=== PATIENT | female | born 1965 ===

== ENCOUNTER 2016-11-29 17:52 | Emergency (ER) | payer MEDICAID ==
[2016-11-29 17:52] VITALS: BMI 29.0
[2016-11-29 19:13] VITALS: RESP 18; O2SAT 95
--- NOTE | 2016-11-29 20:26 | C.PDOC ---
History Of Present Illness Pt c/o itchy rash on extremities. Time Seen by Provider: 11/29/16 18:41 Chief Complaint (Nursing): Abnormal Skin Integrity History Per: Patient Onset/Duration Of Symptoms: Days (3) Current Symptoms Are (Timing): Still Present Quality Of Symptoms: Itching Severity: Moderate Additional History Per: Prior Records Past Medical History Reviewed: Historical Data, Nursing Documentation, Vital Signs Vital Signs: Last Vital Signs Temp 99 F 11/29/16 19:12 Pulse 102 H 11/29/16 19:12 Resp 18 11/29/16 19:12 BP 144/91 H 11/29/16 19:12 Pulse Ox 95 11/29/16 19:12 - Medical History PMH: Anxiety, Arthritis, Asthma, Back Problems (herniated disc x 5), Bipolar Disorder, Bronchitis, CAD, Depression, Diabetes, Gastritis, Gall Bladder Disease , HTN, Hypercholesterolemia, Hypothyroidism, Migraine, Pneumonia, Post Traumatic Stress Disorder, Rheumatoid Arthritis, Seizures (last 25 yrs ago) Surgical History: Cholecystectomy, Coronary Stent - [facility] Procedures ANESTH INJECT-SPIN CANAL (02/17/13) CLOSURE SKIN & SUBCUTANEOUS NEC (01/29/13) DERMAL REGENERATIVE GRAFT (09/05/13) EXCISION OF ASCENDING COLON, ENDO, DIAGN (10/01/15) EXCISION OF DESCENDING COLON, ENDO, DIAGN (10/01/15) EXCISION OF RECTUM, ENDO, DIAGN (10/01/15) EXCISION OF SIGMOID COLON, ENDO, DIAGN (10/01/15) EXCISION OF TRANSVERSE COLON, ENDO, DIAGN (10/01/15) INJECT STEROID (03/31/13) INJECTION INTO JOINT (03/31/13) INSERTION OF INFUSION DEVICE INTO R ATRIUM, PERC APPROACH (10/01/15) LOC EXC BONE LESION NEC (08/11/13) LUMBOSAC SPINE X-RAY NEC (03/31/13) NONEXCIS DEBRID OF WOUND, INFECT, OR BURN (09/05/13) OTHER EXCISION, FUSION, AND REPAIR OF TOES (03/16/15) OTHER LOCAL DESTRUC SKIN (07/07/13) SPINAL CANAL INJECT NEC (03/31/13) TETANUS TOXOID ADMINIST (01/29/13) ULTRASONOGRAPHY OF RIGHT HEART (10/01/15) Family History: States: Unknown Family Hx, Diabetes - Social History Hx Tobacco Use: Yes Hx Alcohol Use: No Hx Substance Use: No - Immunization History Hx Tetanus Toxoid Vaccination: No Hx Influenza Vaccination: No Hx Pneumococcal Vaccination: No Review Of Systems Except As Marked, All Systems Reviewed And Found Negative. Constitutional: Negative for: Fever, Chills, Weakness ENT: Negative for: Mouth Pain, Mouth Swelling, Throat Pain, Throat Swelling Cardiovascular: Negative for: Chest Pain Respiratory: Negative for: Cough, Shortness of Breath Gastrointestinal: Negative for: Vomiting, Abdominal Pain, Diarrhea Musculoskeletal: Negative for: Neck Pain Skin: Positive for: Rash Neurological: Negative for: Weakness, Numbness, Seizures, Altered Mental Status , Headache Physical Exam - Physical Exam Appears: Non-toxic, No Acute Distress Skin: Normal Color, Warm, Dry, Rash (patches on b/l upper and lower extremities. Missing palms and soles. ) Head: Atraumatic, Normacephalic Eye(s): bilateral: Normal Inspection, PERRL, EOMI Oral Mucosa: Moist Tongue: Normal Appearing Lips: Normal Appearing Throat: Normal Neck: Normal ROM, Supple Lymphatic: No Adenopathy Cardiovascular: Rhythm Regular Respiratory: Normal Breath Sounds, No Accessory Muscle Use Gastrointestinal/Abdominal: Soft, No Tenderness Extremity: Normal ROM, No Pedal Edema, No Calf Tenderness Neurological/Psych: Oriented x3, Normal Motor, Normal Sensation ED Course And Treatment O2 Sat by Pulse Oximetry: 95 Pulse Ox Interpretation: Normal Progress - Interventions Interventions:: Observation - Medications Administered Oral: Antihistamine(H-1) - Data Reviewed Data Reviewed: Old records - Patient Status Patient status: Mostly improved - Continuity of Care Discussed patient case with:: Patient, ED Nurse - Patient Plan Patient Plan: Discharge, F/U with PCP Disposition Counseled Patient/Family Regarding: Diagnosis, Need For Followup, Rx Given - Disposition Referrals: Joni Moore MD [Staff Provider] - Disposition: HOME/ ROUTINE Disposition Time: 20:27 Condition: IMPROVED Additional Instructions: Follow up with your doctor and your Drum Sealer for further evaluation and treatment. Return to the ER if you develop fever, mouth sores, worsening of symptoms or if you have any other concerns. Prescriptions: DiphenhydrAMINE [Benadryl] 25 mg PO Q4 PRN #30 cap PRN Reason: Itching / Pruritus Hydrocortisone 1% Oint [Cortizone 1% Oint] 1 appl TP TID #1 tube Instructions: Acute Rash (ED) - Clinical Impression Clinical Impression: Pruritic rash
[2016-11-29 20:33] VITALS: BP 140/94; PULSE 100; TEMP 98.4
== END 2016-11-29 20:53 | disposition home or self-care (01) ==
LOC: C.ER 17:52
DX: L29.9 Pruritus, unspecified (principal)

== ENCOUNTER 2016-12-08 15:33 | Emergency (ER) | payer MEDICAID ==
[2016-12-08 15:33] VITALS: BMI 29.0
[2016-12-08 15:43] VITALS: RESP 20
--- NOTE | 2016-12-08 17:19 | C.PDOC ---
History Of Present Illness Pt c/o right foot pain. She was evaluated for it with an MRI that showed tendonitis and fasciitis. Time Seen by Provider: 12/08/16 16:16 Chief Complaint (Nursing): Lower Extremity Problem/Injury History Per: Patient Onset/Duration Of Symptoms: Days Current Symptoms Are (Timing): Still Present Severity: Moderate Additional History Per: Prior Records - Ankle/Foot Alleviating Factor(s): OTC Pain Medication Past Medical History Reviewed: Historical Data, Nursing Documentation, Vital Signs Vital Signs: Last Vital Signs Temp 97.8 F 12/08/16 15:40 Pulse 117 H 12/08/16 15:40 Resp 20 12/08/16 15:40 BP 127/90 12/08/16 15:40 Pulse Ox 97 12/08/16 15:40 - Medical History PMH: Anxiety, Arthritis, Asthma, Back Problems (herniated disc x 5), Bipolar Disorder, Bronchitis, CAD, Depression, Diabetes, Gastritis, Gall Bladder Disease , HTN, Hypercholesterolemia, Hypothyroidism, Migraine, Pneumonia, Post Traumatic Stress Disorder, Rheumatoid Arthritis, Seizures (last 25 yrs ago) Surgical History: Cholecystectomy, Coronary Stent - [facility] Procedures ANESTH INJECT-SPIN CANAL (02/17/13) CLOSURE SKIN & SUBCUTANEOUS NEC (01/29/13) DERMAL REGENERATIVE GRAFT (09/05/13) EXCISION OF ASCENDING COLON, ENDO, DIAGN (10/01/15) EXCISION OF DESCENDING COLON, ENDO, DIAGN (10/01/15) EXCISION OF RECTUM, ENDO, DIAGN (10/01/15) EXCISION OF SIGMOID COLON, ENDO, DIAGN (10/01/15) EXCISION OF TRANSVERSE COLON, ENDO, DIAGN (10/01/15) INJECT STEROID (03/31/13) INJECTION INTO JOINT (03/31/13) INSERTION OF INFUSION DEVICE INTO R ATRIUM, PERC APPROACH (10/01/15) LOC EXC BONE LESION NEC (08/11/13) LUMBOSAC SPINE X-RAY NEC (03/31/13) NONEXCIS DEBRID OF WOUND, INFECT, OR BURN (09/05/13) OTHER EXCISION, FUSION, AND REPAIR OF TOES (03/16/15) OTHER LOCAL DESTRUC SKIN (07/07/13) SPINAL CANAL INJECT NEC (03/31/13) TETANUS TOXOID ADMINIST (01/29/13) ULTRASONOGRAPHY OF RIGHT HEART (10/01/15) Family History: States: Unknown Family Hx, Diabetes - Social History Hx Tobacco Use: Yes Hx Alcohol Use: No Hx Substance Use: No - Immunization History Hx Tetanus Toxoid Vaccination: No Hx Influenza Vaccination: No Hx Pneumococcal Vaccination: No Review Of Systems Except As Marked, All Systems Reviewed And Found Negative. Constitutional: Negative for: Fever, Weakness Cardiovascular: Negative for: Chest Pain Respiratory: Negative for: Shortness of Breath Gastrointestinal: Negative for: Vomiting, Abdominal Pain Musculoskeletal: Positive for: Foot Pain (right). Negative for: Neck Pain, Back Pain Skin: Negative for: Rash Neurological: Negative for: Weakness, Numbness, Seizures, Altered Mental Status Physical Exam - Physical Exam Appears: Non-toxic, No Acute Distress Skin: Normal Color, Warm, Dry, No Rash Head: Atraumatic, Normacephalic Eye(s): bilateral: PERRL, EOMI Neck: Normal ROM, Supple Extremity: Normal ROM, Tenderness (nonspecific right foot), No Pedal Edema, No Calf Tenderness, Capillary Refill (wnl), No Deformity, No Swelling Extremity: Bilateral: Normal Color And Temperature Pulses: Right Dorsalis Pedis: Normal Neurological/Psych: Oriented x3, Normal Motor, Normal Sensation ED Course And Treatment O2 Sat by Pulse Oximetry: 97 Pulse Ox Interpretation: Normal Progress Note: Pt feels better after Ice and Toradol. Pt has crutches at home. Pt has an appointment at [facility] for evaluation of her foot. Reassessment Condition: Improved Disposition Counseled Patient/Family Regarding: Diagnosis, Need For Followup - Disposition Referrals: Joni Moore MD [Staff Provider] - Michael Syed DPM [Staff Provider] - Disposition: HOME/ ROUTINE Disposition Time: 17:20 Condition: IMPROVED Additional Instructions: Use crutches to stay off right foot. Follow up for further evaluation and treatment as already scheduled. Return to the ER if you develop redness, swelling, weakness, numbness, worsening of symptoms or if you have any other concerns. Instructions: Plantar Fasciitis (ED) - Clinical Impression Clinical Impression: Right foot pain
[2016-12-08 17:29] VITALS: BP 150/88; PULSE 109; TEMP 98.2; O2SAT 96
== END 2016-12-08 17:29 | disposition home or self-care (01) ==
LOC: C.ER 15:33
DX: M79.671 Pain in right foot (principal)
CPT/HCPCS: 96372; 99284; J1885

== ENCOUNTER 2016-12-15 07:22 | Observation (INO) | payer MEDICAID ==
[2016-12-15 07:22] VITALS: BMI 29.0
--- NOTE | 2016-12-15 07:49 | C.PDOC ---
History Of Present Illness 51 y/o female, whose PMHx includes depression, hypertension, and diabetes, presents to the ED complaining of lower abdominal pain since yesterday. She states, I've "never had it bad like this before." Patient admits to nausea and vomiting but denies fever. Patient has surgical history of hysterectomy and c- section. Also history of cholecystectomy, stent, as per prior records though patient does not report this during exam. Note that the patient is a poor historian, limited due to clinical condition. POOR HISTORIAN, LIMITED DUE TO CLIN COND LOWER ABD PAIN SINCE YEST. "NEVER HAD IT BAD LIKE THIS". +NV. NO FEVER. PSH HYST , CSECT. HO HAY, STENT PER PRIOR RECORDS THOUGH PT DOES NOT REPORT THIS DURING EXAM. past medical history includes depression, hypertension, diabetes, ROS LIMITED EXAM MOD DIST NONTOXIC HEENT NEG ABD +B/L LQ, PERIUMB TEND SOFT NO R/G. PT DISTRACTABLE FROM EXAM REMAINDER NEG Time Seen by Provider: 12/15/16 07:37 Chief Complaint (Nursing): Abdominal Pain History Per: Patient History/Exam Limitations: no limitations Onset/Duration Of Symptoms: Days (1), Persistent Current Symptoms Are (Timing): Still Present Location Of Pain/Discomfort: RLQ, LLQ Radiation Of Pain To:: None Quality Of Discomfort: Sharp Associated Symptoms: Nausea, Vomiting Recent travel outside of the [place]: No Past Medical History Reviewed: Historical Data, Nursing Documentation, Vital Signs Vital Signs: Last Vital Signs Temp 98.9 F 12/15/16 13:27 Pulse 78 12/15/16 13:27 Resp 22 12/15/16 13:27 BP 131/88 12/15/16 13:27 Pulse Ox 96 12/15/16 13:45 - Medical History PMH: Anxiety, Arthritis, Asthma, Back Problems (herniated disc x 5), Bipolar Disorder, Bronchitis, CAD, Depression, Diabetes, Gastritis, Gall Bladder Disease , HTN, Hypercholesterolemia, Hypothyroidism, Migraine, Pneumonia, Post Traumatic Stress Disorder, Rheumatoid Arthritis, Seizures (last 25 yrs ago) Surgical History: Cholecystectomy, Coronary Stent - [facility] Procedures ANESTH INJECT-SPIN CANAL (02/17/13) CLOSURE SKIN & SUBCUTANEOUS NEC (01/29/13) DERMAL REGENERATIVE GRAFT (09/05/13) EXCISION OF ASCENDING COLON, ENDO, DIAGN (10/01/15) EXCISION OF DESCENDING COLON, ENDO, DIAGN (10/01/15) EXCISION OF RECTUM, ENDO, DIAGN (10/01/15) EXCISION OF SIGMOID COLON, ENDO, DIAGN (10/01/15) EXCISION OF TRANSVERSE COLON, ENDO, DIAGN (10/01/15) INJECT STEROID (03/31/13) INJECTION INTO JOINT (03/31/13) INSERTION OF INFUSION DEVICE INTO R ATRIUM, PERC APPROACH (10/01/15) LOC EXC BONE LESION NEC (08/11/13) LUMBOSAC SPINE X-RAY NEC (03/31/13) NONEXCIS DEBRID OF WOUND, INFECT, OR BURN (09/05/13) OTHER EXCISION, FUSION, AND REPAIR OF TOES (03/16/15) OTHER LOCAL DESTRUC SKIN (07/07/13) SPINAL CANAL INJECT NEC (03/31/13) TETANUS TOXOID ADMINIST (01/29/13) ULTRASONOGRAPHY OF RIGHT HEART (10/01/15) Family History: States: Diabetes - Social History Hx Tobacco Use: Yes Hx Alcohol Use: No Hx Substance Use: No - Immunization History Hx Tetanus Toxoid Vaccination: No Hx Influenza Vaccination: No Hx Pneumococcal Vaccination: No Review Of Systems Review Of Systems: ROS cannot be obtained secondary to pt's inabilty to answer questions. Constitutional: Negative for: Fever Gastrointestinal: Positive for: Nausea, Vomiting, Abdominal Pain (lower) Physical Exam - Physical Exam Appears: Non-toxic, Other (in moderate distress) Skin: Normal Color, Warm, Dry, No Rash Head: Atraumatic, Normacephalic Eye(s): bilateral: Normal Inspection, PERRL Ear(s): Bilateral: Normal Nose: Normal Oral Mucosa: Moist Throat: Normal, No Erythema, No Exudate Neck: Normal ROM, Supple Chest: Symmetrical Cardiovascular: Rhythm Regular Respiratory: Normal Breath Sounds, No Rales, No Rhonchi, No Wheezing Gastrointestinal/Abdominal: Soft, Tenderness (bilateral lower quadrants and periumbilical), No Guarding, No Rebound, Other (pt distractable from exam) Back: Normal Inspection, No CVA Tenderness Extremity: Normal ROM, No Tenderness, No Swelling Neurological/Psych: Oriented x3, Normal Speech, Normal Cognition, Normal Motor, Normal Sensation ED Course And Treatment - Laboratory Results Result Diagrams: 12/15/16 08:07 12/15/16 08:07 ECG: Interpreted By Me ECG Rhythm: Sinus Tachycardia Rate From EC (bpm) O2 Sat by Pulse Oximetry: 96 (ra) Pulse Ox Interpretation: Normal - Radiology CXR: Interpreted by Me CXR Interpretation: Yes: Other (negative, unchanged from prior) - CT Scan/US CT Abd/Pelvis Other Rad Studies (CT/US): Read By Radiologist (Chace Forrest), Radiology Report Reviewed CT/US Interpretation: FINDINGS: LOWER THORAX: No evidence of acute pathology at the lung bases. Mild atelectasis seen. No evidence of pleural effusion. LIVER: Mild hepatomegaly and moderate hepatic steatosis are again seen. The portal vein is patent. GALLBLADDER AND BILE DUCTS: Status post cholecystectomy. PANCREAS: Unremarkable. No gross lesion or ductal dilatation. SPLEEN: Unremarkable. ADRENALS: Unremarkable. No mass. KIDNEYS AND URETERS: Unremarkable. No hydronephrosis. No solid mass. VASCULATURE: Unremarkable. No aortic aneurysm. BOWEL: Diffuse small bowel wall thickening more prominent at the left mid to lower abdomen suspicious for enteritis. No evidence of colitis or high-grade bowel obstruction. Colonic diverticulosis seen without evidence of diverticulitis. APPENDIX: Normal appendix. PERITONEUM: Unremarkable. No free fluid. No free air. LYMPH NODES: Unremarkable. No enlarged lymph nodes. BLADDER: Unremarkable. REPRODUCTIVE: Again seen is low-attenuation cystic lesion at the right ovary measures 1.9 centimeter. The uterus is not visualized. The right adnexa is also not visualized. BONES: No acute fracture. OTHER FINDINGS: None. IMPRESSION: Diffuse small bowel wall thickening more prominent at the left mid abdomen suspicious for enteritis. No evidence of high-grade bowel obstruction. No evidence of appendicitis. Re- demonstration of low-attenuation lesion at the right adnexa measures 1.9 centimeter. Colonic diverticulosis without evidence of diverticulitis. Hepatomegaly and moderate hepatic steatosis. Ultrasound Other Rad Studies (CT/US): Read By Radiologist ( Toby Landeros MD), Radiology Report Reviewed CT/US Interpretation: Findings: No free fluid in the pelvic cul-de-sac. Patient status post prior hysterectomy and left oophorectomy. Right ovary measures 4.1 x 2.5 x 3.7 centimeters. Normal flow. Two hypoechoic cysts seen within the right ovary both of which demonstrates some internal echoes measuring 1.5 x 1.3 x 1.9 centimeters and 1.6 x 1.2 x 1.6 centimeters respectively. Impression: Two hypoechoic cysts with internal echoes seen at the level of the right adnexum measuring up to 1.9 and 1.6 centimeters respectively. Right ovary appears prominent measuring up to 4.1 centimeters. 4- 6 week interval followup would be helpful for continued evaluation. Alternatively, correlation with pelvic MRI may be helpful if clinically indicated. Progress - Data Reviewed Data Reviewed: Lab, Diagnostic imaging, Old records - Critical Care Citical Care: Excluding Proc Time Critical Care Time: 90 minutes - Continuity of Care Discussed patient case with:: Patient, Family-HIPPA compliant Discussed pt. case with field sales consultant/specialty: Pulmonary/Crit. Care Medical Decision Making Medical Decision Making: Plan: * CT Abd/Pelvis * Ultrasound * Chest X-Ray * EKG * Blood Work * Urinalysis * Morphine IVP, Pepcid IVP, Zofran IVP, Zosyn IV, Potassium Chloride IV, IV Fluids Patient admitted under the care of Dr. Joni Moore. ED OBSERVATION Discharge: Yes Date of observation admission: 12/15/16 Time of observation admission: 07:45 - Observation admission statement Patient is being placed in observation because:: abd pain, nv - Goals of Observation Goals of observation are:: NEG ACUTE AB, SX IMPROVE - Progress Note Progress Note: 12/15/16 08:33 CODE SEPSIS ACTIVATED. EXAM UNCH 12/15/16 11:17 APEPARS COMFORTABLE VSS. PENDING CT. US REPORT REVIEWED. PENDING CALLBACK ICU, PMD 12/15/16 11:21 D/W DR LIU C/F ICU: WILL EVAL IN ER D/W DR MOORE: HO ABN WBC FOR SEV MONTHS. CONFIRMS PT W PRIOR DISTANT HO OVARIAN CA. CONSULT DR SHARYN NEVAREZ 12/15/16 13:[address] LIU EXAM UNCH FROM PRIOR, APPEARS COMFORTABLE VSS 12/15/16 14:18 PS DOES NOT WISH ADMISSION, WANTS TO LEAVE AMA. AWARE OF ER FINDINGS, DISCUSSED RISKS BENEFITS OF LEAVING INCLUDING DISABILITY, DETERIORATION AND . AO3, CLEAR SPEECH AND THOUGHT. EXPRESSES VERBAL UNDERSTANDING. ADVISED FU PMD Disposition Counseled Patient/Family Regarding: Studies Performed, Diagnosis - Disposition Disposition: HOSPITALIZED Disposition Time: 13:26 Condition: STABLE - Clinical Impression Clinical Impression: Abdominal pain, Ovarian mass, Lymphocytosis - Scribe Statement The provider has reviewed the documentation as recorded by the Scribe (Vika Patterson) Provider Attestation: All medical record entries made by the Scribe were at my direction and personally dictated by me. I have reviewed the chart and agree that the record accurately reflects my personal performance of the history, physical exam, medical decision making, and the department course for this patient. I have also personally directed, reviewed, and agree with the discharge instructions and disposition. Decision To Admit - Pt Status Changed To: Hospital Disposition Of: Inpatient - Admit Certification Admit to Inpatient:: After my assessment, the patient will require hospitalization for at least two midnights. This is because of the severity of symptoms shown, intensity of services needed, and/or the medical risk in this patient being treated as an outpatient. - InPatient: Physician Admission Certification:: SEE NOTE - . Bed Request Type: Telemetry Admitting Physician: Joni Moore Patient Diagnosis: Abdominal pain, Ovarian mass, Lymphocytosis
[2016-12-15] MEDS ORDERED: Sodium Chloride 0.9% 1,000 ML IV ONE (07:51)
[2016-12-15] MEDS ORDERED: Iohexol 240 (50 ml) PO STA (07:51)
[2016-12-15] MEDS ORDERED: Sodium Chloride 0.9% 1,000 ML ONE ×2 (08:08→08:46)
[2016-12-15] MEDS ORDERED: Morphine 4 MG/ML VIAL ONE (08:09)
[2016-12-15 08:13] LABS: BASO # 0.1 K/uL (0.0-0.2); BASO % 0.5 % (0.0-2.0); EOS # 0.2 K/uL (0.0-0.7); EOS % 0.6 % (0.0-4.0); HEMATOCRIT 46.8 % (34.0-47.0); LYMPH # 1.6 K/uL (1.0-4.3); LYMPH % 5.3 % (20.0-40.0); MEAN CELL VOLUME 87.2 fL (81.0-99.0); MEAN CORPUSCULAR HEMOGLOBIN 28.3 pg (27.0-31.0); MEAN CORPUSCULAR HGB CONC 32.4 g/dL (33.0-37.0); MEAN PLATELET VOLUME 9.2 fL (7.2-11.7); MONO # 1.6 K/uL (0.0-0.8); MONO % 5.3 % (0.0-10.0); NRBC % 0.3 % (0.0-2.0); PLATELET COUNT 283 K/uL (130-400); RED CELL DISTRIBUTION WIDTH 13.3 % (11.5-14.5)
[2016-12-15 08:23] LABS: CHLORIDE 101 mmol/L (98-107); WHITE BLOOD COUNT 30.3 K/uL (4.8-10.8)
[2016-12-15 08:24] LABS: POTASSIUM 3.2 mmol/L (3.6-5.2); SODIUM 137 mmol/L (132-148)
[2016-12-15 08:26] LABS: ALB/GLOB RATIO 1.4 (1.0-2.1); ALKALINE PHOSPHATASE 109 U/L (38-126); ALT/SGPT 17 U/L (9-52); AST/SGOT 22 U/L (14-36); BILIRUBIN,TOTAL 1.2 mg/dL (0.2-1.3); BLOOD UREA NITROGEN 18 mg/dL (7-17); CARBON DIOXIDE 19 mmol/L (22-30); GFR AFRICAN-AMERICAN > 60; GLUCOSE,RANDOM 286 mg/dL (65-105); TOTAL PROTEIN 7.7 g/dL (6.3-8.3)
[2016-12-15 08:27] LABS: CALCIUM 9.3 mg/dl (8.6-10.4)
--- NOTE | 2016-12-15 08:28 | RAD ---
PROCEDURE: CHEST RADIOGRAPH, 1 VIEW HISTORY: Abdominal pain COMPARISON: 10/18/2016 FINDINGS: LUNGS: Mild venous congestion. PLEURA: No pneumothorax or pleural fluid seen. CARDIOVASCULAR: Normal. OSSEOUS STRUCTURES: Minimal calcific tendinopathy of the right proximal humerus. VISUALIZED UPPER ABDOMEN: Normal. OTHER FINDINGS: None. IMPRESSION: Mild venous congestion.
[2016-12-15] MEDS ORDERED: Potassium Chloride 10 mEq 100 ML IV ONE (08:30)
[2016-12-15 08:31] LABS: VENOUS BLOOD GAS BASE EXCESS -3.9 mmol/L (0.0-2.0); VENOUS BLOOD GAS PCO2 29 mmHg (40-60); VENOUS BLOOD PH 7.43 (7.32-7.43)
[2016-12-15 08:38] LABS: EOSINOPHIL 1 % (0-4); NEUTROPHIL 83 % (50-75); TOTAL CELLS COUNTED 100
[2016-12-15 08:40] LABS: LARGE PLATELETS PRESENT
[2016-12-15] MEDS ORDERED: Piperacillin/Tazobact 3.375 gm 100 ML IV STA (08:44)
[2016-12-15] MEDS ORDERED: Sodium Chloride 0.9% 500 ML IV ONE (08:46)
[2016-12-15] MEDS ORDERED: Potassium Chloride 10 mEq 100 ML IVPB ONE (08:47)
[2016-12-15 08:58] LABS: MAGNESIUM 1.7 mg/dL (1.6-2.3); PHOSPHOROUS 3.2 mg/dL (2.5-4.5)
[2016-12-15 09:05] LABS: INR 0.9
[2016-12-15] MEDS ORDERED: Piperacillin/Tazobact 3.375 gm 100 ML IVPB ONE (10:08)
[2016-12-15] MEDS ORDERED: Iohexol 240 (50 ml) ONE (10:18)
[2016-12-15 10:54] LABS: RBC URINE 3 /hpf (0-3); URINE BACTERIA RARE (<OCC); URINE BILIRUBIN NEGATIVE (NEGATIVE); URINE BLOOD 1+ (NEGATIVE); URINE COLOR Yellow (YELLOW); URINE GLUCOSE (UA) 3+ mg/dL (Normal); URINE KETONE TRACE mg/dL (NEGATIVE); URINE LEUKOCYTE ESTERASE NEG Leu/uL (Negative); URINE PROTEIN NEGATIVE (NEGATIVE); URINE UROBILINOGEN NORMAL mg/dL (0.2-1.0); WBC URINE 1 /hpf (0-5)
--- NOTE | 2016-12-15 11:12 | US ---
Pelvic ultrasound History: Ovarian mass. Comparison: CT scan dated 12/12/2016 Technique: Real-time sonography was performed through the pelvis utilizing transvaginal technique. Findings: No free fluid in the pelvic cul-de-sac. Patient status post prior hysterectomy and left oophorectomy. Right ovary measures 4.1 x 2.5 x 3.7 centimeters. Normal flow. Two hypoechoic cysts seen within the right ovary both of which demonstrates some internal echoes measuring 1.5 x 1.3 x 1.9 centimeters and 1.6 x 1.2 x 1.6 centimeters respectively. Impression: Two hypoechoic cysts with internal echoes seen at the level of the right adnexum measuring up to 1.9 and 1.6 centimeters respectively. Right ovary appears prominent measuring up to 4.1 centimeters. 4-6 week interval followup would be helpful for continued evaluation. Alternatively, correlation with pelvic MRI may be helpful if clinically indicated.
[2016-12-15 11:56] LABS: VENOUS BLOOD GAS PCO2 37 mmHg (40-60); VENOUS BLOOD PH 7.31 (7.32-7.43)
[2016-12-15] MEDS ORDERED: Iodixanol 320 mg/ml 150 ml Bottle IV ONE (11:59)
[2016-12-15 13:28] VITALS: BP 131/88; PULSE 78; RESP 22; TEMP 98.9
[2016-12-15 13:30] VITALS: O2SAT 96
--- NOTE | 2016-12-15 13:33 | CT ---
PROCEDURE: CT Abdomen and Pelvis with contrast HISTORY: abd pain RO OBSTRUCT COMPARISON: Comparison is made to the previous study dated 12/12/2016 previous same-day ultrasound of the pelvis. TECHNIQUE: Contrast dose: 100 mL of Visipaque Radiation dose: Total exam DLP = 1027.0 mGy-cm. This CT exam was performed using one or more of the following dose reduction techniques: Automated exposure control, adjustment of the mA and/or kV according to patient size, and/or use of iterative reconstruction technique. FINDINGS: LOWER THORAX: No evidence of acute pathology at the lung bases. Mild atelectasis seen. No evidence of pleural effusion LIVER: Mild hepatomegaly and moderate hepatic steatosis are again seen. The portal vein is patent. GALLBLADDER AND BILE DUCTS: Status post cholecystectomy. PANCREAS: Unremarkable. No gross lesion or ductal dilatation. SPLEEN: Unremarkable. ADRENALS: Unremarkable. No mass. KIDNEYS AND URETERS: Unremarkable. No hydronephrosis. No solid mass. VASCULATURE: Unremarkable. No aortic aneurysm. BOWEL: Diffuse small bowel wall thickening more prominent at the left mid to lower abdomen suspicious for enteritis. No evidence of colitis or high-grade bowel obstruction. Colonic diverticulosis seen without evidence of diverticulitis. APPENDIX: Normal appendix. PERITONEUM: Unremarkable. No free fluid. No free air. LYMPH NODES: Unremarkable. No enlarged lymph nodes. BLADDER: Unremarkable. REPRODUCTIVE: Again seen is low-attenuation cystic lesion at the right ovary measures 1.9 centimeter. The uterus is not visualized. The right adnexa is also not visualized. BONES: No acute fracture. OTHER FINDINGS: None. IMPRESSION: Diffuse small bowel wall thickening more prominent at the left mid abdomen suspicious for enteritis. No evidence of high-grade bowel obstruction. No evidence of appendicitis. Re- demonstration of low-attenuation lesion at the right adnexa measures 1.9 centimeter. Colonic diverticulosis without evidence of diverticulitis. Hepatomegaly and moderate hepatic steatosis.
--- NOTE | 2016-12-18 08:34 | CARD ---
APPROVED REPORT EKG Measurement Heart [id number] <Conclusion> Sinus tachycardia Right atrial enlargement Borderline ECG
== END 2016-12-15 14:24 | disposition left against medical advice (07) ==
LOC: C.ER 07:22 → C.9OBSV 07:45 → OBSVTOIN 13:30 → C.9OBSV 13:30 → C.9E 13:30 → INTOOBSV 13:30
PROVIDERS: ADMIT Family Medicine; ATTEND Family Medicine
DX: R19.09 Other intra-abdominal and pelvic swelling, mass and lump (principal); D72.820 Lymphocytosis (symptomatic); E03.9 Hypothyroidism, unspecified; Z87.891 Personal history of nicotine dependence
CPT/HCPCS: 36415; 71010; 74177; 76830; 80053; 81001; 82803; 82948; 83690; 83735; 84100; 85025; 85610; 85730; 87040; 87045; 87086; 87230; 96360; 96374; G0378; J2270; J2405; J2543; J3480; J7040; Q9965; Q9966

== ENCOUNTER 2016-12-16 10:03 | Inpatient (IN) | payer MEDICAID ==
[2016-12-16 10:03] VITALS: BMI 29.0
[2016-12-16] MEDS ORDERED: Sodium Chloride 0.9% 1,000 ML IV ONE (10:47)
[2016-12-16 10:49] LABS: VENOUS BLOOD GAS BASE EXCESS -1.7 mmol/L (0.0-2.0); VENOUS BLOOD GAS PCO2 34 mmHg (40-60); VENOUS BLOOD PH 7.42 (7.32-7.43)
[2016-12-16 10:54] LABS: CHLORIDE 104 mmol/L (98-107); SODIUM 137 mmol/L (132-148)
[2016-12-16 10:55] LABS: POTASSIUM 3.8 mmol/L (3.6-5.2)
[2016-12-16 10:57] LABS: ALB/GLOB RATIO 1.4 (1.0-2.1); ALKALINE PHOSPHATASE 98 U/L (38-126); ALT/SGPT 13 U/L (9-52); AST/SGOT 24 U/L (14-36); BILIRUBIN,TOTAL 0.4 mg/dL (0.2-1.3); BLOOD UREA NITROGEN 9 mg/dL (7-17); CALCIUM 8.7 mg/dl (8.6-10.4); CARBON DIOXIDE 20 mmol/L (22-30); GFR AFRICAN-AMERICAN > 60; GLUCOSE,RANDOM 238 mg/dL (65-105); PHOSPHOROUS 3.2 mg/dL (2.5-4.5); TOTAL PROTEIN 6.8 g/dL (6.3-8.3)
[2016-12-16] MEDS ORDERED: Sodium Chloride 0.9% 1,000 ML ONE (10:58)
[2016-12-16] MEDS ORDERED: Morphine 4 MG/ML VIAL ONE (10:58)
[2016-12-16 10:59] LABS: BASO # 0.1 K/uL (0.0-0.2); BASO % 0.4 % (0.0-2.0); EOS # 0.2 K/uL (0.0-0.7); EOS % 1.2 % (0.0-4.0); HEMATOCRIT 41.2 % (34.0-47.0); LYMPH # 2.7 K/uL (1.0-4.3); LYMPH % 16.6 % (20.0-40.0); MEAN CELL VOLUME 87.8 fL (81.0-99.0); MEAN CORPUSCULAR HEMOGLOBIN 28.4 pg (27.0-31.0); MEAN CORPUSCULAR HGB CONC 32.3 g/dL (33.0-37.0); MEAN PLATELET VOLUME 9.2 fL (7.2-11.7); NRBC % 0.1 % (0.0-2.0); RED CELL DISTRIBUTION WIDTH 13.3 % (11.5-14.5); WHITE BLOOD COUNT 16.6 K/uL (4.8-10.8)
--- NOTE | 2016-12-16 11:23 | C.PDOC ---
History Of Present Illness Patient is 51 year old female who was sent to the ER yesterday by PMD Dr. Moore for admission. Patient was seen yesterday but did not want to be admitted but is willing to be admitted today. Patient reports abdominal pain, nausea, vomiting, diarrhea and fever in the AM. 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 Denies any chest pain or shortness of breath. Time Seen by Provider: 12/16/16 10:18 Chief Complaint (Nursing): Abdominal Pain History Per: Patient History/Exam Limitations: no limitations Onset/Duration Of Symptoms: Days Current Symptoms Are (Timing): Still Present Location Of Pain/Discomfort: Other (Abdominal) Associated Symptoms: Fever, Nausea, Vomiting, Diarrhea Past Medical History Reviewed: Historical Data, Nursing Documentation, Vital Signs Vital Signs: Last Vital Signs Temp 98.0 F 12/16/16 12:04 Pulse 88 12/16/16 16:01 Resp 18 12/16/16 16:01 BP 133/59 L 12/16/16 16:01 Pulse Ox 99 12/16/16 16:01 - Medical History PMH: Anxiety, Arthritis, Asthma, Back Problems (herniated disc x 5), Bipolar Disorder, Bronchitis, CAD, Depression, Diabetes, Gastritis, Gall Bladder Disease , HTN, Hypercholesterolemia, Hypothyroidism, Migraine, Pneumonia, Post Traumatic Stress Disorder, Rheumatoid Arthritis, Seizures (last 25 yrs ago) Surgical History: Cholecystectomy, Coronary Stent - [facility] Procedures ANESTH INJECT-SPIN CANAL (02/17/13) CLOSURE SKIN & SUBCUTANEOUS NEC (01/29/13) DERMAL REGENERATIVE GRAFT (09/05/13) EXCISION OF ASCENDING COLON, ENDO, DIAGN (10/01/15) EXCISION OF DESCENDING COLON, ENDO, DIAGN (10/01/15) EXCISION OF RECTUM, ENDO, DIAGN (10/01/15) EXCISION OF SIGMOID COLON, ENDO, DIAGN (10/01/15) EXCISION OF TRANSVERSE COLON, ENDO, DIAGN (10/01/15) INJECT STEROID (03/31/13) INJECTION INTO JOINT (03/31/13) INSERTION OF INFUSION DEVICE INTO R ATRIUM, PERC APPROACH (10/01/15) LOC EXC BONE LESION NEC (08/11/13) LUMBOSAC SPINE X-RAY NEC (03/31/13) NONEXCIS DEBRID OF WOUND, INFECT, OR BURN (09/05/13) OTHER EXCISION, FUSION, AND REPAIR OF TOES (03/16/15) OTHER LOCAL DESTRUC SKIN (07/07/13) SPINAL CANAL INJECT NEC (03/31/13) TETANUS TOXOID ADMINIST (01/29/13) ULTRASONOGRAPHY OF RIGHT HEART (10/01/15) Family History: States: Unknown Family Hx, Diabetes - Social History Hx Tobacco Use: Yes Hx Alcohol Use: No Hx Substance Use: No - Immunization History Hx Tetanus Toxoid Vaccination: No Hx Influenza Vaccination: No Hx Pneumococcal Vaccination: No Review Of Systems Constitutional: Positive for: Fever Cardiovascular: Negative for: Chest Pain Respiratory: Negative for: Shortness of Breath Gastrointestinal: Positive for: Nausea, Vomiting, Abdominal Pain, Diarrhea Physical Exam - Physical Exam Appears: Non-toxic, Other (Painful distress) Skin: Normal Color, Warm, Dry Head: Atraumatic, Normacephalic Oral Mucosa: Moist Chest: Symmetrical, No Tenderness Cardiovascular: Rhythm Regular, No Murmur Respiratory: Normal Breath Sounds, No Rales, No Rhonchi, No Wheezing Gastrointestinal/Abdominal: Soft, Tenderness (RUQ) Neurological/Psych: Oriented x3, Normal Speech, Other (No focal deficits) ED Course And Treatment - Laboratory Results Result Diagrams: 12/16/16 10:38 12/16/16 10:38 ECG: Interpreted By Me, Viewed By Me ECG Rhythm: Sinus Rhythm (Normal) ECG Interpretation: Normal Interpretation Of ECG: Normal axis. No ST-T changes. No acute changes from . Rate From EC O2 Sat by Pulse Oximetry: 95 (Room air) Pulse Ox Interpretation: Normal - Other Rad CXR X-Ray: Viewed By Me, Read By Radiologist Interpretation: HISTORY: Sepsis Patient . Technique: Single view portable semi erect @ 10:45. COMPARISON: December 15, 2016. FINDINGS: LUNGS: No active pulmonary disease. PLEURA: No significant pleural effusion identified, no pneumothorax apparent. CARDIOVASCULAR: No radiographic findings to suggest acute or significant cardiovascular disease. OSSEOUS STRUCTURES: No significant abnormalities. VISUALIZED UPPER ABDOMEN: Normal. OTHER FINDINGS: None. IMPRESSION: No active disease. No significant interval change compared to the prior examination(s). Medical Decision Making Medical Decision Making: Impression: 51 y.o female with abdominal pain and vomiting Plan: * CBC * CXR Prior record reviewed: Patient was seen in ED yesterday and code sepsis was activated, patient was to be admitted to ICU for abdominal pain, ovarian mass and lympocytosis. Progress: 11:[address] Joni Moore and discussed case, he was aware patient signed out AMA yesterday and called patient to report to ER for admission. Patient to be admitted to his service CXR IMPRESSION: No active disease. No significant interval change compared to the prior examination(s). Disposition - Disposition Disposition: HOSPITALIZED Disposition Time: 11:37 Condition: FAIR - POA Present On Arrival: Poor Glycemic Control - Clinical Impression Clinical Impression: Ovarian mass, Abdominal pain Decision To Admit - Pt Status Changed To: Hospital Disposition Of: Inpatient - Admit Certification Admit to Inpatient:: After my assessment, the patient will require hospitalization for at least two midnights. This is because of the severity of symptoms shown, intensity of services needed, and/or the medical risk in this patient being treated as an outpatient. - InPatient: Physician Admission Certification:: Patient with acute abdominal pain, leukocytosis. See chart - . Bed Request Type: Regular Admitting Physician: Joni Moore Patient Diagnosis: Ovarian mass, Abdominal pain
[2016-12-16 12:16] LABS: RBC URINE 3 /hpf (0-3); URINE BILIRUBIN NEGATIVE (NEGATIVE); URINE BLOOD NEGATIVE (NEGATIVE); URINE COLOR Yellow (YELLOW); URINE GLUCOSE (UA) 3+ mg/dL (Normal); URINE KETONE NEGATIVE (NEGATIVE); URINE LEUKOCYTE ESTERASE NEG Leu/uL (Negative); URINE PROTEIN NEGATIVE (NEGATIVE); URINE UROBILINOGEN NORMAL mg/dL (0.2-1.0); WBC URINE 3 /hpf (0-5)
--- NOTE | 2016-12-16 12:57 | RAD ---
HISTORY: Sepsis Patient . Technique: Single view portable semi erect @ 10:45. COMPARISON: December 15, 2016. FINDINGS: LUNGS: No active pulmonary disease. PLEURA: No significant pleural effusion identified, no pneumothorax apparent. CARDIOVASCULAR: No radiographic findings to suggest acute or significant cardiovascular disease. OSSEOUS STRUCTURES: No significant abnormalities. VISUALIZED UPPER ABDOMEN: Normal. OTHER FINDINGS: None. IMPRESSION: No active disease. No significant interval change compared to the prior examination(s).
--- NOTE | 2016-12-16 21:11 | CP.PCM.HP ---
History of Present Illness - History of Present Illness History of Present Illness: cc: abdom pain, nausea, vomiting; 30K WBC ct HPI: Pt is a 51 y/o female with many co-morbidities amongst which are DM, HTN, chronic pain from previous foot surgeries as well as onigoing pain from suspected plantar fasciitis, as well as on and off episodes of abdom pain with or without diarrhea or constipation. When last seen at the office 1.5 weeks ago , pt had complained of a recurrent skin rash that often subsides after a short course of steroids. Pt was diagnosed with psoriasis in the past but no definitive treatment had been pursued. Pt also takes narcotic pain meds chronically for multi-level disc herniations which frequently cause her pain. Pt also has a PMHx of ovarian CA s/p L oophorectdomy. Pt recently advised to see an oncologist for persistent leukocytosis since about last fall. Pt had never complained of any fevers or symptoms of sepsis. I was called on Thursday evening about pt's presence at the ER which would likely result in an admission. Since various tests were still awaiting results, I opted for a call back when all tests results were in and I can have a complete picture of odilia 's status. Unfortunately, pt decided to go home AMA. > When i found out what happened overnight, I called pt immeduately at home and advised her to go back to the hospital as her CT scan results did not look good and she needed further work up. tt proceeded back to the hospital and was subsequently admitted. Present on Admission - Present on Admission Any Indicators Present on Admission: No History of DVT/PE: No History of Uncontrolled Diabetes: Yes Urinary Catheter: No Decubitus Ulcer Present: No Review of Systems - Review of Systems Systems not reviewed;Unavailable: Acuity of Condition - Constitutional Constitutional: Anorexia, Chills, Excessive Sweating - EENT Eyes: As Per HPI - Gastrointestinal Gastrointestinal: Abdominal Pain, Belching, Bloating, Dyspepsia Past Patient History - Infectious Disease Hx of Infectious Diseases: None - Tetanus Immunizations Tetanus Immunization: Unknown - Past Medical History & Family History Past Medical History?: Yes - Past Social History Smoking Status: Light Smoker < 10 Cigarettes Daily Chewing Tobacco Use: No Cigar Use: No Alcohol: Social Drugs: Denies - CARDIAC Hx Cardiac Disorders: No Hx Hypercholesterolemia: Yes Hx Hypertension: Yes - PULMONARY Hx Asthma: Yes Hx Bronchitis: Yes Hx Pneumonia: Yes - NEUROLOGICAL Hx Migraine: Yes Hx Seizures: Yes (last 25 yrs ago) - HEENT Hx HEENT Problems: No Hx Blind: No Hx Cataracts: No Hx Deafness: No Hx Difficulty Chewing: No Hx Epistaxis: No Hx Glaucoma: No Hx Macular Degeneration: No - ENDOCRINE/METABOLIC Hx Hypothyroidism: Yes - INTEGUMENTARY Hx Dermatological Problems: Yes Hx Eczema: Yes - MUSCULOSKELETAL/RHEUMATOLOGICAL Hx Arthritis: Yes Hx Falls: No Hx Rheumatoid Arthritis: Yes - GASTROINTESTINAL Hx Gall Bladder Disease: Yes Hx Gastritis: Yes - PSYCHIATRIC Hx Anxiety: Yes Hx Bipolar Disorder: Yes Hx Depression: Yes Hx Post Traumatic Stress Disorder: Yes Hx Substance Use: No - SURGICAL HISTORY Hx Cholecystectomy: Yes Hx Coronary Stent: Yes - ANESTHESIA Hx Anesthesia: Yes Hx Anesthesia Reactions: No Hx Malignant Hyperthermia: No Meds Allergies/Adverse Reactions: Allergies Allergy/AdvReac Type Severity Reaction Status Date / Time No Known Allergies Allergy Verified 12/16/16 10:09 Physical Exam - Constitutional Appears: Toxic, In Acute Distress - Head Exam Head Exam: ATRAUMATIC, NORMAL INSPECTION, NORMOCEPHALIC - Eye Exam Eye Exam: Normal appearance Pupil Exam: NORMAL ACCOMODATION - ENT Exam ENT Exam: Mucous Membranes Moist, Normal Exam - Neck Exam Neck exam: Positive for: Normal Inspection - Respiratory Exam Respiratory Exam: Clear to Auscultation Bilateral, NORMAL BREATHING PATTERN - Cardiovascular Exam Cardiovascular Exam: REGULAR RHYTHM - GI/Abdominal Exam GI & Abdominal Exam: Distended, Firm, Hypoactive Bowel Sounds, Rigid, Tenderness (generalized) - Rectal Exam Rectal Exam: Deferred - Exam External exam: NORMAL EXTERNAL EXAM - Extremities Exam Extremities exam: Positive for: normal inspection - Back Exam Back exam: NORMAL INSPECTION - Neurological Exam Neurological exam: Abnormal Gait, Alert, CN II-XII Intact, Oriented x3 Additional comments: 2ndry to pain at foot - Psychiatric Exam Psychiatric exam: Normal Affect, Normal Mood - Skin Skin Exam: Dry, Intact, Normal Color, Warm Results - Vital Signs Recent Vital Signs: Last Vital Signs Temp 97.9 F 12/16/16 15:09 Pulse 88 12/16/16 16:01 Resp 18 12/16/16 16:01 BP 133/59 L 12/16/16 16:01 Pulse Ox 95 12/16/16 17:30 - Labs Result Diagrams: 12/17/16 07:49 12/16/16 10:38 Labs: Laboratory Results - last 24 hr 12/16/16 11:56 Urine Color Yellow Urine Clarity Clear Urine pH 5.0 Ur Specific [place] 1.018 Urine Protein Negative Urine Glucose (UA) 3+ H Urine Ketones Negative Urine Blood Negative Urine Nitrate Negative Urine Bilirubin Negative Urine Urobilinogen Normal Ur Leukocyte Esterase Neg Urine WBC (Auto) 3 Urine RBC (Auto) 3 Ur Squamous Epith Cells 4 Assessment & Plan (1) Enteritis Assessment and Plan: consult GI for unexpected findings of CT scan with small bowel thickening. Pt had been sent previously for CT scan of abodomen with normal results about 2 weeks previously and no evidence of swelling seen. t/c Crohn's ? Status: Acute (2) Ovarian mass Assessment and Plan: consult Display Department Manager for ovarian mass on CT Status: Acute (3) Nausea & vomiting Assessment and Plan: prob from enterit and GERD/gastritis. Ondansetron prn. Status: Acute Decision To Admit - Pt Status Changed To: Hospital Disposition Of: Inpatient - Admit Certification Admit to Inpatient:: After my assessment, the patient will require hospitalization for at least two midnights. This is because of the severity of symptoms shown, intensity of services needed, and/or the medical risk in this patient being treated as an outpatient. - InPatient: Physician Admission Certification:: After my assessment, the patient will require hospitalization for at least two midnights. This is because of the severity of symptoms shown, intensity of services needed, and/or the medical risk in this patient being treated as an outpatient. - . Bed Request Type: Regular
[2016-12-16] MEDS: Morphine 4 MG/ML VIAL IV PRN (22:14)
[2016-12-16] MEDS: metroNIDAZOLE IV 250mg/50 ml 50 ML IVPB SCH (22:17)
[2016-12-17 01:21] VITALS: RESP 20
[2016-12-17] MEDS: metroNIDAZOLE IV 250mg/50 ml 50 ML IVPB SCH ×3 (05:34→21:22)
[2016-12-17] MEDS: Morphine 4 MG/ML VIAL IV PRN ×2 (05:47→16:00)
[2016-12-17 07:58] LABS: BASO # 0.1 K/uL (0.0-0.2); BASO % 0.5 % (0.0-2.0); EOS # 0.3 K/uL (0.0-0.7); EOS % 1.9 % (0.0-4.0); LYMPH # 3.4 K/uL (1.0-4.3); MEAN CELL VOLUME 88.3 fL (81.0-99.0); MEAN CORPUSCULAR HEMOGLOBIN 28.5 pg (27.0-31.0); MEAN CORPUSCULAR HGB CONC 32.3 g/dL (33.0-37.0); MEAN PLATELET VOLUME 9.2 fL (7.2-11.7); MONO # 1.1 K/uL (0.0-0.8); RED CELL DISTRIBUTION WIDTH 13.3 % (11.5-14.5); WHITE BLOOD COUNT 14.2 K/uL (4.8-10.8)
--- NOTE | 2016-12-17 11:40 | CARD ---
APPROVED REPORT EKG Measurement Heart [id number] <Conclusion> Normal sinus rhythm Normal ECG
[2016-12-17] MEDS ORDERED: Pneumococcal 23-Valent Vaccine IM ONE (13:30)
--- NOTE | 2016-12-17 17:27 | CP.PCM.CON ---
History of Present Illness - History of Present Illness History of Present Illness: This is a 51 year old woman admitted 12/16/16 with abdominal pain. Patient has been admitted multiple times for abdominal pain, diarrhea, colitis and irritable bowel syndrome. She also has schizoaffective disorder. She was previously worked up by Dr. Johnson in October,. Colonoscopy was performed 10/05/15 and showed diverticulosis, three polyps, and no colitis on biopsy. Later last year, EGD was performed on 06/04/16 and showed normal esophagus, stomach and duodenum. Biopsies showed H pylori gastritis. Patient did well over the past few months, and had sudden onset of nausea, vomiting, diarrhea, and abdominal pain for four days prior to admission. She states that she had dozens of bowel movements in this time and vomited numerous times. She denies having rectal bleeding. The pain was colicky, located in the RUQ and epigastrium, exacerbated by eating, and relieved by vomiting. Over the past week, her appetite has been poor, and she has lost 15 pounds. She denies having dysphagia. She experienced heartburn for the first time today. CT scan 12/12/16 showed normal bowel loops. A repeat CT scan 12/15/16 showed SB thichening in the left mid abdomen. Review of Systems - Review of Systems All systems: reviewed and no additional remarkable complaints except - Constitutional Constitutional: Fever - Cardiovascular Cardiovascular: absent: Chest Pain - Respiratory Respiratory: absent: Dyspnea - Gastrointestinal Gastrointestinal: Abdominal Pain, Diarrhea, Nausea, Vomiting. absent: Constipation, Hematochezia Past Patient History - Infectious Disease Hx of Infectious Diseases: None - Tetanus Immunizations Tetanus Immunization: Unknown - Past Medical History & Family History Past Medical History?: Yes - Past Social History Smoking Status: Light Smoker < 10 Cigarettes Daily - CARDIAC Hx Hypercholesterolemia: Yes Hx Hypertension: Yes - PULMONARY Hx Asthma: Yes Hx Bronchitis: Yes Hx Pneumonia: Yes - NEUROLOGICAL Hx Migraine: Yes Hx Seizures: Yes (last 25 yrs ago) - HEENT Hx HEENT Problems: No Hx Blind: No Hx Cataracts: No Hx Deafness: No Hx Difficulty Chewing: No Hx Epistaxis: No Hx Glaucoma: No Hx Macular Degeneration: No - ENDOCRINE/METABOLIC Hx Hypothyroidism: Yes - INTEGUMENTARY Hx Dermatological Problems: Yes Hx Eczema: Yes - MUSCULOSKELETAL/RHEUMATOLOGICAL Hx Arthritis: Yes Hx Falls: No Hx Rheumatoid Arthritis: Yes - GASTROINTESTINAL Hx Gall Bladder Disease: Yes Hx Gastritis: Yes - PSYCHIATRIC Hx Anxiety: Yes Hx Bipolar Disorder: Yes Hx Depression: Yes Hx Post Traumatic Stress Disorder: Yes Hx Substance Use: No - SURGICAL HISTORY Hx Cholecystectomy: Yes Hx Coronary Stent: Yes - ANESTHESIA Hx Anesthesia: Yes Hx Anesthesia Reactions: No Hx Malignant Hyperthermia: No Meds Allergies/Adverse Reactions: Allergies Allergy/AdvReac Type Severity Reaction Status Date / Time No Known Allergies Allergy Verified 12/16/16 10:09 - Medications Medications: Current Medications Alprazolam (Xanax) 1 mg PO HS [facility] Last Admin: 12/16/16 22:16 Dose: 1 mg Heparin Sodium (Porcine) (Heparin) 5,000 units SC Q12 [facility] Last Admin: 12/17/16 12:19 Dose: 5,000 units Metronidazole (Flagyl) 50 mls @ 100 mls/hr IVPB Q8 [facility] Last Admin: 12/17/16 13:54 Dose: 100 mls/hr Morphine Sulfate (Morphine) 4 mg IV Q4H PRN PRN Reason: Pain, moderate (4-7) Last Admin: 12/17/16 16:00 Dose: 4 mg Physical Exam - Constitutional Appears: No Acute Distress - Head Exam Head Exam: ATRAUMATIC, NORMOCEPHALIC - Eye Exam Eye Exam: EOMI, PERRL - Neck Exam Neck exam: Negative for: Lymphadenopathy, Thyromegaly - Respiratory Exam Respiratory Exam: NORMAL BREATHING PATTERN. absent: Rales, Rhonchi - Cardiovascular Exam Cardiovascular Exam: REGULAR RHYTHM, +S1, +S2. absent: Gallop, Rubs, Systolic Murmur - GI/Abdominal Exam GI & Abdominal Exam: Distended, Normal Bowel Sounds, Soft. absent: Mass, Organomegaly, Tenderness - Rectal Exam Rectal Exam: Deferred - Extremities Exam Extremities exam: Negative for: calf tenderness, pedal edema Results - Vital Signs Recent Vital Signs: Last Vital Signs Temp 98.0 F 12/17/16 15:45 Pulse 87 12/17/16 16:45 Resp 20 12/17/16 15:45 BP 115/82 12/17/16 15:45 Pulse Ox 97 12/17/16 15:45 - Labs Result Diagrams: 12/17/16 07:49 12/16/16 10:38 Labs: Laboratory Results - last 24 hr 12/16/16 12/17/16 12/17/16 21:09 06:44 07:49 WBC 14.2 H RBC 4.08 Hgb 11.6 Hct 36.0 MCV 88.3 MCH 28.5 MCHC 32.3 L RDW 13.3 Plt Count 229 MPV 9.2 Neut % (Auto) 65.6 Lymph % (Auto) 24.0 [place] % (Auto) 8.0 Eos % (Auto) 1.9 Baso % (Auto) 0.5 Neut # 9.3 H Lymph # 3.4 [place] # 1.1 H Eos # 0.3 Baso # 0.1 POC Glucose (mg/dL) 255 H 158 H Lactic Acid 1.5 12/17/16 12/17/16 12:08 16:29 WBC RBC Hgb Hct MCV MCH MCHC RDW Plt Count MPV Neut % (Auto) Lymph % (Auto) [place] % (Auto) Eos % (Auto) Baso % (Auto) Neut # Lymph # [place] # Eos # Baso # POC Glucose (mg/dL) 194 H 161 H Lactic Acid Assessment & Plan (1) Enteritis Assessment and Plan: Patient presented with nausea, vomiting, diarrhea, abdominal pain, and CT evidence of thickening of the wall of the duodenum and jejunum. This cannot be explained by IBS. Will order stool cultures and small bowel series. Status: Acute
--- NOTE | 2016-12-17 19:31 | CP.PCM.CON ---
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 Work up done showed normal tumor markers and CAT scan pelvis showing Rt. adnexal cysts, confirmed on US, being followed by Payroll And Benefits Analyst. Has had persistently elevated WBC count, with normal flow cytometry in past. Past Patient History - Infectious Disease Hx of Infectious Diseases: None - Tetanus Immunizations Tetanus Immunization: Unknown - Past Medical History & Family History Past Medical History?: Yes - Past Social History Smoking Status: Light Smoker < 10 Cigarettes Daily - CARDIAC Hx Hypercholesterolemia: Yes Hx Hypertension: Yes - PULMONARY Hx Asthma: Yes Hx Bronchitis: Yes Hx Pneumonia: Yes - NEUROLOGICAL Hx Migraine: Yes Hx Seizures: Yes (last 25 yrs ago) - HEENT Hx HEENT Problems: No Hx Blind: No Hx Cataracts: No Hx Deafness: No Hx Difficulty Chewing: No Hx Epistaxis: No Hx Glaucoma: No Hx Macular Degeneration: No - ENDOCRINE/METABOLIC Hx Hypothyroidism: Yes - INTEGUMENTARY Hx Dermatological Problems: Yes Hx Eczema: Yes - MUSCULOSKELETAL/RHEUMATOLOGICAL Hx Arthritis: Yes Hx Falls: No Hx Rheumatoid Arthritis: Yes - GASTROINTESTINAL Hx Gall Bladder Disease: Yes Hx Gastritis: Yes - PSYCHIATRIC Hx Anxiety: Yes Hx Bipolar Disorder: Yes Hx Depression: Yes Hx Post Traumatic Stress Disorder: Yes Hx Substance Use: No - SURGICAL HISTORY Hx Cholecystectomy: Yes Hx Coronary Stent: Yes - ANESTHESIA Hx Anesthesia: Yes Hx Anesthesia Reactions: No Hx Malignant Hyperthermia: No Meds Allergies/Adverse Reactions: Allergies Allergy/AdvReac Type Severity Reaction Status Date / Time No Known Allergies Allergy Verified 12/16/16 10:09 - Medications Medications: Current Medications Alprazolam (Xanax) 1 mg PO HS [facility] Last Admin: 12/16/16 22:16 Dose: 1 mg Heparin Sodium (Porcine) (Heparin) 5,000 units SC Q12 [facility] Last Admin: 12/17/16 12:19 Dose: 5,000 units Metronidazole (Flagyl) 50 mls @ 100 mls/hr IVPB Q8 [facility] Last Admin: 12/17/16 13:54 Dose: 100 mls/hr Morphine Sulfate (Morphine) 4 mg IV Q4H PRN PRN Reason: Pain, moderate (4-7) Last Admin: 12/17/16 16:00 Dose: 4 mg Ondansetron HCl (Zofran Inj) 4 mg IVP Q4 PRN PRN Reason: Nausea/Vomiting Last Admin: 12/17/16 19:16 Dose: 4 mg Results - Vital Signs Recent Vital Signs: Last Vital Signs Temp 98.0 F 12/17/16 15:45 Pulse 87 12/17/16 16:45 Resp 20 12/17/16 15:45 BP 115/82 12/17/16 15:45 Pulse Ox 97 12/17/16 15:45 - Labs Result Diagrams: 12/20/16 07:06 12/20/16 07:06 Labs: Laboratory Results - last 24 hr 12/16/16 12/17/16 12/17/16 21:09 06:44 07:49 WBC 14.2 H RBC 4.08 Hgb 11.6 Hct 36.0 MCV 88.3 MCH 28.5 MCHC 32.3 L RDW 13.3 Plt Count 229 MPV 9.2 Neut % (Auto) 65.6 Lymph % (Auto) 24.0 [place] % (Auto) 8.0 Eos % (Auto) 1.9 Baso % (Auto) 0.5 Neut # 9.3 H Lymph # 3.4 [place] # 1.1 H Eos # 0.3 Baso # 0.1 POC Glucose (mg/dL) 255 H 158 H Lactic Acid 1.5 12/17/16 12/17/16 12:08 16:29 WBC RBC Hgb Hct MCV MCH MCHC RDW Plt Count MPV Neut % (Auto) Lymph % (Auto) [place] % (Auto) Eos % (Auto) Baso % (Auto) Neut # Lymph # [place] # Eos # Baso # POC Glucose (mg/dL) 194 H 161 H Lactic Acid Assessment & Plan - Assessment and Plan (Free Text) Assessment: 51 yo woman with history of 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 Her Hgb and Hct, platelet counts have been normal as well. Will order FISh study to R/O CML (peripheral blood)
[2016-12-18] MEDS: metroNIDAZOLE IV 250mg/50 ml 50 ML IVPB SCH ×3 (05:38→21:28)
[2016-12-18 06:57] LABS: CHLORIDE 99 mmol/L (98-107); SODIUM 134 mmol/L (132-148)
[2016-12-18 06:58] LABS: POTASSIUM 3.4 mmol/L (3.6-5.2)
[2016-12-18 06:59] LABS: GFR AFRICAN-AMERICAN > 60
[2016-12-18 07:00] LABS: ALB/GLOB RATIO 1.3 (1.0-2.1); ALKALINE PHOSPHATASE 96 U/L (38-126); ALT/SGPT 36 U/L (9-52); AST/SGOT 26 U/L (14-36); BILIRUBIN,TOTAL 0.4 mg/dL (0.2-1.3); BLOOD UREA NITROGEN 13 mg/dL (7-17); CALCIUM 7.8 mg/dl (8.6-10.4); CARBON DIOXIDE 28 mmol/L (22-30); GLUCOSE,RANDOM 178 mg/dL (65-105); TOTAL PROTEIN 5.8 g/dL (6.3-8.3)
[2016-12-18 07:15] LABS: BASO # 0.1 K/uL (0.0-0.2); BASO % 0.7 % (0.0-2.0); EOS # 0.2 K/uL (0.0-0.7); EOS % 1.7 % (0.0-4.0); HEMATOCRIT 37.7 % (34.0-47.0); LYMPH # 2.8 K/uL (1.0-4.3); LYMPH % 27.2 % (20.0-40.0); MEAN CELL VOLUME 87.2 fL (81.0-99.0); MEAN CORPUSCULAR HGB CONC 33.2 g/dL (33.0-37.0); MONO # 0.9 K/uL (0.0-0.8); MONO % 8.5 % (0.0-10.0); RED CELL DISTRIBUTION WIDTH 13.6 % (11.5-14.5); WHITE BLOOD COUNT 10.4 K/uL (4.8-10.8)
[2016-12-18] MEDS ORDERED: Barium Sulfate for Susp 98% w/w 340g Bottle ONE (09:55)
[2016-12-18] MEDS ORDERED: Barium Sulfate for Susp 96% w/w 176g Bottle PR ONE (09:55)
[2016-12-18] MEDS: Morphine 4 MG/ML VIAL IV PRN ×2 (13:05→21:43)
--- NOTE | 2016-12-18 15:14 | RAD ---
PROCEDURE: Chest and abdomen dated 12/18/2016. HISTORY: Thickening of wall of duodenum and jejunum on CT COMPARISON: Comparison made with chest radiograph and CT scan abdomen pelvis dated 12/16/2016 and 12/15/2016 respectively. TECHNIQUE: Frontal view of the chest and abdomen performed. FINDINGS: Examination was rescheduled as patient ate lunch prior to exam ; in addition,. In addition, there is residual contrast material is also present within the colon. . Metallic clips noted in the right upper quadrant of the abdomen consistent with prior cholecystectomy. . Poor inspiration with low lung volumes and minor crowded bronchovascular markings. No focal consolidation. No evidence of acute mechanical bowel obstruction. IMPRESSION: Impression: No evidence of acute mechanical bowel obstruction. Residual contrast material within the colon.
--- NOTE | 2016-12-18 21:23 | CP.PCM.PN ---
Subjective - Date & Time of Evaluation Date of Evaluation: 12/17/16 Time of Evaluation: 22:30 - Subjective Subjective: LATE ENTRY FOR 12/17/2016: Pt complaining of nausea with vomiting today and had to be given Zofran to help with her vomiting. Pt able to tolerate some food after that, though only on full liquid diet. Says that she had signed out AMA bec she was never really told why she was being admitted and why she was having intractable nausea and vomiting. Knowing pt's hx and behavior, pt agreed to readmission when told of findings in CT scan. Objective - Vital Signs/Intake and Output Vital Signs (last 24 hours): Temp Pulse Resp BP Pulse Ox 98.1 F 94 H 20 134/90 97 12/18/16 17:00 12/18/16 17:00 12/18/16 17:00 12/18/16 17:00 12/18/16 17:00 - Medications Medications: Current Medications Alprazolam (Xanax) 1 mg PO HS [facility] Last Admin: 12/17/16 21:21 Dose: 1 mg Heparin Sodium (Porcine) (Heparin) 5,000 units SC Q12 [facility] Last Admin: 12/18/16 10:00 Dose: 5,000 units Metronidazole (Flagyl) 50 mls @ 100 mls/hr IVPB Q8 [facility] Last Admin: 12/18/16 13:14 Dose: 100 mls/hr Morphine Sulfate (Morphine) 4 mg IV Q4H PRN PRN Reason: Pain, moderate (4-7) Last Admin: 12/18/16 13:05 Dose: 4 mg Ondansetron HCl (Zofran Inj) 4 mg IVP Q4 PRN PRN Reason: Nausea/Vomiting Last Admin: 12/17/16 19:16 Dose: 4 mg - Labs Labs: 12/18/16 06:32 12/18/16 06:32 PT 10.9 SECONDS (9.7-12.2) 12/16/16 10:38 INR 1.0 12/16/16 10:38 APTT 25 SECONDS (21-34) 12/16/16 10:38 - Constitutional Appears: In Acute Distress (though less so than yesterday at 8/10, still unable to eat much), Chronically Ill - Head Exam Head Exam: ATRAUMATIC, NORMAL INSPECTION - Eye Exam Eye Exam: Conjunctival injection, EOMI, Normal appearance Pupil Exam: NORMAL ACCOMODATION - ENT Exam ENT Exam: Mucous Membranes Moist, Normal Exam - Neck Exam Neck Exam: Full ROM, Normal Inspection - Respiratory Exam Respiratory Exam: Clear to Ausculation Bilateral, NORMAL BREATHING PATTERN - Cardiovascular Exam Cardiovascular Exam: REGULAR RHYTHM, +S1, +S2 - GI/Abdominal Exam GI & Abdominal Exam: Soft, Normal Bowel Sounds - Rectal Exam Rectal Exam: Deferred (but denies any bloody stool) - Extremities Exam Extremities Exam: Full ROM, Normal Capillary Refill, Normal Inspection - Back Exam Back Exam: NORMAL INSPECTION - Neurological Exam Neurological Exam: Alert, CN II-XII Intact, Normal Gait, Oriented x3 Neuro motor strength exam: Left Upper Extremity: 5, Right Upper Extremity: 5, Left Lower Extremity: 5 - Psychiatric Exam Psychiatric exam: Normal Affect, Normal Mood - Skin Skin Exam: Dry, Normal Color, Warm Assessment and Plan (1) Enteritis Assessment & Plan: clinically improving; awaiting test by GI Status: Acute (2) Ovarian mass Assessment & Plan: pt follows with Economics Lecturer at the clinic and seeking new Economics Lecturer Status: Acute (3) Nausea & vomiting Status: Acute
--- NOTE | 2016-12-18 21:25 | CP.PCM.PN ---
Subjective - Date & Time of Evaluation Date of Evaluation: 12/18/16 Time of Evaluation: 21:25 - Subjective Subjective: Pt appears in good spirits. Abdominal pain resolving, though abdomen still appears distended. Had abdominal xray today but pt had eaten hence unable to continue with test. Eager to eat some real food but not before she finishes necessary test. Excited that she is finally getting an answer to why she has had these bouts of severe abdominal pain with diarrhea. Unknown if this is the first time that images were caught of her swollen intestines. Objective - Vital Signs/Intake and Output Vital Signs (last 24 hours): Temp Pulse Resp BP Pulse Ox 98.1 F 94 H 20 134/90 97 12/18/16 17:00 12/18/16 17:00 12/18/16 17:00 12/18/16 17:00 12/18/16 17:00 - Medications Medications: Current Medications Alprazolam (Xanax) 1 mg PO HS MARIO Last Admin: 12/17/16 21:21 Dose: 1 mg Heparin Sodium (Porcine) (Heparin) 5,000 units SC Q12 [facility] Last Admin: 12/18/16 10:00 Dose: 5,000 units Metronidazole (Flagyl) 50 mls @ 100 mls/hr IVPB Q8 [facility] Last Admin: 12/18/16 13:14 Dose: 100 mls/hr Morphine Sulfate (Morphine) 4 mg IV Q4H PRN PRN Reason: Pain, moderate (4-7) Last Admin: 12/18/16 13:05 Dose: 4 mg Ondansetron HCl (Zofran Inj) 4 mg IVP Q4 PRN PRN Reason: Nausea/Vomiting Last Admin: 12/17/16 19:16 Dose: 4 mg - Labs Labs: 12/18/16 06:32 12/18/16 06:32 PT 10.9 SECONDS (9.7-12.2) 12/16/16 10:38 INR 1.0 12/16/16 10:38 APTT 25 SECONDS (21-34) 12/16/16 10:38 - Constitutional Appears: No Acute Distress - Eye Exam Eye Exam: Normal appearance - ENT Exam ENT Exam: Mucous Membranes Moist, Normal Exam - Neck Exam Neck Exam: Full ROM, Normal Inspection - Respiratory Exam Respiratory Exam: Clear to Ausculation Bilateral, NORMAL BREATHING PATTERN - Cardiovascular Exam Cardiovascular Exam: REGULAR RHYTHM - GI/Abdominal Exam GI & Abdominal Exam: Soft, Normal Bowel Sounds - Rectal Exam Rectal Exam: NORMAL INSPECTION - Exam Exam: Circumcision, NORMAL INSPECTION External exam: NORMAL EXTERNAL EXAM - Extremities Exam Extremities Exam: Full ROM, Normal Capillary Refill - Back Exam Back Exam: NORMAL INSPECTION - Neurological Exam Neuro motor strength exam: Left Upper Extremity: 5, Right Upper Extremity: 5, Left Lower Extremity: 5, Right Lower Extremity: 5 - Psychiatric Exam Psychiatric exam: Normal Affect, Normal Mood - Skin Skin Exam: Dry, Intact, Normal Color, Warm Assessment and Plan (1) Enteritis Status: Acute (2) Ovarian mass Status: Acute (3) Nausea & vomiting Status: Acute
[2016-12-19] MEDS: metroNIDAZOLE IV 250mg/50 ml 50 ML IVPB SCH ×3 (05:31→21:15)
--- NOTE | 2016-12-19 08:15 | CP.PCM.PN ---
Subjective - Date & Time of Evaluation Date of Evaluation: 12/19/16 Time of Evaluation: 08:11 - Subjective Subjective: Patient states that pain persists in the RUQ. Yesterday, she vomited seven times and had three loose bowel movements. Today, she has not vomited and has not had a bowel movement. She is scheduled for EGD today. Objective - Vital Signs/Intake and Output Vital Signs (last 24 hours): Temp Pulse Resp BP Pulse Ox 97.9 F 108 H 20 108/67 92 L 12/18/16 23:30 12/18/16 23:30 12/18/16 23:30 12/18/16 23:30 12/18/16 23:30 Intake and Output: 12/19/16 12/19/16 06:59 18:59 Intake Total 200 Balance 200 - Medications Medications: Current Medications Alprazolam (Xanax) 1 mg PO HS [facility]IO Last Admin: 12/18/16 21:29 Dose: 1 mg Heparin Sodium (Porcine) (Heparin) 5,000 units SC Q12 [facility] Last Admin: 12/18/16 21:29 Dose: 5,000 units Metronidazole (Flagyl) 50 mls @ 100 mls/hr IVPB Q8 [facility] Last Admin: 12/19/16 05:31 Dose: 100 mls/hr Morphine Sulfate (Morphine) 4 mg IV Q4H PRN PRN Reason: Pain, moderate (4-7) Last Admin: 12/18/16 21:43 Dose: 4 mg Ondansetron HCl (Zofran Inj) 4 mg IVP Q4 PRN PRN Reason: Nausea/Vomiting Last Admin: 12/17/16 19:16 Dose: 4 mg - Labs Labs: 12/18/16 06:32 12/18/16 06:32 PT 10.9 SECONDS (9.7-12.2) 12/16/16 10:38 INR 1.0 12/16/16 10:38 APTT 25 SECONDS (21-34) 12/16/16 10:38 - Constitutional Appears: No Acute Distress - Head Exam Head Exam: ATRAUMATIC, NORMOCEPHALIC - Eye Exam Eye Exam: EOMI, PERRL - Neck Exam Neck Exam: absent: Lymphadenopathy, Thyromegaly - Respiratory Exam Respiratory Exam: NORMAL BREATHING PATTERN. absent: Rales, Rhonchi, Wheezes - Cardiovascular Exam Cardiovascular Exam: REGULAR RHYTHM, +S1, +S2. absent: Gallop, Rubs, Murmur - GI/Abdominal Exam GI & Abdominal Exam: Distended, Soft, Normal Bowel Sounds. absent: Tenderness, Mass, Organomegaly - Rectal Exam Rectal Exam: Deferred - Extremities Exam Extremities Exam: absent: Calf Tenderness, Pedal Edema Assessment and Plan (1) Enteritis Assessment & Plan: Patient continues to be symptomatic with persistent pain, nausea and vomiting. UGI series has been rescheduled to today. Will check results and decide if repeat EGD is indicated. Status: Acute
[2016-12-19] MEDS: Morphine 4 MG/ML VIAL IV PRN ×2 (10:44→20:21)
[2016-12-19] MEDS ORDERED: (Novolin R) Insulin Human Regular 100 units/ml vial SC ONE (13:00)
[2016-12-19 13:19] LABS: CHLORIDE 96 mmol/L (98-107); SODIUM 136 mmol/L (132-148)
[2016-12-19 13:20] LABS: POTASSIUM 3.5 mmol/L (3.6-5.2)
[2016-12-19 13:22] LABS: GFR AFRICAN-AMERICAN > 60
[2016-12-19 13:23] LABS: BLOOD UREA NITROGEN 8 mg/dL (7-17); CALCIUM 8.7 mg/dl (8.6-10.4); CARBON DIOXIDE 26 mmol/L (22-30); GLUCOSE,RANDOM 239 mg/dL (65-105)
[2016-12-19] MEDS: Potassium Chloride 20 mEq ER Tab PO SCH ×2 (14:01→17:39)
--- NOTE | 2016-12-19 20:13 | CP.PCM.PN ---
Subjective - Date & Time of Evaluation Date of Evaluation: 12/19/16 Time of Evaluation: 18:00 - Subjective Subjective: cc: persistent nausea and vomiting HPI Pt went for UGI series today to ascertain whether pt would need a repeat EGD. Pt's admitting diagnosis, among others, was intractable nausea and vomitin. Upon my arrival, pt was started on PUD prophylaxis as well as anti- emetics. An abx that provided coverage for gram neg organis was also started. Pt 's leukocytosis resolved with the abx, and furthermore, allowed pt to eat a regular diet and decreasing her constipation. Objective - Vital Signs/Intake and Output Vital Signs (last 24 hours): Temp Pulse Resp BP Pulse Ox 98.2 F 103 H 20 126/82 96 12/19/16 16:12 12/19/16 16:12 12/19/16 16:12 12/19/16 16:12 12/19/16 16:12 Intake and Output: 12/19/16 12/20/16 18:59 06:59 Intake Total 480 Balance 480 - Medications Medications: Current Medications Alprazolam (Xanax) 1 mg PO HS [facility] Last Admin: 12/18/16 21:29 Dose: 1 mg Heparin Sodium (Porcine) (Heparin) 5,000 units SC Q12 [facility] Last Admin: 12/19/16 10:43 Dose: 5,000 units Metronidazole (Flagyl) 50 mls @ 100 mls/hr IVPB Q8 [facility] Last Admin: 12/19/16 13:09 Dose: 100 mls/hr Morphine Sulfate (Morphine) 4 mg IV Q4H PRN PRN Reason: Pain, moderate (4-7) Last Admin: 12/19/16 10:44 Dose: 4 mg Ondansetron HCl (Zofran Inj) 4 mg IVP Q4 PRN PRN Reason: Nausea/Vomiting Last Admin: 12/17/16 19:16 Dose: 4 mg Potassium Chloride (K-Dur 20 Meq Er Tab) 20 meq PO BID [facility] Stop: 12/21/16 13:01 Last Admin: 12/19/16 17:39 Dose: 20 meq - Labs Labs: 12/18/16 06:32 12/19/16 12:59 PT 10.9 SECONDS (9.7-12.2) 12/16/16 10:38 INR 1.0 12/16/16 10:38 APTT 25 SECONDS (21-34) 12/16/16 10:38 - Constitutional Appears: No Acute Distress - Head Exam Head Exam: ATRAUMATIC, NORMAL INSPECTION, NORMOCEPHALIC - Eye Exam Eye Exam: EOMI, Normal appearance Pupil Exam: NORMAL ACCOMODATION, PERRL - ENT Exam ENT Exam: Mucous Membranes Moist, Normal Exam, TM's Normal Bilaterally - Neck Exam Neck Exam: Normal Inspection, Tenderness, Thyromegaly - Respiratory Exam Respiratory Exam: Accessory Muscle Use, NORMAL BREATHING PATTERN - Cardiovascular Exam Cardiovascular Exam: Bradycardia, REGULAR RHYTHM - GI/Abdominal Exam GI & Abdominal Exam: Normal Bowel Sounds - Rectal Exam Rectal Exam: Deferred - Back Exam Back Exam: NORMAL INSPECTION - Neurological Exam Neurological Exam: Normal Gait, Oriented x3 Neuro motor strength exam: Left Upper Extremity: 5, Right Upper Extremity: 5, Right Lower Extremity: 5 Assessment and Plan (1) Enteritis Assessment & Plan: resolving; awaiting result of UGI series Status: Acute (2) Ovarian mass Assessment & Plan: pt to pursue outpt Status: Acute (3) Nausea & vomiting Assessment & Plan: resolving Status: Resolved
[2016-12-20] MEDS: Morphine 4 MG/ML VIAL IV PRN (04:00)
[2016-12-20] MEDS: metroNIDAZOLE IV 250mg/50 ml 50 ML IVPB SCH (06:28)
[2016-12-20 07:23] LABS: HEMATOCRIT 38.4 % (34.0-47.0); MEAN CELL VOLUME 86.7 fL (81.0-99.0); MEAN CORPUSCULAR HEMOGLOBIN 28.4 pg (27.0-31.0); MEAN CORPUSCULAR HGB CONC 32.7 g/dL (33.0-37.0); MEAN PLATELET VOLUME 9.1 fL (7.2-11.7); RED CELL DISTRIBUTION WIDTH 13.1 % (11.5-14.5); WHITE BLOOD COUNT 8.9 K/uL (4.8-10.8)
[2016-12-20 07:37] LABS: CHLORIDE 100 mmol/L (98-107); SODIUM 137 mmol/L (132-148)
[2016-12-20 07:40] LABS: CARBON DIOXIDE 26 mmol/L (22-30); GFR AFRICAN-AMERICAN > 60
[2016-12-20 07:41] LABS: BLOOD UREA NITROGEN 8 mg/dL (7-17); CALCIUM 8.7 mg/dl (8.6-10.4); GLUCOSE,RANDOM 183 mg/dL (65-105)
[2016-12-20 07:43] VITALS: BP 121/86; PULSE 105; TEMP 99; O2SAT 96
--- NOTE | 2016-12-20 08:12 | CP.PCM.DIS ---
Provider - Provider Date of Admission: 12/16/16 11:37 Attending physician: Joni Moore MD Primary care physician: Dr. Joni Moroe Consults: Dr. Ej Johansen Time Spent in preparation of Discharge (in minutes): 45 Diagnosis - Discharge Diagnosis (1) Enteritis Status: Suspected (2) Ovarian mass Status: Chronic (3) Dehydration, moderate Status: Chronic Hospital Course - Lab Results Lab Results: Micro Results 12/18/16 15:28 Rectum Ova and Parasite Concentrate Exam - Final 12/16/16 11:50 Urine Urine Culture - Final No Growth (<1,000 CFU/ML) Most Recent Lab Values WBC 8.9 K/uL (4.8-10.8) 12/20/16 07:06 RBC 4.43 Mil/uL (3.80-5.20) 12/20/16 07:06 Hgb 12.6 g/dL (11.0-16.0) 12/20/16 07:06 Hct 38.4 % (34.0-47.0) 12/20/16 07:06 MCV 86.7 fL (81.0-99.0) 12/20/16 07:06 MCH 28.4 pg (27.0-31.0) 12/20/16 07:06 MCHC 32.7 g/dL (33.0-37.0) L 12/20/16 07:06 RDW 13.1 % (11.5-14.5) 12/20/16 07:06 Plt Count 251 K/uL (130-400) 12/20/16 07:06 MPV 9.1 fL (7.2-11.7) 12/20/16 07:06 Neut % (Auto) 61.9 % (50.0-75.0) 12/18/16 06:32 Lymph % (Auto) 27.2 % (20.0-40.0) 12/18/16 06:32 [place] % (Auto) 8.5 % (0.0-10.0) 12/18/16 06:32 Eos % (Auto) 1.7 % (0.0-4.0) 12/18/16 06:32 Baso % (Auto) 0.7 % (0.0-2.0) 12/18/16 06:32 Neut # 6.4 K/uL (1.8-7.0) 12/18/16 06:32 Lymph # 2.8 K/uL (1.0-4.3) 12/18/16 06:32 [place] # 0.9 K/uL (0.0-0.8) H 12/18/16 06:32 Eos # 0.2 K/uL (0.0-0.7) 12/18/16 06:32 Baso # 0.1 K/uL (0.0-0.2) 12/18/16 06:32 ESR 10 mm/hr (0-20) 12/18/16 06:32 PT 10.9 SECONDS (9.7-12.2) 12/16/16 10:38 INR 1.0 12/16/16 10:38 APTT 25 SECONDS (21-34) 12/16/16 10:38 pO2 58 mm/Hg (30-55) H 12/16/16 10:46 VBG pH 7.42 (7.32-7.43) 12/16/16 10:46 VBG pCO2 34 mmHg (40-60) L 12/16/16 10:46 VBG HCO3 23.4 mmol/L 12/16/16 10:46 VBG Total CO2 23.1 mmol/L (22-28) 12/16/16 10:46 VBG O2 Sat (Calc) 95.1 % (40-65) H 12/16/16 10:46 VBG Base Excess -1.7 mmol/L (0.0-2.0) L 12/16/16 10:46 VBG Potassium 3.6 mmol/L (3.6-5.2) 12/16/16 10:46 Sodium 138.0 mmol/l (132-148) 12/16/16 10:46 Chloride 110.0 mmol/L (98-107) H 12/16/16 10:46 Glucose 246 mg/dl (65-105) H 12/16/16 10:46 Lactate 2.8 mmol/L (0.7-2.1) H 12/16/16 10:46 Sodium 137 mmol/L (132-148) 12/20/16 07:06 Potassium 4.0 mmol/L (3.6-5.2) 12/20/16 07:06 Chloride 100 mmol/L (98-107) 12/20/16 07:06 Carbon Dioxide 26 mmol/L (22-30) 12/20/16 07:06 Anion Gap 15 (10-20) 12/20/16 07:06 BUN 8 mg/dL (7-17) 12/20/16 07:06 Creatinine 0.4 MG/DL (0.7-1.2) L 12/20/16 07:06 Est GFR ( Amer) > 60 12/20/16 07:06 Est GFR (Non-Af Amer) > 60 12/20/16 07:06 POC Glucose (mg/dL) 185 mg/dL (65-110) H 12/20/16 07:03 Random Glucose 183 mg/dL (65-105) H 12/20/16 07:06 Lactic Acid 1.5 mmol/L (0.7-2.1) 12/17/16 07:49 Calcium 8.7 mg/dl (8.6-10.4) 12/20/16 07:06 Phosphorus 3.2 mg/dL (2.5-4.5) 12/16/16 10:38 Magnesium 2.0 mg/dL (1.6-2.3) 12/16/16 10:38 Total Bilirubin 0.4 mg/dL (0.2-1.3) 12/18/16 06:32 AST 26 U/L (14-36) 12/18/16 06:32 ALT 36 U/L (9-52) 12/18/16 06:32 Alkaline Phosphatase 96 U/L (38-126) 12/18/16 06:32 Lactate Dehydrogenase 317 U/L (313-618) 12/18/16 06:32 C-React Prot High Sens 12.46 mg/L (1.00-3.00) H 12/18/16 06:32 Total Protein 5.8 g/dL (6.3-8.3) L 12/18/16 06:32 Albumin 3.3 g/dL (3.5-5.0) L 12/18/16 06:32 Globulin 2.5 gm/dL (2.2-3.9) 12/18/16 06:32 Albumin/Globulin Ratio 1.3 (1.0-2.1) 12/18/16 06:32 Venous Blood Potassium 3.6 mmol/L (3.6-5.2) 12/16/16 10:46 Urine Color Yellow (YELLOW) 12/16/16 11:56 Urine Clarity Clear (Clear) 12/16/16 11:56 Urine pH 5.0 (5.0-8.0) 12/16/16 11:56 Ur Specific [place] 1.018 (1.003-1.030) 12/16/16 11:56 Urine Protein Negative mg/dL (NEGATIVE) 12/16/16 11:56 Urine Glucose (UA) 3+ mg/dL (Normal) H 12/16/16 11:56 Urine Ketones Negative mg/dL (NEGATIVE) 12/16/16 11:56 Urine Blood Negative (NEGATIVE) 12/16/16 11:56 Urine Nitrate Negative (NEGATIVE) 12/16/16 11:56 Urine Bilirubin Negative (NEGATIVE) 12/16/16 11:56 Urine Urobilinogen Normal mg/dL (0.2-1.0) 12/16/16 11:56 Ur Leukocyte Esterase Neg Jessica/uL (Negative) 12/16/16 11:56 Urine WBC (Auto) 3 /hpf (0-5) 12/16/16 11:56 Urine RBC (Auto) 3 /hpf (0-3) 12/16/16 11:56 Ur Squamous Epith Cells 4 /hpf (0-5) 12/16/16 11:56 Stool Leukocytes, Qual Negative (NEGATIVE) 12/17/16 04:00 TUNDE 6 Profile Negative (NEGATIVE) 12/18/16 06:32 C. difficile Ag & Toxin Negative (NEGATIVE) 12/17/16 11:26 - Hospital Course Hospital Course: Pt went to the ER on 12/19/16 evening for intractable abdominal pain with nausea and vomiting. Pt was worked up and though no SBO found, a sizeable region of the small intestine was found to be swollen, hence contributing to the patient' s symptoms. A room was found, and pt was to be admitted to the floor but when, accdg to the pt, no accurately was translating the Haitian to Mohawk then it defeats the purpose of the female praise. After 5 days of intensve therapy, pt ws able to advance diet from full liquid to puree diet, with increases towards female to be transferred any day now. This would allow us to vote it as a bloc should the need arise. - Date & Time of H&P Date of H&P: 12/16/16 Discharge Exam - Head Exam Head Exam: ATRAUMATIC, NORMAL INSPECTION, NORMOCEPHALIC - Eye Exam Eye Exam: Normal appearance Pupil Exam: NORMAL ACCOMODATION - ENT Exam ENT Exam: Normal Exam - Neck Exam Neck exam: Full Rom, Lymphadenopathy - Respiratory Exam Respiratory Exam: NORMAL BREATHING PATTERN - Cardiovascular Exam Cardiovascular Exam: REGULAR RHYTHM - GI/Abdominal Exam GI & Abdominal Exam: Firm, Normal Bowel Sounds, Organomegaly, Soft - Rectal Exam Rectal Exam: Deferred - Neurological Exam Neurological exam: Abnormal Gait, Alert, Normal Gait ([]) - Psychiatric Exam Psychiatric exam: Normal Affect, Normal Mood - Skin Skin Exam: Intact, Normal Color, Warm Discharge Plan - Follow Up Plan Condition: FAIR Disposition: HOME/ ROUTINE Instructions: Acute Abdominal Pain (DC), Acute Abdominal Pain (GEN), Ulcerative Colitis (DC), Ulcerative Colitis (GEN)
[2016-12-20] MEDS: Potassium Chloride 20 mEq ER Tab PO SCH (09:17)
[2016-12-21] MEDS ORDERED: OXYCODONE HCL PO SCH (10:00)
[2016-12-21] MEDS ORDERED: ACETAMINOPHEN PO SCH (10:00)
[2016-12-21] MEDS ORDERED: TRAZODONE HCL 150 MG PO SCH (10:00)
[2016-12-21] MEDS ORDERED: Rosuvastatin Calcium 2.5 mg Tab PO SCH (22:00)
[2016-12-21] MEDS ORDERED: INSULIN LISPRO 10 UNIT SQ SCH (22:00)
--- NOTE | 2016-12-22 10:37 | RAD ---
PROCEDURE: Upper GI with small bowel series. HISTORY: Thickening of the wall of the duodenum and small bowel seen in the previous CT COMPARISON: Comparison is made to the previous CT dated 12/15/2016 TECHNIQUE: Fluoroscopic evaluation of the stomach and small bowel was performed following administration of oral contrast. FINDINGS: Esophagus: Unremarkable, without gross mucosal abnormality, mass lesion, stricture or obstruction. Hiatal hernia: None. Reflux: Moderate gastroesophageal reflux is noted. Stomach: Mild mucosal thickening seen. Otherwise grossly unremarkable without ulceration, mass lesion or outlet obstruction. Small bowel: Mild mucosal thickening without mucosal focal abnormality, mass lesion, obstruction or tethering. IMPRESSION: Mild stomach and proximal small bowel mucosal thickening. Moderate gastroesophageal reflux.
== END 2016-12-20 10:30 | disposition home or self-care (01) | DRG 814 ==
LOC: C.ER 10:03 → C.9E 11:37 → C.5T 16:40 → C.3T 12-19 20:11
PROVIDERS: ADMIT Family Medicine; ATTEND Family Medicine
DX: K52.9 Noninfective gastroenteritis and colitis, unspecified (principal); E86.0 Dehydration; N83.9 Noninflammatory disorder of ovary, fallopian tube and broad ligament, unspecified; I10 Essential (primary) hypertension; E11.9 Type 2 diabetes mellitus without complications; I25.10 Atherosclerotic heart disease of native coronary artery without angina pectoris; J45.909 Unspecified asthma, uncomplicated; E03.9 Hypothyroidism, unspecified; F41.8 Other specified anxiety disorders; F43.10 Post-traumatic stress disorder, unspecified; F31.9 Bipolar disorder, unspecified; E78.00 Pure hypercholesterolemia, unspecified; F17.210 Nicotine dependence, cigarettes, uncomplicated; M19.90 Unspecified osteoarthritis, unspecified site; M06.9 Rheumatoid arthritis, unspecified; Z95.5 Presence of coronary angioplasty implant and graft; Z87.01 Personal history of pneumonia (recurrent); Z90.49 Acquired absence of other specified parts of digestive tract

== ENCOUNTER 2017-01-16 10:14 | Inpatient (IN) | payer MEDICAID ==
[2017-01-16 10:14] VITALS: BMI 29.0
--- NOTE | 2017-01-16 11:16 | C.PDOC ---
History Of Present Illness A 51 year old female presents to the emergency room with complaints of bilateral feet pain. Patient reports a PMH of right foot surgery and left great toe surgery. Patient notes that pain radiates upwards from the heels on both feet. Patient states that she has been experiencing increasing pain and swelling to the left great toe for the last 3 days. Patient was sent by PMD for evaluation. Time Seen by Provider: 01/16/17 10:48 Chief Complaint (Nursing): Lower Extremity Problem/Injury History Per: Patient History/Exam Limitations: no limitations Onset/Duration Of Symptoms: Days (3) Current Symptoms Are (Timing): Still Present Severity: Moderate Recent travel outside of the [place]: No Past Medical History Reviewed: Historical Data, Nursing Documentation, Vital Signs Vital Signs: Last Vital Signs Temp 97.9 F 01/16/17 13:31 Pulse 89 01/16/17 13:31 Resp 18 01/16/17 13:31 BP 132/84 01/16/17 13:31 Pulse Ox 99 01/16/17 13:49 - Medical History PMH: Anxiety, Arthritis, Asthma, Back Problems (herniated disc x 5), Bipolar Disorder, Bronchitis, CAD, Depression, Diabetes, Gastritis, Gall Bladder Disease , HTN, Hypercholesterolemia, Hypothyroidism, Migraine, Pneumonia, Post Traumatic Stress Disorder, Rheumatoid Arthritis, Seizures (last 25 yrs ago) Surgical History: Cholecystectomy, Coronary Stent - [facility] Procedures ANESTH INJECT-SPIN CANAL (02/17/13) CLOSURE SKIN & SUBCUTANEOUS NEC (01/29/13) DERMAL REGENERATIVE GRAFT (09/05/13) EXCISION OF ASCENDING COLON, ENDO, DIAGN (10/01/15) EXCISION OF DESCENDING COLON, ENDO, DIAGN (10/01/15) EXCISION OF RECTUM, ENDO, DIAGN (10/01/15) EXCISION OF SIGMOID COLON, ENDO, DIAGN (10/01/15) EXCISION OF TRANSVERSE COLON, ENDO, DIAGN (10/01/15) INJECT STEROID (03/31/13) INJECTION INTO JOINT (03/31/13) INSERTION OF INFUSION DEVICE INTO R ATRIUM, PERC APPROACH (10/01/15) LOC EXC BONE LESION NEC (08/11/13) LUMBOSAC SPINE X-RAY NEC (03/31/13) NONEXCIS DEBRID OF WOUND, INFECT, OR BURN (09/05/13) OTHER EXCISION, FUSION, AND REPAIR OF TOES (03/16/15) OTHER LOCAL DESTRUC SKIN (07/07/13) SPINAL CANAL INJECT NEC (03/31/13) TETANUS TOXOID ADMINIST (01/29/13) ULTRASONOGRAPHY OF RIGHT HEART (10/01/15) Family History: States: Unknown Family Hx, Diabetes - Social History Hx Tobacco Use: Yes Hx Alcohol Use: No Hx Substance Use: No - Immunization History Hx Tetanus Toxoid Vaccination: No Hx Influenza Vaccination: No Hx Pneumococcal Vaccination: No Review Of Systems Except As Marked, All Systems Reviewed And Found Negative. Constitutional: Negative for: Fever, Chills Gastrointestinal: Negative for: Nausea, Vomiting, Diarrhea Musculoskeletal: Positive for: Foot Pain (Bilateral feet pain. Left Great toe pain.) Physical Exam - Physical Exam Appears: Non-toxic Skin: Normal Color, Warm, Dry, No Rash Head: Atraumatic, Normacephalic Eye(s): bilateral: Normal Inspection Cardiovascular: Rhythm Regular Respiratory: Normal Breath Sounds, No Rales, No Rhonchi, No Wheezing Gastrointestinal/Abdominal: Soft, No Tenderness, No Guarding, No Rebound Extremity: Normal ROM, Tenderness (Left great toe exquisitely tender and swollen. ), No Deformity, Swelling, Other (Surgical scar along left great toe. Good DP and TP pulses.) Pulses: Left Dorsalis Pedis: Normal, Right Dorsalis Pedis: Normal Neurological/Psych: Oriented x3, Normal Speech, Normal Cognition, Normal Motor, Normal Sensation ED Course And Treatment - Laboratory Results Result Diagrams: 01/16/17 11:38 01/16/17 11:38 O2 Sat by Pulse Oximetry: 99 Medical Decision Making Medical Decision Making: Plan: -- Bilateral Feet X-ray -- Labs -- Toradol 130 pm pt still in pain after toradol. morphine ordered. discussed with Dr Moore ; pt to be admitted for cellulitis of great left toe, podiatry consult ordered. antibiotics ordered. pt seen by podiatry resident; concern for dvt given bilateral call tenderness (likely referred pain); venous dopplers ordered. Disposition Discussed With : Joni Moore Doctor Will See Patient In The: Hospital - Disposition Disposition: HOSPITALIZED Disposition Time: 13:47 Condition: STABLE - Clinical Impression Clinical Impression: Cellulitis, toe - Scribe Statement The provider has reviewed the documentation as recorded by the Scribbill Platt All medical record entries made by the Scribe were at my direction and personally dictated by me. I have reviewed the chart and agree that the record accurately reflects my personal performance of the history, physical exam, medical decision making, and the department course for this patient. I have also personally directed, reviewed, and agree with the discharge instructions and disposition. Decision To Admit - Pt Status Changed To: Hospital Disposition Of: Observation - . Bed Request Type: Regular Admitting Physician: Joni Moore Patient Diagnosis: Cellulitis, toe
[2017-01-16 11:43] LABS: BASO # 0.2 K/uL (0.0-0.2); BASO % 1.2 % (0.0-2.0); EOS # 0.3 K/uL (0.0-0.7); LYMPH # 2.5 K/uL (1.0-4.3); LYMPH % 17.2 % (20.0-40.0); MEAN CELL VOLUME 85.8 fL (81.0-99.0); MEAN CORPUSCULAR HEMOGLOBIN 28.1 pg (27.0-31.0); MEAN CORPUSCULAR HGB CONC 32.7 g/dL (33.0-37.0); MEAN PLATELET VOLUME 8.4 fL (7.2-11.7); MONO # 0.8 K/uL (0.0-0.8); MONO % 5.7 % (0.0-10.0); RED CELL DISTRIBUTION WIDTH 13.3 % (11.5-14.5); WHITE BLOOD COUNT 14.3 K/uL (4.8-10.8)
[2017-01-16 11:52] LABS: CHLORIDE 102 mmol/L (98-107)
[2017-01-16 11:53] LABS: POTASSIUM 3.5 mmol/L (3.6-5.2); SODIUM 136 mmol/L (132-148)
[2017-01-16 11:55] LABS: ALB/GLOB RATIO 1.3 (1.0-2.1); AST/SGOT 32 U/L (14-36); BILIRUBIN,TOTAL 0.8 mg/dL (0.2-1.3); BLOOD UREA NITROGEN 10 mg/dL (7-17); CARBON DIOXIDE 23 mmol/L (22-30); GFR AFRICAN-AMERICAN > 60; TOTAL PROTEIN 6.9 g/dL (6.3-8.3)
[2017-01-16 11:56] LABS: ALKALINE PHOSPHATASE 90 U/L (38-126); ALT/SGPT 35 U/L (9-52); CALCIUM 8.7 mg/dl (8.6-10.4); GLUCOSE,RANDOM 220 mg/dL (65-105)
--- NOTE | 2017-01-16 12:08 | RAD ---
PROCEDURE: Bilateral Feet Radiographs. HISTORY: left great toe pain, right heel pain COMPARISON: None. FINDINGS: BONES: Right Foot: No fracture. Small plantar calcaneal spur. Left Foot: No fracture. Plantar calcaneal spur. Compression screw through 1st interphalangeal joint. JOINTS: Right Foot: Normal. No osteoarthritis. Left Foot: Left IP 1, status post arthrodesis with compression screw. . SOFT TISSUES: Right Foot: Normal. Left Foot: Normal. OTHER FINDINGS: None. IMPRESSION: Arthrodesis of left IP 1 with compression screw. Small plantar calcaneal spur bilaterally.
[2017-01-16] MEDS ORDERED: Piperacill/Tazo 3.375gm in Dex 3.375 GM/50 ML BAG IVPB STA (12:22)
[2017-01-16] MEDS ORDERED: Piperacillin/Tazobact 3.375 gm 100 ML IVPB ONE (12:41)
--- NOTE | 2017-01-16 14:17 | CP.PCM.CON ---
History of Present Illness - History of Present Illness History of Present Illness: This is a 51 y/o female with an extensive PMH (see below) who presents to the ER today with chief complaint of bilateral plantar foot pain that radiates up her legs. She also complains of chills, which she states started about 1 month ago. She states that she has been having difficulty walking due to the pain in her feet. She states that she had Left hallux surgery done (IPJ fusion) and has been unable to move her Left toe as a result and now experiences a significant amount of pain to the toe. She also complains of SOB, but denies any F/N/V/CP. She states that she sees Dr. Syed on a regular basis. Patient states that Dr. Syed has been treating her with corticosteroid injections. No other pedal complains reported at this time. She states that she uses a walker on a daily basis to help her get around. PMH: Anxiety, Arthritis, Asthma, Back Problems (herniated disc x 5), Bipolar Disorder, Bronchitis, CAD, Depression, Diabetes, Gastritis, Gall Bladder Disease , HTN, Hypercholesterolemia, Hypothyroidism, Migraine, Pneumonia, Post Traumatic Stress Disorder, Rheumatoid Arthritis, Seizures (last 25 yrs ago) Past Patient History - Infectious Disease Hx of Infectious Diseases: None - Tetanus Immunizations Tetanus Immunization: Unknown - Past Medical History & Family History Past Medical History?: Yes - Past Social History Smoking Status: Heavy Smoker > 10 Cigarettes Daily - CARDIAC Hx Hypercholesterolemia: Yes Hx Hypertension: Yes - PULMONARY Hx Asthma: Yes Hx Bronchitis: Yes Hx Pneumonia: Yes - NEUROLOGICAL Hx Migraine: Yes Hx Seizures: Yes (last 25 yrs ago) - HEENT Hx HEENT Problems: No Hx Blind: No Hx Cataracts: No Hx Deafness: No Hx Difficulty Chewing: No Hx Epistaxis: No Hx Glaucoma: No Hx Macular Degeneration: No - ENDOCRINE/METABOLIC Hx Hypothyroidism: Yes - INTEGUMENTARY Hx Dermatological Problems: Yes Hx Eczema: Yes - MUSCULOSKELETAL/RHEUMATOLOGICAL Hx Arthritis: Yes Hx Rheumatoid Arthritis: Yes - GASTROINTESTINAL Hx Gall Bladder Disease: Yes Hx Gastritis: Yes - PSYCHIATRIC Hx Anxiety: Yes Hx Bipolar Disorder: Yes Hx Depression: Yes Hx Post Traumatic Stress Disorder: Yes Hx Substance Use: No - SURGICAL HISTORY Hx Cholecystectomy: Yes Hx Coronary Stent: Yes - ANESTHESIA Hx Anesthesia: Yes Hx Anesthesia Reactions: No Hx Malignant Hyperthermia: No Meds Allergies/Adverse Reactions: Allergies Allergy/AdvReac Type Severity Reaction Status Date / Time No Known Allergies Allergy Verified 01/16/17 10:30 Physical Exam - Constitutional Appears: Non-toxic, No Acute Distress - Neurological Exam Neurological exam: Alert, Oriented x3 - Psychiatric Exam Psychiatric exam: Normal Affect, Normal Mood - Skin Skin Exam: Dry, Intact, Warm - Additional Findings Additional findings: Bilateral lower extremity examination: Vascular: DP 2/4; PT 1/4; capillary fill time < 3 sec x10; normal temperature gradient noted Neuro: light touch and protective sensation grossly intact Derm: Left hallux appears to be mildly edematous with associated taut skin and mild erythema; no open wounds noted; no signs of ascending cellulitis; no ulcerations, no drainage, no ulcerations present Ortho: pain elicited upon palpation of central and medial aspects of both heels bilaterally; pain elicited in the Right midfoot and ankle region upon dorsiflexion of the Right foot; patient is able to perform AROM of all digits except the Left hallux; able to perform PROM of the Left hallux at the 1st MPJ, but with significant pain; pain elicited upon compression of the calf bilaterally Results - Vital Signs Recent Vital Signs: Last Vital Signs Temp 97.9 F 01/16/17 13:31 Pulse 89 01/16/17 13:31 Resp 18 01/16/17 13:31 BP 132/84 01/16/17 13:31 Pulse Ox 99 01/16/17 13:53 - Labs Result Diagrams: 01/16/17 11:38 01/16/17 11:38 Labs: Laboratory Results - last 24 hr 01/16/17 01/16/17 11:38 11:38 WBC 14.3 H D RBC 4.43 Hgb 12.4 Hct 38.0 MCV 85.8 MCH 28.1 MCHC 32.7 L RDW 13.3 Plt Count 269 MPV 8.4 Neut % (Auto) 73.9 Lymph % (Auto) 17.2 L [place] % (Auto) 5.7 Eos % (Auto) 2.0 Baso % (Auto) 1.2 Neut # 10.6 H Lymph # 2.5 [place] # 0.8 Eos # 0.3 Baso # 0.2 Sodium 136 Potassium 3.5 L Chloride 102 Carbon Dioxide 23 Anion Gap 15 BUN 10 Creatinine 0.5 L Est GFR ( Amer) > 60 Est GFR (Non-Af Amer) > 60 Random Glucose 220 H Calcium 8.7 Total Bilirubin 0.8 AST 32 ALT 35 Alkaline Phosphatase 90 Total Protein 6.9 Albumin 3.8 Globulin 3.1 Albumin/Globulin Ratio 1.3 Assessment & Plan - Assessment and Plan (Free Text) Assessment: 51 y/o female with Left hallux cellulitis; bilateral heel pain radiating proximally to legs Plan: Patient seen and evaluated at bedside Labs and vitals reviewed: WBC 14.3; afebrile Bilateral foot radiographs evaluated; Left 1st IPJ fusion with screw fixation noted; plantar heel spurs noted bilaterally. No evidence of acute fracture/ dislocation noted Bilateral venous duplex ordered to R/O DVT Discussed patient with attending, Dr. Syed Patient is to be admitted for pain management and IV antibiotics for Left hallux cellulitis Will continue to monitor patient while she remains in house
--- NOTE | 2017-01-16 15:51 | VASCLAB ---
PROCEDURE: Lower Extremity Venous Duplex Exam. HISTORY: bilateral calf pain PRIORS: None. TECHNIQUE: Bilateral common femoral, femoral, popliteal and posterior tibial, peroneal and great saphenous veins were evaluated. Flow was assessed with color Doppler, compressibility, assessment of phasic flow and augmentation response. Report prepared by Stanton Gonzalez, RANJEET, RVT FINDINGS: RIGHT: 1. Common Femoral Vein: 1.1. Compressibility - Fully compressible: Thrombus - None : Flow - Phasic: Augmentation -Normal: Reflux - None. 2. Femoral Vein: 2.1. Compressibility - Fully compressible: Thrombus - None : Flow - Phasic: Augmentation -Normal: Reflux - None. 3. Popliteal Vein: 3.1. Compressibility - Fully compressible: Thrombus - None : Flow - Phasic: Augmentation -Normal: Reflux - None. 4. Posterior Tibial Vein: 4.1. Compressibility - Fully compressible: Thrombus - None: Flow - Phasic: Augmentation -Normal: Reflux - None. 5. Peroneal Vein: 5.1. Compressibility - Fully compressible: Thrombus - None: Flow - Phasic: Augmentation -Normal: Reflux - None. 6. Great Saphenous Vein: 6.1. Compressibility - Fully compressible: Thrombus - None: Flow - Phasic: Augmentation - Normal: Reflux - None. LEFT: 1. Common Femoral Vein: 1.1. Compressibility - Fully compressible: Thrombus - None: Flow - Phasic: Augmentation -Normal: Reflux - None. 2. Femoral Vein: 2.1. Compressibility - Fully compressible: Thrombus - None: Flow - Phasic: Augmentation -Normal: Reflux - None. 3. Popliteal Vein: 3.1. Compressibility - Fully compressible: Thrombus - None : Flow - Phasic: Augmentation -Normal: Reflux - None. 4. Posterior Tibial Vein: 4.1. Compressibility - Fully compressible: Thrombus - None: Flow - Phasic: Augmentation -Normal: Reflux - None. 5. Peroneal Vein: 5.1. Compressibility - Fully compressible: Thrombus - None: Flow - Phasic: Augmentation -Normal: Reflux - None. 6. Great Saphenous Vein: 6.1. Compressibility - Fully compressible: Thrombus - None: Flow - Phasic: Augmentation - Normal: Reflux - None. OTHER FINDINGS: Right: None significant. Left: None significant. IMPRESSION: Right: No evidence of deep or superficial vein thrombosis of the right lower extremity. Normal valve function noted of the right side. Left: No evidence of deep or superficial vein thrombosis of the left lower extremity. Normal valve function noted of the left side.
[2017-01-16] MEDS ORDERED: Piperacillin/Tazobact 3.375 GM in Sodium Chloride 100 ML IVPB SCH ×2 (17:45→18:45)
[2017-01-16] MEDS ORDERED: Oxycodone/Acetaminophen 5/325 mg Tab PO STA (21:26)
[2017-01-16] MEDS: Piperacillin/Tazobact 3.375 GM in Sodium Chloride 100 ML IVPB SCH (22:00)
--- NOTE | 2017-01-16 22:21 | CP.PCM.PN ---
Subjective - Date & Time of Evaluation Date of Evaluation: 01/16/17 Time of Evaluation: 22:17 - Subjective Subjective: IN LIEU OF HISTORY AND PHYSICAL FOR PATIENT'S ADMISSION: Pt seen and examined at bedside after she went to the ER on my instructions after being seen at the office yesterday. Pt was in tears from increasing pain, and now pt is unable to walk. Pt essentially confined to the chair which is especially bad since pt is a diabetic. L hallux was the site of previous surgery and pt able to dig up previous xray where she has a screw in the foot that was left there, presumably to be taken out a later time. Pt does not remember why a screw was put in. Previoius podiatrists had suggested a transmetatarsal amputation which did not seem logical to me several years ago when she did not have pain. Pt only started complaining of the pain around the 4th qtr of 2015. Her pain kept increasing especially around the metatarsophalangeal junction, that when it became red and evident that something was going on, advised to go to hospital where she was found to have cellulitis. Present on Admission - Present on Admission Any Indicators Present on Admission: No History of DVT/PE: No History of Uncontrolled Diabetes: Yes Urinary Catheter: No Decubitus Ulcer Present: No Review of Systems - Review of Systems Review of Systems: + tenderness at anterior abdominal wall parallel to exploratory lapatomy surgical incision, healed. No discharge, no redness, no weeping. - Constitutional Constitutional: Fever, Weakness, Malaise - EENT Eyes: As Per HPI, Change in Vision, Dry Eye, Itchy Eyes, Loss of Peripheral Vision, Pain, Sees Flashes, Other Visual Disturbances Ears: UNREMARKABLE Nose/Mouth/Throat: Nasal Congestion, Sinus Pain, Sinus Pressure - Breasts Breasts: UNREMARKABLE - Cardiovascular Cardiovascular: Rapid Heart Rate - Respiratory Respiratory: Hemoptysis - Gastrointestinal Gastrointestinal: Change in Bowel Habits, Change in Stool Character, Heartburn, Hematemesis, UNREMARKABLE - Neurological Neurological: Headaches - Psychiatric Psychiatric: Mood Swings - Hematologic/Lymphatic Hematologic: UNREMARKABLE Past Patient History - Infectious Disease Hx of Infectious Diseases: None - Tetanus Immunizations Tetanus Immunization: Unknown - Past Medical History & Family History Past Medical History?: Yes - Past Social History Smoking Status: Current Some Days Smoker Alcohol: None Drugs: Denies Home Situation {Lives}: Alone - CARDIAC Hx Cardiac Disorders: Yes Hx Atrial Fibrillation: Yes Hx Hypercholesterolemia: Yes Hx Hypertension: Yes Hx Hypotension: Yes Hx Peripheral Edema: Yes - PULMONARY Hx Respiratory Disorders: Yes Hx Asthma: Yes Hx Bronchitis: Yes Hx Pneumonia: Yes - NEUROLOGICAL Hx Neurological Disorder: Yes Hx Migraine: Yes Hx Seizures: Yes Hx Vertigo: Yes - HEENT Hx HEENT Problems: No Hx Blind: No Hx Cataracts: No Hx Deafness: Yes Hx Difficulty Chewing: No Hx Epistaxis: No Hx Glaucoma: No Hx Macular Degeneration: No Hx Sinusitis: No - RENAL Hx Chronic Kidney Disease: No Hx Pyelonephritis: Yes - ENDOCRINE/METABOLIC Hx Endocrine Disorders: Yes Hx Diabetes Mellitus Type 2: Yes Hx Hypothyroidism: Yes - HEMATOLOGICAL/ONCOLOGICAL Hx Blood Disorders: No Hx Shingles: Yes - INTEGUMENTARY Hx Dermatological Problems: Yes Hx Eczema: Yes Hx Psoriasis: Yes Other/Comment: chicken pox - MUSCULOSKELETAL/RHEUMATOLOGICAL Hx Musculoskeletal Disorders: Yes Hx Arthritis: Yes Hx Back Pain: Yes Hx Degenerative Joint Disease: Yes Hx Falls: Yes Hx Herniated Disk: Yes Hx Rheumatoid Arthritis: Yes (unconfirmed) - GASTROINTESTINAL Hx Gastrointestinal Disorders: Yes Hx Clostridium Difficile: Yes Hx Colitis: Yes Hx Gall Bladder Disease: Yes Hx Gastritis: Yes Hx Hemorrhoids: Yes Hx Vomiting: Yes - GENITOURINARY/GYNECOLOGICAL Hx Genitourinary Disorders: Yes Hx Ovarian Cancer: Yes (HYSTERECTOMY 1996) Hx Urinary Tract Infection: Yes - PSYCHIATRIC Hx Anxiety: Yes Hx Bipolar Disorder: Yes Hx Depression: Yes Hx Paranoia: Yes Hx Post Traumatic Stress Disorder: Yes Hx Schizophrenia: Yes (unconfirmed, pt denies) 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 - SURGICAL HISTORY Hx Surgeries: Yes Hx Cholecystectomy: Yes Hx Coronary Stent: Yes Other/Comment: exploratory lap surgical incision, healed - ANESTHESIA Hx Anesthesia: Yes Hx Anesthesia Reactions: No Hx Malignant Hyperthermia: No Has any member of the family had a problem w/ anesthesia?: No Meds Allergies/Adverse Reactions: Allergies Allergy/AdvReac Type Severity Reaction Status Date / Time famotidine [From Pepcid] Allergy Verified 10/01/15 13:33 Objective - Vital Signs/Intake and Output Vital Signs (last 24 hours): Temp Pulse Resp BP Pulse Ox 98.3 F 86 20 128/72 97 01/16/17 20:54 01/16/17 20:54 01/16/17 20:54 01/16/17 20:54 01/16/17 20:54 - Medications Medications: Current Medications Albuterol (Ventolin Hfa 90 Mcg/Actuation (8 G)) 1 puff IH BID [facility] Benztropine Mesylate (Cogentin) 2 mg PO BID [facility] Docusate Sodium (Colace) 100 mg PO BID [facility] Famotidine (Pepcid) 20 mg PO BID [facility] Folic Acid (Folic Acid) 1 mg PO DAILY [facility] Gabapentin (Neurontin) 300 mg PO [facility] Last Admin: 01/16/17 21:43 Dose: 300 mg Home Med (Acetaminophen/Oxycodone Hydr [Percocet 10/325 Mg Tab]) 1 tab PO TID [facility] Home Med (Fluticasone Propionate [Flovent Hfa]) 0.044 mg IH TID [facility] Home Med (Levocetirizine Dihydrochloride [Levocetirizine Dihydrochloride]) 5 mg PO HS [facility] Piperacillin Sod/Tazobactam (Sod 3.375 gm/ Sodium Chloride) 100 mls @ 200 mls/ hr IVPB Q8H [facility] Last Admin: 01/16/17 22:00 Dose: 200 mls/hr Insulin Detemir (Levemir) 10 unit SC HS [facility] Lactobacillus Acidophilus (Bacid Acidophilus) 1 cap PO BID [facility] Lisinopril (Zestril) 20 mg PO DAILY [facility] Lorazepam (Ativan) 1 mg PO [facility] Last Admin: 01/16/17 21:43 Dose: 1 mg Lorazepam (Ativan) 1 mg PO TID PRN PRN Reason: Agitation Mesalamine (Delzicol) 800 mg PO TID [facility] Metoprolol Tartrate (Lopressor) 25 mg PO Q12H [facility] Last Admin: 01/16/17 20:04 Dose: 25 mg Paroxetine HCl (Paxil) 30 mg PO DAILY [facility] Rosuvastatin Calcium (Crestor) 2.5 mg PO HS [facility] Trazodone HCl (Desyrel) 50 mg PO [facility] Last Admin: 01/16/17 21:43 Dose: 50 mg - Constitutional Appears: In Acute Distress - Head Exam Head Exam: NORMAL INSPECTION - Eye Exam Eye Exam: Normal appearance Pupil Exam: NORMAL ACCOMODATION - Neck Exam Neck Exam: Normal Inspection - Respiratory Exam Respiratory Exam: Clear to Ausculation Bilateral - Cardiovascular Exam Cardiovascular Exam: REGULAR RHYTHM - GI/Abdominal Exam GI & Abdominal Exam: Hypoactive Bowel Sounds - Rectal Exam Rectal Exam: Deferred - Extremities Exam Additional comments: at metatarsophalangeal joint of L hallux + indentation as in a compartment syndrome like presentation with redness and ttenderness distal to the joint. - Back Exam Back Exam: NORMAL INSPECTION - Neurological Exam Neurological Exam: Awake (unable to ambulate well bec of pain at her feet bilaterally), CN II-XII Intact, Oriented x3 Neuro motor strength exam: Left Upper Extremity: 5, Right Upper Extremity: 5, Left Lower Extremity: 4, Right Lower Extremity: 4 - Psychiatric Exam Psychiatric exam: Normal Affect, Normal Mood Assessment and Plan (1) Cellulitis, toe Assessment & Plan: started on Zosyn and continue. consult Podiatry--screw in feet definitely playing a part in causing pain and discuss removal if podiatry agrees. pt is medically stable and low risk for cardiovascular complicatoins. Status: Acute (2) Heel spur Assessment & Plan: bilateral heel spurs may need to be addressed together with this surgery since she will be suing her heels extensively. presence of heel spurs will be a hindrance to recovery Status: Acute (3) Diabetes mellitus with insulin therapy Assessment & Plan: pt stable with her diabetes, compliant with treatment Status: Chronic (4) Constipation Assessment & Plan: dulcolax suppository, then lactualose q 6 h if necessary . Status: Acute
[2017-01-16] MEDS: Insulin Detemir 100 units/ml Vial (Levemir) SC SCH (22:28)
[2017-01-16] MEDS: Lactobacillus Acidophilus 500 MU Cap PO SCH (22:45)
[2017-01-17] MEDS: Piperacillin/Tazobact 3.375 GM in Sodium Chloride 100 ML IVPB SCH ×3 (05:12→21:14)
[2017-01-17] MEDS ORDERED: Mometasone 220 mcg/puff-14 puff Inh INH SCH (08:00)
[2017-01-17] MEDS ORDERED: (Novolog) Insulin Aspart, Recombinant 100 u/ml 10 ml vial SC ONE (08:15)
[2017-01-17 08:41] LABS: BASO # 0.1 K/uL (0.0-0.2); BASO % 1.1 % (0.0-2.0); EOS # 0.3 K/uL (0.0-0.7); EOS % 2.6 % (0.0-4.0); HEMATOCRIT 35.2 % (34.0-47.0); LYMPH # 2.4 K/uL (1.0-4.3); LYMPH % 22.3 % (20.0-40.0); MEAN CORPUSCULAR HEMOGLOBIN 29.3 pg (27.0-31.0); MEAN PLATELET VOLUME 8.6 fL (7.2-11.7); MONO # 0.9 K/uL (0.0-0.8); MONO % 7.9 % (0.0-10.0); RED CELL DISTRIBUTION WIDTH 13.5 % (11.5-14.5); WHITE BLOOD COUNT 10.9 K/uL (4.8-10.8)
[2017-01-17 08:55] LABS: CHLORIDE 104 mmol/L (98-107); SODIUM 138 mmol/L (132-148)
[2017-01-17 08:56] LABS: POTASSIUM 3.6 mmol/L (3.6-5.2)
[2017-01-17 08:58] LABS: ALB/GLOB RATIO 1.1 (1.0-2.1); ALKALINE PHOSPHATASE 84 U/L (38-126); AST/SGOT 24 U/L (14-36); BILIRUBIN,TOTAL 0.7 mg/dL (0.2-1.3); CARBON DIOXIDE 26 mmol/L (22-30); GFR AFRICAN-AMERICAN > 60; TOTAL PROTEIN 6.2 g/dL (6.3-8.3)
[2017-01-17 08:59] LABS: ALT/SGPT 30 U/L (9-52); BLOOD UREA NITROGEN 13 mg/dL (7-17); CALCIUM 8.5 mg/dl (8.6-10.4); GLUCOSE,RANDOM 158 mg/dL (65-105)
[2017-01-17] MEDS: Albuterol HFA 90 mcg/actuation (8 g) IH SCH ×2 (09:18→20:43)
[2017-01-17] MEDS: Oxycodone/Acetaminophen 5/325 mg Tab PO PRN (09:25)
[2017-01-17] MEDS ORDERED: MESALAMINE 0.375 GM PO SCH (10:00)
[2017-01-17] MEDS ORDERED: PARoxetine 5 mg Tab PO SCH (10:00)
--- NOTE | 2017-01-17 10:11 | CP.PCM.PN ---
Subjective - Date & Time of Evaluation Date of Evaluation: 01/17/17 Time of Evaluation: 10:09 - Subjective Subjective: 51 y/o female seen with b/l heel pain and left hallux pain. Patient states that today she is feeling well but is still in pain. States that the majoiry of her pain is localizd in th eleft hallux. States that she talked to Dr. Syed who may be planning to remove the screw while admitted. Denies any other complaints today. Denies any f/c/n/v/sob at this time. Objective - Vital Signs/Intake and Output Vital Signs (last 24 hours): Temp Pulse Resp BP Pulse Ox 98 F 76 20 97/65 L 95 01/17/17 01:06 01/17/17 06:14 01/17/17 01:06 01/17/17 06:15 01/17/17 01:06 Intake and Output: 01/17/17 01/17/17 06:59 18:59 Intake Total 340 340 Balance 340 340 - Medications Medications: Current Medications Albuterol (Ventolin Hfa 90 Mcg/Actuation (8 G)) 1 puff IH RBID [facility] Last Admin: 01/17/17 09:18 Dose: 1 puff Benztropine Mesylate (Cogentin) 2 mg PO BID [facility] Last Admin: 01/17/17 09:29 Dose: 2 mg Docusate Sodium (Colace) 100 mg PO BID [facility] Last Admin: 01/17/17 09:27 Dose: 100 mg Famotidine (Pepcid) 20 mg PO BID [facility] Last Admin: 01/17/17 09:28 Dose: 20 mg Folic Acid (Folic Acid) 1 mg PO DAILY [facility] Last Admin: 01/17/17 09:27 Dose: 1 mg Gabapentin (Neurontin) 300 mg PO HS [facility] Last Admin: 01/16/17 21:43 Dose: 300 mg Piperacillin Sod/Tazobactam (Sod 3.375 gm/ Sodium Chloride) 100 mls @ 200 mls/ hr IVPB Q8H [facility] Last Admin: 01/17/17 05:12 Dose: 200 mls/hr Insulin Aspart (Novolog) 0 unit SC ACHS [facility] PRN Reason: Protocol Insulin Detemir (Levemir) 10 unit SC HS [facility] Last Admin: 01/16/17 22:28 Dose: 10 unit Lactobacillus Acidophilus (Bacid Acidophilus) 1 cap PO BID [facility] Last Admin: 01/16/17 22:45 Dose: 1 cap Lisinopril (Zestril) 20 mg PO DAILY [facility] Last Admin: 01/17/17 09:28 Dose: 20 mg Loratadine (Claritin) 10 mg PO DAILY [facility] Last Admin: 01/17/17 09:27 Dose: 10 mg Lorazepam (Ativan) 1 mg PO HS [facility] Last Admin: 01/16/17 21:43 Dose: 1 mg Lorazepam (Ativan) 1 mg PO TID PRN PRN Reason: Agitation Mesalamine (Delzicol) 800 mg PO TID [facility] Last Admin: 01/16/17 22:45 Dose: 800 mg Metoprolol Tartrate (Lopressor) 25 mg PO Q12H [facility] Last Admin: 01/17/17 06:15 Dose: Not Given Mometasone Furoate (Asmanex Twisthaler 220 Mcg) 220 puff INH RBID [facility] Oxycodone/Acetaminophen (Percocet 5/325 Mg Tab) 2 tab PO TID PRN Stop: 01/19/17 22:50 Last Admin: 01/17/17 09:25 Dose: 2 tab Paroxetine HCl (Paxil) 30 mg PO DAILY [facility] Pneumococcal Polyvalent Vaccine (Pneumovax 23 Vaccine) 0.5 ml IM .ONCE ONE Stop: 01/19/17 10:01 Rosuvastatin Calcium (Crestor) 2.5 mg PO [facility] Trazodone HCl (Desyrel) 50 mg PO [facility] Last Admin: 01/16/17 21:43 Dose: 50 mg - Labs Labs: 01/17/17 08:30 01/17/17 08:30 - Constitutional Appears: Well, Non-toxic, No Acute Distress - Skin Skin Exam: Normal Color, Warm - Additional Findings Additional findings: Bilateral lower extremity examination: Vascular: DP 2/4; PT 1/4; capillary fill time < 3 sec x10; normal temperature gradient noted Neuro: light touch and protective sensation grossly intact Derm: Left hallux appears to be mildly edematous with associated taut skin and mild erythema; no open wounds noted; no signs of ascending cellulitis; no ulcerations, no drainage, no ulcerations present Ortho: pain elicited upon palpation of central and medial aspects of both heels bilaterally; pain elicited in the Right midfoot and ankle region upon dorsiflexion of the Right foot; patient is able to perform AROM of all digits except the Left hallux; able to perform PROM of the Left hallux at the 1st MPJ, but with significant pain; pain elicited upon compression of the calf bilaterally Assessment and Plan - Assessment and Plan (Free Text) Assessment: 51 y/o female with resolving Left hallux cellulitis, left halllux pain ; bilateral heel pain radiating proximally to legs Plan: Patient seen and evaluated at bedside Labs and vitals reviewed: wbc 10.9; x-rays reviewed; screw ismildly backin out at the tip of the left hallux, in good alignment throughout the bone, good fusion apparent Discussed possible screw removal during hospital stay vs outpatient; states Dr. Syed is to discuss with her later tday ; Discussed f/u with PT and outpatient pain mgmt; states that she follows up with pain DrHoang Lynne is hyperaesthetic at this time. Will continue to f/u as needed.
[2017-01-17] MEDS: Lactobacillus Acidophilus 500 MU Cap PO SCH ×2 (10:13→17:32)
[2017-01-17] MEDS: (Novolog) Insulin Aspart, Recombinant 100 u/ml 10 ml vial SC SCH ×3 (11:41→21:44)
--- NOTE | 2017-01-17 13:55 | CP.PCM.PN ---
Subjective - Date & Time of Evaluation Date of Evaluation: 01/17/17 Time of Evaluation: 01:50 - Subjective Subjective: Pt seen for chief complaint of severe pain of left hallux which was without pain for 2 years s/p extensive excision of scar tissue and fusion of IP jt .Pt most recently has been treated for right heel pain which has been resistant to treatment. Pt has long history of foot pain and and condition is most difficult to control .Case has been discussed with Dr Moore and attempt tpo refer Pt to [facility] for eval was rejected by patient . Objective - Vital Signs/Intake and Output Vital Signs (last 24 hours): Temp Pulse Resp BP Pulse Ox 97.8 F 90 20 118/75 96 01/17/17 08:00 01/17/17 08:00 01/17/17 08:00 01/17/17 08:00 01/17/17 08:00 Intake and Output: 01/17/17 01/17/17 06:59 18:59 Intake Total 340 340 Balance 340 340 - Medications Medications: Current Medications Albuterol (Ventolin Hfa 90 Mcg/Actuation (8 G)) 1 puff IH RBID [facility] Last Admin: 01/17/17 09:18 Dose: 1 puff Benztropine Mesylate (Cogentin) 2 mg PO BID [facility] Last Admin: 01/17/17 09:29 Dose: 2 mg Docusate Sodium (Colace) 100 mg PO BID [facility] Last Admin: 01/17/17 09:27 Dose: 100 mg Famotidine (Pepcid) 20 mg PO BID [facility] Last Admin: 01/17/17 09:28 Dose: 20 mg Folic Acid (Folic Acid) 1 mg PO DAILY [facility] Last Admin: 01/17/17 09:27 Dose: 1 mg Gabapentin (Neurontin) 300 mg PO HS [facility] Last Admin: 01/16/17 21:43 Dose: 300 mg Piperacillin Sod/Tazobactam (Sod 3.375 gm/ Sodium Chloride) 100 mls @ 200 mls/ hr IVPB Q8H [facility] Last Admin: 01/17/17 05:12 Dose: 200 mls/hr Insulin Aspart (Novolog) 0 unit SC ACHS [facility] PRN Reason: Protocol Last Admin: 01/17/17 11:41 Dose: 1 unit Insulin Detemir (Levemir) 10 unit SC [facility] Last Admin: 01/16/17 22:28 Dose: 10 unit Lactobacillus Acidophilus (Bacid Acidophilus) 1 cap PO BID [facility] Last Admin: 01/17/17 10:13 Dose: 1 cap Lisinopril (Zestril) 20 mg PO DAILY [facility] Last Admin: 01/17/17 09:28 Dose: 20 mg Loratadine (Claritin) 10 mg PO DAILY [facility] Last Admin: 01/17/17 09:27 Dose: 10 mg Lorazepam (Ativan) 1 mg PO [facility] Last Admin: 01/16/17 21:43 Dose: 1 mg Lorazepam (Ativan) 1 mg PO TID PRN PRN Reason: Agitation Mesalamine (Delzicol) 800 mg PO TID [facility] Last Admin: 01/17/17 10:38 Dose: 800 mg Metoprolol Tartrate (Lopressor) 25 mg PO Q12H [facility] Last Admin: 01/17/17 06:15 Dose: Not Given Mometasone Furoate (Asmanex Twisthaler 220 Mcg) 220 puff INH RBID [facility] Oxycodone/Acetaminophen (Percocet 5/325 Mg Tab) 2 tab PO TID PRN Stop: 01/19/17 22:50 Last Admin: 01/17/17 09:25 Dose: 2 tab Paroxetine HCl (Paxil) 30 mg PO DAILY [facility] Last Admin: 01/17/17 10:13 Dose: 30 mg Pneumococcal Polyvalent Vaccine (Pneumovax 23 Vaccine) 0.5 ml IM .ONCE ONE Stop: 01/19/17 10:01 Rosuvastatin Calcium (Crestor) 2.5 mg PO [facility] Trazodone HCl (Desyrel) 50 mg PO [facility] Last Admin: 01/16/17 21:43 Dose: 50 mg - Labs Labs: 01/17/17 08:30 01/17/17 08:30 - Extremities Exam Additional comments: O/Pain left hallux noted . Resolving cellulitis left hallux noted . Vascular status intact b/l DM neuropathy b/l . Assessment and Plan - Assessment and Plan (Free Text) Assessment: A/Resolving cellulitis left hallux /Painful hardware left hallux Plan: P/ continue iv antibiotics . Will remove screw next week .
--- NOTE | 2017-01-17 21:08 | CP.PCM.PN ---
Subjective - Date & Time of Evaluation Date of Evaluation: 01/17/17 Time of Evaluation: 21:06 - Subjective Subjective: Pt seen and examined at bedside. Seen by podiatry today, and latter to remove screw placed for interphalangeal joint fusion in the past this coming week. Pt currently on IV abx for cellulitis of L hallux, which had been paining her for the last 6 months, at least. Furthermore, complains of pain on the R heel as well as the left heel, and admitting xray of both eet show calcaneal spurs in each heel. This has almost completely incapacitated this pt which spells a disaster in a diabetic pt. Pt thus admitted for extensive workup to allow this pt to lead a good quality of life. Objective - Vital Signs/Intake and Output Vital Signs (last 24 hours): Temp Pulse Resp BP Pulse Ox 98.4 F 70 20 110/75 93 L 01/17/17 16:00 01/17/17 16:00 01/17/17 16:00 01/17/17 18:33 01/17/17 16:00 Intake and Output: 01/17/17 01/18/17 18:59 06:59 Intake Total 790 Balance 790 - Medications Medications: Current Medications Albuterol (Ventolin Hfa 90 Mcg/Actuation (8 G)) 1 puff IH RBID [facility] Last Admin: 01/17/17 20:43 Dose: 1 puff Benztropine Mesylate (Cogentin) 2 mg PO BID [facility] Last Admin: 01/17/17 17:32 Dose: 2 mg Docusate Sodium (Colace) 100 mg PO BID [facility] Last Admin: 01/17/17 17:32 Dose: 100 mg Famotidine (Pepcid) 20 mg PO BID [facility] Last Admin: 01/17/17 17:32 Dose: 20 mg Folic Acid (Folic Acid) 1 mg PO DAILY [facility] Last Admin: 01/17/17 09:27 Dose: 1 mg Gabapentin (Neurontin) 300 mg PO HS [facility] Last Admin: 01/16/17 21:43 Dose: 300 mg Piperacillin Sod/Tazobactam (Sod 3.375 gm/ Sodium Chloride) 100 mls @ 200 mls/ hr IVPB Q8H [facility] Last Admin: 01/17/17 14:11 Dose: 200 mls/hr Insulin Aspart (Novolog) 0 unit SC [facility] PRN Reason: Protocol Last Admin: 01/17/17 16:38 Dose: Not Given Insulin Detemir (Levemir) 10 unit SC [facility] Last Admin: 01/16/17 22:28 Dose: 10 unit Lactobacillus Acidophilus (Bacid Acidophilus) 1 cap PO BID [facility] Last Admin: 01/17/17 17:32 Dose: 1 cap Lisinopril (Zestril) 20 mg PO DAILY [facility] Last Admin: 01/17/17 09:28 Dose: 20 mg Loratadine (Claritin) 10 mg PO DAILY [facility] Last Admin: 01/17/17 09:27 Dose: 10 mg Lorazepam (Ativan) 1 mg PO HS [facility] Last Admin: 01/16/17 21:43 Dose: 1 mg Lorazepam (Ativan) 1 mg PO TID PRN PRN Reason: Agitation Mesalamine (Delzicol) 800 mg PO TID [facility] Last Admin: 01/17/17 18:07 Dose: 800 mg Metoprolol Tartrate (Lopressor) 25 mg PO Q12H [facility] Last Admin: 01/17/17 18:33 Dose: 25 mg Mometasone Furoate (Asmanex Twisthaler 220 Mcg) 220 puff INH RBID [facility] Oxycodone/Acetaminophen (Percocet 5/325 Mg Tab) 2 tab PO TID PRN Stop: 01/19/17 22:50 Last Admin: 01/17/17 09:25 Dose: 2 tab Paroxetine HCl (Paxil) 30 mg PO DAILY [facility] Last Admin: 01/17/17 10:13 Dose: 30 mg Pneumococcal Polyvalent Vaccine (Pneumovax 23 Vaccine) 0.5 ml IM .ONCE ONE Stop: 01/19/17 10:01 Rosuvastatin Calcium (Crestor) 2.5 mg PO [facility] Trazodone HCl (Desyrel) 50 mg PO [facility] Last Admin: 01/16/17 21:43 Dose: 50 mg - Labs Labs: 01/17/17 08:30 01/17/17 08:30 - Constitutional Appears: No Acute Distress - Head Exam Head Exam: NORMAL INSPECTION. absent: ATRAUMATIC, NORMOCEPHALIC - Eye Exam Eye Exam: Normal appearance Pupil Exam: NORMAL ACCOMODATION - ENT Exam ENT Exam: Mucous Membranes Dry, Mucous Membranes Moist - Neck Exam Neck Exam: Full ROM, Normal Inspection - Respiratory Exam Respiratory Exam: Clear to Ausculation Bilateral, NORMAL BREATHING PATTERN - Cardiovascular Exam Cardiovascular Exam: REGULAR RHYTHM, RRR - GI/Abdominal Exam GI & Abdominal Exam: Soft - Rectal Exam Rectal Exam: Deferred - Extremities Exam Extremities Exam: Normal Capillary Refill, Normal Inspection Additional comments: decreased indentation at metatarso phalangeal joint where a brewing compartment synndrome may have occurred . - Neurological Exam Neuro motor strength exam: Left Upper Extremity: 5, Right Upper Extremity: 5, Left Lower Extremity: 4, Right Lower Extremity: 4 - Psychiatric Exam Psychiatric exam: Anxious, Depressed, Normal Mood - Skin Skin Exam: Dry, Intact, Normal Color, Warm Assessment and Plan (1) Cellulitis, toe Status: Acute Attending/Attestation - Attestation I have fully participated in the care of the patient.: Yes I have reviewed all pertinent clinical information, including history, physical exam and plan: Yes Notes (Text): 01/18/17 03:32 > Noted passage of time with the lightening josephine this morning and the passing of a cortege, which contained
[2017-01-17] MEDS: Insulin Detemir 100 units/ml Vial (Levemir) SC SCH (21:14)
[2017-01-17] MEDS: Rosuvastatin Calcium 2.5 mg Tab PO SCH (21:45)
[2017-01-18] MEDS: Piperacillin/Tazobact 3.375 GM in Sodium Chloride 100 ML IVPB SCH ×3 (05:23→21:07)
[2017-01-18] MEDS: Albuterol HFA 90 mcg/actuation (8 g) IH SCH ×2 (08:06→20:16)
[2017-01-18] MEDS: (Novolog) Insulin Aspart, Recombinant 100 u/ml 10 ml vial SC SCH ×4 (08:40→22:12)
--- NOTE | 2017-01-18 10:37 | CP.PCM.PN ---
Subjective - Date & Time of Evaluation Date of Evaluation: 01/18/17 Time of Evaluation: 10:35 - Subjective Subjective: 51 y/o female seen with b/l heel pain and left hallux pain. Patient states that today she is feeling well but is still in pain. States that the majoiry of her pain is localizd in [facility] hallux. States that she talked to Dr. Syed yesterday who plans on screw removal next week, tentatively . Denies any other complaints today. Denies any f/c/n/v/sob at this time. Objective - Vital Signs/Intake and Output Vital Signs (last 24 hours): Temp Pulse Resp BP Pulse Ox 98.1 F 77 16 108/62 97 01/18/17 00:00 01/18/17 06:16 01/18/17 00:00 01/18/17 06:17 01/18/17 00:00 Intake and Output: 01/18/17 01/18/17 06:59 18:59 Intake Total 890 Balance 890 - Medications Medications: Current Medications Albuterol (Ventolin Hfa 90 Mcg/Actuation (8 G)) 1 puff IH RBID [facility] Last Admin: 01/18/17 08:06 Dose: 1 puff Benztropine Mesylate (Cogentin) 2 mg PO BID [facility] Last Admin: 01/17/17 17:32 Dose: 2 mg Docusate Sodium (Colace) 100 mg PO BID [facility] Last Admin: 01/17/17 17:32 Dose: 100 mg Famotidine (Pepcid) 20 mg PO BID [facility] Last Admin: 01/17/17 17:32 Dose: 20 mg Folic Acid (Folic Acid) 1 mg PO DAILY [facility] Last Admin: 01/17/17 09:27 Dose: 1 mg Gabapentin (Neurontin) 300 mg PO [facility] Last Admin: 01/17/17 21:16 Dose: 300 mg Piperacillin Sod/Tazobactam (Sod 3.375 gm/ Sodium Chloride) 100 mls @ 200 mls/ hr IVPB Q8H [facility] Last Admin: 01/18/17 05:23 Dose: 200 mls/hr Insulin Aspart (Novolog) 0 unit SC [facility] PRN Reason: Protocol Last Admin: 01/18/17 08:40 Dose: 1 unit Insulin Detemir (Levemir) 10 unit SC [facility] Last Admin: 01/17/17 21:14 Dose: 10 unit Lactobacillus Acidophilus (Bacid Acidophilus) 1 cap PO BID [facility] Last Admin: 01/17/17 17:32 Dose: 1 cap Lisinopril (Zestril) 20 mg PO DAILY [facility] Last Admin: 01/17/17 09:28 Dose: 20 mg Loratadine (Claritin) 10 mg PO DAILY [facility] Last Admin: 01/17/17 09:27 Dose: 10 mg Lorazepam (Ativan) 1 mg PO [facility] Last Admin: 01/17/17 21:16 Dose: 1 mg Lorazepam (Ativan) 1 mg PO TID PRN PRN Reason: Agitation Mesalamine (Delzicol) 800 mg PO TID [facility] Last Admin: 01/17/17 18:07 Dose: 800 mg Metoprolol Tartrate (Lopressor) 25 mg PO Q12H [facility] Last Admin: 01/18/17 06:17 Dose: Not Given Mometasone Furoate (Asmanex Twisthaler 220 Mcg) 220 puff INH RBID [facility] Oxycodone/Acetaminophen (Percocet 5/325 Mg Tab) 2 tab PO TID PRN Stop: 01/19/17 22:50 Last Admin: 01/17/17 09:25 Dose: 2 tab Paroxetine HCl (Paxil) 30 mg PO DAILY [facility] Last Admin: 01/17/17 10:13 Dose: 30 mg Pneumococcal Polyvalent Vaccine (Pneumovax 23 Vaccine) 0.5 ml IM .ONCE ONE Stop: 01/19/17 10:01 Rosuvastatin Calcium (Crestor) 2.5 mg PO [facility] Last Admin: 01/17/17 21:45 Dose: 2.5 mg Trazodone HCl (Desyrel) 50 mg PO [facility] Last Admin: 01/17/17 21:16 Dose: 50 mg - Labs Labs: 01/17/17 08:30 01/17/17 08:30 - Constitutional Appears: Well, Non-toxic, No Acute Distress - Neurological Exam Neurological Exam: Alert, Awake, Oriented x3 - Psychiatric Exam Psychiatric exam: Normal Affect, Normal Mood - Skin Skin Exam: Normal Color, Warm - Additional Findings Additional findings: Bilateral lower extremity examination: Vascular: DP 2/4; PT 1/4; capillary fill time < 3 sec x10; normal temperature gradient noted Neuro: light touch and protective sensation grossly intact Derm: Left hallux appears to be mildly edematous with associated taut skin and mild erythema; no open wounds noted; no signs of ascending cellulitis; no ulcerations, no drainage, no ulcerations present Ortho: pain elicited upon palpation of central and medial aspects of both heels bilaterally; pain elicited in the Right midfoot and ankle region upon dorsiflexion of the Right foot; patient is able to perform AROM of all digits except the Left hallux; able to perform PROM of the Left hallux at the 1st MPJ, but with significant pain; pain elicited upon compression of the calf bilaterally Assessment and Plan - Assessment and Plan (Free Text) Assessment: 51 y/o female with resolving Left hallux cellulitis, left halllux pain ; bilateral heel pain radiating proximally to legs Plan: Patient seen and evaluated at bedside Labs and vitals reviewed: no new labs today x-rays reviewed; screw ismildly backin out at the tip of the left hallux, in good alignment throughout the bone, good fusion apparent Dr. Syed planning screw removal early next week, possibly thursday? per Dr. Syed patient has been a complicated case and refuses to have f/u at another outside facility for further eval; He discussed case with Dr. Moore. Discussed f/u with PT and outpatient pain mgmt; states that she follows up with pain Dr. Will continue to f/u as needed.
[2017-01-18] MEDS: Oxycodone/Acetaminophen 5/325 mg Tab PO PRN (12:04)
[2017-01-18] MEDS: Lactobacillus Acidophilus 500 MU Cap PO SCH ×2 (12:39→17:45)
[2017-01-18] MEDS ORDERED: Iohexol 350mg/ml 100 ML ONE (13:26)
[2017-01-18] MEDS: Rosuvastatin Calcium 2.5 mg Tab PO SCH (21:07)
[2017-01-18] MEDS: Insulin Detemir 100 units/ml Vial (Levemir) SC SCH (21:08)
--- NOTE | 2017-01-18 23:48 | CP.PCM.PN ---
Subjective - Date & Time of Evaluation Date of Evaluation: 01/18/17 Time of Evaluation: 23:44 - Subjective Subjective: Pt doing well. Pain decreased on L toe cellulitis. Still with pain on both heels 2ndry to compensation, as well a heel spurs present as seen on admission xray. CT feet ordered and done, awaiting reading. Objective - Vital Signs/Intake and Output Vital Signs (last 24 hours): Temp Pulse Resp BP Pulse Ox 98.1 F 69 18 140/75 92 L 01/18/17 14:00 01/18/17 14:00 01/18/17 14:00 01/18/17 19:35 01/18/17 14:00 Intake and Output: 01/18/17 01/19/17 18:59 06:59 Intake Total 400 400 Output Total 600 Balance 400 -200 - Medications Medications: Current Medications Albuterol (Ventolin Hfa 90 Mcg/Actuation (8 G)) 1 puff IH RBID [facility] Last Admin: 01/18/17 20:16 Dose: 1 puff Benztropine Mesylate (Cogentin) 2 mg PO BID [facility] Last Admin: 01/18/17 17:45 Dose: 2 mg Docusate Sodium (Colace) 100 mg PO BID [facility] Last Admin: 01/18/17 17:45 Dose: 100 mg Famotidine (Pepcid) 20 mg PO BID [facility] Last Admin: 01/18/17 17:45 Dose: 20 mg Folic Acid (Folic Acid) 1 mg PO DAILY [facility] Last Admin: 01/18/17 11:54 Dose: 1 mg Gabapentin (Neurontin) 300 mg PO HS [facility] Last Admin: 01/18/17 21:07 Dose: 300 mg Piperacillin Sod/Tazobactam (Sod 3.375 gm/ Sodium Chloride) 100 mls @ 200 mls/ hr IVPB Q8H [facility] Last Admin: 01/18/17 21:07 Dose: 200 mls/hr Insulin Aspart (Novolog) 0 unit SC [facility] PRN Reason: Protocol Last Admin: 01/18/17 22:12 Dose: Not Given Insulin Detemir (Levemir) 10 unit SC HS [facility] Last Admin: 01/18/17 21:08 Dose: 10 unit Lactobacillus Acidophilus (Bacid Acidophilus) 1 cap PO BID [facility] Last Admin: 01/18/17 17:45 Dose: 1 cap Lactulose (Enulose) 20 gm PO Q6 PRN PRN Reason: Constipation Last Admin: 01/18/17 16:18 Dose: 20 gm Lisinopril (Zestril) 20 mg PO DAILY [facility] Last Admin: 01/18/17 12:00 Dose: 20 mg Loratadine (Claritin) 10 mg PO DAILY [facility] Last Admin: 01/18/17 11:54 Dose: 10 mg Lorazepam (Ativan) 1 mg PO [facility] Last Admin: 01/18/17 21:07 Dose: 1 mg Lorazepam (Ativan) 1 mg PO TID PRN PRN Reason: Agitation Mesalamine (Delzicol) 800 mg PO TID [facility] Last Admin: 01/18/17 17:45 Dose: 800 mg Metoprolol Tartrate (Lopressor) 25 mg PO Q12H [facility] Last Admin: 01/18/17 19:35 Dose: 25 mg Mometasone Furoate (Asmanex Twisthaler 220 Mcg) 220 puff INH RBID [facility] Oxycodone/Acetaminophen (Percocet 5/325 Mg Tab) 2 tab PO TID PRN Stop: 01/19/17 22:50 Last Admin: 01/18/17 12:04 Dose: 2 tab Paroxetine HCl (Paxil) 30 mg PO DAILY [facility] Last Admin: 01/18/17 11:55 Dose: 30 mg Pneumococcal Polyvalent Vaccine (Pneumovax 23 Vaccine) 0.5 ml IM .ONCE ONE Stop: 01/19/17 10:01 Rosuvastatin Calcium (Crestor) 2.5 mg PO [facility] Last Admin: 01/18/17 21:07 Dose: 2.5 mg Trazodone HCl (Desyrel) 50 mg PO [facility] Last Admin: 01/18/17 21:07 Dose: 50 mg - Labs Labs: 01/17/17 08:30 01/17/17 08:30 - Constitutional Appears: No Acute Distress - Head Exam Head Exam: NORMAL INSPECTION, NORMOCEPHALIC - Eye Exam Eye Exam: EOMI, Normal appearance Pupil Exam: NORMAL ACCOMODATION - ENT Exam ENT Exam: Mucous Membranes Moist, Normal Exam - Neck Exam Neck Exam: Full ROM - Respiratory Exam Respiratory Exam: Decreased Breath Sounds, Clear to Ausculation Bilateral - Cardiovascular Exam Cardiovascular Exam: REGULAR RHYTHM, RRR - GI/Abdominal Exam GI & Abdominal Exam: Hernia, Hyperactive Bowel Sounds - Rectal Exam Rectal Exam: NORMAL INSPECTION Assessment and Plan (1) Cellulitis of toe, left Status: Acute (2) Calcaneal spur of both feet Assessment & Plan: Podiatry may need to address heel spurs and possible extraction to prevent it growing and becoming another issue Status: Acute (3) Diabetes 1.5, managed as type 1 Assessment & Plan: stable with long acting insulin and regular x1 dose daily Status: Acute - Assessment and Plan (Free Text) Assessment: continue Zosyn
[2017-01-19] MEDS: Piperacillin/Tazobact 3.375 GM in Sodium Chloride 100 ML IVPB SCH ×3 (06:02→21:00)
[2017-01-19] MEDS: (Novolog) Insulin Aspart, Recombinant 100 u/ml 10 ml vial SC SCH ×4 (07:30→21:01)
[2017-01-19] MEDS: Albuterol HFA 90 mcg/actuation (8 g) IH SCH ×2 (07:53→19:31)
[2017-01-19] MEDS ORDERED: Pneumococcal 23-Valent Vaccine IM ONE (10:00)
[2017-01-19] MEDS: Lactobacillus Acidophilus 500 MU Cap PO SCH ×2 (10:09→18:19)
--- NOTE | 2017-01-19 11:58 | RAD ---
PROCEDURE: CHEST RADIOGRAPH, 1 VIEW HISTORY: preop COMPARISON: 12/16/2016 FINDINGS: LUNGS: Mild venous congestion. Minimal apical pleural thickening. PLEURA: No pneumothorax or pleural fluid seen. CARDIOVASCULAR: Tortuous aorta. OSSEOUS STRUCTURES: No significant abnormalities. VISUALIZED UPPER ABDOMEN: Normal. OTHER FINDINGS: None. IMPRESSION: Mild venous congestion. Minimal apical pleural thickening.
--- NOTE | 2017-01-19 13:30 | CT ---
PROCEDURE: CT bilateral lower extremity HISTORY: chronic pain, s/p IP joint fusion, r/o osteomyelit COMPARISON: Not available TECHNIQUE: 2.5 mm contiguous axial sections were acquired through the right and left lower extremity from the proximal tibia through the foot and ankle. Sagittal and coronal images were reformatted. The examination was performed following the intravenous administration of 100 mL Omnipaque 350. Total exam DLP: 530.38 mGy-cm. FINDINGS: The patient is status post arthrodesis of the 1st MTP joint. A compression screw traverses the distal metatarsal and 1st phalanx. There is no osseous erosion or periosteal reaction appreciated throughout either lower extremity. There are small ossific densities seen inferior to the medial malleolus bilaterally, most likely ununited ossification centers or alternatively these could represent the result of small old avulsion injuries. There is no osseous fracture identified. There is no mass or fluid collection identified in the soft tissues of either lower extremity. Please note that the examination is of limited sensitivity for detection of osteomyelitis. If osteomyelitis is clinically suspected then evaluation with gadolinium enhanced magnetic resonance imaging is advised. IMPRESSION: No evidence of osteomyelitis. No soft tissue abnormality identified. The examination is of low sensitivity for detection of osteomyelitis and consideration should be given to evaluation with gadolinium enhanced magnetic resonance imaging if clinical suspicion of osteomyelitis persists.
[2017-01-19] MEDS: Oxycodone/Acetaminophen 5/325 mg Tab PO PRN (13:38)
--- NOTE | 2017-01-19 19:19 | CP.PCM.PN ---
Subjective - Date & Time of Evaluation Date of Evaluation: 01/19/17 Time of Evaluation: 12:00 - Subjective Subjective: 51 y/o female patient was seen and evaluated at bedside this afternoon. Patient was resting comfortably, in NAD. Patient continues to complain of ongoing pain in her Left hallux. Denies any pedal complaints today. Denies any F/C/N/V/SOB. Objective - Vital Signs/Intake and Output Vital Signs (last 24 hours): Temp Pulse Resp BP Pulse Ox 98.1 F 59 L 20 116/75 95 01/19/17 15:00 01/19/17 15:00 01/19/17 15:00 01/19/17 18:20 01/19/17 08:03 - Medications Medications: Current Medications Albuterol (Ventolin Hfa 90 Mcg/Actuation (8 G)) 1 puff IH RBID [facility] Last Admin: 01/19/17 07:53 Dose: 1 puff Benztropine Mesylate (Cogentin) 2 mg PO BID [facility] Last Admin: 01/19/17 18:23 Dose: 2 mg Docusate Sodium (Colace) 100 mg PO BID [facility] Last Admin: 01/19/17 18:19 Dose: 100 mg Famotidine (Pepcid) 20 mg PO BID [facility] Last Admin: 01/19/17 18:19 Dose: 20 mg Folic Acid (Folic Acid) 1 mg PO DAILY [facility] Last Admin: 01/19/17 10:05 Dose: 1 mg Gabapentin (Neurontin) 300 mg PO HS [facility] Last Admin: 01/18/17 21:07 Dose: 300 mg Piperacillin Sod/Tazobactam (Sod 3.375 gm/ Sodium Chloride) 100 mls @ 200 mls/ hr IVPB Q8H [facility] Last Admin: 01/19/17 14:49 Dose: 200 mls/hr Insulin Aspart (Novolog) 0 unit SC ACHS [facility] PRN Reason: Protocol Last Admin: 01/19/17 16:23 Dose: Not Given Insulin Detemir (Levemir) 10 unit SC HS [facility] Last Admin: 01/18/17 21:08 Dose: 10 unit Lactobacillus Acidophilus (Bacid Acidophilus) 1 cap PO BID [facility] Last Admin: 01/19/17 18:19 Dose: 1 cap Lactulose (Enulose) 20 gm PO Q6 PRN PRN Reason: Constipation Last Admin: 01/18/17 16:18 Dose: 20 gm Lisinopril (Zestril) 20 mg PO DAILY [facility] Last Admin: 01/19/17 10:19 Dose: 20 mg Loratadine (Claritin) 10 mg PO DAILY [facility] Last Admin: 01/19/17 10:06 Dose: 10 mg Lorazepam (Ativan) 1 mg PO [facility] Last Admin: 01/18/17 21:07 Dose: 1 mg Lorazepam (Ativan) 1 mg PO TID PRN PRN Reason: Agitation Mesalamine (Delzicol) 800 mg PO TID [facility] Last Admin: 01/19/17 18:19 Dose: 800 mg Metoprolol Tartrate (Lopressor) 25 mg PO Q12H [facility] Last Admin: 01/19/17 18:20 Dose: 25 mg Mometasone Furoate (Asmanex Twisthaler 220 Mcg) 220 puff INH RBID [facility] Oxycodone/Acetaminophen (Percocet 5/325 Mg Tab) 2 tab PO TID PRN Stop: 01/19/17 22:50 Last Admin: 01/19/17 13:38 Dose: 2 tab Paroxetine HCl (Paxil) 30 mg PO DAILY [facility] Last Admin: 01/19/17 10:09 Dose: 30 mg Rosuvastatin Calcium (Crestor) 2.5 mg PO [facility] Last Admin: 01/18/17 21:07 Dose: 2.5 mg Trazodone HCl (Desyrel) 50 mg PO [facility] Last Admin: 01/18/17 21:07 Dose: 50 mg - Constitutional Appears: Non-toxic, No Acute Distress - Neurological Exam Neurological Exam: Alert, Awake, Oriented x3 - Psychiatric Exam Psychiatric exam: Normal Affect, Normal Mood - Skin Skin Exam: Dry, Normal Color, Warm - Additional Findings Additional findings: Bilateral lower extremity examination: Vascular: DP 2/4; PT 1/4; capillary fill time < 3 sec x10; normal temperature gradient noted Neuro: light touch and protective sensation grossly intact Derm: Left hallux appears to be mildly edematous with associated taut skin and mild erythema; no open wounds noted; no signs of ascending cellulitis; no ulcerations, no drainage, no ulcerations present Ortho: pain elicited upon palpation of central and medial aspects of both heels bilaterally; pain elicited in the Right midfoot and ankle region upon dorsiflexion of the Right foot; patient is able to perform AROM of all digits except the Left hallux; able to perform PROM of the Left hallux at the 1st MPJ, but with significant pain; pain elicited upon compression of the calf bilaterally Assessment and Plan - Assessment and Plan (Free Text) Assessment: 51 y/o female with resolving Left hallux cellulitis, left halllux pain ; bilateral heel pain radiating proximally to legs Plan: Patient seen and evaluated at bedside Labs and vitals reviewed Left foot radiographs reviewed; screw is mildly backing out at the tip of the left hallux, in good alignment throughout the bone, good fusion apparent Bilateral LE CT Scan findings are unremarkable Patient is aware that she is going to the OR tomorrow morning (01/20/17) at 7:30 AM for Left hallux screw removal All of the patient's questions and concerns were addressed at this time Patient to be NPO after midnight tonight Discussed patient with attending, Dr. Syed Podiatry to follow while patient remains in house
[2017-01-19] MEDS: Insulin Detemir 100 units/ml Vial (Levemir) SC SCH (21:01)
[2017-01-19] MEDS: Rosuvastatin Calcium 2.5 mg Tab PO SCH (21:01)
--- NOTE | 2017-01-19 23:41 | CP.PCM.PN ---
Subjective - Date & Time of Evaluation Date of Evaluation: 01/19/17 Time of Evaluation: 15:10 - Subjective Subjective: Pt says she is feeling better with decreased pain on the left foot, but wonders about the pain at her heels. This was main reason she went to the ER and what she wanted addressed. Though pt to have the compression screw removed on the L foot, the heel spurs remain a source of pain for her. Pt wanted sme resolution to both issues if possbile Objective - Vital Signs/Intake and Output Vital Signs (last 24 hours): Temp Pulse Resp BP Pulse Ox 98.1 F 59 L 20 116/75 95 01/19/17 15:00 01/19/17 15:00 01/19/17 15:00 01/19/17 18:20 01/19/17 08:03 Intake and Output: 01/19/17 01/20/17 18:59 06:59 Intake Total 550 Balance 550 - Medications Medications: Current Medications Albuterol (Ventolin Hfa 90 Mcg/Actuation (8 G)) 1 puff IH RBID [facility] Last Admin: 01/19/17 19:31 Dose: 1 puff Benztropine Mesylate (Cogentin) 2 mg PO BID [facility] Last Admin: 01/19/17 18:23 Dose: 2 mg Docusate Sodium (Colace) 100 mg PO BID [facility] Last Admin: 01/19/17 18:19 Dose: 100 mg Famotidine (Pepcid) 20 mg PO BID [facility] Last Admin: 01/19/17 18:19 Dose: 20 mg Folic Acid (Folic Acid) 1 mg PO DAILY [facility] Last Admin: 01/19/17 10:05 Dose: 1 mg Gabapentin (Neurontin) [address] [facility] Last Admin: 01/19/17 21:00 Dose: 300 mg Piperacillin Sod/Tazobactam (Sod 3.375 gm/ Sodium Chloride) 100 mls @ 200 mls/ hr IVPB Q8H [facility] Last Admin: 01/19/17 21:00 Dose: 200 mls/hr Insulin Aspart (Novolog) 0 unit SC [facility] PRN Reason: Protocol Last Admin: 01/19/17 21:01 Dose: Not Given Insulin Detemir (Levemir) [address] [facility] Last Admin: 01/19/17 21:01 Dose: Not Given Lactobacillus Acidophilus (Bacid Acidophilus) 1 cap PO BID [facility] Last Admin: 01/19/17 18:19 Dose: 1 cap Lactulose (Enulose) 20 gm PO Q6 PRN PRN Reason: Constipation Last Admin: 01/18/17 16:18 Dose: 20 gm Lisinopril (Zestril) 20 mg PO DAILY [facility] Last Admin: 01/19/17 10:19 Dose: 20 mg Loratadine (Claritin) 10 mg PO DAILY [facility] Last Admin: 01/19/17 10:06 Dose: 10 mg Lorazepam (Ativan) [address] [facility] Last Admin: 01/19/17 21:00 Dose: 1 mg Lorazepam (Ativan) 1 mg PO TID PRN PRN Reason: Agitation Mesalamine (Delzicol) 800 mg PO TID [facility] Last Admin: 01/19/17 18:19 Dose: 800 mg Metoprolol Tartrate (Lopressor) 25 mg PO Q12H [facility] Last Admin: 01/19/17 18:20 Dose: 25 mg Mometasone Furoate (Asmanex Twisthaler 220 Mcg) 220 puff INH RBID [facility] Paroxetine HCl (Paxil) 30 mg PO DAILY [facility] Last Admin: 01/19/17 10:09 Dose: 30 mg Rosuvastatin Calcium (Crestor) 2.[address] [facility] Last Admin: 01/19/17 21:01 Dose: 2.5 mg Trazodone HCl (Desyrel) [address] [facility] Last Admin: 01/19/17 21:00 Dose: 50 mg - Constitutional Appears: No Acute Distress - Head Exam Head Exam: ATRAUMATIC, NORMAL INSPECTION, NORMOCEPHALIC - Eye Exam Eye Exam: Normal appearance - ENT Exam ENT Exam: Mucous Membranes Moist, Normal Exam - Neck Exam Neck Exam: Full ROM, Normal Inspection - Respiratory Exam Respiratory Exam: NORMAL BREATHING PATTERN - Cardiovascular Exam Cardiovascular Exam: REGULAR RHYTHM, +S1, +S2 - GI/Abdominal Exam GI & Abdominal Exam: Normal Bowel Sounds - Rectal Exam Rectal Exam: Deferred - Extremities Exam Extremities Exam: Normal Inspection Additional comments: L foot: unable to flex dorsally or ventrally with any signif range bec of pain elicited at anterior calcaneus and at dorsum of L foot; > R foot + pain at heel, and pain ava greatest> - Back Exam Back Exam: NORMAL INSPECTION - Neurological Exam Neurological Exam: Normal Gait, Oriented x3 Neuro motor strength exam: Left Upper Extremity: 4, Right Upper Extremity: 4, Left Lower Extremity: 3, Right Lower Extremity: 3 - Psychiatric Exam Psychiatric exam: Normal Affect, Normal Mood - Skin Skin Exam: Normal Color, Warm Assessment and Plan (1) Cellulitis, toe Assessment & Plan: improving Status: Acute (2) Heel spur Assessment & Plan: needs to be addressed by podiatry Status: Acute (3) Diabetes mellitus with insulin therapy Assessment & Plan: titrating insulin to optimal dose Status: Chronic (4) Constipation Assessment & Plan: resolved Status: Acute
[2017-01-20] MEDS: Piperacillin/Tazobact 3.375 GM in Sodium Chloride 100 ML IVPB SCH ×2 (06:09→13:56)
[2017-01-20] MEDS ORDERED: Lidocaine 1% Inj (20ml) ONE (07:33)
[2017-01-20] MEDS ORDERED: Lactated Ringer's 1,000 ML IV ONE (07:44)
[2017-01-20] MEDS: (Novolog) Insulin Aspart, Recombinant 100 u/ml 10 ml vial SC SCH ×4 (07:48→21:41)
[2017-01-20] MEDS ORDERED: Lidocaine Hydrochloride 5 ML INJ ONE (07:59)
[2017-01-20] MEDS ORDERED: Propofol 10 mg/ml Inj (20 ML) ONE (07:59)
[2017-01-20] MEDS ORDERED: Midazolam 2 MG/2 ML VIAL ONE (07:59)
[2017-01-20] MEDS: Bupivacaine HCl 0.5% PF (10 ml) Inj ONE ×4 (08:23→08:50)
--- NOTE | 2017-01-20 09:23 | PCM.SURG1 ---
Surgeon's Initial Post Op Note - Surgeon's Notes Surgeon: Dr. Syed Accountant Cost: Yash, PGY-2 Type of Anesthesia: IV Sedation, Local Anesthesia Administered By: Dr. Higgins Pre-Operative Diagnosis: Left hallux- painful retained hardware. Right foot- painful chronic plantar fasciitis Operative Findings: See dictation. Hemostasis: PAT at 250mmHg bilaterally. Materials: 3-0 nylon; xeroform, DSD, Coban. Injectables: 30 cc 1:1 2% Lidocaine plain: 0.5% Marcaine plain total pre-op. Condition Stable Post-Operative Diagnosis: Same as above Operation Performed: Left hallux- removal of painful retained hardware. Right foot- plantar fasciotomy with minimal resection of plantar heel spur Specimen/Specimens Removed: Screw, Left foot Estimated Blood Loss: EBL {In ML}: 2 Blood Products Given: N/A Drains Used: No Drains Post-Op Condition: Good Date of Surgery/Procedure: 01/20/17 Time of Surgery/Procedure: 08:00
[2017-01-20] MEDS ORDERED: Lactated Ringer's 500 ML IV ONE (10:15)
[2017-01-20] MEDS: Albuterol HFA 90 mcg/actuation (8 g) IH SCH ×2 (10:30→19:20)
[2017-01-20] MEDS: Lactobacillus Acidophilus 500 MU Cap PO SCH ×2 (10:50→17:59)
[2017-01-20 11:26] VITALS: RESP 20
[2017-01-20] MEDS ORDERED: HYDROmorphone 1 mg/ml ISec IVP PRN (12:17)
[2017-01-20] MEDS: HYDROmorphone 0.5 mg/0.5 ml ISec IVP PRN ×3 (12:30→18:03)
[2017-01-20] MEDS: Mometasone 220 mcg/puff-14 puff Inh INH SCH ×2 (13:23→19:18)
--- NOTE | 2017-01-20 18:26 | CP.PCM.PN ---
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 Pt feels relief, though now with some pain. Pain well controlled with various narcotic pain eds and anticipated by Podiatry. Objective - Vital Signs/Intake and Output Vital Signs (last 24 hours): Temp Pulse Resp BP Pulse Ox 98.3 F 60 20 109/56 L 94 L 01/20/17 15:06 01/20/17 15:06 01/20/17 15:06 01/20/17 17:59 01/20/17 15:06 Intake and Output: 01/20/17 01/20/17 06:59 18:59 Intake Total 650 1600 Balance 650 1600 - Medications Medications: Current Medications Albuterol (Ventolin Hfa 90 Mcg/Actuation (8 G)) 1 puff IH RBID [facility] Last Admin: 01/20/17 10:30 Dose: 1 puff Benztropine Mesylate (Cogentin) 2 mg PO BID [facility] Last Admin: 01/20/17 18:02 Dose: 2 mg Docusate Sodium (Colace) 100 mg PO BID [facility] Last Admin: 01/20/17 18:00 Dose: 100 mg Famotidine (Pepcid) 20 mg PO BID [facility] Last Admin: 01/20/17 17:59 Dose: 20 mg Folic Acid (Folic Acid) 1 mg PO DAILY [facility] Last Admin: 01/20/17 10:49 Dose: 1 mg Gabapentin (Neurontin) 300 mg PO HS [facility] Last Admin: 01/19/17 21:00 Dose: 300 mg Hydromorphone HCl (Dilaudid) 0.5 mg IVP Q15M PRN PRN Reason: Pain, severe (8-10) Last Admin: 01/20/17 18:03 Dose: 0.5 mg Hydromorphone HCl (Dilaudid) 0.5 mg IVP Q4H PRN PRN Reason: Pain, severe (8-10) Last Admin: 01/20/17 12:30 Dose: 0.5 mg Piperacillin Sod/Tazobactam (Sod 3.375 gm/ Sodium Chloride) 100 mls @ 200 mls/ hr IVPB Q8H [facility] Insulin Aspart (Novolog) 0 unit SC ACHS [facility] PRN Reason: Protocol Last Admin: 01/20/17 18:09 Dose: 1 unit Insulin Detemir (Levemir) 10 unit SC [facility] Last Admin: 01/19/17 21:01 Dose: Not Given Lactobacillus Acidophilus (Bacid Acidophilus) 1 cap PO BID [facility] Last Admin: 01/20/17 17:59 Dose: 1 cap Lactulose (Enulose) 20 gm PO Q6 PRN PRN Reason: Constipation Last Admin: 01/18/17 16:18 Dose: 20 gm Lisinopril (Zestril) 20 mg PO DAILY [facility] Last Admin: 01/20/17 10:56 Dose: 20 mg Loratadine (Claritin) 10 mg PO DAILY [facility] Last Admin: 01/20/17 10:49 Dose: 10 mg Lorazepam (Ativan) 1 mg PO [facility] Last Admin: 01/19/17 21:00 Dose: 1 mg Lorazepam (Ativan) 1 mg PO TID PRN PRN Reason: Agitation Mesalamine (Delzicol) 800 mg PO TID [facility] Last Admin: 01/20/17 18:00 Dose: 800 mg Metoprolol Tartrate (Lopressor) 25 mg PO Q12H [facility] Last Admin: 01/20/17 17:59 Dose: 25 mg Mometasone Furoate (Asmanex Twisthaler 220 Mcg) 220 puff INH RBID [facility] Last Admin: 01/20/17 13:23 Dose: Not Given Paroxetine HCl (Paxil) 30 mg PO DAILY [facility] Last Admin: 01/20/17 10:50 Dose: 30 mg Rosuvastatin Calcium (Crestor) 2.5 mg PO [facility] Last Admin: 01/19/17 21:01 Dose: 2.5 mg Trazodone HCl (Desyrel) 50 mg PO [facility] Last Admin: 01/19/17 21:00 Dose: 50 mg - Constitutional Appears: In Acute Distress - Head Exam Head Exam: ATRAUMATIC, NORMAL INSPECTION, NORMOCEPHALIC - Eye Exam Eye Exam: Normal appearance, PERRL Pupil Exam: NORMAL ACCOMODATION, PERRL - ENT Exam ENT Exam: Mucous Membranes Moist, Normal Exam - Neck Exam Neck Exam: Normal Inspection - Respiratory Exam Respiratory Exam: Clear to Ausculation Bilateral, NORMAL BREATHING PATTERN - Cardiovascular Exam Cardiovascular Exam: REGULAR RHYTHM - GI/Abdominal Exam GI & Abdominal Exam: Soft, Normal Bowel Sounds - Rectal Exam Rectal Exam: Deferred - Extremities Exam Extremities Exam: Full ROM, Normal Capillary Refill Additional comments: both feet wrapped in adhesive pressure bandages - Back Exam Back Exam: NORMAL INSPECTION - Neurological Exam Neurological Exam: Alert, Awake, CN II-XII Intact, Oriented x3 Neuro motor strength exam: Left Upper Extremity: 5, Right Upper Extremity: 5, Left Lower Extremity: 5, Right Lower Extremity: 5 - Psychiatric Exam Psychiatric exam: Normal Affect, Normal Mood - Skin Skin Exam: Dry, Intact, Normal Color, Warm Assessment and Plan (1) Complication of internal fixation device of bone of left lower leg Assessment & Plan: s/p removal; appears to have gone well. pain under control, will monitor Status: Acute (2) Cellulitis, toe Status: Acute (3) Heel spur Status: Acute (4) Diabetes mellitus with insulin therapy Status: Chronic (5) Constipation Status: Chronic
[2017-01-20] MEDS: Rosuvastatin Calcium 2.5 mg Tab PO SCH (21:40)
[2017-01-20] MEDS: Insulin Detemir 100 units/ml Vial (Levemir) SC SCH (21:41)
[2017-01-21] MEDS: HYDROmorphone 0.5 mg/0.5 ml ISec IVP PRN ×3 (05:59→17:46)
[2017-01-21] MEDS: Piperacillin/Tazobact 3.375 GM in Sodium Chloride 0.9% 100 ML IVPB SCH ×4 (06:02→21:41)
--- NOTE | 2017-01-21 08:11 | CP.PCM.PN ---
Subjective - Date & Time of Evaluation Date of Evaluation: 01/21/17 Time of Evaluation: 08:00 - Subjective Subjective: Pt seen post op day 1 .States left big toe feels much better with screw removed and c/o of some pain left heel s/p plantar fascia release . Pt states "I feel sick today with a cold" First redressing 01/22. Objective - Vital Signs/Intake and Output Vital Signs (last 24 hours): Temp Pulse Resp BP Pulse Ox 98.2 F 71 20 114/61 97 01/21/17 00:00 01/21/17 00:00 01/21/17 00:00 01/21/17 06:39 01/21/17 00:00 Intake and Output: 01/21/17 01/21/17 06:59 18:59 Intake Total 220 Balance 220 - Medications Medications: Current Medications Albuterol (Ventolin Hfa 90 Mcg/Actuation (8 G)) 1 puff IH RBID [facility] Last Admin: 01/20/17 19:20 Dose: 1 puff Benztropine Mesylate (Cogentin) 2 mg PO BID [facility] Last Admin: 01/20/17 18:02 Dose: 2 mg Docusate Sodium (Colace) 100 mg PO BID [facility] Last Admin: 01/20/17 18:00 Dose: 100 mg Famotidine (Pepcid) 20 mg PO BID [facility] Last Admin: 01/20/17 17:59 Dose: 20 mg Folic Acid (Folic Acid) 1 mg PO DAILY [facility] Last Admin: 01/20/17 10:49 Dose: 1 mg Gabapentin (Neurontin) 300 mg PO HS [facility] Last Admin: 01/20/17 21:40 Dose: 300 mg Hydromorphone HCl (Dilaudid) 0.5 mg IVP Q15M PRN PRN Reason: Pain, severe (8-10) Last Admin: 01/20/17 18:03 Dose: 0.5 mg Hydromorphone HCl (Dilaudid) 0.5 mg IVP Q4H PRN PRN Reason: Pain, severe (8-10) Last Admin: 01/21/17 05:59 Dose: 0.5 mg Piperacillin Sod/Tazobactam (Sod 3.375 gm/ Sodium Chloride) 100 mls @ 200 mls/ hr IVPB Q8H [facility] Last Admin: 01/21/17 06:08 Dose: 200 mls/hr Insulin Aspart (Novolog) 0 unit SC ACHS [facility] PRN Reason: Protocol Last Admin: 01/20/17 21:41 Dose: Not Given Insulin Detemir (Levemir) 10 unit SC HS [facility] Last Admin: 01/20/17 21:41 Dose: 10 unit Lactobacillus Acidophilus (Bacid Acidophilus) 1 cap PO BID [facility] Last Admin: 01/20/17 17:59 Dose: 1 cap Lactulose (Enulose) 20 gm PO Q6 PRN PRN Reason: Constipation Last Admin: 01/18/17 16:18 Dose: 20 gm Lisinopril (Zestril) 20 mg PO DAILY [facility] Last Admin: 01/20/17 10:56 Dose: 20 mg Loratadine (Claritin) 10 mg PO DAILY [facility] Last Admin: 01/20/17 10:49 Dose: 10 mg Lorazepam (Ativan) 1 mg PO HS [facility] Last Admin: 01/20/17 21:40 Dose: 1 mg Lorazepam (Ativan) 1 mg PO TID PRN PRN Reason: Agitation Mesalamine (Delzicol) 800 mg PO TID [facility] Last Admin: 01/20/17 18:00 Dose: 800 mg Metoprolol Tartrate (Lopressor) 25 mg PO Q12H [facility] Last Admin: 01/21/17 06:39 Dose: 25 mg Mometasone Furoate (Asmanex Twisthaler 220 Mcg) 220 puff INH RBID [facility] Last Admin: 01/20/17 19:18 Dose: 2 puff Paroxetine HCl (Paxil) 30 mg PO DAILY [facility] Last Admin: 01/20/17 10:50 Dose: 30 mg Rosuvastatin Calcium (Crestor) 2.5 mg PO HS [facility] Last Admin: 01/20/17 21:40 Dose: 2.5 mg Trazodone HCl (Desyrel) 50 mg PO HS [facility] Last Admin: 01/20/17 21:40 Dose: 50 mg
[2017-01-21] MEDS: (Novolog) Insulin Aspart, Recombinant 100 u/ml 10 ml vial SC SCH ×4 (08:15→21:45)
--- NOTE | 2017-01-21 08:43 | CP.PCM.PN ---
Subjective - Date & Time of Evaluation Date of Evaluation: 01/21/17 Time of Evaluation: 08:30 - Subjective Subjective: Patient seen and evaluated at bedside this morning with Dr. Syed. Patient was resting comfortably, in NAD. Patient is 1 day s/p Left hallux hardware removal and Right foot plantar fasciotomy with heel spur resection. Patient states that she has a cold and feels congested. Denies any F/C/N/V/SOB/CP. No other pedal complaints reported at this time. Denies any pain in her feet. Objective - Vital Signs/Intake and Output Vital Signs (last 24 hours): Temp Pulse Resp BP Pulse Ox 98.2 F 71 20 114/61 97 01/21/17 00:00 01/21/17 00:00 01/21/17 00:00 01/21/17 06:39 01/21/17 00:00 Intake and Output: 01/21/17 01/21/17 06:59 18:59 Intake Total 220 Balance 220 - Medications Medications: Current Medications Albuterol (Ventolin Hfa 90 Mcg/Actuation (8 G)) 1 puff IH RBID [facility] Last Admin: 01/20/17 19:20 Dose: 1 puff Benztropine Mesylate (Cogentin) 2 mg PO BID [facility] Last Admin: 01/20/17 18:02 Dose: 2 mg Docusate Sodium (Colace) 100 mg PO BID [facility] Last Admin: 01/20/17 18:00 Dose: 100 mg Famotidine (Pepcid) 20 mg PO BID [facility] Last Admin: 01/20/17 17:59 Dose: 20 mg Folic Acid (Folic Acid) 1 mg PO DAILY [facility] Last Admin: 01/20/17 10:49 Dose: 1 mg Gabapentin (Neurontin) 300 mg PO HS [facility] Last Admin: 01/20/17 21:40 Dose: 300 mg Hydromorphone HCl (Dilaudid) 0.5 mg IVP Q15M PRN PRN Reason: Pain, severe (8-10) Last Admin: 01/20/17 18:03 Dose: 0.5 mg Hydromorphone HCl (Dilaudid) 0.5 mg IVP Q4H PRN PRN Reason: Pain, severe (8-10) Last Admin: 01/21/17 05:59 Dose: 0.5 mg Piperacillin Sod/Tazobactam (Sod 3.375 gm/ Sodium Chloride) 100 mls @ 200 mls/ hr IVPB Q8H [facility] Last Admin: 01/21/17 06:08 Dose: 200 mls/hr Insulin Aspart (Novolog) 0 unit SC ACHS [facility] PRN Reason: Protocol Last Admin: 01/21/17 08:15 Dose: Not Given Insulin Detemir (Levemir) 10 unit SC [facility] Last Admin: 01/20/17 21:41 Dose: 10 unit Lactobacillus Acidophilus (Bacid Acidophilus) 1 cap PO BID [facility] Last Admin: 01/20/17 17:59 Dose: 1 cap Lactulose (Enulose) 20 gm PO Q6 PRN PRN Reason: Constipation Last Admin: 01/18/17 16:18 Dose: 20 gm Lisinopril (Zestril) 20 mg PO DAILY [facility] Last Admin: 01/20/17 10:56 Dose: 20 mg Loratadine (Claritin) 10 mg PO DAILY [facility] Last Admin: 01/20/17 10:49 Dose: 10 mg Lorazepam (Ativan) 1 mg PO [facility] Last Admin: 01/20/17 21:40 Dose: 1 mg Lorazepam (Ativan) 1 mg PO TID PRN PRN Reason: Agitation Mesalamine (Delzicol) 800 mg PO TID [facility] Last Admin: 01/20/17 18:00 Dose: 800 mg Metoprolol Tartrate (Lopressor) 25 mg PO Q12H [facility] Last Admin: 01/21/17 06:39 Dose: 25 mg Mometasone Furoate (Asmanex Twisthaler 220 Mcg) 220 puff INH RBID [facility] Last Admin: 01/20/17 19:18 Dose: 2 puff Paroxetine HCl (Paxil) 30 mg PO DAILY [facility] Last Admin: 01/20/17 10:50 Dose: 30 mg Rosuvastatin Calcium (Crestor) 2.5 mg PO [facility] Last Admin: 01/20/17 21:40 Dose: 2.5 mg Trazodone HCl (Desyrel) 50 mg PO [facility] Last Admin: 01/20/17 21:40 Dose: 50 mg - Constitutional Appears: Non-toxic, No Acute Distress - Neurological Exam Neurological Exam: Alert, Awake, Oriented x3 - Psychiatric Exam Psychiatric exam: Normal Affect, Normal Mood - Additional Findings Additional findings: Post-op dressings noted to be C/D/I No evidence of strike-through present Normal capillary fill time noted to all digits x10 Normal color noted to all digits x10 Assessment and Plan - Assessment and Plan (Free Text) Assessment: 51 y/o female 1 day s/p Left hallux hardware removal and Right foot plantar fasciotomy with heel spur resection Plan: Patient seen and evaluated at bedside with attending, Dr. Syed Labs and vitals reviewed Bilateral post-operative dressings kept intact; to be changed tomorrow morning. Continue IV abx Continue current pain management Podiatry to follow while patient remains in house
[2017-01-21] MEDS: Albuterol HFA 90 mcg/actuation (8 g) IH SCH ×2 (10:05→19:46)
[2017-01-21] MEDS: Mometasone 220 mcg/puff-14 puff Inh INH SCH ×2 (10:05→19:46)
--- NOTE | 2017-01-21 10:31 | VASCLAB ---
STUDY DESCRIPTION: HISTORY: pain,smoking ,dm PRIORS: None. TECHNIQUE: Pulse volume recording waveforms and segmental pressures of bilateral lower extremities at multiple levels were obtained. Ankle Brachial Indices (ABIs) were calculated. Report prepared by RANJEET Gonzalez, RVT RIGHT LOWER EXTREMITY: * Brachial artery: Pressure - 120 mmHg. * High thigh: Pressure - 151 mmHg: Ratio - 1.26: PVR waveform - Pulsatile * Low thigh: Pressure - 153 mmHg: Ratio - 1.28 PVR waveform: Pulsatile * Calf: Pressure - 146 mmHg: Ratio - 1.22 PVR waveform: Pulsatile * Posterior tibial Artery: Pressure - 147 mmHg: Ratio - 1.23 PVR waveform: Pulsatile * Dorsalis pedis Artery: Pressure - 134 mmHg: Ratio - 1.12 PVR waveform: Pulsatile * Great toe: Pressure - mmHg: Ratio - PVR waveform: Ankle brachial index (VITALIY): LEFT LOWER EXTREMITY: * Brachial artery: Pressure - 105 mmHg. * High thigh: Pressure - 162 mmHg: Ratio - 1.35: PVR waveform - Pulsatile * Low thigh: Pressure - 157 mmHg: Ratio - 1.31 PVR waveform: Pulsatile * Calf: Pressure - 157 mmHg: Ratio - 1.31 PVR waveform: Pulsatile * Posterior tibial Artery: Pressure - 145 mmHg: Ratio - 1.21 PVR waveform: Pulsatile * Dorsalis pedis Artery: Pressure - 126 mmHg: Ratio - 1.05 PVR waveform: Pulsatile * Great toe: Pressure - mmHg: Ratio - PVR waveform: Ankle brachial index (VITALIY): OTHER FINDINGS: Right: Left: IMPRESSION: Right: There was no evidence of hemodynamically significant arterial insufficiency in the right lower extremity. Left: There was no evidence of hemodynamically significant arterial insufficiency in the left lower extremity.
[2017-01-21] MEDS: Lactobacillus Acidophilus 500 MU Cap PO SCH ×2 (11:43→17:27)
--- NOTE | 2017-01-21 15:09 | RAD ---
PROCEDURE: Right Foot Radiographs. HISTORY: s/p Right heel spur resection COMPARISON: Comparison is made to the previous study dated 11/12/2016 FINDINGS: BONES: Evidence of acute fracture or dislocation. JOINTS: Normal. SOFT TISSUES: Normal. OTHER FINDINGS: None. IMPRESSION: No evidence of acute pathology in the right foot.
[2017-01-21] MEDS: Rosuvastatin Calcium 2.5 mg Tab PO SCH (21:37)
[2017-01-21] MEDS: Insulin Detemir 100 units/ml Vial (Levemir) SC SCH (21:37)
--- NOTE | 2017-01-21 22:14 | CP.PCM.PN ---
Subjective - Date & Time of Evaluation Date of Evaluation: 01/21/17 Time of Evaluation: 22:09 - Subjective Subjective: Pt in good spirits after her surgery. Says she's in pain still, but much less than before, and R>L. Some swelling evident over the adhesive bandages of the R foot, but no noticeable signs of infection. For dressing change in the AM. Discussed with pt status of the bones of her feet which so far, has been spared from osteomyelitis. Advised her that if she does not take care of her post- surgical wounds, she may develop an infection which would negate all this work and easily wound up with an amputation. Pt begs off from rehab 2ndry to complex psychosocial issues at home. Pt aware that going home is not what i recommend, but knows the possible outcomes should an infection set in. Would reiterate to pt necessity that this infection NOT have any complications or the consequences could be dire. Pt verbalized understanding. Objective - Vital Signs/Intake and Output Vital Signs (last 24 hours): Temp Pulse Resp BP Pulse Ox 98.6 F 58 L 20 130/70 95 01/21/17 15:00 01/21/17 15:00 01/21/17 15:00 01/21/17 19:03 01/21/17 15:00 Intake and Output: 01/21/17 01/22/17 18:59 06:59 Intake Total 580 Balance 580 - Medications Medications: Current Medications Albuterol (Ventolin Hfa 90 Mcg/Actuation (8 G)) 1 puff IH RBID [facility] Last Admin: 01/21/17 19:46 Dose: 1 puff Benztropine Mesylate (Cogentin) 2 mg PO BID [facility] Last Admin: 01/21/17 17:28 Dose: 2 mg Docusate Sodium (Colace) 100 mg PO BID [facility] Last Admin: 01/21/17 17:27 Dose: 100 mg Famotidine (Pepcid) 20 mg PO BID [facility] Last Admin: 01/21/17 17:27 Dose: 20 mg Folic Acid (Folic Acid) 1 mg PO DAILY [facility] Last Admin: 01/21/17 11:44 Dose: 1 mg Gabapentin (Neurontin) 300 mg PO HS [facility] Last Admin: 01/21/17 21:38 Dose: 300 mg Hydromorphone HCl (Dilaudid) 0.5 mg IVP Q15M PRN PRN Reason: Pain, severe (8-10) Last Admin: 01/20/17 18:03 Dose: 0.5 mg Hydromorphone HCl (Dilaudid) 0.5 mg IVP Q4H PRN PRN Reason: Pain, severe (8-10) Last Admin: 01/21/17 17:46 Dose: 0.5 mg Piperacillin Sod/Tazobactam (Sod 3.375 gm/ Sodium Chloride) 100 mls @ 200 mls/ hr IVPB Q8H [facility] Last Admin: 01/21/17 21:41 Dose: 200 mls/hr Insulin Aspart (Novolog) 0 unit SC [facility] PRN Reason: Protocol Last Admin: 01/21/17 21:45 Dose: Not Given Insulin Detemir (Levemir) 10 unit SC [facility] Last Admin: 01/21/17 21:37 Dose: 10 unit Lactobacillus Acidophilus (Bacid Acidophilus) 1 cap PO BID [facility] Last Admin: 01/21/17 17:27 Dose: 1 cap Lactulose (Enulose) 20 gm PO Q6 PRN PRN Reason: Constipation Last Admin: 01/18/17 16:18 Dose: 20 gm Lisinopril (Zestril) 20 mg PO DAILY [facility] Last Admin: 01/21/17 11:44 Dose: 20 mg Loratadine (Claritin) 10 mg PO DAILY [facility] Last Admin: 01/21/17 11:44 Dose: 10 mg Lorazepam (Ativan) 1 mg PO [facility] Last Admin: 01/21/17 21:37 Dose: 1 mg Lorazepam (Ativan) 1 mg PO TID PRN PRN Reason: Agitation Mesalamine (Delzicol) 800 mg PO TID [facility] Last Admin: 01/21/17 17:27 Dose: 800 mg Metoprolol Tartrate (Lopressor) 25 mg PO Q12H [facility] Last Admin: 01/21/17 19:03 Dose: 25 mg Mometasone Furoate (Asmanex Twisthaler 220 Mcg) 220 puff INH RBID [facility] Last Admin: 01/21/17 19:46 Dose: 2 puff Paroxetine HCl (Paxil) 30 mg PO DAILY [facility] Last Admin: 01/21/17 11:44 Dose: 30 mg Rosuvastatin Calcium (Crestor) 2.5 mg PO [facility] Last Admin: 01/21/17 21:37 Dose: 2.5 mg Trazodone HCl (Desyrel) 50 mg PO [facility] Last Admin: 01/21/17 21:37 Dose: 50 mg - Constitutional Appears: No Acute Distress - Head Exam Head Exam: NORMAL INSPECTION, NORMOCEPHALIC - Eye Exam Eye Exam: Normal appearance, PERRL Pupil Exam: NORMAL ACCOMODATION - ENT Exam ENT Exam: Mucous Membranes Moist, Normal Exam - Neck Exam Neck Exam: Full ROM, Normal Inspection - Respiratory Exam Respiratory Exam: Clear to Ausculation Bilateral, NORMAL BREATHING PATTERN - Cardiovascular Exam Cardiovascular Exam: REGULAR RHYTHM, +S1, +S2 - GI/Abdominal Exam GI & Abdominal Exam: Normal Bowel Sounds Additional comments: no diarrhea, no abdom pain, no bleeding per rectum from her Crohn's - Rectal Exam Rectal Exam: Deferred - Extremities Exam Additional comments: bilateral feet in adhesive bandages; first dressing change today - Back Exam Back Exam: NORMAL INSPECTION - Neurological Exam Neuro motor strength exam: Left Upper Extremity: 5, Right Upper Extremity: 5, Left Lower Extremity: 5, Right Lower Extremity: 5 - Psychiatric Exam Psychiatric exam: Normal Affect, Normal Mood - Skin Skin Exam: Dry, Intact, Normal Color, Warm Assessment and Plan (1) Cellulitis, toe Assessment & Plan: continue IV abx for now; post op day 2 Status: Acute (2) Heel spur Assessment & Plan: s/p resection on R foot Status: Acute (3) Diabetes mellitus with insulin therapy Assessment & Plan: controlled for the most part Status: Chronic (4) Constipation Assessment & Plan: may be copponent of patient's Crohn's Status: Chronic (5) Internal fixation device (pin, ben, or screw) mechanical complication Assessment & Plan: appears to have worked with removal of screw and pain is much less without affecting L foot strength. will wait for podiatry lead as to proper discharge time and need for Subacute rehab to avoid infecting surgery site Status: Acute
[2017-01-22] MEDS: Piperacillin/Tazobact 3.375 GM in Sodium Chloride 0.9% 100 ML IVPB SCH ×4 (06:02→22:00)
[2017-01-22] MEDS: (Novolog) Insulin Aspart, Recombinant 100 u/ml 10 ml vial SC SCH ×4 (08:25→22:00)
[2017-01-22] MEDS: Mometasone 220 mcg/puff-14 puff Inh INH SCH ×2 (09:36→19:25)
[2017-01-22] MEDS: Albuterol HFA 90 mcg/actuation (8 g) IH SCH ×2 (09:36→19:25)
[2017-01-22] MEDS: Lactobacillus Acidophilus 500 MU Cap PO SCH ×2 (09:52→18:11)
[2017-01-22] MEDS: HYDROmorphone 0.5 mg/0.5 ml ISec IVP PRN ×2 (10:07→21:30)
--- NOTE | 2017-01-22 10:46 | CP.PCM.PN ---
Subjective - Date & Time of Evaluation Date of Evaluation: 01/22/17 Time of Evaluation: 10:00 - Subjective Subjective: Patient was seen and evaluated at bedside this morning. Patient is now 2 day s/ p Left hallux screw removal and Right foot plantar fasciotomy with heel spur resection. Patient states that she is still dealing with a cold, but feels better today. Denies any current F/C/N/V/SOB/CP. Bilateral post-op dressings noted to be intact. No pedal complaints reported. Objective - Vital Signs/Intake and Output Vital Signs (last 24 hours): Temp Pulse Resp BP Pulse Ox 98.7 F 60 20 116/70 96 01/22/17 07:53 01/22/17 07:53 01/22/17 07:53 01/22/17 07:53 01/22/17 07:53 Intake and Output: 01/22/17 01/22/17 06:59 18:59 Intake Total 750 Output Total 3 Balance 747 - Medications Medications: Current Medications Albuterol (Ventolin Hfa 90 Mcg/Actuation (8 G)) 1 puff IH RBID [facility] Last Admin: 01/22/17 09:36 Dose: 1 puff Benztropine Mesylate (Cogentin) 2 mg PO BID [facility] Last Admin: 01/22/17 09:53 Dose: 2 mg Docusate Sodium (Colace) 100 mg PO BID [facility] Last Admin: 01/22/17 09:51 Dose: 100 mg Famotidine (Pepcid) 20 mg PO BID [facility] Last Admin: 01/22/17 09:51 Dose: 20 mg Folic Acid (Folic Acid) 1 mg PO DAILY [facility] Last Admin: 01/22/17 09:51 Dose: 1 mg Gabapentin (Neurontin) 300 mg PO HS [facility] Last Admin: 01/21/17 21:38 Dose: 300 mg Hydromorphone HCl (Dilaudid) 0.5 mg IVP Q15M PRN PRN Reason: Pain, severe (8-10) Last Admin: 01/20/17 18:03 Dose: 0.5 mg Hydromorphone HCl (Dilaudid) 0.5 mg IVP Q4H PRN PRN Reason: Pain, severe (8-10) Last Admin: 01/22/17 10:07 Dose: 0.5 mg Piperacillin Sod/Tazobactam (Sod 3.375 gm/ Sodium Chloride) 100 mls @ 200 mls/ hr IVPB Q8H [facility] Last Admin: 01/22/17 06:02 Dose: 200 mls/hr Insulin Aspart (Novolog) 0 unit SC [facility] PRN Reason: Protocol Last Admin: 01/22/17 08:25 Dose: Not Given Insulin Detemir (Levemir) 10 unit SC [facility] Last Admin: 01/21/17 21:37 Dose: 10 unit Lactobacillus Acidophilus (Bacid Acidophilus) 1 cap PO BID [facility] Last Admin: 01/22/17 09:52 Dose: 1 cap Lactulose (Enulose) 20 gm PO Q6 PRN PRN Reason: Constipation Last Admin: 01/18/17 16:18 Dose: 20 gm Lisinopril (Zestril) 20 mg PO DAILY [facility] Last Admin: 01/22/17 10:07 Dose: 20 mg Loratadine (Claritin) 10 mg PO DAILY [facility] Last Admin: 01/22/17 09:52 Dose: 10 mg Lorazepam (Ativan) 1 mg PO [facility] Last Admin: 01/21/17 21:37 Dose: 1 mg Lorazepam (Ativan) 1 mg PO TID PRN PRN Reason: Agitation Mesalamine (Delzicol) 800 mg PO TID [facility] Last Admin: 01/22/17 09:53 Dose: 800 mg Metoprolol Tartrate (Lopressor) 25 mg PO Q12H [facility] Last Admin: 01/22/17 06:45 Dose: 25 mg Mometasone Furoate (Asmanex Twisthaler 220 Mcg) 220 puff INH RBID [facility] Last Admin: 01/22/17 09:36 Dose: 1 puff Paroxetine HCl (Paxil) 30 mg PO DAILY [facility] Last Admin: 01/22/17 09:53 Dose: 30 mg Rosuvastatin Calcium (Crestor) 2.5 mg PO [facility] Last Admin: 01/21/17 21:37 Dose: 2.5 mg Trazodone HCl (Desyrel) 50 mg PO [facility] Last Admin: 01/21/17 21:37 Dose: 50 mg - Constitutional Appears: Non-toxic, No Acute Distress - Neurological Exam Neurological Exam: Alert, Awake, Oriented x3 - Psychiatric Exam Psychiatric exam: Normal Affect, Normal Mood - Skin Skin Exam: Dry, Normal Color, Warm - Additional Findings Additional findings: Bilateral lower extremity examination: Vascular: DP 2/4; PT 1/4; capillary fill time < 3 sec x10; normal temperature gradient noted Neuro: light touch and protective sensation grossly intact Derm: Both incision sites at distal aspect of the Left hallux and plantar aspect of Right heal appear stable with sutures intact; skin is well-coapted with no evidence of dehiscence; no signs of ascending cellulitis; no ulcerations , no drainage, no ulcerations present; no clinical signs of infection noted Ortho: pain elicited upon palpation of both surgical incision sites Assessment and Plan - Assessment and Plan (Free Text) Assessment: 51 y/o female 2 days s/p Left hallux hardware removal and Right foot plantar fasciotomy with heel spur resection Plan: Patient seen and evaluated at bedside Discussed patient with attending, Dr. Syed Labs and vitals reviewed; WBC 11.8; afebrile Bilateral post-operative dressings were removed; Left hallux and Right heel surgical sites appear stable with no clinical signs of infection present. Both surgical sites were now dressed with Xeroform DSD with SERA bandage to the Right foot Patient instructed to weight-bear as tolerated to both feet with surgical shoes Patient is podiatrically stable for discharge. Continue current pain management Patient is to follow-up with Dr. Syed upon discharge Podiatry to follow while patient remains in house
[2017-01-22 12:08] LABS: BASO # 0.1 K/uL (0.0-0.2); BASO % 0.8 % (0.0-2.0); EOS # 0.4 K/uL (0.0-0.7); EOS % 3.4 % (0.0-4.0); LYMPH # 2.3 K/uL (1.0-4.3); LYMPH % 19.9 % (20.0-40.0); MEAN CELL VOLUME 85.5 fL (81.0-99.0); MEAN CORPUSCULAR HEMOGLOBIN 28.7 pg (27.0-31.0); MEAN CORPUSCULAR HGB CONC 33.5 g/dL (33.0-37.0); MEAN PLATELET VOLUME 8.7 fL (7.2-11.7); MONO # 1.1 K/uL (0.0-0.8); MONO % 8.9 % (0.0-10.0); RED CELL DISTRIBUTION WIDTH 13.4 % (11.5-14.5); WHITE BLOOD COUNT 11.8 K/uL (4.8-10.8)
--- NOTE | 2017-01-22 19:48 | CP.PCM.PN ---
Subjective - Date & Time of Evaluation Date of Evaluation: 01/22/17 Time of Evaluation: 19:47 - Subjective Subjective: Pt seen and examined at bedside. Pt says that her R foot "hurts like hell". Compared to yesterday, R foot is more painful than yesterday. Pt's WBC also trending up and is now in the low abnormal range from a previous low of 10.9 from 14.3. Pt [place] [address] WBC count for close to 9 months and had seen her infusion nurse/oncologist (prev hx of ovarian CA), been worked up for the leukocytosis with no apparent cause. The only time her WBC count went down was when she was started on the Zosyn she is on now. Pt also needed dressing change today which did not happen as of yet. Will advise podiatry to check foot healing progress prior to discharge, which, despite my misgivings, will be to her home. Objective - Vital Signs/Intake and Output Vital Signs (last 24 hours): Temp Pulse Resp BP Pulse Ox 98.3 F 59 L 20 130/80 94 L 01/22/17 16:00 01/22/17 16:00 01/22/17 16:00 01/22/17 18:10 01/22/17 16:00 Intake and Output: 01/22/17 01/23/17 18:59 06:59 Intake Total 800 Balance 800 - Medications Medications: Current Medications Albuterol (Ventolin Hfa 90 Mcg/Actuation (8 G)) 1 puff IH RBID [facility] Last Admin: 01/22/17 19:25 Dose: 1 puff Benztropine Mesylate (Cogentin) 2 mg PO BID [facility] Last Admin: 01/22/17 18:11 Dose: 2 mg Docusate Sodium (Colace) 100 mg PO BID [facility] Last Admin: 01/22/17 18:11 Dose: 100 mg Famotidine (Pepcid) 20 mg PO BID [facility] Last Admin: 01/22/17 18:11 Dose: 20 mg Folic Acid (Folic Acid) 1 mg PO DAILY [facility] Last Admin: 01/22/17 09:51 Dose: 1 mg Gabapentin (Neurontin) 300 mg PO HS [facility] Last Admin: 01/21/17 21:38 Dose: 300 mg Hydromorphone HCl (Dilaudid) 0.5 mg IVP Q15M PRN PRN Reason: Pain, severe (8-10) Last Admin: 01/20/17 18:03 Dose: 0.5 mg Hydromorphone HCl (Dilaudid) 0.5 mg IVP Q4H PRN PRN Reason: Pain, severe (8-10) Last Admin: 01/22/17 10:07 Dose: 0.5 mg Piperacillin Sod/Tazobactam (Sod 3.375 gm/ Sodium Chloride) 100 mls @ 200 mls/ hr IVPB Q8H [facility] Last Admin: 01/22/17 14:55 Dose: 200 mls/hr Insulin Aspart (Novolog) 0 unit SC [facility] PRN Reason: Protocol Last Admin: 01/22/17 18:12 Dose: Not Given Insulin Detemir (Levemir) 10 unit SC [facility] Last Admin: 01/21/17 21:37 Dose: 10 unit Lactobacillus Acidophilus (Bacid Acidophilus) 1 cap PO BID [facility] Last Admin: 01/22/17 18:11 Dose: 1 cap Lactulose (Enulose) 20 gm PO Q6 PRN PRN Reason: Constipation Last Admin: 01/18/17 16:18 Dose: 20 gm Lisinopril (Zestril) 20 mg PO DAILY [facility] Last Admin: 01/22/17 10:07 Dose: 20 mg Loratadine (Claritin) 10 mg PO DAILY [facility] Last Admin: 01/22/17 09:52 Dose: 10 mg Lorazepam (Ativan) 1 mg PO [facility] Last Admin: 01/21/17 21:37 Dose: 1 mg Lorazepam (Ativan) 1 mg PO TID PRN PRN Reason: Agitation Mesalamine (Delzicol) 800 mg PO TID [facility] Last Admin: 01/22/17 18:11 Dose: 800 mg Metoprolol Tartrate (Lopressor) 25 mg PO Q12H [facility] Last Admin: 01/22/17 18:10 Dose: 25 mg Mometasone Furoate (Asmanex Twisthaler 220 Mcg) 220 puff INH RBID [facility] Last Admin: 01/22/17 19:25 Dose: 1 puff Paroxetine HCl (Paxil) 30 mg PO DAILY [facility] Last Admin: 01/22/17 09:53 Dose: 30 mg Rosuvastatin Calcium (Crestor) 2.5 mg PO [facility] Last Admin: 01/21/17 21:37 Dose: 2.5 mg Trazodone HCl (Desyrel) 50 mg PO [facility] Last Admin: 01/21/17 21:37 Dose: 50 mg - Labs Labs: 01/22/17 11:59 Assessment and Plan (1) Complication of internal fixation device of bone of left lower leg Status: Acute (2) Cellulitis, toe Status: Acute (3) Heel spur Status: Acute (4) Diabetes mellitus with insulin therapy Status: Chronic (5) Constipation Status: Chronic
[2017-01-22] MEDS: Insulin Detemir 100 units/ml Vial (Levemir) SC SCH (21:28)
[2017-01-22] MEDS: Rosuvastatin Calcium 2.5 mg Tab PO SCH (22:00)
[2017-01-23] MEDS: Piperacillin/Tazobact 3.375 GM in Sodium Chloride 0.9% 100 ML IVPB SCH ×3 (05:45→21:22)
[2017-01-23 07:35] LABS: BASO # 0.1 K/uL (0.0-0.2); EOS # 0.4 K/uL (0.0-0.7); EOS % 4.1 % (0.0-4.0); HEMATOCRIT 36.1 % (34.0-47.0); LYMPH # 2.8 K/uL (1.0-4.3); MEAN CELL VOLUME 84.9 fL (81.0-99.0); MEAN CORPUSCULAR HEMOGLOBIN 28.6 pg (27.0-31.0); MEAN CORPUSCULAR HGB CONC 33.7 g/dL (33.0-37.0); MEAN PLATELET VOLUME 8.4 fL (7.2-11.7); MONO # 0.9 K/uL (0.0-0.8); RED CELL DISTRIBUTION WIDTH 13.1 % (11.5-14.5); WHITE BLOOD COUNT 9.8 K/uL (4.8-10.8)
[2017-01-23 08:06] LABS: CHLORIDE 102 mmol/L (98-107); POTASSIUM 3.4 mmol/L (3.6-5.2); SODIUM 139 mmol/L (132-148)
[2017-01-23 08:08] LABS: BILIRUBIN,TOTAL 0.7 mg/dL (0.2-1.3); CARBON DIOXIDE 27 mmol/L (22-30); GFR AFRICAN-AMERICAN > 60
[2017-01-23 08:09] LABS: ALB/GLOB RATIO 1.1 (1.0-2.1); ALKALINE PHOSPHATASE 84 U/L (38-126); ALT/SGPT 23 U/L (9-52); AST/SGOT 23 U/L (14-36); BLOOD UREA NITROGEN 9 mg/dL (7-17); CALCIUM 8.7 mg/dl (8.6-10.4); GLUCOSE,RANDOM 91 mg/dL (65-105); TOTAL PROTEIN 6.5 g/dL (6.3-8.3)
[2017-01-23] MEDS: Mometasone 220 mcg/puff-14 puff Inh INH SCH ×2 (08:29→19:11)
[2017-01-23] MEDS: Albuterol HFA 90 mcg/actuation (8 g) IH SCH ×2 (08:30→19:11)
--- NOTE | 2017-01-23 08:46 | CP.PCM.PN ---
Subjective - Date & Time of Evaluation Date of Evaluation: 01/23/17 Time of Evaluation: 08:25 - Subjective Subjective: s/p removal of hardware and plantar fascia release with debride heel spur right .c/o pain right foot .WBC normal today and no sign of infection noted in feet . apply xeroform gauze dsd b/l . 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 of sub-acute which I agree Pt needs for follow up medical management and wound care . Objective - Vital Signs/Intake and Output Vital Signs (last 24 hours): Temp Pulse Resp BP Pulse Ox 98.1 F 65 20 142/81 95 01/23/17 07:00 01/23/17 07:00 01/23/17 07:00 01/23/17 07:00 01/23/17 07:00 Intake and Output: 01/23/17 01/23/17 06:59 18:59 Intake Total 300 Balance 300 - Medications Medications: Current Medications Albuterol (Ventolin Hfa 90 Mcg/Actuation (8 G)) 1 puff IH RBID [facility] Last Admin: 01/23/17 08:30 Dose: 1 puff Benztropine Mesylate (Cogentin) 2 mg PO BID [facility] Last Admin: 01/22/17 18:11 Dose: 2 mg Docusate Sodium (Colace) 100 mg PO BID [facility] Last Admin: 01/22/17 18:11 Dose: 100 mg Famotidine (Pepcid) 20 mg PO BID [facility] Last Admin: 01/22/17 18:11 Dose: 20 mg Folic Acid (Folic Acid) 1 mg PO DAILY [facility] Last Admin: 01/22/17 09:51 Dose: 1 mg Gabapentin (Neurontin) 300 mg PO HS [facility] Last Admin: 01/22/17 21:32 Dose: 300 mg Hydromorphone HCl (Dilaudid) 0.5 mg IVP Q4H PRN PRN Reason: Pain, severe (8-10) Last Admin: 01/22/17 21:30 Dose: 0.5 mg Piperacillin Sod/Tazobactam (Sod 3.375 gm/ Sodium Chloride) 100 mls @ 200 mls/ hr IVPB Q8H [facility] Last Admin: 01/23/17 05:45 Dose: 200 mls/hr Insulin Aspart (Novolog) 0 unit SC [facility] PRN Reason: Protocol Last Admin: 01/22/17 22:00 Dose: Not Given Insulin Detemir (Levemir) 10 unit SC HS [facility] Last Admin: 01/22/17 21:28 Dose: 10 unit Lactobacillus Acidophilus (Bacid Acidophilus) 1 cap PO BID [facility] Last Admin: 01/22/17 18:11 Dose: 1 cap Lactulose (Enulose) 20 gm PO Q6 PRN PRN Reason: Constipation Last Admin: 01/18/17 16:18 Dose: 20 gm Lisinopril (Zestril) 20 mg PO DAILY [facility] Last Admin: 01/22/17 10:07 Dose: 20 mg Loratadine (Claritin) 10 mg PO DAILY [facility] Last Admin: 01/22/17 09:52 Dose: 10 mg Lorazepam (Ativan) 1 mg PO HS [facility] Last Admin: 01/22/17 21:29 Dose: 1 mg Lorazepam (Ativan) 1 mg PO TID PRN PRN Reason: Agitation Mesalamine (Delzicol) 800 mg PO TID [facility] Last Admin: 01/22/17 18:11 Dose: 800 mg Metoprolol Tartrate (Lopressor) 25 mg PO Q12H [facility] Last Admin: 01/23/17 06:27 Dose: 25 mg Mometasone Furoate (Asmanex Twisthaler 220 Mcg) 220 puff INH RBID [facility] Last Admin: 01/23/17 08:29 Dose: 2 puff Paroxetine HCl (Paxil) 30 mg PO DAILY [facility] Last Admin: 01/22/17 09:53 Dose: 30 mg Rosuvastatin Calcium (Crestor) 2.5 mg PO HS [facility] Last Admin: 01/22/17 22:00 Dose: 2.5 mg Trazodone HCl (Desyrel) 50 mg PO HS [facility] Last Admin: 01/22/17 21:29 Dose: 50 mg - Labs Labs: 01/23/17 07:25 01/23/17 07:25
[2017-01-23] MEDS: Lactobacillus Acidophilus 500 MU Cap PO SCH ×2 (09:12→20:33)
[2017-01-23] MEDS: (Novolog) Insulin Aspart, Recombinant 100 u/ml 10 ml vial SC SCH ×4 (09:13→22:54)
[2017-01-23] MEDS: HYDROmorphone 0.5 mg/0.5 ml ISec IVP PRN ×2 (09:32→18:37)
--- NOTE | 2017-01-23 10:27 | CP.PCM.PN ---
Subjective - Date & Time of Evaluation Date of Evaluation: 01/23/17 Time of Evaluation: 10:00 - Subjective Subjective: Patient was seen and evaluated at bedside this morning with attending, Dr. Syed. Patient is now 3 days s/p Left hallux screw removal and Right foot plantar fasciotomy with heel spur resection. Patient states that she is still congested today, but feels better overall. Denies any current F/C/N/V/SOB/CP. Bilateral post-op dressings noted to be intact. No pedal complaints reported. Objective - Vital Signs/Intake and Output Vital Signs (last 24 hours): Temp Pulse Resp BP Pulse Ox 98.1 F 65 20 142/81 95 01/23/17 07:00 01/23/17 07:00 01/23/17 07:00 01/23/17 07:00 01/23/17 07:00 Intake and Output: 01/23/17 01/23/17 06:59 18:59 Intake Total 300 Balance 300 - Medications Medications: Current Medications Albuterol (Ventolin Hfa 90 Mcg/Actuation (8 G)) 1 puff IH RBID [facility] Last Admin: 01/23/17 08:30 Dose: 1 puff Benztropine Mesylate (Cogentin) 2 mg PO BID [facility] Last Admin: 01/23/17 09:11 Dose: 2 mg Docusate Sodium (Colace) 100 mg PO BID [facility] Last Admin: 01/23/17 09:11 Dose: 100 mg Famotidine (Pepcid) 20 mg PO BID [facility] Last Admin: 01/23/17 09:11 Dose: 20 mg Folic Acid (Folic Acid) 1 mg PO DAILY [facility] Last Admin: 01/23/17 09:11 Dose: 1 mg Gabapentin (Neurontin) 300 mg PO HS [facility] Last Admin: 01/22/17 21:32 Dose: 300 mg Hydromorphone HCl (Dilaudid) 0.5 mg IVP Q4H PRN PRN Reason: Pain, severe (8-10) Last Admin: 01/23/17 09:32 Dose: 0.5 mg Piperacillin Sod/Tazobactam (Sod 3.375 gm/ Sodium Chloride) 100 mls @ 200 mls/ hr IVPB Q8H [facility] Last Admin: 01/23/17 05:45 Dose: 200 mls/hr Insulin Aspart (Novolog) 0 unit SC [facility] PRN Reason: Protocol Last Admin: 01/23/17 09:13 Dose: Not Given Insulin Detemir (Levemir) 10 unit SC [facility] Last Admin: 01/22/17 21:28 Dose: 10 unit Lactobacillus Acidophilus (Bacid Acidophilus) 1 cap PO BID [facility] Last Admin: 01/23/17 09:12 Dose: 1 cap Lactulose (Enulose) 20 gm PO Q6 PRN PRN Reason: Constipation Last Admin: 01/18/17 16:18 Dose: 20 gm Lisinopril (Zestril) 20 mg PO DAILY [facility] Last Admin: 01/23/17 09:32 Dose: 20 mg Loratadine (Claritin) 10 mg PO DAILY [facility] Last Admin: 01/23/17 09:11 Dose: 10 mg Lorazepam (Ativan) 1 mg PO [facility] Last Admin: 01/22/17 21:29 Dose: 1 mg Lorazepam (Ativan) 1 mg PO TID PRN PRN Reason: Agitation Mesalamine (Delzicol) 800 mg PO TID [facility] Last Admin: 01/23/17 09:11 Dose: 800 mg Metoprolol Tartrate (Lopressor) 25 mg PO Q12H [facility] Last Admin: 01/23/17 06:27 Dose: 25 mg Mometasone Furoate (Asmanex Twisthaler 220 Mcg) 220 puff INH RBID [facility] Last Admin: 01/23/17 08:29 Dose: 2 puff Paroxetine HCl (Paxil) 30 mg PO DAILY [facility] Last Admin: 01/23/17 09:11 Dose: 30 mg Rosuvastatin Calcium (Crestor) 2.5 mg PO [facility] Last Admin: 01/22/17 22:00 Dose: 2.5 mg Trazodone HCl (Desyrel) 50 mg PO [facility] Last Admin: 01/22/17 21:29 Dose: 50 mg - Labs Labs: 01/23/17 07:25 01/23/17 07:25 - Constitutional Appears: Non-toxic, No Acute Distress - Neurological Exam Neurological Exam: Alert, Awake, Oriented x3 - Psychiatric Exam Psychiatric exam: Normal Affect, Normal Mood - Skin Skin Exam: Dry, Intact, Normal Color, Warm. absent: Erythema - Additional Findings Additional findings: Bilateral lower extremity examination: Vascular: DP 2/4; PT 1/4; capillary fill time < 3 sec x10; normal temperature gradient noted Neuro: light touch and protective sensation grossly intact Derm: Both incision sites at distal aspect of the Left hallux and plantar aspect of Right heal appear stable with sutures intact; skin is well-coapted with no evidence of dehiscence; no signs of ascending cellulitis; no ulcerations , no drainage, no ulcerations present; no clinical signs of infection noted Ortho: pain elicited upon palpation of both surgical incision sites Assessment and Plan - Assessment and Plan (Free Text) Assessment: 51 y/o female 3 days s/p Left hallux hardware removal and Right foot plantar fasciotomy with heel spur resection Plan: Patient seen and evaluated at bedside with attending, Dr. Syed Labs and vitals reviewed; WBC 9.8; afebrile Bilateral surgical sites were examined; Left hallux and Right heel surgical sites appear stable with no clinical signs of infection present. Both surgical sites were now dressed with Xeroform DSD with SERA bandage to the Right foot Patient instructed to weight-bear as tolerated to both feet with surgical shoes Patient is stable from discharge from podiatric standpoint Patient is to follow-up with Dr. Syed upon discharge
[2017-01-23] MEDS ORDERED: Potassium Chloride 20 mEq/15 ml LIQ UD PO STA (16:23)
--- NOTE | 2017-01-23 17:18 | CP.PCM.DIS ---
Provider - Provider Date of Admission: 01/19/17 10:41 Attending physician: Joni Moore MD Primary care physician: Dr. Joni Moore MD Consults: Dr. Michael Syed DPM Time Spent in preparation of Discharge (in minutes): 45 Diagnosis - Discharge Diagnosis (1) Cellulitis, toe Status: Deleted (2) Heel spur Status: Resolved Priority: Medium Comment: resolving; still subject to possible infection bec of post-op course (3) Diabetes mellitus with insulin therapy Status: Chronic Priority: Medium (4) Constipation Status: Chronic Hospital Course - Lab Results Lab Results: Most Recent Lab Values WBC 9.8 K/uL (4.8-10.8) 01/23/17 07:25 RBC 4.25 Mil/uL (3.80-5.20) 01/23/17 07:25 Hgb 12.1 g/dL (11.0-16.0) 01/23/17 07:25 Hct 36.1 % (34.0-47.0) 01/23/17 07:25 MCV 84.9 fL (81.0-99.0) 01/23/17 07:25 MCH 28.6 pg (27.0-31.0) 01/23/17 07:25 MCHC 33.7 g/dL (33.0-37.0) 01/23/17 07:25 RDW 13.1 % (11.5-14.5) 01/23/17 07:25 Plt Count 290 K/uL (130-400) 01/23/17 07:25 MPV 8.4 fL (7.2-11.7) 01/23/17 07:25 Neut % (Auto) 57.9 % (50.0-75.0) 01/23/17 07:25 Lymph % (Auto) 28.0 % (20.0-40.0) 01/23/17 07:25 [place] % (Auto) 9.0 % (0.0-10.0) 01/23/17 07:25 Eos % (Auto) 4.1 % (0.0-4.0) H 01/23/17 07:25 Baso % (Auto) 1.0 % (0.0-2.0) 01/23/17 07:25 Neut # 5.7 K/uL (1.8-7.0) 01/23/17 07:25 Lymph # 2.8 K/uL (1.0-4.3) 01/23/17 07:25 [place] # 0.9 K/uL (0.0-0.8) H 01/23/17 07:25 Eos # 0.4 K/uL (0.0-0.7) 01/23/17 07:25 Baso # 0.1 K/uL (0.0-0.2) 01/23/17 07:25 ESR 30 mm/hr (0-20) H 01/19/17 11:38 Sodium 139 mmol/L (132-148) 01/23/17 07:25 Potassium 3.4 mmol/L (3.6-5.2) L 01/23/17 07:25 Chloride 102 mmol/L (98-107) 01/23/17 07:25 Carbon Dioxide 27 mmol/L (22-30) 01/23/17 07:25 Anion Gap 14 (10-20) 01/23/17 07:25 BUN 9 mg/dL (7-17) 01/23/17 07:25 Creatinine 0.6 MG/DL (0.7-1.2) L 01/23/17 07:25 Est GFR ( Amer) > 60 01/23/17 07:25 Est GFR (Non-Af Amer) > 60 01/23/17 07:25 POC Glucose (mg/dL) 77 mg/dL (65-110) 01/23/17 16:42 Random Glucose 91 mg/dL (65-105) 01/23/17 07:25 Hemoglobin A1c 9.2 % (4.2-6.5) H 01/17/17 08:30 Lactic Acid 1.0 mmol/L (0.7-2.1) 01/16/17 18:45 Calcium 8.7 mg/dl (8.6-10.4) 01/23/17 07:25 Total Bilirubin 0.7 mg/dL (0.2-1.3) 01/23/17 07:25 AST 23 U/L (14-36) 01/23/17 07:25 ALT 23 U/L (9-52) 01/23/17 07:25 Alkaline Phosphatase 84 U/L (38-126) 01/23/17 07:25 C-React Prot High Sens 9.15 mg/L (1.00-3.00) H 01/19/17 12:02 Total Protein 6.5 g/dL (6.3-8.3) 01/23/17 07:25 Albumin 3.5 g/dL (3.5-5.0) 01/23/17 07:25 Globulin 3.1 gm/dL (2.2-3.9) 01/23/17 07:25 Albumin/Globulin Ratio 1.1 (1.0-2.1) 01/23/17 07:25 Urine HCG, Qual Negative (NEGATIVE) 01/19/17 16:13 - Hospital Course Hospital Course: Pt seen at the office last week and was noted to be barely able to walk. Though pt has a low tolerance for pain, pt had increasingly been coming in complaining of pain at her feet. Pt frequently at the ER but never gets her needs addressed adequately for one reason or another. Advised pt to be evaluated at her next ER visit, but to keep me in the loop for proper handling of her medical issues. > Pt went to ED the following day and was found to have celllulitis of the L hallux. Incidental finding of calcaneal spurs that also needed correcting since pt would be unable to ambulate if spurs still present under the calcaneus. > Pt recommended TESSA bec of very real possibility of infection of the operative site by nature of its location, which pt refused for several days until she finally agreed to it. But because of the delay in pt's decision, there was not enough time to obtain insurance company approval. Pt kept changing her mind as well and threated to leave AMA and her family talked to pt to stay. This allowed surgical site to close better and be in less danger of infection, hence the subsequent d/c. Discharge Exam - Head Exam Head Exam: ATRAUMATIC, NORMAL INSPECTION, NORMOCEPHALIC - Eye Exam Eye Exam: Normal appearance Pupil Exam: NORMAL ACCOMODATION - ENT Exam ENT Exam: Normal Exam - Neck Exam Neck exam: Full Rom, Normal Inspection - Respiratory Exam Respiratory Exam: Clear to PA & Lateral, NORMAL BREATHING PATTERN - Cardiovascular Exam Cardiovascular Exam: REGULAR RHYTHM - GI/Abdominal Exam GI & Abdominal Exam: Normal Bowel Sounds, Unremarkable - Rectal Exam Rectal Exam: Deferred, NORMAL INSPECTION - Extremities Exam Extremities exam: pedal pulses present Additional comments: + tenderness over operative site, no pain at gastrocnemius or any location in the lower extremities aise from said site - Back Exam Back exam: NORMAL INSPECTION Additional comments: hx of herniated discs - Neurological Exam Neurological exam: Alert, Normal Gait - Psychiatric Exam Psychiatric exam: Normal Affect, Normal Mood - Skin Skin Exam: Dry, Intact, Normal Color, Warm Discharge Plan - Follow Up Plan Condition: STABLE Disposition: REHAB FACILITY/REHAB UNIT Instructions: Cellulitis (DC), Cellulitis (GEN) Additional Instructions: 1. Call Dr. Syed's office to follow up on Thursday 2. Keep your operation site clean AT ALL TIMES OR IT CAN GET INFECTED AND YOU CAN LOSE YOUR FEET FROM INFECTION 3. if you get diarrhea, it's ok to take Imodium, but goyo ma 4 mg/day
[2017-01-23] MEDS: Rosuvastatin Calcium 2.5 mg Tab PO SCH (21:23)
[2017-01-23] MEDS: Insulin Detemir 100 units/ml Vial (Levemir) SC SCH ×2 (21:24→22:55)
--- NOTE | 2017-01-23 23:02 | OP ---
PROCEDURE DATE: 01/20/2017 SURGEON: Michael Syed DPM. HUMAN RESOURCES DESIGNATE: Merrill Berrios DPM, PGY-2. TELEPHONE ORDER SUPERVISOR: Dr. Christiansen. ANESTHESIA: IV sedation with local. POSTOPERATIVE DIAGNOSES: 1. Left foot painful retained hardware at the hallux. 2. Right foot painful and chronic plantar fasciitis with heel spur. POSTOPERATIVE DIAGNOSES: 1. Left foot painful retained hardware at the hallux. 2. Right foot painful and chronic plantar fasciitis with heel spur. NAME OF PROCEDURE: 1. Left foot removal of painful retained hardware of the hallux. 2. Right foot plantar fasciotomy with minimal resection of the plantar heel spur. INDICATIONS: The patient is a 51-year-old female with the above diagnoses. The patient previously u nderwent left hallux IPJ fusion in 02/2015, and she now presents with painful hardware of the left herminia lux. She also complains of significant right foot plantar heel pain secondary to chronic plantar fas ciitis. The patient has exhausted conservative treatment at this time and now requests surgical inte rvention. The patient signed the consent after careful explanation of risks, benefits, complications , and alternatives for the surgical procedure. No guarantees were given nor implied. One gram of IV Ancef was given to the patient prior to the procedure. The patient's n.p.o. status was confirmed pr ior to taking the patient to the OR. PREPARATION: The patient was brought to the operating room and placed on the operating room table in supine position. Time-out was performed for identification of the correct patient and the correct p rocedure. A well-padded pneumatic ankle tourniquet was applied to the patient's left and right ankle in a supramalleolar position. After induction of IV sedation, the patient received a total of 15 mL of a 1:1 mixture of 1% lidocaine plain and 0.5% Marcaine plain in local block fashion to each foot. Both feet were then prepped and draped in usual sterile manner. Esmarch was utilized to exsanguinat e the patient's left foot. Pneumatic ankle tourniquet was then inflated to 250 mmHg on the left and the procedure began. PROCEDURE #1: Left foot removal of painful retained hardware at the hallux. Attention was directed to the distal aspect of the left hallux. Using a #15 blade an approximately 0 .5 cm transverse incision was created to the distal tip of the hallux. The incision was deepened to the subcutaneous tissues using sharp and blunt dissection. Care was taken to identify and retract al l vital neurovascular structures. All bleeders were cauterized and ligated as necessary. Using a pe riosteal elevator, the screw head was then identified and freed of all of its soft tissue structures. Once properly visualized a Synthes 4.0 mm screwdriver was now used in order to remove the screw. O nce removed, the screw was closely examined and it was noted to be intact with no evidence of breakag e. The screw was then passed from the operative field. The surgical wound was now irrigated with a copious amount of sterile normal saline. The skin was then reapproximated and coapted using 3-0 nylo n. The left hallux was then dressed with Xeroform, 4 x 4 gauze, and Roselyn. The left ankle tournique t was now deflated at this time and good capillary fill time was noted to the left hallux. Coban was then applied to the left foot. At this time, Esmarch was utilized to exsanguinate the patient's right foot. Pneumatic ankle tourniq uet was then inflated to 250 mmHg on the right and the procedure began. PROCEDURE #2: Right foot plantar fasciotomy with minimal resection of the plantar heel spur. Fluoroscopy was first used to take an intraoperative lateral x-ray of the right foot and it was noted that a plantar heel spur was present. Using fluoroscopy an 18 gauge needle was used to identify the medial plantar calcaneal tuberosity. Once identified under fluoroscopy, a #10 blade was then insert ed into the identified location. Once the blade was fully inserted the blade was used in a sweeping motion to release the medial band of the plantar fascia. Upon using the #10 blade in a sweeping britni on it was felt that the medial band was adequately released. Next, using intraoperative fluoroscopy, a power rasp was now inserted through the incision site down to the level of the plantar heel spur. Once it was confirmed that the rasp was directly on the spur the rasp was used to resect the spur. Final radiographs were then taken and adequate resection of the plantar heel spur was verified. The surgical site was now irrigated with a copious amount of sterile normal saline. The skin was now hina pproximated and coapted using 3-0 nylon. The right foot was then dressed with Xeroform, 4 x 4 gauze, Roselyn, and Coban. POSTOPERATIVE CONDITION: The patient tolerated the anesthesia and procedures well and without compli cations. The patient was escorted to the recovery room with vital signs stable and neurovascular sta tus intact to both the left and right foot. This patient will be seen and followed by Dr. Yahaira khan the patient remains in the hospital. Merrill Berrios DPM Michael Syed DPM cc: [id number] TT: 01/23/2017 23:01:12 ita
[2017-01-24] MEDS: HYDROmorphone 0.5 mg/0.5 ml ISec IVP PRN ×3 (00:26→21:34)
[2017-01-24] MEDS: Piperacillin/Tazobact 3.375 GM in Sodium Chloride 0.9% 100 ML IVPB SCH ×3 (06:04→21:38)
[2017-01-24] MEDS: (Novolog) Insulin Aspart, Recombinant 100 u/ml 10 ml vial SC SCH ×4 (07:30→21:38)
[2017-01-24] MEDS: Albuterol HFA 90 mcg/actuation (8 g) IH SCH ×2 (08:00→19:32)
[2017-01-24] MEDS: Lactobacillus Acidophilus 500 MU Cap PO SCH ×2 (09:25→17:23)
[2017-01-24] MEDS: Mometasone 220 mcg/puff-14 puff Inh INH SCH ×2 (10:01→19:33)
--- NOTE | 2017-01-24 12:02 | CP.PCM.PN ---
Subjective - Date & Time of Evaluation Date of Evaluation: 01/24/17 Time of Evaluation: 09:00 - Subjective Subjective: Patient was seen and evaluated at bedside this morning to check prognosis 4 days s/p Left hallux screw removal and Right foot plantar fasciotomy with heel spur resection. Patient deeis major complaints today, and says she feels well. Denies any current F/C/N/V/SOB/CP. Bilateral post-op dressings noted to be intact. No pedal complaints reported. Objective - Vital Signs/Intake and Output Vital Signs (last 24 hours): Temp Pulse Resp BP Pulse Ox 98.3 F 69 20 127/74 95 01/24/17 08:14 01/24/17 08:14 01/24/17 08:14 01/24/17 08:14 01/24/17 08:14 - Medications Medications: Current Medications Albuterol (Ventolin Hfa 90 Mcg/Actuation (8 G)) 1 puff IH RBID [facility] Last Admin: 01/24/17 08:00 Dose: 1 puff Benztropine Mesylate (Cogentin) 2 mg PO BID [facility] Last Admin: 01/24/17 09:25 Dose: 2 mg Docusate Sodium (Colace) 100 mg PO BID [facility] Last Admin: 01/24/17 09:25 Dose: 100 mg Famotidine (Pepcid) 20 mg PO BID [facility] Last Admin: 01/24/17 09:25 Dose: 20 mg Folic Acid (Folic Acid) 1 mg PO DAILY [facility] Last Admin: 01/24/17 09:25 Dose: 1 mg Gabapentin (Neurontin) 300 mg PO HS [facility] Last Admin: 01/23/17 21:24 Dose: 300 mg Hydromorphone HCl (Dilaudid) 0.5 mg IVP Q4H PRN PRN Reason: Pain, severe (8-10) Last Admin: 01/24/17 09:42 Dose: 0.5 mg Piperacillin Sod/Tazobactam (Sod 3.375 gm/ Sodium Chloride) 100 mls @ 200 mls/ hr IVPB Q8H [facility] Last Admin: 01/24/17 06:04 Dose: 200 mls/hr Insulin Aspart (Novolog) 0 unit SC [facility] PRN Reason: Protocol Last Admin: 01/24/17 07:30 Dose: Not Given Insulin Detemir (Levemir) 10 unit SC [facility] Last Admin: 01/23/17 22:55 Dose: Not Given Lactobacillus Acidophilus (Bacid Acidophilus) 1 cap PO BID [facility] Last Admin: 01/24/17 09:25 Dose: 1 cap Lactulose (Enulose) 20 gm PO Q6 PRN PRN Reason: Constipation Last Admin: 01/18/17 16:18 Dose: 20 gm Lisinopril (Zestril) 20 mg PO DAILY [facility] Last Admin: 01/24/17 09:29 Dose: 20 mg Loratadine (Claritin) 10 mg PO DAILY [facility] Last Admin: 01/24/17 09:25 Dose: 10 mg Lorazepam (Ativan) 1 mg PO [facility] Last Admin: 01/23/17 21:23 Dose: 1 mg Lorazepam (Ativan) 1 mg PO TID PRN PRN Reason: Agitation Mesalamine (Delzicol) 800 mg PO TID [facility] Last Admin: 01/23/17 18:37 Dose: 800 mg Metoprolol Tartrate (Lopressor) 25 mg PO Q12H [facility] Last Admin: 01/24/17 06:05 Dose: 25 mg Mometasone Furoate (Asmanex Twisthaler 220 Mcg) 220 puff INH RBID [facility] Last Admin: 01/24/17 10:01 Dose: 2 puff Paroxetine HCl (Paxil) 30 mg PO DAILY [facility] Last Admin: 01/24/17 09:25 Dose: 30 mg Rosuvastatin Calcium (Crestor) 2.5 mg [address] [facility] Last Admin: 01/23/17 21:23 Dose: 2.5 mg Trazodone HCl (Desyrel) 50 mg PO [facility] Last Admin: 01/23/17 21:23 Dose: 50 mg - Labs Labs: 01/23/17 07:25 01/23/17 07:25 - Constitutional Appears: Well, Non-toxic, No Acute Distress - Extremities Exam Additional comments: Bilateral lower extremity examination: Vascular: DP 2/4; PT 1/4; capillary fill time < 3 sec x10; normal temperature gradient noted Neuro: light touch and protective sensation grossly intact Derm: Both incision sites at distal aspect of the Left hallux and plantar aspect of Right heal appear stable with sutures intact; skin is well-coapted with no evidence of dehiscence; no signs of ascending cellulitis; no ulcerations , no drainage, no ulcerations present; no clinical signs of infection noted Ortho: pain elicited upon palpation of both surgical incision sites - Neurological Exam Neurological Exam: Alert, Awake, Oriented x3 - Psychiatric Exam Psychiatric exam: Normal Affect, Normal Mood Assessment and Plan - Assessment and Plan (Free Text) Assessment: 51 y/o female 4 days s/p Left hallux hardware removal and Right foot plantar fasciotomy with heel spur resection Plan: Patient seen and evaluated at bedside. Discussed with attending, Dr. Syed, who was made aware of changes and endorsed the following plan. Labs and vitals reviewed Bilateral surgical sites were examined; Left hallux and Right heel surgical sites appear stable with no clinical signs of infection present. Both surgical sites were redressed with Xeroform DSD with SERA bandage to the Right foot Patient instructed to weight-bear as tolerated to both feet with surgical shoes. Patient is stable from discharge from podiatric standpoint Patient is to follow-up with Dr. Syed upon discharge
[2017-01-24] MEDS: Rosuvastatin Calcium 2.5 mg Tab PO SCH (21:33)
[2017-01-24] MEDS: Insulin Detemir 100 units/ml Vial (Levemir) SC SCH (21:41)
--- NOTE | 2017-01-24 23:47 | CP.PCM.PN ---
Subjective - Date & Time of Evaluation Date of Evaluation: 01/24/17 Time of Evaluation: 20:00 - Subjective Subjective: Events of the day noted. Pt had wanted to go home and was going to sign out AMA. Had told patient early on that she should go to rehab to prevent infection of the foot that may lead to amputation. Pt insistent on leaving and was about to be discharged yesterday when she changed her mind. By that time, it was too late to obtain insrance pre-auth for [facility], hence, pt unable to go home. I was not willing to clear her medically bec of the danger of infection since pt has a history of non-compliance and pt also takes medication without understanding what they are for. So chances for morbidity is extreme. > Pt's mother and registered pharmacy technician brother came when infomrned of the situation and talked pt into staying. Objective - Vital Signs/Intake and Output Vital Signs (last 24 hours): Temp Pulse Resp BP Pulse Ox 98.2 F 58 L 20 145/80 100 01/24/17 15:00 01/24/17 15:00 01/24/17 15:00 01/24/17 19:00 01/24/17 15:00 Intake and Output: 01/24/17 01/25/17 18:59 06:59 Intake Total 400 Balance 400 - Medications Medications: Current Medications Albuterol (Ventolin Hfa 90 Mcg/Actuation (8 G)) 1 puff IH RBID [facility] Last Admin: 01/24/17 19:32 Dose: 1 puff Benztropine Mesylate (Cogentin) 2 mg PO BID [facility] Last Admin: 01/24/17 17:25 Dose: 2 mg Docusate Sodium (Colace) 100 mg PO BID [facility] Last Admin: 01/24/17 17:24 Dose: 100 mg Famotidine (Pepcid) 20 mg PO BID [facility] Last Admin: 01/24/17 17:23 Dose: 20 mg Folic Acid (Folic Acid) 1 mg PO DAILY [facility] Last Admin: 01/24/17 09:25 Dose: 1 mg Gabapentin (Neurontin) 300 mg PO HS [facility] Last Admin: 01/24/17 21:37 Dose: 300 mg Hydromorphone HCl (Dilaudid) 0.5 mg IVP Q4H PRN PRN Reason: Pain, severe (8-10) Last Admin: 01/24/17 21:34 Dose: 0.5 mg Piperacillin Sod/Tazobactam (Sod 3.375 gm/ Sodium Chloride) 100 mls @ 200 mls/ hr IVPB Q8H [facility] Last Admin: 01/24/17 21:38 Dose: 200 mls/hr Insulin Aspart (Novolog) 0 unit SC ACHS [facility] PRN Reason: Protocol Last Admin: 01/24/17 21:38 Dose: Not Given Insulin Detemir (Levemir) 10 unit SC HS [facility] Last Admin: 01/24/17 21:41 Dose: 10 unit Lactobacillus Acidophilus (Bacid Acidophilus) 1 cap PO BID [facility] Last Admin: 01/24/17 17:23 Dose: 1 cap Lactulose (Enulose) 20 gm PO Q6 PRN PRN Reason: Constipation Last Admin: 01/18/17 16:18 Dose: 20 gm Lisinopril (Zestril) 20 mg PO DAILY [facility] Last Admin: 01/24/17 09:29 Dose: 20 mg Loratadine (Claritin) 10 mg PO DAILY [facility] Last Admin: 01/24/17 09:25 Dose: 10 mg Lorazepam (Ativan) 1 mg PO [facility] Last Admin: 01/24/17 21:45 Dose: Not Given Lorazepam (Ativan) 1 mg PO TID PRN PRN Reason: Agitation Mesalamine (Delzicol) 800 mg PO TID [facility] Last Admin: 01/24/17 17:23 Dose: 800 mg Metoprolol Tartrate (Lopressor) 25 mg PO Q12H [facility] Last Admin: 01/24/17 19:00 Dose: 25 mg Mometasone Furoate (Asmanex Twisthaler 220 Mcg) 1 puff INH RBID [facility] Paroxetine HCl (Paxil) 30 mg PO DAILY [facility] Last Admin: 01/24/17 09:25 Dose: 30 mg Rosuvastatin Calcium (Crestor) 2.5 mg PO [facility] Last Admin: 01/24/17 21:33 Dose: 2.5 mg Trazodone HCl (Desyrel) 50 mg PO [facility] Last Admin: 01/24/17 21:44 Dose: 50 mg - Labs Labs: 01/23/17 07:25 01/23/17 07:25 - Constitutional Appears: No Acute Distress - Head Exam Head Exam: ATRAUMATIC, NORMAL INSPECTION, NORMOCEPHALIC - Eye Exam Eye Exam: Normal appearance, PERRL Pupil Exam: NORMAL ACCOMODATION - ENT Exam ENT Exam: Mucous Membranes Moist, Normal Exam - Neck Exam Neck Exam: Full ROM - Respiratory Exam Respiratory Exam: Clear to Ausculation Bilateral, NORMAL BREATHING PATTERN - Cardiovascular Exam Cardiovascular Exam: REGULAR RHYTHM - GI/Abdominal Exam GI & Abdominal Exam: Normal Bowel Sounds - Rectal Exam Rectal Exam: Deferred - Extremities Exam Extremities Exam: Normal Capillary Refill Additional comments: per Podiatry: no s/s/x of infection - Neurological Exam Neuro motor strength exam: Left Upper Extremity: 5, Right Upper Extremity: 5, Left Lower Extremity: 5, Right Lower Extremity: 5 - Skin Skin Exam: Dry, Intact Assessment and Plan (1) Constipation Status: Chronic (2) Calcaneal spur of both feet Assessment & Plan: s/p resection, POD 4 on R foot; healing well per Podiatry but wounds not closed yet Status: Acute (3) Complication of internal fixation device of bone of left lower leg Assessment & Plan: s/p removal. Podiatry following for proper healing and avoid infection. Status: Resolved (4) Diabetes mellitus with insulin therapy Assessment & Plan: continue current mgt Status: Chronic
[2017-01-25] MEDS: Piperacillin/Tazobact 3.375 GM in Sodium Chloride 0.9% 100 ML IVPB SCH ×3 (05:14→21:13)
[2017-01-25] MEDS: (Novolog) Insulin Aspart, Recombinant 100 u/ml 10 ml vial SC SCH ×4 (07:30→21:24)
[2017-01-25] MEDS: Albuterol HFA 90 mcg/actuation (8 g) IH SCH ×2 (08:46→20:04)
[2017-01-25] MEDS: Mometasone 220 mcg/puff-14 puff Inh INH SCH ×2 (08:46→20:03)
[2017-01-25] MEDS: Lactobacillus Acidophilus 500 MU Cap PO SCH ×2 (10:05→18:07)
--- NOTE | 2017-01-25 12:08 | CP.PCM.PN ---
Subjective - Date & Time of Evaluation Date of Evaluation: 01/25/17 Time of Evaluation: 11:40 - Subjective Subjective: Patient was seen and evaluated at bedside this morning to check prognosis 5 days s/p Left hallux screw removal and Right foot plantar fasciotomy with heel spur resection. Patient denies major complaints today, and says she feels well. Denies any current F/C/N/V/SOB/CP. Bilateral post-op dressings noted to be intact. No pedal complaints reported. Documentation notes patient desired to leave AMA yesterday but was convinced to stay, to avoid potential infection or morbidity due to known poor compliance. Objective - Vital Signs/Intake and Output Vital Signs (last 24 hours): Temp Pulse Resp BP Pulse Ox 98.3 F 79 20 139/89 95 01/25/17 08:11 01/25/17 08:11 01/25/17 08:11 01/25/17 08:11 01/25/17 08:11 - Medications Medications: Current Medications Albuterol (Ventolin Hfa 90 Mcg/Actuation (8 G)) 1 puff IH RBID [facility] Last Admin: 01/25/17 08:46 Dose: Not Given Benztropine Mesylate (Cogentin) 2 mg PO BID [facility] Last Admin: 01/25/17 10:06 Dose: 2 mg Docusate Sodium (Colace) 100 mg PO BID [facility] Last Admin: 01/25/17 10:03 Dose: 100 mg Famotidine (Pepcid) 20 mg PO BID [facility] Last Admin: 01/25/17 10:08 Dose: 20 mg Folic Acid (Folic Acid) 1 mg PO DAILY [facility] Last Admin: 01/25/17 10:07 Dose: 1 mg Gabapentin (Neurontin) 300 mg PO HS [facility] Last Admin: 01/24/17 21:37 Dose: 300 mg Hydromorphone HCl (Dilaudid) 0.5 mg IVP Q4H PRN PRN Reason: Pain, severe (8-10) Last Admin: 01/24/17 21:34 Dose: 0.5 mg Piperacillin Sod/Tazobactam (Sod 3.375 gm/ Sodium Chloride) 100 mls @ 200 mls/ hr IVPB Q8H [facility] Last Admin: 01/25/17 05:14 Dose: 200 mls/hr Insulin Aspart (Novolog) 0 unit SC ACHS [facility] PRN Reason: Protocol Last Admin: 01/25/17 07:30 Dose: Not Given Insulin Detemir (Levemir) 10 unit SC [facility] Last Admin: 01/24/17 21:41 Dose: 10 unit Lactobacillus Acidophilus (Bacid Acidophilus) 1 cap PO BID [facility] Last Admin: 01/25/17 10:05 Dose: 1 cap Lactulose (Enulose) 20 gm PO Q6 PRN PRN Reason: Constipation Last Admin: 01/18/17 16:18 Dose: 20 gm Lisinopril (Zestril) 20 mg PO DAILY [facility] Last Admin: 01/25/17 10:13 Dose: 20 mg Loratadine (Claritin) 10 mg PO DAILY [facility] Last Admin: 01/25/17 10:05 Dose: 10 mg Lorazepam (Ativan) 1 mg PO HS [facility] Last Admin: 01/24/17 21:45 Dose: Not Given Lorazepam (Ativan) 1 mg PO TID PRN PRN Reason: Agitation Mesalamine (Delzicol) 800 mg PO TID [facility] Last Admin: 01/25/17 10:03 Dose: 800 mg Metoprolol Tartrate (Lopressor) 25 mg PO Q12H [facility] Last Admin: 01/25/17 06:06 Dose: 25 mg Mometasone Furoate (Asmanex Twisthaler 220 Mcg) 1 puff INH RBID [facility] Last Admin: 01/25/17 08:46 Dose: Not Given Paroxetine HCl (Paxil) 30 mg PO DAILY [facility] Last Admin: 01/25/17 10:08 Dose: 30 mg Rosuvastatin Calcium (Crestor) 2.5 mg PO [facility] Last Admin: 01/24/17 21:33 Dose: 2.5 mg Trazodone HCl (Desyrel) 50 mg PO [facility] Last Admin: 01/24/17 21:44 Dose: 50 mg - Labs Labs: 01/23/17 07:25 01/23/17 07:25 - Constitutional Appears: Well, Non-toxic, No Acute Distress - Extremities Exam Additional comments: Bilateral lower extremity examination: Dressings clean, dry, and intact. Vascular: DP 2/4; PT 1/4; capillary fill time < 3 sec x10; normal temperature gradient noted Neuro: light touch and protective sensation grossly intact Derm: Both incision sites at distal aspect of the Left hallux and plantar aspect of Right heal appear stable with sutures intact; skin is well-coapted with no evidence of dehiscence; no signs of ascending cellulitis; no ulcerations , no drainage, no ulcerations present; no clinical signs of infection noted Ortho: pain elicited upon palpation of both surgical incision sites - Neurological Exam Neurological Exam: Alert, Awake, Oriented x3 - Psychiatric Exam Psychiatric exam: Normal Affect, Normal Mood Assessment and Plan - Assessment and Plan (Free Text) Assessment: 51 y/o female 5 days s/p Left hallux hardware removal and Right foot plantar fasciotomy with heel spur resection Plan: Patient seen and evaluated at bedside. Discussed with attending, Dr. Syed, who was made aware of changes and endorsed the following plan. Labs and vitals reviewed Bilateral surgical sites were examined; Left hallux and Right heel surgical sites appear stable with no clinical signs of infection present. Both surgical sites were Redressed with Xeroform DSD with SERA bandage to the Right foot Patient instructed to weight-bear as tolerated to both feet with surgical shoes. Patient is stable from discharge from podiatric standpoint Patient is to follow-up with Dr. Syed upon discharge
[2017-01-25] MEDS: HYDROmorphone 0.5 mg/0.5 ml ISec IVP PRN ×2 (12:13→21:21)
[2017-01-25] MEDS: Rosuvastatin Calcium 2.5 mg Tab PO SCH (21:15)
[2017-01-25] MEDS: Insulin Detemir 100 units/ml Vial (Levemir) SC SCH (21:24)
--- NOTE | 2017-01-25 23:16 | CP.PCM.PN ---
Subjective - Date & Time of Evaluation Date of Evaluation: 01/25/17 Time of Evaluation: 23:14 - Subjective Subjective: Events of the day noted. No untoward incidents. Pt ambulating with assistance per nursing. Complying with orders to ambulate only to commode, though may weight bear as tolerated. Pt's VS does not show any evidence of distress. [place] discharge in AM if bloodwork good. Objective - Vital Signs/Intake and Output Vital Signs (last 24 hours): Temp Pulse Resp BP Pulse Ox 98.1 F 60 20 124/78 96 01/25/17 16:00 01/25/17 16:00 01/25/17 16:00 01/25/17 18:05 01/25/17 16:00 - Medications Medications: Current Medications Albuterol (Ventolin Hfa 90 Mcg/Actuation (8 G)) 1 puff IH RBID [facility] Last Admin: 01/25/17 20:04 Dose: 1 puff Benztropine Mesylate (Cogentin) 2 mg PO BID [facility] Last Admin: 01/25/17 18:00 Dose: 2 mg Docusate Sodium (Colace) 100 mg PO BID [facility] Last Admin: 01/25/17 18:05 Dose: 100 mg Famotidine (Pepcid) 20 mg PO BID [facility] Last Admin: 01/25/17 18:05 Dose: 20 mg Folic Acid (Folic Acid) 1 mg PO DAILY [facility] Last Admin: 01/25/17 10:07 Dose: 1 mg Gabapentin (Neurontin) 300 mg PO HS [facility] Last Admin: 01/25/17 21:15 Dose: 300 mg Hydromorphone HCl (Dilaudid) 0.5 mg IVP Q4H PRN PRN Reason: Pain, severe (8-10) Last Admin: 01/25/17 21:21 Dose: 0.5 mg Piperacillin Sod/Tazobactam (Sod 3.375 gm/ Sodium Chloride) 100 mls @ 200 mls/ hr IVPB Q8H [facility] Last Admin: 01/25/17 21:13 Dose: 200 mls/hr Insulin Aspart (Novolog) 0 unit SC ACHS [facility] PRN Reason: Protocol Last Admin: 01/25/17 21:24 Dose: Not Given Insulin Detemir (Levemir) 10 unit SC [facility] Last Admin: 05/28/17 21:24 Dose: 10 unit Lactobacillus Acidophilus (Bacid Acidophilus) 1 cap PO BID [facility] Last Admin: 01/25/17 18:07 Dose: 1 cap Lactulose (Enulose) 20 gm PO Q6 PRN PRN Reason: Constipation Last Admin: 01/18/17 16:18 Dose: 20 gm Lisinopril (Zestril) 20 mg PO DAILY [facility] Last Admin: 01/25/17 10:13 Dose: 20 mg Loratadine (Claritin) 10 mg PO DAILY [facility] Last Admin: 01/25/17 10:05 Dose: 10 mg Lorazepam (Ativan) 1 mg PO [facility] Last Admin: 01/25/17 21:15 Dose: 1 mg Lorazepam (Ativan) 1 mg PO TID PRN PRN Reason: Agitation Mesalamine (Delzicol) 800 mg PO TID [facility] Last Admin: 01/25/17 18:04 Dose: 800 mg Metoprolol Tartrate (Lopressor) 25 mg PO Q12H [facility] Last Admin: 01/25/17 18:05 Dose: 25 mg Mometasone Furoate (Asmanex Twisthaler 220 Mcg) 1 puff INH RBID [facility] Last Admin: 01/25/17 20:03 Dose: 1 puff Paroxetine HCl (Paxil) 30 mg PO DAILY [facility] Last Admin: 01/25/17 10:08 Dose: 30 mg Rosuvastatin Calcium (Crestor) 2.5 mg PO [facility] Last Admin: 01/25/17 21:15 Dose: 2.5 mg Trazodone HCl (Desyrel) 50 mg PO [facility] Last Admin: 01/25/17 21:15 Dose: 50 mg - Labs Labs: 01/23/17 07:25 01/23/17 07:25 - Constitutional Appears: No Acute Distress - Head Exam Head Exam: ATRAUMATIC, NORMAL INSPECTION, NORMOCEPHALIC - Eye Exam Eye Exam: Normal appearance Pupil Exam: NORMAL ACCOMODATION - ENT Exam ENT Exam: Mucous Membranes Moist, Normal Exam - Neck Exam Neck Exam: Normal Inspection - Respiratory Exam Respiratory Exam: Clear to Ausculation Bilateral, NORMAL BREATHING PATTERN - Cardiovascular Exam Cardiovascular Exam: REGULAR RHYTHM, +S1, +S2 - GI/Abdominal Exam GI & Abdominal Exam: Soft, Normal Bowel Sounds - Rectal Exam Rectal Exam: Deferred, NORMAL INSPECTION - Extremities Exam Extremities Exam: Full ROM, Normal Capillary Refill, Tenderness Additional comments: at plantar surfaces, bilat feet - Back Exam Back Exam: NORMAL INSPECTION - Neurological Exam Neurological Exam: Alert, Awake, CN II-XII Intact Neuro motor strength exam: Left Upper Extremity: 5, Right Upper Extremity: 5, Left Lower Extremity: 5, Right Lower Extremity: 5 - Psychiatric Exam Psychiatric exam: Normal Affect, Normal Mood - Skin Skin Exam: Dry, Intact, Normal Color Assessment and Plan (1) Complication of internal fixation device of bone of left lower leg Assessment & Plan: s/p removal of appliance and surgical site healing well per podiatry. Status: Resolved (2) Calcaneal spur of both feet Assessment & Plan: s/p resecton of calcaneal spur and fasciotomy of R Status: Acute (3) Constipation Assessment & Plan: stable, + BM Status: Chronic (4) Diabetes mellitus with insulin therapy Assessment & Plan: stable RANJEET stein Status: Chronic
[2017-01-25] MEDS ORDERED: oxyCODONE 10 mg Immediate Release Tab PO PRN (23:19)
[2017-01-26 07:33] LABS: BASO # 0.2 K/uL (0.0-0.2); BASO % 1.1 % (0.0-2.0); EOS # 0.4 K/uL (0.0-0.7); HEMATOCRIT 36.5 % (34.0-47.0); LYMPH # 2.9 K/uL (1.0-4.3); LYMPH % 21.1 % (20.0-40.0); MEAN CELL VOLUME 86.1 fL (81.0-99.0); MEAN CORPUSCULAR HEMOGLOBIN 28.5 pg (27.0-31.0); MEAN CORPUSCULAR HGB CONC 33.1 g/dL (33.0-37.0); MEAN PLATELET VOLUME 8.7 fL (7.2-11.7); MONO # 1.1 K/uL (0.0-0.8); RED CELL DISTRIBUTION WIDTH 13.2 % (11.5-14.5); WHITE BLOOD COUNT 13.5 K/uL (4.8-10.8)
[2017-01-26 07:47] LABS: CHLORIDE 102 mmol/L (98-107); SODIUM 137 mmol/L (132-148)
[2017-01-26 07:48] LABS: POTASSIUM 3.9 mmol/L (3.6-5.2)
[2017-01-26 07:50] LABS: CARBON DIOXIDE 28 mmol/L (22-30); GFR AFRICAN-AMERICAN > 60
[2017-01-26 07:51] LABS: BLOOD UREA NITROGEN 10 mg/dL (7-17); CALCIUM 9.1 mg/dl (8.6-10.4); GLUCOSE,RANDOM 115 mg/dL (65-105)
[2017-01-26] MEDS: Albuterol HFA 90 mcg/actuation (8 g) IH SCH (07:58)
[2017-01-26] MEDS: Mometasone 220 mcg/puff-14 puff Inh INH SCH (07:58)
[2017-01-26] MEDS: (Novolog) Insulin Aspart, Recombinant 100 u/ml 10 ml vial SC SCH ×2 (08:01→12:00)
[2017-01-26 08:29] VITALS: BP 117/70; PULSE 60; TEMP 97.9
[2017-01-26] MEDS: Lactobacillus Acidophilus 500 MU Cap PO SCH (10:11)
--- NOTE | 2017-01-26 11:21 | CP.PCM.PN ---
Subjective - Date & Time of Evaluation Date of Evaluation: 01/26/17 Time of Evaluation: 11:19 - Subjective Subjective: Patient was seen and evaluated at bedside this morning to check prognosis 6 days s/p Left hallux screw removal and Right foot plantar fasciotomy with heel spur resection. Bilateral post-op dressings noted to be intact. No pedal complaints reported. Patient denies major complaints today, and says she feels well. Denies any current F/C/N/V/SOB/CP. Objective - Vital Signs/Intake and Output Vital Signs (last 24 hours): Temp Pulse Resp BP Pulse Ox 97.9 F 60 20 117/70 97 01/26/17 08:28 01/26/17 08:28 01/26/17 08:28 01/26/17 08:28 01/26/17 08:28 - Medications Medications: Current Medications Albuterol (Ventolin Hfa 90 Mcg/Actuation (8 G)) 1 puff IH RBID [facility] Last Admin: 01/26/17 07:58 Dose: 1 puff Benztropine Mesylate (Cogentin) 2 mg PO BID [facility] Last Admin: 01/26/17 10:11 Dose: 2 mg Docusate Sodium (Colace) 100 mg PO BID [facility] Last Admin: 01/26/17 10:11 Dose: 100 mg Famotidine (Pepcid) 20 mg PO BID [facility] Last Admin: 01/26/17 10:15 Dose: 20 mg Folic Acid (Folic Acid) 1 mg PO DAILY [facility] Last Admin: 01/26/17 10:11 Dose: 1 mg Gabapentin (Neurontin) 300 mg PO [facility] Last Admin: 01/25/17 21:15 Dose: 300 mg Insulin Aspart (Novolog) 0 unit SC [facility] PRN Reason: Protocol Last Admin: 01/26/17 08:01 Dose: Not Given Insulin Detemir (Levemir) 10 unit SC HS [facility] Last Admin: 01/25/17 21:24 Dose: 10 unit Lactobacillus Acidophilus (Bacid Acidophilus) 1 cap PO BID [facility] Last Admin: 01/26/17 10:11 Dose: 1 cap Lactulose (Enulose) 20 gm PO Q6 PRN PRN Reason: Constipation Last Admin: 01/18/17 16:18 Dose: 20 gm Lisinopril (Zestril) 20 mg PO DAILY [facility] Last Admin: 01/26/17 10:28 Dose: 20 mg Loratadine (Claritin) 10 mg PO DAILY [facility] Last Admin: 01/26/17 10:11 Dose: 10 mg Lorazepam (Ativan) 1 mg PO HS [facility] Last Admin: 01/25/17 21:15 Dose: 1 mg Lorazepam (Ativan) 1 mg PO TID PRN PRN Reason: Agitation Mesalamine (Delzicol) 800 mg PO TID [facility] Last Admin: 01/26/17 10:10 Dose: 800 mg Metoprolol Tartrate (Lopressor) 25 mg PO Q12H [facility] Last Admin: 01/26/17 06:25 Dose: 25 mg Mometasone Furoate (Asmanex Twisthaler 220 Mcg) 1 puff INH RBID [facility] Last Admin: 01/26/17 07:58 Dose: 1 puff Oxycodone HCl (Oxycodone Immediate Release Tab) 10 mg PO Q6 PRN PRN Reason: Pain, moderate (4-7) Last Admin: 01/26/17 10:28 Dose: 10 mg Paroxetine HCl (Paxil) 30 mg PO DAILY [facility] Last Admin: 01/26/17 10:12 Dose: 30 mg Rosuvastatin Calcium (Crestor) 2.5 mg PO [facility] Last Admin: 01/25/17 21:15 Dose: 2.5 mg Trazodone HCl (Desyrel) 50 mg PO [facility] Last Admin: 01/25/17 21:15 Dose: 50 mg - Labs Labs: 01/26/17 07:08 01/26/17 07:08 - Constitutional Appears: Well, Non-toxic, No Acute Distress - Extremities Exam Additional comments: Bilateral lower extremity examination: Dressings clean, dry, and intact. Vascular: DP 2/4; PT 1/4; capillary fill time < 3 sec x10; normal temperature gradient noted Neuro: light touch and protective sensation grossly intact Derm: Both incision sites at distal aspect of the Left hallux and plantar aspect of Right heal appear stable with sutures intact; skin is well-coapted with no evidence of dehiscence; no signs of ascending cellulitis; no ulcerations , no drainage, no ulcerations present; no clinical signs of infection noted Ortho: pain elicited upon palpation of both surgical incision sites - Neurological Exam Neurological Exam: Alert, Awake, Oriented x3 - Psychiatric Exam Psychiatric exam: Normal Affect, Normal Mood - Skin Skin Exam: Normal Color, Warm Assessment and Plan - Assessment and Plan (Free Text) Assessment: 51 y/o female 6 days s/p Left hallux hardware removal and Right foot plantar fasciotomy with heel spur resection Plan: Patient seen and evaluated at bedside. Discussed with attending, Dr. Syed, who was made aware of changes and endorsed the following plan. Labs and vitals reviewed Bilateral surgical sites were examined; Left hallux and Right heel surgical sites appear stable with no clinical signs of infection present. Both surgical sites were Redressed with Xeroform DSD with SERA bandage to the Right foot Patient instructed to weight-bear as tolerated to both feet with surgical shoes. Patient is stable from discharge from podiatric standpoint Patient is to follow-up with Dr. Syed upon discharge
[2017-01-29 15:05] VITALS: O2SAT 99
--- NOTE | 2017-02-09 14:34 | CARD ---
APPROVED REPORT EKG Measurement Heart [id number] <Conclusion> Sinus bradycardia Otherwise normal ECG
--- NOTE | 2017-03-13 04:07 | CP.PCM.DIS ---
Provider - Provider Date of Admission: 01/19/17 10:41 Attending physician: Joni Moore MD Primary care physician: Dr. Joni Moore Consults: Podiary: Dr. Michael Syed Time Spent in preparation of Discharge (in minutes): 30 Diagnosis - Discharge Diagnosis (1) Cellulitis, toe Status: Resolved (2) Heel spur Status: Resolved Priority: Medium (3) Diabetes mellitus with insulin therapy Status: Chronic Priority: Medium (4) Constipation Status: Chronic Hospital Course - Lab Results Lab Results: Most Recent Lab Values WBC 13.5 K/uL (4.8-10.8) H 01/26/17 07:08 RBC 4.24 Mil/uL (3.80-5.20) 01/26/17 07:08 Hgb 12.1 g/dL (11.0-16.0) 01/26/17 07:08 Hct 36.5 % (34.0-47.0) 01/26/17 07:08 MCV 86.1 fL (81.0-99.0) 01/26/17 07:08 MCH 28.5 pg (27.0-31.0) 01/26/17 07:08 MCHC 33.1 g/dL (33.0-37.0) 01/26/17 07:08 RDW 13.2 % (11.5-14.5) 01/26/17 07:08 Plt Count 313 K/uL (130-400) 01/26/17 07:08 MPV 8.7 fL (7.2-11.7) 01/26/17 07:08 Neut % (Auto) 66.8 % (50.0-75.0) 01/26/17 07:08 Lymph % (Auto) 21.1 % (20.0-40.0) 01/26/17 07:08 [place] % (Auto) 8.0 % (0.0-10.0) 01/26/17 07:08 Eos % (Auto) 3.0 % (0.0-4.0) 01/26/17 07:08 Baso % (Auto) 1.1 % (0.0-2.0) 01/26/17 07:08 Neut # 9.0 K/uL (1.8-7.0) H 01/26/17 07:08 Lymph # 2.9 K/uL (1.0-4.3) 01/26/17 07:08 [place] # 1.1 K/uL (0.0-0.8) H 01/26/17 07:08 Eos # 0.4 K/uL (0.0-0.7) 01/26/17 07:08 Baso # 0.2 K/uL (0.0-0.2) 01/26/17 07:08 ESR 40 mm/hr (0-20) H 01/26/17 07:08 Sodium 137 mmol/L (132-148) 01/26/17 07:08 Potassium 3.9 mmol/L (3.6-5.2) 01/26/17 07:08 Chloride 102 mmol/L (98-107) 01/26/17 07:08 Carbon Dioxide 28 mmol/L (22-30) 01/26/17 07:08 Anion Gap 11 (10-20) 01/26/17 07:08 BUN 10 mg/dL (7-17) 01/26/17 07:08 Creatinine 0.6 MG/DL (0.7-1.2) L 01/26/17 07:08 Est GFR ( Amer) > 60 01/26/17 07:08 Est GFR (Non-Af Amer) > 60 01/26/17 07:08 POC Glucose (mg/dL) 125 mg/dL (65-110) H 01/26/17 11:36 Random Glucose 115 mg/dL (65-105) H 01/26/17 07:08 Hemoglobin A1c 9.2 % (4.2-6.5) H 01/17/17 08:30 Lactic Acid 1.0 mmol/L (0.7-2.1) 01/16/17 18:45 Calcium 9.1 mg/dl (8.6-10.4) 01/26/17 07:08 Total Bilirubin 0.7 mg/dL (0.2-1.3) 01/23/17 07:25 AST 23 U/L (14-36) 01/23/17 07:25 ALT 23 U/L (9-52) 01/23/17 07:25 Alkaline Phosphatase 84 U/L (38-126) 01/23/17 07:25 C-React Prot High Sens 9.15 mg/L (1.00-3.00) H 01/19/17 12:02 Total Protein 6.5 g/dL (6.3-8.3) 01/23/17 07:25 Albumin 3.5 g/dL (3.5-5.0) 01/23/17 07:25 Globulin 3.1 gm/dL (2.2-3.9) 01/23/17 07:25 Albumin/Globulin Ratio 1.1 (1.0-2.1) 01/23/17 07:25 Urine HCG, Qual Negative (NEGATIVE) 01/19/17 16:13 - Hospital Course Hospital Course: Pt seen at the office last week and was noted to be barely able to walk. Though pt has a low tolerance for pain, pt had increasingly been coming in complaining of pain at her feet. Pt frequently at the ER but never gets her needs addressed adequately for one reason or another. Advised pt to be evaluated at her next ER visit, but to keep me in the loop for proper handling of her medical issues. > Pt went to ED the following day and was found to have celllulitis of the L hallux. Incidental finding of calcaneal spurs that also needed correcting since pt would be unable to ambulate if spurs still present under the calcaneus. > Pt recommended TESSA bec of very real possibility of infection of the operative site by nature of its location, which pt refused for several days until she finally agreed to it. But because of the delay in pt's decision, there was not enough time to obtain insurance company approval. Pt kept changing her mind as well and threated to leave AMA and her family talked to pt to stay. This allowed surgical site to close better and be in less danger of infection, hence the subsequent d/c. Discharge Exam - Head Exam Head Exam: ATRAUMATIC, NORMAL INSPECTION, NORMOCEPHALIC - Eye Exam Eye Exam: Normal appearance Pupil Exam: NORMAL ACCOMODATION - ENT Exam ENT Exam: Normal Exam - Neck Exam Neck exam: Full Rom, Normal Inspection - Respiratory Exam Respiratory Exam: Clear to PA & Lateral, NORMAL BREATHING PATTERN - Cardiovascular Exam Cardiovascular Exam: REGULAR RHYTHM - GI/Abdominal Exam GI & Abdominal Exam: Normal Bowel Sounds - Rectal Exam Rectal Exam: Deferred - Extremities Exam Additional comments: both feet bandaged - Back Exam Back exam: NORMAL INSPECTION - Neurological Exam Neurological exam: Alert, CN II-XII Intact, Normal Gait, Reflexes Normal - Psychiatric Exam Psychiatric exam: Normal Affect, Normal Mood Discharge Plan - Follow Up Plan Condition: STABLE Disposition: HOME/ ROUTINE Instructions: Cellulitis (DC), Cellulitis (GEN) Additional Instructions: 1. Call Dr. Syed's office to follow up on Thursday 2. Keep your operation site clean AT ALL TIMES OR IT CAN GET INFECTED AND YOU CAN LOSE YOUR FEET FROM INFECTION 3. if you get diarrhea, it's ok to take Imodium, but goyo ma 4 mg/day 4. Follow up with Dr. 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 Moore to take 2x a day for 10 days. Referrals: Joni Moore MD [Staff Provider] -
== END 2017-01-26 13:03 | disposition home or self-care (01) | DRG 226 ==
LOC: C.ER 10:14 → C.9E 13:53 → C.3T 19:39 → OBSVTOIN 01-19 10:41
PROVIDERS: ADMIT Family Medicine; ATTEND Family Medicine
PROC: 0SPQ04Z Removal of Internal Fixation Device from Left Toe Phalangeal Joint, Open Approach (ICD-10-PCS; principal; 2017-01-26)
PROC: 0J8Q0ZZ Division of Right Foot Subcutaneous Tissue and Fascia, Open Approach (ICD-10-PCS; 2017-01-26)
PROC: 0QBL0ZZ Excision of Right Tarsal, Open Approach (ICD-10-PCS; 2017-01-26)
DX: T84.84XA Pain due to internal orthopedic prosthetic devices, implants and grafts, initial encounter (principal); E11.69 Type 2 diabetes mellitus with other specified complication; I10 Essential (primary) hypertension; F31.9 Bipolar disorder, unspecified; L03.032 Cellulitis of left toe; M77.30 Calcaneal spur, unspecified foot; Y83.1 Surgical operation with implant of artificial internal device as the cause of abnormal reaction of the patient, or of later complication, without mention of misadventure at the time of the procedure; M72.2 Plantar fascial fibromatosis; M77.31 Calcaneal spur, right foot; F43.10 Post-traumatic stress disorder, unspecified; I25.10 Atherosclerotic heart disease of native coronary artery without angina pectoris; I48.91 Unspecified atrial fibrillation; J45.909 Unspecified asthma, uncomplicated; K59.00 Constipation, unspecified; E03.9 Hypothyroidism, unspecified; E78.00 Pure hypercholesterolemia, unspecified; F17.200 Nicotine dependence, unspecified, uncomplicated; M19.90 Unspecified osteoarthritis, unspecified site; Z79.4 Long term (current) use of insulin; Z85.43 Personal history of malignant neoplasm of ovary; Z87.01 Personal history of pneumonia (recurrent); Z87.440 Personal history of urinary (tract) infections; Z95.5 Presence of coronary angioplasty implant and graft

== ENCOUNTER 2017-02-11 16:30 | Emergency (ER) | payer MEDICAID ==
[2017-02-11 16:34] VITALS: BMI 27.4
--- NOTE | 2017-02-11 17:28 | C.PDOC ---
History Of Present Illness 51 year old patient, with a past medical history of Anxiety, Arthritis, Asthma, Back Problems (herniated disc x 5), Bipolar Disorder, Bronchitis, CAD, Diabetes , Gastritis, Gall Bladder Disease, HTN, Hypercholesterolemia, Hypothyroidism, Migraine, Pneumonia, presents to the ED complaining of constant and severe lower back pain for about 3 weeks. Patient states she has been taking Percocet 10s and 325s several times without any relief. She also complains of numbness in her perineum and incontinence. Patient was seen by Dr. Moore in the office today. She is here to rule out spinal cord compression. Time Seen by Provider: 02/11/17 17:16 Chief Complaint (Nursing): Back Pain History Per: Patient History/Exam Limitations: no limitations Onset/Duration Of Symptoms: Unknown (approximately 3 weeks) Current Symptoms Are (Timing): Still Present Quality Of Discomfort: "Pain" Severity: Mild Pain Scale Rating Of: 3 Previous Symptoms: Chronic Pain Associated Symptoms: Incontinence Exacerbating Factor(s): Movement Recent travel outside of the [place]: No Past Medical History Reviewed: Historical Data, Nursing Documentation, Vital Signs Vital Signs: Last Vital Signs Temp 99 F 02/11/17 19:47 Pulse 90 02/11/17 19:47 Resp 16 02/11/17 19:47 BP 145/84 02/11/17 19:47 Pulse Ox 98 02/11/17 21:12 - Medical History PMH: Anxiety, Arthritis, Asthma, Back Problems (herniated disc x 5), Bipolar Disorder, Bronchitis, CAD, Depression, Diabetes, Gastritis, Gall Bladder Disease , HTN, Hypercholesterolemia, Hypothyroidism, Migraine, Pneumonia, Post Traumatic Stress Disorder, Rheumatoid Arthritis, Seizures (last 25 yrs ago) Surgical History: Cholecystectomy, Coronary Stent - [facility] Procedures ANESTH INJECT-SPIN CANAL (02/17/13) CLOSURE SKIN & SUBCUTANEOUS NEC (01/29/13) DERMAL REGENERATIVE GRAFT (09/05/13) DIVISION OF R FOOT SUBCU/FASCIA, OPEN APPROACH (01/19/17) EXCISION OF ASCENDING COLON, ENDO, DIAGN (10/01/15) EXCISION OF DESCENDING COLON, ENDO, DIAGN (10/01/15) EXCISION OF RECTUM, ENDO, DIAGN (10/01/15) EXCISION OF RIGHT TARSAL, OPEN APPROACH (01/19/17) EXCISION OF SIGMOID COLON, ENDO, DIAGN (10/01/15) EXCISION OF TRANSVERSE COLON, ENDO, DIAGN (10/01/15) INJECT STEROID (03/31/13) INJECTION INTO JOINT (03/31/13) INSERTION OF INFUSION DEVICE INTO R ATRIUM, PERC APPROACH (10/01/15) LOC EXC BONE LESION NEC (08/11/13) LUMBOSAC SPINE X-RAY NEC (03/31/13) NONEXCIS DEBRID OF WOUND, INFECT, OR BURN (09/05/13) OTHER EXCISION, FUSION, AND REPAIR OF TOES (03/16/15) OTHER LOCAL DESTRUC SKIN (07/07/13) REMOVAL OF INT FIX FROM L TOE PHALANX JT, OPEN APPROACH (01/19/17) SPINAL CANAL INJECT NEC (03/31/13) TETANUS TOXOID ADMINIST (01/29/13) ULTRASONOGRAPHY OF RIGHT HEART (10/01/15) Family History: States: Diabetes - Social History Hx Tobacco Use: Yes Hx Alcohol Use: No Hx Substance Use: No - Immunization History Hx Tetanus Toxoid Vaccination: No Hx Influenza Vaccination: No Hx Pneumococcal Vaccination: No Review Of Systems Except As Marked, All Systems Reviewed And Found Negative. Genitourinary: Positive for: Incontinence Musculoskeletal: Positive for: Back Pain (severe and constant) Neurological: Positive for: Numbness (to perineum) Physical Exam - Physical Exam Appears: Non-toxic, Other (moaning in pain; pain with movement; able to lift legs onto bed herself.) Skin: Warm, Dry Head: Atraumatic, Normacephalic Neck: Normal ROM, Supple Chest: Symmetrical Cardiovascular: Rhythm Regular Respiratory: Normal Breath Sounds, No Rales, No Rhonchi, No Wheezing Gastrointestinal/Abdominal: Soft, No Tenderness, No Guarding, No Rebound Back: Other (diffuse lumbar spine tenderness) Extremity: No Pedal Edema, No Calf Tenderness, Capillary Refill (<2 seconds), No Deformity, No Swelling, Other (toes bilaterally are normal babinski; strength only to lift legs off bed about 1 inch actively; decreased sensation in toes with history of multiple surgeries and treatments by truss designer for chronic cellulitis. sensation intact but patient states she can't feel her toes) Neurological/Psych: Oriented x3, Normal Speech, Normal Cognition, Normal Sensation ED Course And Treatment O2 Sat by Pulse Oximetry: 98 (room air) Pulse Ox Interpretation: Normal - CT Scan/US MRI spinal canal lumbar Other Rad Studies (CT/US): Read By Radiologist (Robert Velázquez MD), Radiology Report Reviewed CT/US Interpretation: EXAM: MR Lumbar Spine Without Intravenous Contrast. CLINICAL HISTORY: 51 years old, female; Pain; Low back pain; Additional info: R /O cord compression. TECHNIQUE: Magnetic resonance images of the lumbar spine without intravenous contrast in multiple planes. EXAM DATE/TIME: Exam ordered 02/11/2017 5:29 PM. COMPARISON: No relevant prior studies available. FINDINGS : Vertebrae: Presumed 5 lumbar type vertebral bodies. Hypertrophic changes mild /moderate. anteriorly. No acute fracture. Interspaces: Spinal cord: Unremarkable. Normal signal. Soft tissues: Unremarkable. DISCS/SPINAL CANAL/ NEURAL FORAMINA: L1-L2: Unremarkable. No significant disc disease. No stenosis. L2-L3: At L2-L3 there is a disc bulge without significant central or foraminal narrowing. L3-L4 there is a distal bulge and desiccation with facet arthritis and fluid. There is moderate central. and foraminal narrowing bilaterally. At L4-L5 there is a disc bulge and desiccation identified with facet arthritis and fluid with mild central. [id number] central narrowing with more prominent foraminal narrowing bilaterally. At L5-S1, disc bulge and desiccation with facet arthritis. Small central disc protrusion. There is. bilateral foraminal narrowing which is [id number]. IMPRESSION: Multilevel degenerative disc disease and facet arthritis with predominantly foraminal. narrowing with some central stenosis at L3-L4 and L4- L5. - Physician Consult Information Time Consulting Physician Contacted: 21:37 Physician Contacted: Joni Moore Outcome Of Conversation: He will follow up patient in the office. Patient has been followed by pain management. Medical Decision Making Medical Decision Making: Plan: * Spinal Canal Lumbar MRI Disposition - Disposition Referrals: Joni Moore MD [Staff Provider] - Disposition: HOME/ ROUTINE Disposition Time: 21:35 Condition: STABLE Instructions: Chronic Back Pain (ED) - Clinical Impression Clinical Impression: Degenerative disc disease, lumbar - Scribe Statement The provider has reviewed the documentation as recorded by the Scribe Joseline Berrios Provider Attestation: All medical record entries made by the Scribe were at my direction and personally dictated by me. I have reviewed the chart and agree that the record accurately reflects my personal performance of the history, physical exam, medical decision making, and the department course for this patient. I have also personally directed, reviewed, and agree with the discharge instructions and disposition.
[2017-02-11 19:52] VITALS: RESP 16
[2017-02-11 21:59] VITALS: BP 164/78; PULSE 97; TEMP 98.8; O2SAT 99
--- NOTE | 2017-02-13 10:49 | MRI ---
PROCEDURE: MRI lumbar spine 02/11/2017 HISTORY: Rule out cord compression COMPARISON: No prior study available comparison. TECHNIQUE: Multi echo multiplanar sequences were performed through the lumbar spine without the use of intravenous contrast. FINDINGS: Current study reveals no acute compression fractures no retropulsed fragments. Vertebral bodies exhibit relatively normal stature. Slight straightening of the normal cervical lumbar lordosis however vertebral bodies otherwise exhibit normal alignment. Facets normally aligned. Multilevel degenerative spondylosis. At the L5-S1 level, there is disc desiccation and disc space narrowing. Small central and bilateral disc bulge ridge complex reaches the ventromedial surfaces of the descending S1 nerve roots. Disc ridge complex also extends slightly into the proximal inferior margins of both exit foramina more so on the left side. The overall central canal is adequate at this level. Facets are hypertrophic. The exit foramina are stenotic bilaterally with compressive effects on the L5 foraminal nerve roots. At the L4-L5 level, there is disc desiccation no disc space height is maintained. Small to medium broad-based disc bulge ridge complex also extends into the proximal inferior margins of both exit foramina with what appears represent a proximal right-sided foraminal protrusion component. Facets are hypertrophic. Changes result in mild flattening of the ventral surface of the thecal sac and posterior displacement of the ventrally role nerve roots of the cauda equina. Bilateral lateral recess stenosis. Central canal is marginal. Exit foramina are stenotic on the right and mildly narrowed on the left. At the L3 L4 level, there is disc desiccation however disc space height maintained. Small-medium size central and bilateral focal disc bulge ridge complex compresses the ventral surface of the thecal sac and intrathecal as well as just exited L4 nerve roots. Central canal is mildly narrowed. Facets are hypertrophic. The exit foramina are narrowed bilaterally with mild compression of the right L3 foraminal nerve root. At the L 2 L3 level, there is mild age related disc desiccation. Disc space height maintained. Small central and bilateral disc bulge indents the ventral surface of the thecal sac however the overall central canal appears adequate. Facets hypertrophic. Exit foramina are adequate. Conus terminates at approximately the L1 level. Impression: No acute fractures. Multilevel degenerative spondylosis most notably affecting L3-L4 through the L5-S1 levels. . Varying degrees of mild compressive effects on the ventral surface of the thecal sac and or exiting nerve roots and variable bilateral foraminal narrowing as detailed above
== END 2017-02-11 21:59 | disposition home or self-care (01) ==
LOC: C.ER 16:30
DX: M51.36 Other intervertebral disc degeneration, lumbar region (principal)
CPT/HCPCS: 72148; 96372; 96374; 99285; J1885; J2060

== ENCOUNTER 2017-02-25 15:30 | Emergency (ER) | payer MEDICAID ==
[2017-02-25 15:31] VITALS: BMI 27.4
[2017-02-25 15:39] VITALS: BP 113/79; PULSE 109; RESP 18; TEMP 98.1; O2SAT 99
[2017-02-25] MEDS ORDERED: MethylPREDNISolone 40 mg Vial IM STA (16:46)
--- NOTE | 2017-02-25 16:49 | C.PDOC ---
History Of Present Illness A 51 y/o F c/o chronic lower back pain since 2000. Pt states for a year she experienced intermittent bouts of exacerbation of her chronic lower back pain. With the bouts she experiences lower extremity saddle paresthesia and bowel incontinence, which has been occurring intermittently for the past year. Symptoms are not new are related to acute exacerbation to back pain. Currently following up with pain management doctor at [facility], Dr. Yaw Alvarado, and was advised that she would need surgery in the near future. Pt is currently searching for a doctor who will do the surgery. Pt is taking 10 mg of percocet for the pain and states it occasionally helps with the pain. Pt is here today to obtain a referral and to see what other meds to take to help with her pain. Pt denies fever, chills, new trauma,or injury, lower extremity weakness, new numbness, or urinary incontinence. Of note, patient states that she just had recent MRI done a few weeks ago, unsure of the results. Time Seen by Provider: 02/25/17 16:08 Chief Complaint (Nursing): Back Pain History Per: Patient History/Exam Limitations: no limitations Onset/Duration Of Symptoms: Intermittent Episodes (years) Current Symptoms Are (Timing): Still Present Quality Of Discomfort: Dull Severity: Mild Previous Symptoms: Chronic Pain Associated Symptoms: Incontinence (Bowel). denies: New Weakness, New Numbness Recent travel outside of the [place]: No Additional History Per: Patient Past Medical History Reviewed: Historical Data, Nursing Documentation, Vital Signs Vital Signs: Last Vital Signs Temp 98.1 F 02/25/17 15:37 Pulse 109 H 02/25/17 15:37 Resp 18 02/25/17 17:10 BP 113/79 02/25/17 15:37 Pulse Ox 99 02/25/17 22:11 - Medical History PMH: Anxiety, Arthritis, Asthma, Back Problems (herniated disc x 5), Bipolar Disorder, Bronchitis, CAD, Depression, Diabetes, Gastritis, Gall Bladder Disease , HTN, Hypercholesterolemia, Hypothyroidism, Migraine, Pneumonia, Post Traumatic Stress Disorder, Rheumatoid Arthritis, Seizures (last 25 yrs ago) Surgical History: Cholecystectomy, Coronary Stent - [facility] Procedures ANESTH INJECT-SPIN CANAL (02/17/13) CLOSURE SKIN & SUBCUTANEOUS NEC (01/29/13) DERMAL REGENERATIVE GRAFT (09/05/13) DIVISION OF R FOOT SUBCU/FASCIA, OPEN APPROACH (01/19/17) EXCISION OF ASCENDING COLON, ENDO, DIAGN (10/01/15) EXCISION OF DESCENDING COLON, ENDO, DIAGN (10/01/15) EXCISION OF RECTUM, ENDO, DIAGN (10/01/15) EXCISION OF RIGHT TARSAL, OPEN APPROACH (01/19/17) EXCISION OF SIGMOID COLON, ENDO, DIAGN (10/01/15) EXCISION OF TRANSVERSE COLON, ENDO, DIAGN (10/01/15) INJECT STEROID (03/31/13) INJECTION INTO JOINT (03/31/13) INSERTION OF INFUSION DEVICE INTO R ATRIUM, PERC APPROACH (10/01/15) LOC EXC BONE LESION NEC (08/11/13) LUMBOSAC SPINE X-RAY NEC (03/31/13) NONEXCIS DEBRID OF WOUND, INFECT, OR BURN (09/05/13) OTHER EXCISION, FUSION, AND REPAIR OF TOES (03/16/15) OTHER LOCAL DESTRUC SKIN (07/07/13) REMOVAL OF INT FIX FROM L TOE PHALANX JT, OPEN APPROACH (01/19/17) SPINAL CANAL INJECT NEC (03/31/13) TETANUS TOXOID ADMINIST (01/29/13) ULTRASONOGRAPHY OF RIGHT HEART (10/01/15) Family History: States: Diabetes - Social History Hx Tobacco Use: Yes Hx Alcohol Use: No Hx Substance Use: No - Immunization History Hx Tetanus Toxoid Vaccination: No Hx Influenza Vaccination: No Hx Pneumococcal Vaccination: No Review Of Systems Except As Marked, All Systems Reviewed And Found Negative. Constitutional: Negative for: Fever, Chills, Other (New trauma, injury) Genitourinary: Negative for: Incontinence (Urinary nor bowel) Musculoskeletal: Positive for: Back Pain (Lower back pain) Neurological: Negative for: Weakness, Numbness Physical Exam - Physical Exam Appears: Non-toxic, In Acute Distress (Moderate distress secondary to pain) Skin: Normal Color, Warm, Dry Head: Atraumatic, Normacephalic Oral Mucosa: Moist Throat: Normal, No Erythema Neck: Normal, Normal ROM, Trachea Midline, No Midline Cervical Tenderness Cardiovascular: Rhythm Regular, No Murmur Respiratory: Normal Breath Sounds, No Accessory Muscle Use, No Rales, No Rhonchi , No Wheezing Gastrointestinal/Abdominal: Normal Exam, Bowel Sounds, Soft, Tenderness, No Organomegaly, No Mass, No Distention, No Guarding, No Rebound, Other (no pulsatile mass) Back: Normal Inspection, No CVA Tenderness, Vertebral Tenderness (Midline tendernes to the lumbar back), No Paraspinal Tenderness Extremity: Normal ROM, No Tenderness, Capillary Refill (<2secs), No Deformity, No Swelling Extremity: Bilateral: Normal Color And Temperature Neurological/Psych: Oriented x3, Normal Speech, Normal Cognition, Normal Motor, Normal Sensation, Other (No focal deficit) Gait: Steady ED Course And Treatment O2 Sat by Pulse Oximetry: 99 (RA) Pulse Ox Interpretation: Normal Medical Decision Making Medical Decision Makin yo F presents with acute exacerbation of chronic low back pain. Of note, patient had an MRI of her L spine done on 02/11/17, see results below : Other Rad Studies (CT/US): Read By Radiologist (Robert Velázquez MD), Radiology Report Reviewed CT/US Interpretation: EXAM: MR Lumbar Spine Without Intravenous Contrast. CLINICAL HISTORY: 51 years old, female; Pain; Low back pain; Additional info: R /O cord compression. TECHNIQUE: Magnetic resonance images of the lumbar spine without intravenous contrast in multiple planes. EXAM DATE/TIME: Exam ordered 02/11/2017 5:29 PM. COMPARISON: No relevant prior studies available. FINDINGS : Vertebrae: Presumed 5 lumbar type vertebral bodies. Hypertrophic changes mild /moderate. anteriorly. No acute fracture. Interspaces: Spinal cord: Unremarkable. Normal signal. Soft tissues: Unremarkable. DISCS/SPINAL CANAL/ NEURAL FORAMINA: L1-L2: Unremarkable. No significant disc disease. No stenosis. L2-L3: At L2-L3 there is a disc bulge without significant central or foraminal narrowing. L3-L4 there is a distal bulge and desiccation with facet arthritis and fluid. There is moderate central. and foraminal narrowing bilaterally. At L4-L5 there is a disc bulge and desiccation identified with facet arthritis and fluid with mild central. [id number] central narrowing with more prominent foraminal narrowing bilaterally. At L5-S1, disc bulge and desiccation with facet arthritis. Small central disc protrusion. There is. bilateral foraminal narrowing which is [id number]. IMPRESSION: Multilevel degenerative disc disease and facet arthritis with predominantly foraminal. narrowing with some central stenosis at L3-L4 and L4- L5. Plans: -Flexeril PO -Toradol IM -SOLU-Medrol IM Patient advised to continue her pain medication at home, which her pain management doctor prescribes. Pt was instructed to follow up with pain management within 1-2 days for further evaluation. Disposition Counseled Patient/Family Regarding: Diagnosis, Need For Followup, Rx Given - Disposition Referrals: Anup Solorzano III, MD [Staff Provider] - Disposition: HOME/ ROUTINE Disposition Time: 16:49 Condition: STABLE Prescriptions: Cyclobenzaprine [Cyclobenzaprine HCl] 10 mg PO TID #15 tab Methylprednisolone [Medrol Dose Pack (21 tabs)] 4 mg PO DAILY #21 mg Instructions: Chronic Back Pain (ED) Print Language: MALAYSIAN - Clinical Impression Clinical Impression: Degenerative disc disease, lumbar, Chronic back pain - PA / HAND HARDENER / Resident Statement MD/DO has reviewed & agrees with the documentation as recorded. - Scribe Statement The provider has reviewed the documentation as recorded by the Scribbill ayers All medical record entries made by the Johnibbill were at my direction and personally dictated by me. I have reviewed the chart and agree that the record accurately reflects my personal performance of the history, physical exam, medical decision making, and the department course for this patient. I have also personally directed, reviewed, and agree with the discharge instructions and disposition.
== END 2017-02-25 17:15 | disposition home or self-care (01) ==
LOC: C.ER 15:30
DX: M51.36 Other intervertebral disc degeneration, lumbar region (principal); G89.29 Other chronic pain
CPT/HCPCS: 96372; 99283; J1885; J2920

== ENCOUNTER 2017-03-11 17:12 | Emergency (ER) | payer MEDICAID ==
[2017-03-11 17:27] VITALS: BMI 25.8
[2017-03-11 17:31] VITALS: RESP 20; TEMP 98.4; O2SAT 98
[2017-03-11] MEDS ORDERED: Oxycodone/Acetaminophen 5/325 mg Tab PO STA (19:10)
[2017-03-11] MEDS ORDERED: Oxycodone/Acetaminophen 5/325 mg Tab ONE (19:12)
[2017-03-11 19:13] VITALS: BP 125/85; PULSE 95
--- NOTE | 2017-03-11 19:22 | C.PDOC ---
History Of Present Illness 51 yr old female presents to the ER stating she had a surgery on right foot [address] Syed in the right heel but is unsure why. Patient states afterwards she has been having lots of pain and Dr. Syed gave her a special boot but the pain persists, reports next appointment with Dr. Syed is in 2 days. Patient states today while while due to the pain she stepped wrong and hit her right great toe and now has pain, swelling bruising. Denies fall, leg pain, weakness or numbness. Time Seen by Provider: 03/11/17 17:42 Chief Complaint (Nursing): Lower Extremity Problem/Injury History Per: Patient History/Exam Limitations: no limitations Onset/Duration Of Symptoms: Sudden Onset (Today) Current Symptoms Are (Timing): Still Present Recent travel outside of the [place]: No Past Medical History Reviewed: Historical Data, Nursing Documentation, Vital Signs Vital Signs: Last Vital Signs Temp 98.4 F 03/11/17 17:27 Pulse 95 H 03/11/17 19:12 Resp 20 03/11/17 17:27 BP 125/85 03/11/17 19:12 Pulse Ox 98 03/11/17 20:04 - Medical History PMH: Anxiety, Arthritis, Asthma, Back Problems (herniated disc x 5), Bipolar Disorder, Bronchitis, CAD, Depression, Diabetes, Gastritis, Gall Bladder Disease , HTN, Hypercholesterolemia, Hypothyroidism, Migraine, Pneumonia, Post Traumatic Stress Disorder, Rheumatoid Arthritis, Seizures (last 25 yrs ago) Surgical History: Cholecystectomy - [facility] Procedures ANESTH INJECT-SPIN CANAL (02/17/13) CLOSURE SKIN & SUBCUTANEOUS NEC (01/29/13) DERMAL REGENERATIVE GRAFT (09/05/13) DIVISION OF R FOOT SUBCU/FASCIA, OPEN APPROACH (01/19/17) EXCISION OF ASCENDING COLON, ENDO, DIAGN (10/01/15) EXCISION OF DESCENDING COLON, ENDO, DIAGN (10/01/15) EXCISION OF RECTUM, ENDO, DIAGN (10/01/15) EXCISION OF RIGHT TARSAL, OPEN APPROACH (01/19/17) EXCISION OF SIGMOID COLON, ENDO, DIAGN (10/01/15) EXCISION OF TRANSVERSE COLON, ENDO, DIAGN (10/01/15) INJECT STEROID (03/31/13) INJECTION INTO JOINT (03/31/13) INSERTION OF INFUSION DEVICE INTO R ATRIUM, PERC APPROACH (10/01/15) LOC EXC BONE LESION NEC (08/11/13) LUMBOSAC SPINE X-RAY NEC (03/31/13) NONEXCIS DEBRID OF WOUND, INFECT, OR BURN (09/05/13) OTHER EXCISION, FUSION, AND REPAIR OF TOES (03/16/15) OTHER LOCAL DESTRUC SKIN (07/07/13) REMOVAL OF INT FIX FROM L TOE PHALANX JT, OPEN APPROACH (01/19/17) SPINAL CANAL INJECT NEC (03/31/13) TETANUS TOXOID ADMINIST (01/29/13) ULTRASONOGRAPHY OF RIGHT HEART (10/01/15) Family History: States: Diabetes - Social History Hx Tobacco Use: Yes Hx Alcohol Use: No Hx Substance Use: No - Immunization History Hx Tetanus Toxoid Vaccination: No Hx Influenza Vaccination: No Hx Pneumococcal Vaccination: No Review Of Systems Except As Marked, All Systems Reviewed And Found Negative. Musculoskeletal: Positive for: Foot Pain (Right ), Other (Right great toe, swelling, pain and bruising ). Negative for: Leg Pain Neurological: Negative for: Weakness, Numbness Physical Exam - Physical Exam Appears: Non-toxic, No Acute Distress Skin: Warm, Dry Head: Atraumatic, Normacephalic Extremity: Normal ROM, No Calf Tenderness, No Deformity, Other (Right Great Toe - Ecchymotic, swollen and tender ) Neurological/Psych: Oriented x3, Normal Speech, Normal Motor ED Course And Treatment O2 Sat by Pulse Oximetry: 98 - Other Rad right great foot X-Ray: Interpreted by Me, Viewed By Me Interpretation: No fx, no dislocation Progress Note: Percocet po given. Crutches given. Patient will f/u with in 2 days. Medical Decision Making Medical Decision Making: PLAN: * X-Ray - Right Foot * Percocet PO Disposition - Disposition Referrals: Michael Syed DPM [Staff Provider] - Disposition: HOME/ ROUTINE Disposition Time: 19:19 Condition: STABLE Additional Instructions: Follow up with . return to ED if feel worse. 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 - Scribe Statement The provider has reviewed the documentation as recorded by the Scribe Kelsea Mcnair All medical record entries made by the Scribe were at my direction and personally dictated by me. I have reviewed the chart and agree that the record accurately reflects my personal performance of the history, physical exam, medical decision making, and the department course for this patient. I have also personally directed, reviewed, and agree with the discharge instructions and disposition.
--- NOTE | 2017-03-12 09:10 | RAD ---
PROCEDURE: Right Foot Radiographs. HISTORY: had heel pain, fell and hurt her great toe COMPARISON: 01/21/2017 and 01/16/2017 FINDINGS: BONES: . No fracture. Osseous hypertrophic changes somewhat more blunted in appearance along the inferior calcaneus suggested. The posterior calcaneal cortical hyperostoses -blending Achilles tendon insertional enthesophyte is similar-appearing. Os peroneum present. Great toe distal phalangeal medial exostosis noted. JOINTS: Normal. SOFT TISSUES: Normal. OTHER FINDINGS: None. IMPRESSION: Probable postop changes about the inferior calcaneus. No interval fracture suggested
== END 2017-03-11 19:25 | disposition home or self-care (01) ==
LOC: C.ER 17:12
DX: S90.111A Contusion of right great toe without damage to nail, initial encounter (principal); W22.8XXA Striking against or struck by other objects, initial encounter

== ENCOUNTER 2017-04-08 18:28 | Emergency (ER) | payer MEDICAID ==
[2017-04-08 18:28] VITALS: BMI 25.8
[2017-04-08] MEDS ORDERED: Albuterol-Ipratrop 3 mg / 0.5 (3 ml) UD IH STA (19:24)
[2017-04-08] MEDS ORDERED: Albuterol 0.083% Inhal Sol (2.5 mg/3 mL) UD IH STA (19:24)
--- NOTE | 2017-04-08 19:49 | C.PDOC ---
History Of Present Illness 51 year old female with a Hx of asthma, HTN, and diabetes who presents to the ER with a complaint of having trouble breathing and chest pain with inspiration , associated with a cough with whitish phlegm. Patient states she uses an albuterol inhaler and nebulizer at home, she has had similar episodes in the past and has used her inhaler but this time it has not helped her. Patient's last admission for asthma was years ago and she states she has never been intubated. Denies fever, chills, abdominal pain, dizziness, or light headedness. Time Seen by Provider: 04/08/17 19:17 Chief Complaint (Nursing): Chest Pain History Per: Patient History/Exam Limitations: no limitations Onset/Duration Of Symptoms: Days Current Symptoms Are (Timing): Still Present Associated Symptoms: Dyspnea. denies: Nausea, Diaphoresis Modifying Factors: None Exacerbating Factors: None Alleviating Factors: None Recent travel outside of the [place]: No Past Medical History Reviewed: Historical Data, Nursing Documentation, Vital Signs Vital Signs: Last Vital Signs Temp 98.4 F 04/08/17 18:34 Pulse 85 04/08/17 18:34 Resp 18 04/08/17 18:34 BP 109/74 04/08/17 18:34 Pulse Ox 97 04/08/17 20:02 - Medical History PMH: Anxiety, Arthritis, Asthma, Back Problems (herniated disc x 5), Bipolar Disorder, Bronchitis, CAD, Depression, Diabetes, Gastritis, Gall Bladder Disease , HTN, Hypercholesterolemia, Hypothyroidism, Migraine, Pneumonia, Post Traumatic Stress Disorder, Rheumatoid Arthritis, Seizures (last 25 yrs ago) Surgical History: Cholecystectomy - [facility] Procedures ANESTH INJECT-SPIN CANAL (02/17/13) CLOSURE SKIN & SUBCUTANEOUS NEC (01/29/13) DERMAL REGENERATIVE GRAFT (09/05/13) DIVISION OF R FOOT SUBCU/FASCIA, OPEN APPROACH (01/19/17) EXCISION OF ASCENDING COLON, ENDO, DIAGN (10/01/15) EXCISION OF DESCENDING COLON, ENDO, DIAGN (10/01/15) EXCISION OF RECTUM, ENDO, DIAGN (10/01/15) EXCISION OF RIGHT TARSAL, OPEN APPROACH (01/19/17) EXCISION OF SIGMOID COLON, ENDO, DIAGN (10/01/15) EXCISION OF TRANSVERSE COLON, ENDO, DIAGN (10/01/15) INJECT STEROID (03/31/13) INJECTION INTO JOINT (03/31/13) INSERTION OF INFUSION DEVICE INTO R ATRIUM, PERC APPROACH (10/01/15) LOC EXC BONE LESION NEC (08/11/13) LUMBOSAC SPINE X-RAY NEC (03/31/13) NONEXCIS DEBRID OF WOUND, INFECT, OR BURN (09/05/13) OTHER EXCISION, FUSION, AND REPAIR OF TOES (03/16/15) OTHER LOCAL DESTRUC SKIN (07/07/13) REMOVAL OF INT FIX FROM L TOE PHALANX JT, OPEN APPROACH (01/19/17) SPINAL CANAL INJECT NEC (03/31/13) TETANUS TOXOID ADMINIST (01/29/13) ULTRASONOGRAPHY OF RIGHT HEART (10/01/15) Family History: States: Diabetes - Social History Hx Tobacco Use: Yes Hx Alcohol Use: No Hx Substance Use: No - Immunization History Hx Tetanus Toxoid Vaccination: No Hx Influenza Vaccination: No Hx Pneumococcal Vaccination: No Review Of Systems Constitutional: Negative for: Fever, Chills Cardiovascular: Positive for: Chest Pain. Negative for: Light Headedness Respiratory: Positive for: Cough, Shortness of Breath, Sputum Gastrointestinal: Negative for: Nausea, Vomiting, Abdominal Pain Neurological: Negative for: Weakness, Numbness, Dizziness Physical Exam - Physical Exam Appears: Non-toxic, Other (Winded but speaking in complete sentences) Skin: Normal Color, Warm, Dry Head: Atraumatic, Normacephalic Oral Mucosa: Moist Chest: Symmetrical, No Tenderness Cardiovascular: Rhythm Regular, No Murmur Respiratory: No Rales, No Rhonchi, Wheezing (Inspiratory and expiratory), Other (Distant breath sounds) Gastrointestinal/Abdominal: Soft, No Tenderness Neurological/Psych: Oriented x3, Normal Speech, Normal Cognition ED Course And Treatment - Laboratory Results Result Diagrams: 04/08/17 19:58 04/08/17 19:58 Lab Interpretation: Abnormal (WBC 14.4 with left shift. d-dimer and troponin normal,) ECG: Interpreted By Me ECG Rhythm: Sinus Rhythm ECG Interpretation: Normal O2 Sat by Pulse Oximetry: 97 (Room air) Pulse Ox Interpretation: Normal - Radiology CXR: Interpreted by Hi CXR Interpretation: Yes: Other (perihilar infiltrates bilaterally) Progress Note: EKG, blood work, and CXR ordered. Solumedrol and nebulizer treatment ordered. Reevaluation Time: 20:36 Reassessment Condition: Improved (Lungs with better aeration and less wheezing. No cough noted. Patient able to speak in full sentences.) Disposition - Disposition Disposition: HOME/ ROUTINE Disposition Time: 20:39 Condition: IMPROVED Additional Instructions: Continue to us your inhalers and nebulizer as prescribed. Prescriptions: Azithromycin [Zithromax] 250 mg PO DAILY #4 tab Prednisone 50 mg PO DAILY #5 tablet Instructions: Acute Bronchitis (ED), Bronchospasm (ED) Forms: [facility] (Portuguese) - Clinical Impression Clinical Impression: Asthmatic bronchitis with acute exacerbation - Scribe Statement The provider has reviewed the documentation as recorded by the Scribe Stanton España All medical record entries made by the Johnibe were at my direction and personally dictated by me. I have reviewed the chart and agree that the record accurately reflects my personal performance of the history, physical exam, medical decision making, and the department course for this patient. I have also personally directed, reviewed, and agree with the discharge instructions and disposition.
[2017-04-08] MEDS ORDERED: Albuterol 0.083% Inhal Sol (2.5 mg/3 mL) UD ONE (19:56)
[2017-04-08] MEDS ORDERED: Albuterol-Ipratrop 3 mg / 0.5 (3 ml) UD ONE (19:56)
[2017-04-08 20:00] LABS: BASO # 0.1 K/uL (0.0-0.2); BASO % 0.9 % (0.0-2.0); EOS % 0.2 % (0.0-4.0); HEMATOCRIT 37.8 % (34.0-47.0); LYMPH # 1.1 K/uL (1.0-4.3); LYMPH % 7.9 % (20.0-40.0); MEAN CELL VOLUME 86.3 fL (81.0-99.0); MEAN CORPUSCULAR HEMOGLOBIN 28.9 pg (27.0-31.0); MEAN CORPUSCULAR HGB CONC 33.5 g/dL (33.0-37.0); MEAN PLATELET VOLUME 8.7 fL (7.2-11.7); MONO # 0.2 K/uL (0.0-0.8); MONO % 1.3 % (0.0-10.0); PLATELET COUNT 294 K/uL (130-400); RED CELL DISTRIBUTION WIDTH 13.5 % (11.5-14.5); WHITE BLOOD COUNT 14.4 K/uL (4.8-10.8)
[2017-04-08 20:08] LABS: CHLORIDE 105 mmol/L (98-107); SODIUM 138 mmol/L (132-148)
[2017-04-08 20:09] LABS: POTASSIUM 3.9 mmol/L (3.6-5.2)
[2017-04-08 20:11] LABS: ALB/GLOB RATIO 1.3 (1.0-2.1); ALKALINE PHOSPHATASE 111 U/L (38-126); ALT/SGPT 31 U/L (9-52); AST/SGOT 20 U/L (14-36); BILIRUBIN,TOTAL 0.5 mg/dL (0.2-1.3); BLOOD UREA NITROGEN 14 mg/dL (7-17); CARBON DIOXIDE 20 mmol/L (22-30); GFR AFRICAN-AMERICAN > 60; GLUCOSE,RANDOM 234 mg/dL (65-105)
[2017-04-08] MEDS ORDERED: Azithromycin 500mg/250ML NS 500 MG/250 ML BAG IV ONE (20:15)
[2017-04-08 21:07] VITALS: BP 114/72; PULSE 80; RESP 16; TEMP 98.2; O2SAT 99
[2017-04-08 21:33] LABS: NEUTROPHIL 93 % (50-75); TOTAL CELLS COUNTED 100
--- NOTE | 2017-04-09 10:00 | RAD ---
HISTORY: Shortness of breath COMPARISON: No prior. TECHNIQUE: Chest PA and lateral FINDINGS: LUNGS: Mild venous congestion. Right hilar prominence. Biapical pleural thickening. Patchy increased markings at the left lung base. PLEURA: No significant pleural effusion identified. No pneumothorax apparent. CARDIOVASCULAR: Normal. OSSEOUS STRUCTURES: No significant abnormalities. VISUALIZED UPPER ABDOMEN: Normal. OTHER FINDINGS: None. IMPRESSION: Mild venous congestion. Right hilar prominence. Biapical pleural thickening. Patchy increased markings at the left lung base.
--- NOTE | 2017-04-21 20:24 | CARD ---
APPROVED REPORT EKG Measurement Heart [id number] <Conclusion> Normal sinus rhythm Normal ECG
== END 2017-04-08 21:12 | disposition home or self-care (01) ==
LOC: C.ER 18:28
DX: J45.901 Unspecified asthma with (acute) exacerbation (principal); Z72.0 Tobacco use
CPT/HCPCS: 71020; 80053; 84484; 85025; 85378; 94150; 94640; 96374; 99283; J2930

== ENCOUNTER 2017-04-24 12:48 | Emergency (ER) | payer MEDICAID ==
[2017-04-24 12:49] VITALS: BMI 25.8
[2017-04-24 13:13] VITALS: BP 120/79; PULSE 106; RESP 20; TEMP 98.6; O2SAT 100
--- NOTE | 2017-04-24 15:07 | C.PDOC ---
History Of Present Illness 51 yr old female presents to the ER with complaints of facial pressure and tenderness for the past 2 days. Patient also reports of pressure in both ears. Denies fever, chills, ear discharge, hearing loss, cough, nausea, vomiting, neck pain or headache. Time Seen by Provider: 04/24/17 13:43 Chief Complaint (Nursing): Headache History Per: Patient History/Exam Limitations: no limitations Onset/Duration Of Symptoms: Days (2) Past Medical History Reviewed: Historical Data, Nursing Documentation, Vital Signs Vital Signs: Last Vital Signs Temp 98.6 F 04/24/17 13:10 Pulse 106 H 04/24/17 13:10 Resp 20 04/24/17 13:10 BP 120/79 04/24/17 13:10 Pulse Ox 100 04/24/17 15:08 - Medical History PMH: Anxiety, Arthritis, Asthma, Back Problems (herniated disc x 5), Bipolar Disorder, Bronchitis, CAD, Depression, Diabetes, Gastritis, Gall Bladder Disease , HTN, Hypercholesterolemia, Hypothyroidism, Migraine, Pneumonia, Post Traumatic Stress Disorder, Rheumatoid Arthritis, Seizures (last 25 yrs ago) Surgical History: Cholecystectomy - [facility] Procedures ANESTH INJECT-SPIN CANAL (02/17/13) CLOSURE SKIN & SUBCUTANEOUS NEC (01/29/13) DERMAL REGENERATIVE GRAFT (09/05/13) DIVISION OF R FOOT SUBCU/FASCIA, OPEN APPROACH (01/19/17) EXCISION OF ASCENDING COLON, ENDO, DIAGN (10/01/15) EXCISION OF DESCENDING COLON, ENDO, DIAGN (10/01/15) EXCISION OF RECTUM, ENDO, DIAGN (10/01/15) EXCISION OF RIGHT TARSAL, OPEN APPROACH (01/19/17) EXCISION OF SIGMOID COLON, ENDO, DIAGN (10/01/15) EXCISION OF TRANSVERSE COLON, ENDO, DIAGN (10/01/15) INJECT STEROID (03/31/13) INJECTION INTO JOINT (03/31/13) INSERTION OF INFUSION DEVICE INTO R ATRIUM, PERC APPROACH (10/01/15) LOC EXC BONE LESION NEC (08/11/13) LUMBOSAC SPINE X-RAY NEC (03/31/13) NONEXCIS DEBRID OF WOUND, INFECT, OR BURN (09/05/13) OTHER EXCISION, FUSION, AND REPAIR OF TOES (03/16/15) OTHER LOCAL DESTRUC SKIN (07/07/13) REMOVAL OF INT FIX FROM L TOE PHALANX JT, OPEN APPROACH (01/19/17) SPINAL CANAL INJECT NEC (03/31/13) TETANUS TOXOID ADMINIST (01/29/13) ULTRASONOGRAPHY OF RIGHT HEART (10/01/15) Family History: States: Diabetes - Social History Hx Tobacco Use: Yes Hx Alcohol Use: No Hx Substance Use: No - Immunization History Hx Tetanus Toxoid Vaccination: No Hx Influenza Vaccination: No Hx Pneumococcal Vaccination: No Review Of Systems Except As Marked, All Systems Reviewed And Found Negative. Constitutional: Positive for: Other ((+) Facial pressure. Facial tenderness.). Negative for: Fever, Chills ENT: Positive for: Other ((+) Pressure in both ears. (-) Hearing loss. ). Negative for: Ear Discharge Respiratory: Negative for: Cough Gastrointestinal: Negative for: Nausea, Vomiting Musculoskeletal: Negative for: Neck Pain Neurological: Negative for: Headache Physical Exam - Physical Exam Appears: Non-toxic, No Acute Distress Skin: Warm, Dry Head: Atraumatic, Normacephalic, Other ((+) Frontal and maxillary sinus tenderness, bilaterally.) Eye(s): bilateral: Normal Inspection, PERRL, EOMI Ear(s): Bilateral: Normal Oral Mucosa: Moist Throat: Normal, No Erythema, No Exudate, No Drooling Neck: Normal, Normal ROM, Supple Chest: Symmetrical, No Tenderness Cardiovascular: Rhythm Regular, No Murmur Respiratory: Normal Breath Sounds, No Rales, No Rhonchi, No Stridor, No Wheezing Extremity: Normal ROM, No Swelling Neurological/Psych: Oriented x3, Normal Speech, Normal Motor ED Course And Treatment O2 Sat by Pulse Oximetry: 100 (RA ) Pulse Ox Interpretation: Normal Disposition - Disposition Referrals: [facility] [Outside] [facility], [Non-Staff] - Disposition: HOME/ ROUTINE Disposition Time: 13:55 Condition: GOOD Additional Instructions: Thank you for letting us take care of you today. Your provider was Dr. Rowley. You were treated for a sinus infection. The emergency medical care you received today was directed at your acute symptoms. If you were prescribed any medication, please fill it and take as directed. It may take several days for your symptoms to resolve. Return to the Emergency Department if your symptoms worsen, do not improve, or if you have any other problems. Please contact your doctor or call one of the physicians/clinics you have been referred to that are listed on the Patient Visit Information form that is included in your discharge packet. Bring any paperwork you were given at discharge with you along with any medications you are taking to your follow up visit. Our treatment cannot replace ongoing medical care by a primary care provider (PCP) outside of the emergency department. Thank you for allowing the [facility] team to be part of your care today. Follow up with your doctor in 2-3 days for re-evaluation and further management. Prescriptions: Amoxicillin/Clavulanate [Augmentin 875 MG-125 MG] 1 tab PO Q12 #14 tab Instructions: Sinusitis (ED) Forms: for; to (do) Centers (Albanian) - Clinical Impression Clinical Impression: Sinusitis - Scribe Statement The provider has reviewed the documentation as recorded by the Johnibbill Mcnair Provider Attestation: All medical record entries made by the Johnibbill were at my direction and personally dictated by me. I have reviewed the chart and agree that the record accurately reflects my personal performance of the history, physical exam, medical decision making, and the department course for this patient. I have also personally directed, reviewed, and agree with the discharge instructions and disposition.
== END 2017-04-24 14:00 | disposition home or self-care (01) ==
LOC: C.ER 12:48
DX: J32.9 Chronic sinusitis, unspecified (principal); Z72.0 Tobacco use

== ENCOUNTER 2017-05-03 23:21 | Emergency (ER) | payer MEDICAID ==
[2017-05-03 23:22] VITALS: BMI 25.8
[2017-05-03 23:31] VITALS: O2SAT 98
--- NOTE | 2017-05-03 23:34 | C.PDOC ---
History Of Present Illness 51 yo female presents to the ED with complaints of abdominal pain, nausea/ vomiting, and diarrhea since . Patient has a hx of chronic abdominal pain and reports that this feels similar to prior episodes, but stronger in intensity. Patient has been taking her chronic pain medications at home without relief; denies dysuria, hematuria, fever, vaginal bleeding/discharge. Time Seen by Provider: 05/03/17 23:27 Chief Complaint (Nursing): Abdominal Pain History Per: Patient History/Exam Limitations: no limitations Onset/Duration Of Symptoms: Days (symptoms began on . ) Current Symptoms Are (Timing): Still Present Severity: Moderate Location Of Pain/Discomfort: Diffuse Quality Of Discomfort: "Pain" Associated Symptoms: Nausea, Vomiting, Diarrhea. denies: Fever Abnormal Vaginal Bleeding: No Past Medical History Reviewed: Historical Data, Nursing Documentation, Vital Signs Vital Signs: Last Vital Signs Temp 98 F 05/04/17 01:59 Pulse 70 05/04/17 01:59 Resp 16 05/04/17 01:59 BP 128/74 05/04/17 01:59 Pulse Ox 98 05/04/17 03:40 - Medical History PMH: Anxiety, Arthritis, Asthma, Back Problems (herniated disc x 5), Bipolar Disorder, Bronchitis, CAD, Depression, Diabetes, Gastritis, Gall Bladder Disease , HTN, Hypercholesterolemia, Hypothyroidism, Migraine, Pneumonia, Post Traumatic Stress Disorder, Rheumatoid Arthritis, Seizures (last 25 yrs ago) Surgical History: Cholecystectomy - [facility] Procedures ANESTH INJECT-SPIN CANAL (02/17/13) CLOSURE SKIN & SUBCUTANEOUS NEC (01/29/13) DERMAL REGENERATIVE GRAFT (09/05/13) DIVISION OF R FOOT SUBCU/FASCIA, OPEN APPROACH (01/19/17) EXCISION OF ASCENDING COLON, ENDO, DIAGN (10/01/15) EXCISION OF DESCENDING COLON, ENDO, DIAGN (10/01/15) EXCISION OF RECTUM, ENDO, DIAGN (10/01/15) EXCISION OF RIGHT TARSAL, OPEN APPROACH (01/19/17) EXCISION OF SIGMOID COLON, ENDO, DIAGN (10/01/15) EXCISION OF TRANSVERSE COLON, ENDO, DIAGN (10/01/15) INJECT STEROID (03/31/13) INJECTION INTO JOINT (03/31/13) INSERTION OF INFUSION DEVICE INTO R ATRIUM, PERC APPROACH (10/01/15) LOC EXC BONE LESION NEC (08/11/13) LUMBOSAC SPINE X-RAY NEC (03/31/13) NONEXCIS DEBRID OF WOUND, INFECT, OR BURN (09/05/13) OTHER EXCISION, FUSION, AND REPAIR OF TOES (03/16/15) OTHER LOCAL DESTRUC SKIN (07/07/13) REMOVAL OF INT FIX FROM L TOE PHALANX JT, OPEN APPROACH (01/19/17) SPINAL CANAL INJECT NEC (03/31/13) TETANUS TOXOID ADMINIST (01/29/13) ULTRASONOGRAPHY OF RIGHT HEART (10/01/15) Family History: States: Diabetes - Social History Hx Tobacco Use: Yes Hx Alcohol Use: No Hx Substance Use: No - Immunization History Hx Tetanus Toxoid Vaccination: No Hx Influenza Vaccination: No Hx Pneumococcal Vaccination: No Review Of Systems Except As Marked, All Systems Reviewed And Found Negative. Constitutional: Negative for: Fever Cardiovascular: Negative for: Chest Pain Respiratory: Negative for: Shortness of Breath Gastrointestinal: Positive for: Nausea, Vomiting, Abdominal Pain, Diarrhea Genitourinary: Negative for: Dysuria, Hematuria, Vaginal Discharge, Vaginal Bleeding Physical Exam - Physical Exam Appears: Well, Non-toxic, Other (anxious, in mild pain ) Skin: Normal Color, Warm, Dry Oral Mucosa: Moist Cardiovascular: Rhythm Regular, Other (tachycardic ) Respiratory: Normal Breath Sounds, No Rales, No Rhonchi, No Wheezing Gastrointestinal/Abdominal: Bowel Sounds, Soft, Tenderness (Diffuse TTP greatest in epigastric area. ), No Guarding, No Rebound, Other ((-) McBurney's, (-) Randolph's) Back: Normal Inspection, No CVA Tenderness Neurological/Psych: Oriented x3 ED Course And Treatment - Laboratory Results Result Diagrams: 05/04/17 03:24 05/04/17 00:05 O2 Sat by Pulse Oximetry: 98 (Room air ) Pulse Ox Interpretation: Normal - CT Scan/US CT ABD/PELVIS Other Rad Studies (CT/US): Read By Radiologist, Radiology Report Reviewed CT/US Interpretation: Accession No. : [id number]. Patient Name / ID : CASE EMMETT / [id number]. Exam Date : 05/04/2017 02:20:28 ( Approved ). Study Comment : Sex / Age : F / 51Y. Creator : Joshua Montalvo MD. Dictator : Rn Telephonic : Way Inspector : Joshua Montalvo MD. Approver2 : Report Date : 11/2016 03:05:00. My Comment : . [facility] Division of Radiology. [address] [place] [address]. Tel. no. . . . Patient Name: EMMETT HONG . Pt. Address: [address] [place] [address]. Rec #: [id number][place] [address]: Prema Cochran DO Pt Order Location: [facility] : 1965 Female Age: 51 Order #: [id number]. Reason for exam: abdominal pain, vomiting, diarrhea. . . . . . CT Scan. . . ABD PELVIS PO IV CONTRAST Exam Date: . . This imaging exam was performed at [facility]. EXAM: CT Abdomen and Pelvis With Intravenous Contrast. . CLINICAL HISTORY: 51 years old, female; Pain; Abdominal pain; Localized; Right lower quadrant. (rlq); Additional info: Abdominal pain, vomiting, diarrhea. . TECHNIQUE: Axial computed tomography images of the abdomen and pelvis with intravenous. contrast. All CT scans at this facility use one or more dose reduction. techniques, viz.: automated exposure control; ma/kV adjustment per patient size. (including targeted exams where dose is matched to indication; i.e. head) ; or. iterative reconstruction technique. Coronal and sagittal reformatted images were created and reviewed. . CONTRAST: 100 mL of [id number] administered intravenously. . COMPARISON: CT - ABD PELVIS PO IV CONTRAST 11/15/2015 4:56: 07 PM. . FINDINGS: Limitations: Motion artifact - mild. Lower thorax: No acute findings. . ABDOMEN: Liver: Hepatomegaly. Fatty infiltration. Gallbladder and bile ducts: Cholecystectomy. No ductal dilation. Pancreas: No ductal dilation. No mass. Spleen: No splenomegaly. Adrenals: No mass. Kidneys and ureters: No mass. No hydronephrosis. Stomach and bowel: No definite mural thickening. No obstruction. Appendix: Normal caliber. No inflammation. . PELVIS: Bladder: Unremarkable. Reproductive: Hysterectomy. . ABDOMEN and PELVIS: Intraperitoneal space: No significant fluid collection. No free air. Bones/joints: Degenerative changes of spine. No acute fracture. Soft tissues: Unremarkable. Vasculature: Minimal atherosclerotic disease. No aneurysm. Lymph nodes: No pathologically enlarged lymph nodes. . IMPRESSION: 1. No definite acute intraabdominal abnormality. 2. Incidental/non-acute findings are described above. . Dictated By: Joshua Montalvo MD. Dictated Date/Time: 05/04/17304. Signed By: Joshua Montalvo MD. Date Signed: 05/04/17304. Transcribed By: [facility]. Transcribe Date/Time: 05/04/17304. ACYP02/MT Progress Note: Blood work, UA ordered and reviewed. Patient given IV pepcid, IV toradol and IV NS bolus x 2. Patient has significant leukocytosis, CT abd/ pelvis with PO/IV contrast ordered and reviewed - was (-) for acute findings. CBC repeated after 2 liters NS, and leukocytosis improving - likely due to vomiting/stress rxn vs UTI. Reevaluation Time: 03:40 Reassessment Condition: Improved (On reassessment, patient is sleeping on stretcher, easily arousable and states she feels much better. On exam, abdomen is soft and nontender. As per nurse, patient was eating fritos after CT scan. Patient is comfortable being discharged home, Rxs given for Ciprofloxacin and Zofran. Patient instructed to follow up with PMD in 1-2 days, and understands she should return to ED if symptoms worsen.) Critical Care Time - Critical Care Note Total Time (in mins): 35 Documented critical care: time excludes all time spent performing seperately billable procedures. Medical Decision Making Medical Decision Making: ALFREDO THERAPEUTIC RECREATION LEADER AWARE REVIEWED: 04/27/2017 1 04/27/2017 ENDOCET 10-325 MG TABLET 120.0 30 [place] CRU [id number] [place] ( 3009) 0 60.0 [place] 04/11/2017 1 03/25/2017 CLONAZEPAM 1 MG TABLET 60.0 30 TH D'A [id number] [place] ( 5657) 0 [place] 04/09/2017 1 04/08/2017 OXYCODONE-ACETAMINOPHEN 5-325 60.0 30 BENJAMIN PATRICIA [id number] [place] (5657) 0 15.0 [place] 03/30/2017 1 03/30/2017 ENDOCET 10-325 MG TABLET 90.0 30 [place] CRU [id number] [place] ( 5657) 0 45.0 [place] 03/19/2017 1 12/22/2016 CLONAZEPAM 1 MG TABLET 60.0 30 TH D'A [id number] [place] ( 5657) 2 [place] 02/26/2017 1 02/26/2017 ENDOCET 10-325 MG TABLET 90.0 30 [place] CRU [id number] [place] ( 5657) 0 45.0 Private [place] 02/21/2017 1 12/22/2016 CLONAZEPAM 1 MG TABLET 60.0 30 TH D'A [id number] [place] ( 5657) 1 [place] 02/16/2017 1 02/11/2017 ENDOCET 10-325 MG TABLET 60.0 30 BENJAMIN PATRICIA [id number] [place] ( 5657) 0 30.0 [place] 02/02/2017 1 02/02/2017 MORPHINE SULFATE IR 30 MG TAB 28.0 7 [place] CRU [id number] [place] (5657) 0 120.0 [place] 01/05/2017 1 01/05/2017 ENDOCET 10-325 MG TABLET 90.0 30 [place] CRU [id number] [place] ( 5657) 0 45.0 [place] 12/29/2016 1 12/22/2016 CLONAZEPAM 1 MG TABLET 60.0 30 TH D'A [id number] [place] ( 5657) 0 [place] 12/23/2016 1 11/28/2016 CLONAZEPAM 1 MG TABLET 60.0 30 TH D'A [id number] [place] ( 5657) 0 [place] 12/03/2016 1 12/03/2016 ENDOCET 10-325 MG TABLET 90.0 30 [place] CRU [id number] [place] ( 5657) 0 45.0 Private [place] 11/27/2016 1 09/16/2016 CLONAZEPAM 1 MG TABLET 60.0 30 TH D'A [id number] [place] ( 5657) 2 [place] 10/31/2016 1 09/16/2016 CLONAZEPAM 1 MG TABLET 60.0 30 TH D'A [id number] [place] ( 5657) 1 Comm [facility] 10/31/2016 1 10/27/2016 ENDOCET 10-325 MG TABLET 90.0 30 [place] CRU [id number] [place] ( 5657) 0 45.0 Comm [facility] 10/04/2016 1 09/16/2016 CLONAZEPAM 1 MG TABLET 60.0 30 TH D'A [id number] [place] ( 5657) 0 [place] 10/04/2016 1 10/02/2016 ENDOCET 10-325 MG TABLET 90.0 30 [place] CRU [id number] [place] ( 5657) 0 45.0 Comm [facility] 09/08/2016 1 07/08/2016 CLONAZEPAM 1 MG TABLET 60.0 30 TH D'A [id number] [place] ( 5657) 1 Comm [facility] 09/08/2016 1 09/08/2016 ENDOCET 10-325 MG TABLET 90.0 30 WI CRU [id number] [place] ( 5657) 0 45.0 Comm [facility] 08/04/2016 1 08/04/2016 ENDOCET 10-325 MG TABLET 90.0 30 [place] CRU [id number] [place] ( 5657) 0 45.0 Comm [facility] 07/09/2016 1 07/08/2016 CLONAZEPAM 1 MG TABLET 60 30 Th D'A [id number] 0 Comm [facility] 07/05/2016 1 07/03/2016 CLONAZEPAM 1 MG TABLET 6 3 Va Sap [id number] 0 Comm [facility] 06/24/2016 1 06/24/2016 ENDOCET 10-325 MG TABLET 90 30 Wi Cru [id number] 0 45.0 Comm [facility] 06/09/2016 1 04/15/2016 CLONAZEPAM 1 MG TABLET 60 30 Th D'A [id number] 2 Comm [facility] 05/12/2016 1 04/15/2016 CLONAZEPAM 1 MG TABLET 60 30 Th D'A [id number] 1 Comm [facility] DIFFERENTIAL DIAGNOSES CONSIDERED: colitis, diverticulitis, appendicitis, kidney stones/renal colic, pyelonephritis, constipation, gastroenteritis, malingering Disposition Counseled Patient/Family Regarding: Studies Performed, Diagnosis, Need For Followup, Rx Given - Disposition Referrals: Joni Moore MD [Primary Care Provider] - Disposition: HOME/ ROUTINE Disposition Time: 03:40 Condition: STABLE Additional Instructions: FOLLOW UP WITH YOUR DOCTOR IN 1-2 DAYS USE MEDICATIONS DIRECTED DRINK PLENTY OF CLEAR FLUIDS RETURN TO ER IF SYMPTOMS WORSEN Prescriptions: Ciprofloxacin [Cipro] 1 tab PO BID #14 tab Ondansetron [Zofran Odt] 4 mg PO Q8 PRN #12 odt PRN Reason: Nausea/Vomiting Instructions: Urinary Tract Infection in Women (ED), Acute Nausea and Vomiting (ED), Abdominal Pain (ED) Forms: [employer] (Icelandic) Print Language: NAMIBIAN - Clinical Impression Clinical Impression: Chronic abdominal pain, UTI (urinary tract infection), Nausea & vomiting - Scribe Statement The provider has reviewed the documentation as recorded by the Scribe Clary Kelley All medical record entries made by the Scribe were at my direction and personally dictated by me. I have reviewed the chart and agree that the record accurately reflects my personal performance of the history, physical exam, medical decision making, and the department course for this patient. I have also personally directed, reviewed, and agree with the discharge instructions and disposition.
[2017-05-03] MEDS ORDERED: Sodium Chloride 0.9% 1,000 ML IV ONE (23:42)
[2017-05-03 23:58] LABS: RBC URINE < 1 /hpf (0-3); URINE BACTERIA OCC (<OCC); URINE BILIRUBIN NEGATIVE (NEGATIVE); URINE BLOOD NEGATIVE (NEGATIVE); URINE CALCIUM OXALATE CRYSTALS MANY /hpf (<OCC); URINE COLOR Yellow (YELLOW); URINE GLUCOSE (UA) NORMAL (Normal); URINE KETONE TRACE mg/dL (NEGATIVE); URINE LEUKOCYTE ESTERASE 1+ Leu/uL (Negative); URINE PROTEIN NEGATIVE (NEGATIVE); URINE UROBILINOGEN NORMAL mg/dL (0.2-1.0); WBC URINE 9 /hpf (0-5)
[2017-05-04 00:15] LABS: BASO # 0.1 K/uL (0.0-0.2); BASO % 0.5 % (0.0-2.0); EOS # 0.1 K/uL (0.0-0.7); EOS % 0.4 % (0.0-4.0); HEMATOCRIT 41.5 % (34.0-47.0); LYMPH # 4.4 K/uL (1.0-4.3); LYMPH % 17.8 % (20.0-40.0); MEAN CELL VOLUME 87.1 fL (81.0-99.0); MEAN CORPUSCULAR HEMOGLOBIN 28.3 pg (27.0-31.0); MEAN CORPUSCULAR HGB CONC 32.5 g/dL (33.0-37.0); MEAN PLATELET VOLUME 8.8 fL (7.2-11.7); MONO # 1.8 K/uL (0.0-0.8); MONO % 7.4 % (0.0-10.0); NRBC % 0.1 % (0.0-2.0); RED CELL DISTRIBUTION WIDTH 13.9 % (11.5-14.5)
[2017-05-04 00:36] LABS: ALB/GLOB RATIO 1.5 (1.0-2.1); ALKALINE PHOSPHATASE 113 U/L (38-126); ALT/SGPT 26 U/L (9-52); AST/SGOT 13 U/L (14-36); BILIRUBIN,TOTAL 0.3 mg/dL (0.2-1.3); BLOOD UREA NITROGEN 23 mg/dL (7-17); CALCIUM 9.1 mg/dl (8.6-10.4); CARBON DIOXIDE 26 mmol/L (22-30); CHLORIDE 99 mmol/L (98-107); GFR AFRICAN-AMERICAN > 60; GLUCOSE,RANDOM 148 mg/dL (65-105); POTASSIUM 3.3 mmol/L (3.6-5.2); SODIUM 139 mmol/L (132-148); TOTAL PROTEIN 6.3 g/dL (6.3-8.3)
[2017-05-04] MEDS ORDERED: Sodium Chloride 0.9% 1,000 ML IV ONE (00:44)
[2017-05-04] MEDS ORDERED: Iohexol 240 (50 ml) PO STA (00:51)
[2017-05-04] MEDS ORDERED: Iohexol 240 (50 ml) ONE (00:54)
[2017-05-04] MEDS ORDERED: Iodixanol 320 MG/ML 100 ML BOTTLE IV ONE (02:08)
--- NOTE | 2017-05-04 03:05 | CT ---
EXAM: CT Abdomen and Pelvis With Intravenous Contrast CLINICAL HISTORY: 51 years old, female; Pain; Abdominal pain; Localized; Right lower quadrant (rlq); Additional info: Abdominal pain, vomiting, diarrhea TECHNIQUE: Axial computed tomography images of the abdomen and pelvis with intravenous contrast. All CT scans at this facility use one or more dose reduction techniques, viz.: automated exposure control; ma/kV adjustment per patient size (including targeted exams where dose is matched to indication; i.e. head); or iterative reconstruction technique. Coronal and sagittal reformatted images were created and reviewed. CONTRAST: 100 mL of [id number] administered intravenously. COMPARISON: CT - ABD PELVIS PO IV CONTRAST 11/15/2015 4:56:07 PM FINDINGS: Limitations: Motion artifact - mild. Lower thorax: No acute findings. ABDOMEN: Liver: Hepatomegaly. Fatty infiltration. Gallbladder and bile ducts: Cholecystectomy. No ductal dilation. Pancreas: No ductal dilation. No mass. Spleen: No splenomegaly. Adrenals: No mass. Kidneys and ureters: No mass. No hydronephrosis. Stomach and bowel: No definite mural thickening. No obstruction. Appendix: Normal caliber. No inflammation. PELVIS: Bladder: Unremarkable. Reproductive: Hysterectomy. ABDOMEN and PELVIS: Intraperitoneal space: No significant fluid collection. No free air. Bones/joints: Degenerative changes of spine. No acute fracture. Soft tissues: Unremarkable. Vasculature: Minimal atherosclerotic disease. No aneurysm. Lymph nodes: No pathologically enlarged lymph nodes. IMPRESSION: 1. No definite acute intraabdominal abnormality. 2. Incidental/non-acute findings are described above.
[2017-05-04 03:30] LABS: BASO # 0.1 K/uL (0.0-0.2); BASO % 0.6 % (0.0-2.0); EOS # 0.2 K/uL (0.0-0.7); EOS % 1.1 % (0.0-4.0); HEMATOCRIT 34.8 % (34.0-47.0); LYMPH % 19.1 % (20.0-40.0); MEAN CELL VOLUME 86.5 fL (81.0-99.0); MEAN CORPUSCULAR HEMOGLOBIN 28.9 pg (27.0-31.0); MEAN CORPUSCULAR HGB CONC 33.4 g/dL (33.0-37.0); MEAN PLATELET VOLUME 8.3 fL (7.2-11.7); MONO # 1.4 K/uL (0.0-0.8); MONO % 6.6 % (0.0-10.0); RED CELL DISTRIBUTION WIDTH 13.9 % (11.5-14.5)
[2017-05-04 03:56] VITALS: BP 124/76; PULSE 76; RESP 20; TEMP 97.6
[2017-05-04 05:13] LABS: WHITE BLOOD COUNT 20.9 K/uL (4.8-10.8)
== END 2017-05-04 03:47 | disposition home or self-care (01) ==
LOC: C.ER 23:21 → SUPCPDRO 23:21 → C.ER 05-04 03:47
DX: N39.0 Urinary tract infection, site not specified (principal); R11.2 Nausea with vomiting, unspecified; R10.9 Unspecified abdominal pain; I10 Essential (primary) hypertension; E11.9 Type 2 diabetes mellitus without complications; K82.9 Disease of gallbladder, unspecified; F17.210 Nicotine dependence, cigarettes, uncomplicated
CPT/HCPCS: 74177; 80053; 81001; 83690; 84703; 85025; 96374; 96375; 99285; J1885; J2405; J7040; Q9966; Q9967

== ENCOUNTER 2017-05-08 09:58 | Inpatient (IN) | payer MEDICAID ==
[2017-05-08 09:58] VITALS: BMI 25.8
[2017-05-08] MEDS ORDERED: Sodium Chloride 0.9% 1,000 ML IV ONE (10:36)
[2017-05-08] MEDS ORDERED: Iohexol 240 (50 ml) PO STA (10:46)
[2017-05-08] MEDS ORDERED: Sodium Chloride 0.9% 1,000 ML ONE (10:57)
[2017-05-08 10:59] LABS: BASO # 0.2 K/uL (0.0-0.2); BASO % 0.8 % (0.0-2.0); EOS # 0.2 K/uL (0.0-0.7); EOS % 0.9 % (0.0-4.0); HEMATOCRIT 35.8 % (34.0-47.0); LYMPH # 4.4 K/uL (1.0-4.3); MEAN CELL VOLUME 87.4 fL (81.0-99.0); MEAN CORPUSCULAR HEMOGLOBIN 29.3 pg (27.0-31.0); MEAN CORPUSCULAR HGB CONC 33.5 g/dL (33.0-37.0); MEAN PLATELET VOLUME 8.4 fL (7.2-11.7); MONO # 1.7 K/uL (0.0-0.8); MONO % 7.8 % (0.0-10.0); NRBC % 0.2 % (0.0-2.0); RED CELL DISTRIBUTION WIDTH 14.5 % (11.5-14.5)
[2017-05-08 11:04] LABS: RBC URINE 4 /hpf (0-3); URINE BACTERIA RARE (<OCC); URINE BILIRUBIN NEGATIVE (NEGATIVE); URINE BLOOD NEGATIVE (NEGATIVE); URINE CALCIUM OXALATE CRYSTALS OCC /hpf (<OCC); URINE COLOR Yellow (YELLOW); URINE GLUCOSE (UA) NORMAL (Normal); URINE KETONE TRACE mg/dL (NEGATIVE); URINE LEUKOCYTE ESTERASE 3+ Leu/uL (Negative); URINE PROTEIN NEGATIVE (NEGATIVE); URINE UROBILINOGEN NORMAL mg/dL (0.2-1.0); WBC URINE 10 /hpf (0-5)
[2017-05-08] MEDS ORDERED: Iohexol 240 (50 ml) ONE ×2 (11:04→11:06)
[2017-05-08 11:11] LABS: ALB/GLOB RATIO 1.2 (1.0-2.1); ALKALINE PHOSPHATASE 90 U/L (38-126); ALT/SGPT 25 U/L (9-52); AST/SGOT 17 U/L (14-36); BILIRUBIN,TOTAL 0.5 mg/dL (0.2-1.3); BLOOD UREA NITROGEN 18 mg/dL (7-17); CALCIUM 8.6 mg/dl (8.6-10.4); CARBON DIOXIDE 25 mmol/L (22-30); CHLORIDE 102 mmol/L (98-107); GFR AFRICAN-AMERICAN > 60; GLUCOSE,RANDOM 190 mg/dL (65-105); POTASSIUM 3.3 mmol/L (3.6-5.2); SODIUM 140 mmol/L (132-148); TOTAL PROTEIN 5.9 g/dL (6.3-8.3)
--- NOTE | 2017-05-08 11:50 | C.PDOC ---
History Of Present Illness 51 y/o female presents to ED for evaluation of abdominal pain that started 6 days ago, but states pain is progressively getting worse. (+) nausea and vomiting. Pt states that she was evaluated here on 05/04 for similar symptoms. Also reports being seen by PMD, Dr. Moore, today for persistent pain, who instructed her to report to ED. Notes last BM was 2 days ago, pt normally has BM everyday. Pt also complaints of vaginal itching, and swelling. Also notes her sugar has been high recently. Denies chest pain, shortness of breath, diarrhea, urinary symptoms, fever, or any other associated symptoms at this time. Time Seen by Provider: 05/08/17 10:11 Chief Complaint (Nursing): Abdominal Pain History Per: Patient History/Exam Limitations: no limitations Onset/Duration Of Symptoms: Days (6) Current Symptoms Are (Timing): Still Present Radiation Of Pain To:: None Quality Of Discomfort: "Pain" Associated Symptoms: denies: Fever, Chills, Nausea, Vomiting, Diarrhea Exacerbating Factors: None Alleviating Factors: None Last Bowel Movement: Days Ago (2) Recent travel outside of the [place]: No Additional History Per: Patient Abnormal Vaginal Bleeding: No Past Medical History Reviewed: Historical Data, Nursing Documentation, Vital Signs Vital Signs: Last Vital Signs Temp 98.2 F 05/08/17 15:05 Pulse 72 05/08/17 15:05 Resp 20 05/08/17 15:05 BP 134/92 H 05/08/17 15:05 Pulse Ox 96 05/08/17 15:05 - Medical History PMH: Anxiety, Arthritis, Asthma, Back Problems (herniated disc x 5), Bipolar Disorder, Bronchitis, CAD, Depression, Diabetes, Gastritis, Gall Bladder Disease , HTN, Hypercholesterolemia, Hypothyroidism, Migraine, Pneumonia, Post Traumatic Stress Disorder, Rheumatoid Arthritis, Seizures (last 25 yrs ago) Surgical History: Cholecystectomy Denies: Coronary Stent (DENIES) - [facility] Procedures ANESTH INJECT-SPIN CANAL (02/17/13) CLOSURE SKIN & SUBCUTANEOUS NEC (01/29/13) DERMAL REGENERATIVE GRAFT (09/05/13) DIVISION OF R FOOT SUBCU/FASCIA, OPEN APPROACH (01/19/17) EXCISION OF ASCENDING COLON, ENDO, DIAGN (10/01/15) EXCISION OF DESCENDING COLON, ENDO, DIAGN (10/01/15) EXCISION OF RECTUM, ENDO, DIAGN (10/01/15) EXCISION OF RIGHT TARSAL, OPEN APPROACH (01/19/17) EXCISION OF SIGMOID COLON, ENDO, DIAGN (10/01/15) EXCISION OF TRANSVERSE COLON, ENDO, DIAGN (10/01/15) INJECT STEROID (03/31/13) INJECTION INTO JOINT (03/31/13) INSERTION OF INFUSION DEVICE INTO R ATRIUM, PERC APPROACH (10/01/15) LOC EXC BONE LESION NEC (08/11/13) LUMBOSAC SPINE X-RAY NEC (03/31/13) NONEXCIS DEBRID OF WOUND, INFECT, OR BURN (09/05/13) OTHER EXCISION, FUSION, AND REPAIR OF TOES (03/16/15) OTHER LOCAL DESTRUC SKIN (07/07/13) REMOVAL OF INT FIX FROM L TOE PHALANX JT, OPEN APPROACH (01/19/17) SPINAL CANAL INJECT NEC (03/31/13) TETANUS TOXOID ADMINIST (01/29/13) ULTRASONOGRAPHY OF RIGHT HEART (10/01/15) Family History: States: Diabetes - Social History Hx Tobacco Use: Yes Hx Alcohol Use: No Hx Substance Use: No - Immunization History Hx Tetanus Toxoid Vaccination: No Hx Influenza Vaccination: No Hx Pneumococcal Vaccination: No Review Of Systems Except As Marked, All Systems Reviewed And Found Negative. Constitutional: Negative for: Fever, Chills Cardiovascular: Negative for: Chest Pain, Palpitations Respiratory: Negative for: Shortness of Breath Gastrointestinal: Positive for: Abdominal Pain. Negative for: Nausea, Vomiting , Diarrhea Genitourinary: Positive for: Other (vaginal itching and swelling). Negative for : Dysuria, Frequency, Hematuria, Vaginal Discharge, Vaginal Bleeding, Rash Musculoskeletal: Negative for: Back Pain Physical Exam - Physical Exam Appears: Non-toxic, In Acute Distress (painful) Skin: Normal Color, Warm, Dry Head: Atraumatic, Normacephalic Eye(s): bilateral: Normal Inspection, EOMI Nose: Normal Oral Mucosa: Moist Neck: Normal ROM, Supple Chest: Symmetrical Cardiovascular: Rhythm Regular, No Murmur Respiratory: Normal Breath Sounds, No Rales, No Rhonchi, No Wheezing Gastrointestinal/Abdominal: Soft, Tenderness (RUQ), Distention, No Guarding, No Rebound Back: No CVA Tenderness, No Vertebral Tenderness Pelvic: No Normal External Exam (erythema, irritation, and mild swelling to external labia) Extremity: Normal ROM Neurological/Psych: Oriented x3, Normal Speech ED Course And Treatment - Laboratory Results Result Diagrams: 05/08/17 10:53 05/08/17 10:53 ECG: Interpreted By Me, Viewed By Me ECG Rhythm: Sinus Rhythm Rate From EC (bpm) O2 Sat by Pulse Oximetry: 98 (on RA) Pulse Ox Interpretation: Normal Progress Note: Blood work, UA, Abd & Pelvis CT, EKG ordered and reviewed. Pt was given Omnipaque, Protonix, Toradol, Zofran, and IV fluids. On reassessment , pain persists. Morphine ordered. CT reviewed. WBC increased since previous visit. UTI persists. Case discussed with Dr Moore, agreed upon admission. On re -evalaution, pt is requesting food. Disposition - Disposition Disposition: HOSPITALIZED Disposition Time: 15:00 Condition: STABLE - Clinical Impression Clinical Impression: UTI (urinary tract infection), Abdominal pain, Leukocytosis, Vulvovaginal itching - PA / CHARGE ENTRY SPECIALIST / Resident Statement MD/DO has reviewed & agrees with the documentation as recorded. - Scribe Statement The provider has reviewed the documentation as recorded by the Scribe Amy Berrios All medical record entries made by the Anna were at my direction and personally dictated by me. I have reviewed the chart and agree that the record accurately reflects my personal performance of the history, physical exam, medical decision making, and the department course for this patient. I have also personally directed, reviewed, and agree with the discharge instructions and disposition.
[2017-05-08] MEDS ORDERED: Iodixanol 320 MG/ML 100 ML BOTTLE IV ONE (13:17)
--- NOTE | 2017-05-08 13:55 | CT ---
PROCEDURE: CT Abdomen and Pelvis with contrast HISTORY: abd pain COMPARISON: 05/04/2017 TECHNIQUE: Contrast dose: 100 mL Visipaque 320 Radiation dose: Total exam DLP = 940.53 mGy-cm. This CT exam was performed using one or more of the following dose reduction techniques: Automated exposure control, adjustment of the mA and/or kV according to patient size, and/or use of iterative reconstruction technique. FINDINGS: LOWER THORAX: Nonspecific elevation of right hemidiaphragm. No infiltrate/ pleural effusion. LIVER: Hepatomegaly. Diffusely diminished attenuation of the liver consistent with fatty infiltration. Smooth contour. No mass. No biliary dilatation. GALLBLADDER AND BILE DUCTS: Status post cholecystectomy. PANCREAS: Unremarkable. No gross lesion or ductal dilatation. SPLEEN: Unremarkable. ADRENALS: Unremarkable. No mass. KIDNEYS AND URETERS: Unremarkable. No hydronephrosis. No solid mass. VASCULATURE: Unremarkable. No aortic aneurysm. BOWEL: Sigmoid diverticulosis. No evidence of diverticulitis. No bowel obstruction. No other abnormal bowel loops are identified. APPENDIX: Normal appendix. PERITONEUM: Mild diastases recti inferiorly. No evidence of hernia. No ascites. LYMPH NODES: Unremarkable. No enlarged lymph nodes. BLADDER: Unremarkable. REPRODUCTIVE: Status post hysterectomy. BONES: No acute fracture. OTHER FINDINGS: None. IMPRESSION: Hepatomegaly and fatty infiltration of the liver. Status post cholecystectomy and hysterectomy. Sigmoid diverticulosis without evidence of diverticulitis. No acute abnormality.
[2017-05-08] MEDS ORDERED: Morphine 4 MG/ML VIAL ONE (14:19)
--- NOTE | 2017-05-08 14:27 | RAD ---
HISTORY: pain COMPARISON: Chest x-ray performed 04/08/17 TECHNIQUE: Chest, one view. FINDINGS: Examination limited by habitus. LUNGS: Biapical pleural thickening. Right hilar prominence. Mild subsegmental atelectasis, left lung base. No focal consolidation. Please note that chest x-ray has limited sensitivity for the detection of pulmonary masses. PLEURA: No significant pleural effusion identified. No definite pneumothorax . CARDIOVASCULAR: Heart size appears within normal limits. OSSEOUS STRUCTURES: No acute osseous abnormality identified. VISUALIZED UPPER ABDOMEN: Unremarkable. OTHER FINDINGS: None. IMPRESSION: Subsegmental atelectasis, left lung base. Biapical pleural thickening. Right hilar prominence.
[2017-05-08 14:53] VITALS: RESP 20
[2017-05-08] MEDS ORDERED: Vancomycin 1 gm/NS 200 ml 1 GM/200 ML BAG IVPB SCH (18:00)
[2017-05-08] MEDS ORDERED: Morphine 4 MG/ML VIAL IV ONE (19:23)
[2017-05-08] MEDS: Rosuvastatin Calcium 2.5 mg Tab PO SCH (22:18)
[2017-05-08] MEDS ORDERED: Albuterol-Ipratrop 3 mg / 0.5 (3 ml) UD INH PRN (23:10)
[2017-05-08] MEDS ORDERED: Rosuvastatin Calcium 2.5 mg Tab PO SCH (23:45)
--- NOTE | 2017-05-08 23:45 | CP.PCM.HP ---
History of Present Illness - History of Present Illness History of Present Illness: abdominal pain & distension x 5 days 51 yo who presented to the office yesterday with a hugely distended abdome,. pt seen at the office at least once a arielle obviously not her usual state. Pain localizes at the epigastric to RUQ. Pt denied any fever, chills, nor ny constitutional symptoms exxept for an episode over the weekend where she was constantly eating and ate everything in sight. Then she noticed her belly was growing until today where it was hugely distended. She had gone to the ER last Thursday and had a CT scan where NO pertinent findings were found to account for her problem. Pt relates that as of 2 days ago, she has not had a bowel movement, nor any flatus. Pt advised to go again to the ER if today's proposed treatment did not work. While reviewing pt meds, I noted psychiatric meds appeared to have been increased an inordinate amount. Pt had not reported this to me and I thought her dosage was excessive given that she did not appear to be manic and/or schizophrenic in the many years i've seen her. Pt follows simle instructions and cooperates with me in most matters medical, hence this sudden increase in meds is either inaccurate or a mistake. Pt denied she was on steroids when interviewed, but when confronted by me that I had just given her a prescription of it for her atopic dermatitis, she said that she didn't take it today, and the last time was yesterday. At the very least, This would account for her leukocytosis without symptoms of sepsis. Because of the confusing array of medications pt is on, pt needed to be safely weaned from some of them, if possoble, without exacerbating any of her medical conditions. A psychiatry consult will be obtained to help with pt's psychiatric issues and treatment. Present on Admission - Present on Admission Any Indicators Present on Admission: No History of DVT/PE: No History of Uncontrolled Diabetes: Yes Urinary Catheter: No Decubitus Ulcer Present: No Review of Systems - Review of Systems Systems not reviewed;Unavailable: Respiratory Distress - Constitutional Constitutional: Increased Appetite, Weight Gain - EENT Ears: Ear Pain Nose/Mouth/Throat: Sinus Pain, Sinus Pressure - Respiratory Respiratory: Dyspnea on Exertion - Gastrointestinal Gastrointestinal: Abdominal Pain, Bloating, Constipation - Reproductive: Female Reproductive:Female: Amenorrhea - Menstruation Menstruation: Amenorrhea - Psychiatric Psychiatric: Anxiety, Change in Appetite, Hallucinations - Endocrine Endocrine: Polyphagia Past Patient History - Infectious Disease Hx of Infectious Diseases: None, C.diff - Tetanus Immunizations Tetanus Immunization: Unknown - Past Medical History & Family History Past Medical History?: Yes Past Family History: Reviewed and not pertinent Pertinent Family History: DM: mother HTN: mother, father - Past Social History Smoking Status: Heavy Smoker > 10 Cigarettes Daily (denied this with me always) - CARDIAC Hx Cardiac Disorders: No Hx Angina: No Hx Atrial Fibrillation: No Hx Cardia Arrhythmia: No Hx Circulatory Problems: No Hx Heart Attack: No Hx Heart Murmur: No Hx Heart Transplant: No Hx Hypercholesterolemia: Yes Hx Hypertension: Yes Hx Hypotension: Yes Hx Internal Defibrillator: No Hx Mitral Valve Prolapse: No Hx Pacemaker: No Hx Peripheral Edema: Yes Hx Peripheral Vascular Disease: No - PULMONARY Hx Respiratory Disorders: Yes Hx Asthma: Yes Hx Bronchitis: No Hx Chronic Obstructive Pulmonary Disease (COPD): No Hx Emphysema: No Hx Lung Cancer: No Hx Pneumonia: Yes Hx Pulmonary Edema: No Hx Respiratory Aspiration: No Hx Respiratory Tract Infection: Yes Hx Sleep Apnea: No Hx Tuberculosis: No - NEUROLOGICAL Hx Migraine: Yes Hx Seizures: Yes (last 25 yrs ago) - HEENT Hx HEENT Problems: No Hx Blind: No Hx Cataracts: No Hx Deafness: No Hx Difficulty Chewing: No Hx Epistaxis: No Hx Glaucoma: No Hx Macular Degeneration: No Hx Sinusitis: Yes - RENAL Hx Chronic Kidney Disease: No Hx Dialysis: No Hx Kidney Stones: No Hx Neurogenic Bladder: No - ENDOCRINE/METABOLIC Hx Hyperthyroidism: No Hx Hypothyroidism: Yes - HEMATOLOGICAL/ONCOLOGICAL Hx Blood Disorders: No Hx AIDS: No Hx Anemia: No Hx Blood Transfusions: No Hx Blood Transfusion Reaction: No Hx Bruising: No Hx Cancer: No Hx Cirrhosis: No Hx Gum Bleeding: No Hx Hemophilia: No Hx Hepatitis A: No Hx Hepatitis B: No Hx Hepatitis C: No Hx Human Immunodeficiency Virus (HIV): No Hx Leukemia: No Hx Lymphoma: No Hx Metastesis: No Hx Shingles: No Hx Sickle Cell Trait: No Hx von Willebrand's Disease: No - INTEGUMENTARY Hx Dermatological Problems: Yes Hx Basil Cell: No Hx Simmons: No Hx Cellulitis: No Hx Eczema: Yes Hx Melanoma: No Hx Psoriasis: No Hx Squamous Cell: No - MUSCULOSKELETAL/RHEUMATOLOGICAL Hx Arthritis: Yes Hx Back Pain: No Hx Falls: No Hx Rheumatoid Arthritis: No - GASTROINTESTINAL Hx Gastrointestinal Disorders: Yes Hx Bowel Surgery: No Hx Clostridium Difficile: Yes Hx Colitis: Yes Hx Colostomy: No Hx Constipation: Yes Hx Crohn's Disease: No Hx Diarrhea: Yes Hx Diverticulitis: Yes Hx Fatty Liver Disease: Yes Hx Gall Bladder Disease: Yes Hx Gastritis: Yes Hx Gastroesophageal Reflux: No Hx Hemorrhoids: No Hx Ileostomy: No Hx Irritable Bowel: Yes Hx Liver Failure: No Hx Nausea: Yes Hx Pancreatitis: No HX Swallowing Problems: No - GENITOURINARY/GYNECOLOGICAL Hx Bladder Cancer: No Hx Bladder Stone: No Hx Cervical Cancer: No Hx Ovarian Cancer: Yes Hx Postmenopausal Bleeding: No Hx Sexually Transmitted Disorders: No Hx Uterine Cancer: Yes Hx Urinary Tract Infection: Yes - PSYCHIATRIC Hx Anxiety: Yes Hx Bipolar Disorder: Yes Hx Depression: Yes Hx Post Traumatic Stress Disorder: Yes Hx Substance Use: No - SURGICAL HISTORY Hx Cholecystectomy: Yes Hx Coronary Stent: No (DENIES) - ANESTHESIA Hx Anesthesia: Yes Hx Anesthesia Reactions: No Hx Malignant Hyperthermia: No Meds Allergies/Adverse Reactions: Allergies Allergy/AdvReac Type Severity Reaction Status Date / Time No Known Allergies Allergy Verified 05/08/17 10:25 Physical Exam - Constitutional Appears: In Acute Distress - Head Exam Head Exam: ATRAUMATIC, NORMAL INSPECTION, NORMOCEPHALIC - Eye Exam Eye Exam: Normal appearance Pupil Exam: NORMAL ACCOMODATION - ENT Exam ENT Exam: Mucous Membranes Moist, Normal Exam - Neck Exam Neck exam: Positive for: Normal Inspection - Respiratory Exam Respiratory Exam: NORMAL BREATHING PATTERN - Cardiovascular Exam Cardiovascular Exam: REGULAR RHYTHM, RRR - GI/Abdominal Exam GI & Abdominal Exam: Hyperactive Bowel Sounds (on R upper and lower quadrants) - Rectal Exam Rectal Exam: Deferred Results - Vital Signs Recent Vital Signs: Last Vital Signs Temp 98.2 F 05/08/17 15:05 Pulse 72 05/08/17 15:05 Resp 20 05/08/17 15:05 BP 134/92 H 05/08/17 15:05 Pulse Ox 98 05/08/17 17:51 - Labs Result Diagrams: 05/09/17 08:18 05/09/17 08:18 Labs: Laboratory Results - last 24 hr 05/08/17 05/08/17 16:30 21:11 POC Glucose (mg/dL) 218 H 170 H Assessment & Plan (1) Neuropathy, diabetic Assessment and Plan: manifesting as diabetic gastroparesis; exacerbated by multiple high dose psychaitric meds--barbara lower psych meds and discontinue some as necessary. Start pt on metoclopramide for a brief period of time as empiric therapy. Status: Acute (2) Leukocytosis Assessment and Plan: prob iatrogenic from steroid iuse Status: Acute (3) Diabetes 1.5, managed as type 1 Assessment and Plan: switch to SSI at this time. Status: Acute (4) Eczema Assessment and Plan: put on appropriate anti-histamine with skin salves Status: Acute Decision To Admit - Pt Status Changed To: Hospital Disposition Of: Inpatient - Admit Certification Admit to Inpatient:: After my assessment, the patient will require hospitalization for at least two midnights. This is because of the severity of symptoms shown, intensity of services needed, and/or the medical risk in this patient being treated as an outpatient. - InPatient: Physician Admission Certification:: After my assessment, the patient will require hospitalization for at least two midnights. This is because of the severity of symptoms shown, intensity of services needed, and/or the medical risk in this patient being treated as an outpatient. - . Bed Request Type: Regular
[2017-05-09] MEDS: Oxycodone/Acetaminophen 5/325 mg Tab PO PRN ×2 (03:54→16:43)
[2017-05-09] MEDS: (Novolog) Insulin Aspart, Recombinant 100 u/ml 10 ml vial SC SCH ×4 (07:47→21:31)
[2017-05-09 08:32] LABS: HEMATOCRIT 34.8 % (34.0-47.0); MEAN CELL VOLUME 87.6 fL (81.0-99.0); MEAN CORPUSCULAR HGB CONC 33.1 g/dL (33.0-37.0); MEAN PLATELET VOLUME 9.2 fL (7.2-11.7); RED CELL DISTRIBUTION WIDTH 14.3 % (11.5-14.5); WHITE BLOOD COUNT 14.8 K/uL (4.8-10.8)
[2017-05-09 08:48] LABS: ALB/GLOB RATIO 1.1 (1.0-2.1); ALKALINE PHOSPHATASE 77 U/L (38-126); ALT/SGPT 29 U/L (9-52); AST/SGOT 16 U/L (14-36); BILIRUBIN,DIRECT 0.5 mg/dL (0.0-0.4); BILIRUBIN,TOTAL 0.5 mg/dL (0.2-1.3); BLOOD UREA NITROGEN 17 mg/dL (7-17); CALCIUM 8.7 mg/dl (8.6-10.4); CARBON DIOXIDE 28 mmol/L (22-30); CHLORIDE 101 mmol/L (98-107); GFR AFRICAN-AMERICAN > 60; GLUCOSE,RANDOM 104 mg/dL (65-105); POTASSIUM 3.8 mmol/L (3.6-5.2); SODIUM 139 mmol/L (132-148); TOTAL PROTEIN 5.6 g/dL (6.3-8.3)
[2017-05-09] MEDS ORDERED: MESALAMINE PO SCH (10:00)
[2017-05-09] MEDS: POLYETHYLENE GLYCOL 3350 17 GM/Dose PACKET PO SCH ×2 (10:57→21:29)
--- NOTE | 2017-05-09 11:09 | PCM.PSYCH ---
Initial Psychiatric Evaluation - Initial Psychiatric Evaluation Type of Admission: Voluntary Legal Status: Capacity Chief Complaint (in patient's own words): "I'm OK" History of Present Illness and Precipitating Events: The patient is seen, chart reviewed and case discussed. Consultation was requested for patient's psych history. This is a 51-year-old female, 2 years ago, has 4 children all adults. She is unemployed and lives alone. She is here for some GI problems. The patient has a history of psychiatric problems, depression, and sees Dr. Davis in [facility]. She is compliant with medications and currently denies any psych symptoms. She says she sleeps okay, doesn't feel very depressed, denies feeling suicidal or very anxious. Has some anxiety but has no hallucinations or delusions. She used to have hallucinations and suicidal ideation in the past. Past psych history: The patient was hospitalized twice in psychiatry. No drug or alcohol history Family psych history: Grandmother had psychiatric problems Medical history: Diabetes, high blood pressure, asthma, high cholesterol Current Medications: Active Medications Generic Name Dose Route Start Last Admin Trade Name Freq PRN Reason Stop Dose Admin Albuterol/Ipratropium 3 ml 05/08/17 23:10 Duoneb 3 Mg/0.5 Mg (3 Ml) Ud INH RQ4 PRN Shortness of Breath Benztropine Mesylate 2 mg 05/09/17 10:00 05/09/17 10:58 Cogentin PO Not Given BID MARIO Furosemide 20 mg 05/08/17 23:01 05/09/17 10:55 Lasix PO 20 mg BID PRN Administration Swelling Gabapentin 300 mg 05/09/17 10:00 05/09/17 10:56 Neurontin PO 300 mg TID MARIO Administration Haloperidol 10 mg 05/08/17 22:58 Haldol PO Q8H PRN Agitation Heparin Sodium (Porcine) 5,000 units 05/09/17 10:00 05/09/17 10:56 Heparin SC 5,000 units Q12H MARIO Administration Insulin Aspart 0 unit 05/09/17 07:30 05/09/17 07:47 Novolog SC Not Given ACHS [facility] Protocol Lisinopril 20 mg 05/09/17 10:00 05/09/17 10:59 Zestril PO Not Given DAILY [facility] Mesalamine 1,600 mg 05/09/17 10:00 05/09/17 10:58 Delzicol PO Not Given DAILY MARIO Metoclopramide HCl 5 mg 05/09/17 07:30 05/09/17 10:56 Reglan IVP 5 mg AC MARIO Administration Ondansetron HCl 4 mg 05/08/17 23:00 Zofran Inj IVP Q8H PRN Nausea/Vomiting Oxycodone/Acetaminophen 2 tab 05/08/17 23:07 05/09/17 03:54 Percocet 5/325 Mg Tab PO 05/11/17 23:08 2 tab Q8H PRN Administration Pain, moderate (4-7) Paroxetine HCl 10 mg 05/09/17 10:00 05/09/17 10:58 Paxil PO Not Given DAILY MARIO Polyethylene Glycol 17 gm 05/09/17 10:00 05/09/17 10:57 Miralax PO 17 gm Q12 MARIO Administration Rosuvastatin Calcium 2.5 mg 05/08/17 22:15 05/08/17 22:18 Crestor PO 2.5 mg HS MARIO Administration Trazodone HCl 50 mg 05/09/17 22:00 Desyrel PO HS MARIO Past Psychiatric History - Past Psychiatric History Previous Treatment History: Inpatient Pertinent Medical Hx (Current Medical&Sleep Prob, Allergies): Allergies Allergy/AdvReac Type Severity Reaction Status Date / Time No Known Allergies Allergy Verified 05/08/17 10:25 Albuterol HFA [Ventolin HFA 90 mcg/actuation (8 g)] 1 puff IH BID 06/04/16 Benztropine [Cogentin] 2 mg PO TID 06/04/16 Simvastatin 10 mg PO HS 06/04/16 Trazodone HCl [Oleptro ER] 50 mg PO DAILY 06/04/16 Furosemide [Lasix] 20 mg PO BID 01/16/17 Haloperidol [Haldol] 10 mg PO TID 01/16/17 Insulin Aspart, Recombinant [Novolog] 10 unit SC QPM 01/16/17 Insulin Aspart, Recombinant [Novolog] 20 unit SC QAM 01/16/17 Lisinopril [Zestril] 20 mg PO DAILY 01/16/17 Mesalamine [Apriso] 4 cap PO DAILY 01/16/17 PARoxetine [Paxil] 30 mg PO DAILY 05/19/17 Gabapentin [Neurontin] 300 mg PO TID 04/24/17 Insulin Aspart, Recombinant [Novolog] 20 unit SC ACHS 04/24/17 Ciprofloxacin [Cipro] 1 tab PO BID #14 tab 05/04/17 Ondansetron [Zofran Odt] 4 mg PO Q8 PRN #12 odt 05/04/17 Review of Systems - Neurological Neurological: UNREMARKABLE - Psychiatric Psychiatric: Anxiety. absent: Depression, Hallucinations, Homicidal Ideation, Suicidal Ideation Mental Status Examination - Personal Presentation Personal Presentation: Looks stated age - Affect Affect: Constricted - Motor Activity Motor Activity: Calm - Reliability in Providing Information Reliability in Providing Information: Good - Speech Speech: Organized - Mood Mood: Anxious - Formal Thought Process Formal Thought Process: No Impairment - Cognitive Functions Orientation: Person, Place, Situation, Time Sensorium: Alert Attention/Concentration: Attentive Estimate of Intelligence: Average Judgement: Intact, as evidence by: Insight regarding need for hospitalization Memory: Recent intact, as evidence by: Ability to recall events of the day, Remote intact, as evidenced by: Abilit to recall sig. life events - Risk Risk: Diminished functioning - Strength & Assets Inventory Strength & Assets Inventory: Family support, Cooperative - Limitations Limitations: Other DSM 5 DX - DSM 5 DSM 5 Diagnosis: Major depressive disorder, recurrent, mild Rule out JEANNA - Recommended/Plan of Treatment Treatment Recommendations and Plan of Treatment: Cleared for psych for discharge Continue current psych medications Will follow-up at [facility] 32 minutes
--- NOTE | 2017-05-09 16:17 | US ---
HISTORY: HEPATOMEGALY, CHK FOR PORTAL HTN, ESOPH VARICES COMPARISON: None. TECHNIQUE: Sonographic evaluation of the abdomen. FINDINGS: LIVER: Measures 19.2 cm. Diffusely increased echogenicity of the liver parenchyma. Consistent with fatty infiltration. Smooth contour. No mass. No biliary ductal dilatation. Normal hepatopetal portal venous flow demonstrated. GALLBLADDER: Status post cholecystectomy. COMMON BILE DUCT: Measures 4 mm. No stones. No dilatation. PANCREAS: Limited visualization. No gross abnormality. RIGHT KIDNEY: Measures 14.4cm. Normal echogenicity. No calculus, mass, or hydronephrosis. LEFT KIDNEY: Measures 12.5cm. Normal echogenicity. No calculus, mass, or hydronephrosis. SPLEEN: Normal in size and contour. No mass. AORTA: No aneurysmal dilatation. IVC: Unremarkable. OTHER FINDINGS: None. IMPRESSION: Mild hepatomegaly with diffuse fatty infiltration. Status post cholecystectomy. Patent portal vein with normal hepatopetal portal venous flow. Patent hepatic veins.
--- NOTE | 2017-05-09 18:23 | CP.PCM.PN ---
Subjective - Date & Time of Evaluation Date of Evaluation: 05/09/17 Time of Evaluation: 18:07 - Subjective Subjective: Discussed with pt developments since last night. Says that today, she had 3 BMs which relieved a lot of her discomfort. Also discussed with pt about the increase in her psychiatric medications, and pt denies taking any of them bec she thought they were excessive as well. Of those that she took, advised her that I cut down on most of them, if not stopped them altogether, and she agreed. Pt eating better with no discomfort. > Explored p;shepatomegaly as possible complication to relative constipation. Objective - Vital Signs/Intake and Output Vital Signs (last 24 hours): Temp Pulse Resp BP Pulse Ox 98.3 F 82 20 136/84 96 05/09/17 16:35 05/09/17 16:35 05/09/17 16:35 05/09/17 16:35 05/09/17 16:35 Intake and Output: 05/09/17 05/09/17 06:59 18:59 Intake Total 720 400 Balance 720 400 - Medications Medications: Current Medications Albuterol/Ipratropium (Duoneb 3 Mg/0.5 Mg (3 Ml) Ud) 3 ml INH RQ4 PRN PRN Reason: Shortness of Breath Benztropine Mesylate (Cogentin) 2 mg PO BID [facility] Last Admin: 05/09/17 17:50 Dose: Not Given Furosemide (Lasix) 20 mg PO BID PRN PRN Reason: Swelling Last Admin: 05/09/17 10:55 Dose: 20 mg Gabapentin (Neurontin) 300 mg PO TID PRN PRN Reason: nerve pain Heparin Sodium (Porcine) (Heparin) 5,000 units SC Q12H [facility] Last Admin: 05/09/17 10:56 Dose: 5,000 units Insulin Aspart (Novolog) 0 unit SC ACHS [facility] PRN Reason: Protocol Last Admin: 05/09/17 16:44 Dose: Not Given Lisinopril (Zestril) 20 mg PO DAILY [facility] Last Admin: 05/09/17 13:08 Dose: 20 mg Mesalamine (Delzicol) 1,200 mg PO DAILY [facility] Metoclopramide HCl (Reglan) 5 mg IVP AC [facility] Last Admin: 05/09/17 16:42 Dose: 5 mg Ondansetron HCl (Zofran Inj) 4 mg IVP Q8H PRN PRN Reason: Nausea/Vomiting Oxycodone/Acetaminophen (Percocet 5/325 Mg Tab) 2 tab PO Q8H PRN PRN Reason: Pain, moderate (4-7) Stop: 05/11/17 23:08 Last Admin: 05/09/17 16:43 Dose: 2 tab Paroxetine HCl (Paxil) 10 mg PO DAILY [facility] Last Admin: 05/09/17 13:07 Dose: 10 mg Polyethylene Glycol (Miralax) 17 gm PO Q12 [facility] Last Admin: 05/09/17 10:57 Dose: 17 gm Rosuvastatin Calcium (Crestor) 2.5 mg PO [facility] Last Admin: 05/08/17 22:18 Dose: 2.5 mg Trazodone HCl (Desyrel) 50 mg PO [facility] - Labs Labs: 05/09/17 08:18 05/09/17 08:18 - Constitutional Appears: No Acute Distress - Head Exam Head Exam: ATRAUMATIC, NORMAL INSPECTION, NORMOCEPHALIC - Eye Exam Eye Exam: Normal appearance Pupil Exam: NORMAL ACCOMODATION - ENT Exam ENT Exam: Normal Exam - Neck Exam Neck Exam: Normal Inspection - Respiratory Exam Respiratory Exam: Clear to Ausculation Bilateral, NORMAL BREATHING PATTERN - Cardiovascular Exam Cardiovascular Exam: RRR - GI/Abdominal Exam GI & Abdominal Exam: Normal Bowel Sounds, Organomegaly Additional comments: + hepatomegaly 2ndry to fatty liver, but normal portal venous flow - Rectal Exam Rectal Exam: Deferred - Extremities Exam Extremities Exam: Full ROM - Back Exam Back Exam: NORMAL INSPECTION - Neurological Exam Neurological Exam: Alert, Awake, CN II-XII Intact, Oriented x3 Neuro motor strength exam: Left Upper Extremity: 5, Right Upper Extremity: 5, Left Lower Extremity: 5, Right Lower Extremity: 5 - Psychiatric Exam Psychiatric exam: Normal Affect, Normal Mood - Skin Skin Exam: Dry, Intact, Normal Color, Warm Assessment and Plan (1) Neuropathy, diabetic Assessment & Plan: diabetic gastroparesis Status: Acute (2) Leukocytosis Assessment & Plan: prob steroid induced Status: Acute (3) Diabetes 1.5, managed as type 1 Assessment & Plan: continue current treatment Status: Chronic (4) Eczema Assessment & Plan: resolving Status: Chronic (5) Schizophreniform disorder Assessment & Plan: appears to be in remission generally. Have never witnessed pt to lose touch with reality. Status: Acute
[2017-05-09] MEDS: Rosuvastatin Calcium 2.5 mg Tab PO SCH (21:28)
[2017-05-10] MEDS: (Novolog) Insulin Aspart, Recombinant 100 u/ml 10 ml vial SC SCH (07:38)
[2017-05-10 08:00] LABS: BASO # 0.1 K/uL (0.0-0.2); BASO % 0.4 % (0.0-2.0); EOS # 0.1 K/uL (0.0-0.7); EOS % 0.8 % (0.0-4.0); HEMATOCRIT 40.1 % (34.0-47.0); LYMPH # 2.6 K/uL (1.0-4.3); LYMPH % 14.6 % (20.0-40.0); MEAN CELL VOLUME 87.2 fL (81.0-99.0); MEAN CORPUSCULAR HEMOGLOBIN 28.7 pg (27.0-31.0); MEAN CORPUSCULAR HGB CONC 32.9 g/dL (33.0-37.0); MEAN PLATELET VOLUME 8.7 fL (7.2-11.7); MONO # 1.3 K/uL (0.0-0.8); MONO % 7.7 % (0.0-10.0); RED CELL DISTRIBUTION WIDTH 14.4 % (11.5-14.5); WHITE BLOOD COUNT 17.5 K/uL (4.8-10.8)
[2017-05-10 08:22] VITALS: BP 123/72; PULSE 84; TEMP 98; O2SAT 95
[2017-05-10 08:25] LABS: BLOOD UREA NITROGEN 16 mg/dL (7-17); CALCIUM 9.4 mg/dl (8.6-10.4); CARBON DIOXIDE 29 mmol/L (22-30); CHLORIDE 96 mmol/L (98-107); GFR AFRICAN-AMERICAN > 60; GLUCOSE,RANDOM 143 mg/dL (65-105); POTASSIUM 4.3 mmol/L (3.6-5.2); SODIUM 137 mmol/L (132-148)
[2017-05-10] MEDS: POLYETHYLENE GLYCOL 3350 17 GM/Dose PACKET PO SCH (10:23)
--- NOTE | 2017-05-10 10:30 | CP.PCM.DIS ---
Provider - Provider Date of Admission: 05/08/17 14:04 Attending physician: Joni Moore MD Primary care physician: Joni Moore MD Consults: [facility] specialty [facility] Time Spent in preparation of Discharge (in minutes): 45 Diagnosis - Discharge Diagnosis (1) Neuropathy, diabetic Status: Acute Comment: manifested as gastroparesis (2) Leukocytosis Status: Acute Comment: prob iatrogenic 2ndry to steroid use and dependence--pt has recurrent eczema (3) Diabetes 1.5, managed as type 1 Status: Chronic Comment: factitious diabetes (?) 2ndry to steroid induced hyperglycemia? will instruct patient well on proper monitoring (4) Eczema Status: Chronic Comment: started on anti-histamine 2nd generation and leukotriene inhibitor (5) Schizophreniform disorder Status: Acute Comment: decreased dosages of or discontinued psych meds Hospital Course - Lab Results Lab Results: Most Recent Lab Values WBC 17.5 K/uL (4.8-10.8) H 05/10/17 07:41 RBC 4.60 Mil/uL (3.80-5.20) 05/10/17 07:41 Hgb 13.2 g/dL (11.0-16.0) 05/10/17 07:41 Hct 40.1 % (34.0-47.0) 05/10/17 07:41 MCV 87.2 fL (81.0-99.0) 05/10/17 07:41 MCH 28.7 pg (27.0-31.0) 05/10/17 07:41 MCHC 32.9 g/dL (33.0-37.0) L 05/10/17 07:41 RDW 14.4 % (11.5-14.5) 05/10/17 07:41 Plt Count 258 K/uL (130-400) 05/10/17 07:41 MPV 8.7 fL (7.2-11.7) 05/10/17 07:41 Neut % (Auto) 76.5 % (50.0-75.0) H 05/10/17 07:41 Lymph % (Auto) 14.6 % (20.0-40.0) L 05/10/17 07:41 [place] % (Auto) 7.7 % (0.0-10.0) 05/10/17 07:41 Eos % (Auto) 0.8 % (0.0-4.0) 05/10/17 07:41 Baso % (Auto) 0.4 % (0.0-2.0) 05/10/17 07:41 Neut # 13.4 K/uL (1.8-7.0) H 05/10/17 07:41 Lymph # 2.6 K/uL (1.0-4.3) 05/10/17 07:41 [place]ison # 1.3 K/uL (0.0-0.8) H 05/10/17 07:41 Eos # 0.1 K/uL (0.0-0.7) 05/10/17 07:41 Baso # 0.1 K/uL (0.0-0.2) 05/10/17 07:41 Differential Comment 05/08/17 10:53 Sodium 137 mmol/L (132-148) 05/10/17 07:41 Potassium 4.3 mmol/L (3.6-5.2) 05/10/17 07:41 Chloride 96 mmol/L (98-107) L 05/10/17 07:41 Carbon Dioxide 29 mmol/L (22-30) 05/10/17 07:41 Anion Gap 16 (10-20) 05/10/17 07:41 BUN 16 mg/dL (7-17) 05/10/17 07:41 Creatinine 0.4 MG/DL (0.7-1.2) L 05/10/17 07:41 Est GFR ( Amer) > 60 05/10/17 07:41 Est GFR (Non-Af Amer) > 60 05/10/17 07:41 POC Glucose (mg/dL) 149 mg/dL (65-110) H 05/10/17 07:02 Random Glucose 143 mg/dL (65-105) H 05/10/17 07:41 Calcium 9.4 mg/dl (8.6-10.4) 05/10/17 07:41 Total Bilirubin 0.5 mg/dL (0.2-1.3) 05/09/17 08:18 Direct Bilirubin 0.5 mg/dL (0.0-0.4) H 05/09/17 08:18 AST 16 U/L (14-36) 05/09/17 08:18 ALT 29 U/L (9-52) 05/09/17 08:18 Alkaline Phosphatase 77 U/L (38-126) 05/09/17 08:18 Total Protein 5.6 g/dL (6.3-8.3) L 05/09/17 08:18 Albumin 3.0 g/dL (3.5-5.0) L 05/09/17 08:18 Globulin 2.7 gm/dL (2.2-3.9) 05/09/17 08:18 Albumin/Globulin Ratio 1.1 (1.0-2.1) 05/09/17 08:18 Lipase 120 U/L (23-300) 05/08/17 10:53 Alpha Fetoprotein 2.3 ng/mL (0.0-7.5) 05/09/17 08:18 Urine Color Yellow (YELLOW) 05/08/17 10:53 Urine Clarity Hazy (Clear) 05/08/17 10:53 Urine pH 6.0 (5.0-8.0) 05/08/17 10:53 Ur Specific [place] 1.024 (1.003-1.030) 05/08/17 10:53 Urine Protein Negative mg/dL (NEGATIVE) 05/08/17 10:53 Urine Glucose (UA) Normal mg/dL (Normal) 05/08/17 10:53 Urine Ketones Trace mg/dL (NEGATIVE) 05/08/17 10:53 Urine Blood Negative (NEGATIVE) 05/08/17 10:53 Urine Nitrate Negative (NEGATIVE) 05/08/17 10:53 Urine Bilirubin Negative (NEGATIVE) 05/08/17 10:53 Urine Urobilinogen Normal mg/dL (0.2-1.0) 05/08/17 10:53 Ur Leukocyte Esterase 3+ Jessica/uL (Negative) H 05/08/17 10:53 Urine WBC (Auto) 10 /hpf (0-5) H 05/08/17 10:53 Urine RBC (Auto) 4 /hpf (0-3) H 05/08/17 10:53 Ur Squamous Epith Cells 18 /hpf (0-5) H 05/08/17 10:53 Calcium Oxalate Crystal Occ /hpf (<OCC) H 05/08/17 10:53 Urine Bacteria Rare (<OCC) 09/08/17 10:53 Urine HCG, Qual Negative (NEGATIVE) 05/08/17 10:53 Hep Bs Antigen Negative (NEGATIVE) 05/09/17 08:18 - Hospital Course Hospital Course: Pt seen at office 4 days ago, with hugely distended abdomen and high-pitched bowel sounds on the R upper and lower quadrants. Pt is very well known to me and this is not her usual state. CT scan of the abdomen was negative for pathology and obstruction 3 days prior, yet condition persisted. Pt advised to seek help in patient via the ER the following day, Thursday, if symptoms did not resolve. > On admission, CT scan repeated with same findings as before. Upon review of pt 's medications, pt was taking an inordinate amount of psychiatric meds which pt had not mentioned to me as changing. Pt denied taking steroids for her recurrent eczema, but I knew that she was still on it from the last course of steroids given. When I clarified this with her, she said she didn't take the steroid this day of admission but last time she took it was Thursday, which can thus explain the elevated WBC without sepsis symptoms. > Suspecting a functional nerve issue, pt was given a promotility agent. Pt's self report said she moved her bowels 3x the day after admission, and her stomach started decreasing in size and pain. > There were not so subtle findings of hepatomegaly and fatty infiltration. Ultrasound obtained to assess size of liver and various other tests to determine liver function and possible cirrhosis. On day 3, pt felt good enough to go home, and was advised to follow up in 2 days at the office. Discharge Exam - Head Exam Head Exam: ATRAUMATIC, NORMAL INSPECTION, NORMOCEPHALIC - Eye Exam Eye Exam: Normal appearance Pupil Exam: NORMAL ACCOMODATION - ENT Exam ENT Exam: Normal Exam - Neck Exam Neck exam: Normal Inspection - Respiratory Exam Respiratory Exam: Clear to PA & Lateral, NORMAL BREATHING PATTERN, UNREMARKABLE - Cardiovascular Exam Cardiovascular Exam: RRR - GI/Abdominal Exam GI & Abdominal Exam: Normal Bowel Sounds Additional comments: distension almost gone - Rectal Exam Rectal Exam: Deferred - Back Exam Back exam: NORMAL INSPECTION - Neurological Exam Neurological exam: Alert, CN II-XII Intact, Normal Gait, Oriented x3, Reflexes Normal - Skin Skin Exam: Dry, Intact, Normal Color, Warm Discharge Plan - Discharge Medications Prescriptions: PARoxetine [Paxil] 10 mg PO DAILY #30 tab - Follow Up Plan Condition: STABLE Disposition: HOME/ ROUTINE Instructions: Constipation (GEN), Leukocytosis (DC), Leukocytosis (GEN), Nutrition Tips for Relief of Diarrhea (DC), Nutrition Tips for Relief of Diarrhea (GEN) Additional Instructions: F/U APPOINTMENT Thursday05/12/17 @ 1PM, PRESCRIPTION TO BE PICKED UP AT THE OFFICE > Pls follow instructions from medication list reviewed and which you are to take until we talk in the office.
--- NOTE | 2017-05-11 13:05 | CARD ---
APPROVED REPORT EKG Measurement Heart [id number] <Conclusion> Normal sinus rhythm Possible Left atrial enlargement Borderline ECG
[2017-05-12 05:44] LABS: HB E AG Nonreactive (Nonreactive)
[2017-05-13 00:21] LABS: HAV AB (IGM) Nonreactive (Nonreactive)
[2017-05-13 18:33] LABS: HEPATITIS E AB (IGG) NOT DETECTED
== END 2017-05-10 11:30 | disposition home or self-care (01) | DRG 18 ==
LOC: C.ER 09:58 → C.9E 14:04 → C.3T 14:45
PROVIDERS: ADMIT Family Medicine; ATTEND Family Medicine
DX: E10.43 Type 1 diabetes mellitus with diabetic autonomic (poly)neuropathy (principal); E10.65 Type 1 diabetes mellitus with hyperglycemia; I10 Essential (primary) hypertension; N39.0 Urinary tract infection, site not specified; K31.84 Gastroparesis; F33.0 Major depressive disorder, recurrent, mild; I25.10 Atherosclerotic heart disease of native coronary artery without angina pectoris; E78.00 Pure hypercholesterolemia, unspecified; E03.9 Hypothyroidism, unspecified; F43.10 Post-traumatic stress disorder, unspecified; M06.9 Rheumatoid arthritis, unspecified; L29.2 Pruritus vulvae; F41.1 Generalized anxiety disorder; T38.0X5A Adverse effect of glucocorticoids and synthetic analogues, initial encounter; D72.829 Elevated white blood cell count, unspecified

== ENCOUNTER 2017-06-17 12:38 | Emergency (ER) | payer MEDICAID ==
[2017-06-17 12:38] VITALS: BMI 25.8
[2017-06-17 12:47] VITALS: TEMP 98.1
[2017-06-17 13:29] LABS: RBC URINE 6 /hpf (0-3); URINE BILIRUBIN NEGATIVE (NEGATIVE); URINE BLOOD 1+ (NEGATIVE); URINE COLOR Yellow (YELLOW); URINE GLUCOSE (UA) 3+ mg/dL (Normal); URINE KETONE TRACE mg/dL (NEGATIVE); URINE LEUKOCYTE ESTERASE TRACE Leu/uL (Negative); URINE PROTEIN NEGATIVE (NEGATIVE); URINE UROBILINOGEN NORMAL mg/dL (0.2-1.0); WBC URINE 1 /hpf (0-5)
[2017-06-17 14:10] VITALS: BP 109/78; PULSE 97; RESP 20
--- NOTE | 2017-06-17 14:12 | C.PDOC ---
History Of Present Illness 51 year old female, with a history of Diabetes, HTN, Asthma, high cholesterol, and Bipolar Disorder, presents to the ED with complaints of itchy, discharge, and painful rash to the pelvic area for three weeks. Patient reports she was seen by her doctor and given medicine to be completed in one week. She denies fever, abdominal pain, back pain, dysuria, or hematuria. Time Seen by Provider: 06/17/17 12:50 Chief Complaint (Nursing): Abnormal Skin Integrity History Per: Patient History/Exam Limitations: no limitations Onset/Duration Of Symptoms: Persistent (3 weeks ) Current Symptoms Are (Timing): Still Present Quality Of Symptoms: Painful, Itching, Draining Recent travel outside of the [place]: No Past Medical History Reviewed: Historical Data, Nursing Documentation, Vital Signs Vital Signs: Last Vital Signs Temp 98.1 F 06/17/17 12:42 Pulse 97 H 06/17/17 14:09 Resp 20 06/17/17 14:09 BP 109/78 06/17/17 14:09 Pulse Ox 97 06/17/17 15:24 - Medical History PMH: Anxiety, Arthritis, Asthma, Back Problems (herniated disc x 5), Bipolar Disorder, CAD, Depression, Diabetes, Diverticulitis, Gastritis, Gall Bladder Disease, HTN, Hypercholesterolemia, Hypothyroidism, Migraine, Peripheral Edema, Pneumonia, Post Traumatic Stress Disorder, Seizures (last 25 yrs ago) Surgical History: Cholecystectomy Denies: Coronary Stent (DENIES), Pacemaker - [facility] Procedures ANESTH INJECT-SPIN CANAL (02/17/13) CLOSURE SKIN & SUBCUTANEOUS NEC (01/29/13) DERMAL REGENERATIVE GRAFT (09/05/13) DIVISION OF R FOOT SUBCU/FASCIA, OPEN APPROACH (01/19/17) EXCISION OF ASCENDING COLON, ENDO, DIAGN (10/01/15) EXCISION OF DESCENDING COLON, ENDO, DIAGN (10/01/15) EXCISION OF RECTUM, ENDO, DIAGN (10/01/15) EXCISION OF RIGHT TARSAL, OPEN APPROACH (01/19/17) EXCISION OF SIGMOID COLON, ENDO, DIAGN (10/01/15) EXCISION OF TRANSVERSE COLON, ENDO, DIAGN (10/01/15) INJECT STEROID (03/31/13) INJECTION INTO JOINT (03/31/13) INSERTION OF INFUSION DEVICE INTO R ATRIUM, PERC APPROACH (10/01/15) LOC EXC BONE LESION NEC (08/11/13) LUMBOSAC SPINE X-RAY NEC (03/31/13) NONEXCIS DEBRID OF WOUND, INFECT, OR BURN (09/05/13) OTHER EXCISION, FUSION, AND REPAIR OF TOES (03/16/15) OTHER LOCAL DESTRUC SKIN (07/07/13) REMOVAL OF INT FIX FROM L TOE PHALANX JT, OPEN APPROACH (01/19/17) SPINAL CANAL INJECT NEC (03/31/13) TETANUS TOXOID ADMINIST (01/29/13) ULTRASONOGRAPHY OF RIGHT HEART (10/01/15) Family History: States: Diabetes - Social History Hx Tobacco Use: Yes Hx Alcohol Use: No Hx Substance Use: No - Immunization History Hx Tetanus Toxoid Vaccination: No Hx Influenza Vaccination: No Hx Pneumococcal Vaccination: No Review Of Systems Except As Marked, All Systems Reviewed And Found Negative. Constitutional: Negative for: Fever, Chills Respiratory: Negative for: Cough, Shortness of Breath Gastrointestinal: Negative for: Nausea, Vomiting, Abdominal Pain, Diarrhea Genitourinary: Negative for: Dysuria, Hematuria, Vaginal Bleeding Skin: Positive for: Rash Physical Exam - Physical Exam Appears: Non-toxic, No Acute Distress Skin: Warm, Dry Head: Atraumatic, Normacephalic Eye(s): bilateral: Normal Inspection Oral Mucosa: Moist Cardiovascular: Rhythm Regular, No Murmur Respiratory: No Rales, No Rhonchi, No Wheezing, Other (Clear to auscultation bilaterally ) Gastrointestinal/Abdominal: Soft, No Tenderness, No Distention, No Guarding, No Rebound Pelvic: No Vaginal Bleeding, Vaginal Discharge (whitish discharge on internal exam ), No Cervical Motion Tenderness, No Adnexal Tenderness, Other (Scaling erythematus rash in perineum and labial folds. ) Neurological/Psych: Oriented x3, Normal Motor Gait: Steady ED Course And Treatment O2 Sat by Pulse Oximetry: 97 (RA) Pulse Ox Interpretation: Normal Disposition - Disposition Referrals: Valentine Hamilton MD [Staff Provider] - Disposition: HOME/ ROUTINE Disposition Time: 14:08 Condition: GOOD Additional Instructions: Follow up with the medical doctor within 1-2 days. Return if worsened. 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 - Scribe Statement The provider has reviewed the documentation as recorded by the Scribe Lianna Hayward All medical record entries made by the Scribe were at my direction and personally dictated by me. I have reviewed the chart and agree that the record accurately reflects my personal performance of the history, physical exam, medical decision making, and the department course for this patient. I have also personally directed, reviewed, and agree with the discharge instructions and disposition.
[2017-06-17 14:13] VITALS: O2SAT 97
== END 2017-06-17 14:21 | disposition home or self-care (01) ==
LOC: C.ER 12:38
DX: B37.3 Candidiasis of vulva and vagina (principal); L30.4 Erythema intertrigo

== ENCOUNTER 2017-07-14 20:09 | Emergency (ER) | payer MEDICAID ==
[2017-07-14 20:09] VITALS: BMI 25.8
[2017-07-14 20:19] VITALS: TEMP 98.5; O2SAT 97
[2017-07-14 20:36] LABS: BASO # 0.2 K/uL (0.0-0.2); BASO % 0.9 % (0.0-2.0); EOS # 0.2 K/uL (0.0-0.7); EOS % 0.9 % (0.0-4.0); HEMATOCRIT 41.1 % (34.0-47.0); LYMPH # 2.4 K/uL (1.0-4.3); LYMPH % 12.1 % (20.0-40.0); MEAN CORPUSCULAR HEMOGLOBIN 29.1 pg (27.0-31.0); MEAN CORPUSCULAR HGB CONC 33.4 g/dL (33.0-37.0); MEAN PLATELET VOLUME 8.7 fL (7.2-11.7); MONO # 1.3 K/uL (0.0-0.8); MONO % 6.8 % (0.0-10.0); RED CELL DISTRIBUTION WIDTH 13.8 % (11.5-14.5); WHITE BLOOD COUNT 19.6 K/uL (4.8-10.8)
--- NOTE | 2017-07-14 20:38 | C.PDOC ---
Time Seen by Provider: 07/14/17 20:24 Chief Complaint (Nursing): Chest Pain Past Medical History Vital Signs: Last Vital Signs Temp 98.5 F 07/14/17 20:15 Pulse 136 H 07/14/17 20:15 Resp 24 07/14/17 20:15 BP 148/84 07/14/17 20:15 Pulse Ox 97 07/14/17 20:38 - Medical History PMH: Anxiety, Arthritis, Asthma, Back Problems (herniated disc x 5), Bipolar Disorder, CAD, Depression, Diabetes, Diverticulitis, Gastritis, Gall Bladder Disease, HTN, Hypercholesterolemia, Hypothyroidism, Migraine, Peripheral Edema, Pneumonia, Post Traumatic Stress Disorder, Seizures (last 25 yrs ago) Denies: Anemia, Atrial Fibrillation, Bronchitis, Cardia Arrhythmia, COPD, Crohn's Disease, Emphysema, HIV, Hyperthyroidism, Kidney Stones, Mitral Valve Prolapse, Pancreatitis, Chronic Kidney Disease, Rheumatoid Arthritis, Sexually Transmitted Disease, Sleep Apnea Surgical History: Cholecystectomy Denies: Coronary Stent (DENIES), Pacemaker - [facility] Procedures ANESTH INJECT-SPIN CANAL (02/17/13) CLOSURE SKIN & SUBCUTANEOUS NEC (01/29/13) DERMAL REGENERATIVE GRAFT (09/05/13) DIVISION OF R FOOT SUBCU/FASCIA, OPEN APPROACH (01/19/17) EXCISION OF ASCENDING COLON, ENDO, DIAGN (10/01/15) EXCISION OF DESCENDING COLON, ENDO, DIAGN (10/01/15) EXCISION OF RECTUM, ENDO, DIAGN (10/01/15) EXCISION OF RIGHT TARSAL, OPEN APPROACH (01/19/17) EXCISION OF SIGMOID COLON, ENDO, DIAGN (10/01/15) EXCISION OF TRANSVERSE COLON, ENDO, DIAGN (10/01/15) INJECT STEROID (03/31/13) INJECTION INTO JOINT (03/31/13) INSERTION OF INFUSION DEVICE INTO R ATRIUM, PERC APPROACH (10/01/15) LOC EXC BONE LESION NEC (08/11/13) LUMBOSAC SPINE X-RAY NEC (03/31/13) NONEXCIS DEBRID OF WOUND, INFECT, OR BURN (09/05/13) OTHER EXCISION, FUSION, AND REPAIR OF TOES (03/16/15) OTHER LOCAL DESTRUC SKIN (07/07/13) REMOVAL OF INT FIX FROM L TOE PHALANX JT, OPEN APPROACH (01/19/17) SPINAL CANAL INJECT NEC (03/31/13) TETANUS TOXOID ADMINIST (01/29/13) ULTRASONOGRAPHY OF RIGHT HEART (10/01/15) Family History: States: Diabetes - Social History Hx Tobacco Use: Yes Hx Alcohol Use: No Hx Substance Use: No - Immunization History Hx Tetanus Toxoid Vaccination: No Hx Influenza Vaccination: Yes Hx Pneumococcal Vaccination: No ED Course And Treatment - Laboratory Results Result Diagrams: 07/14/17 20:33 O2 Sat by Pulse Oximetry: 97 Disposition - Disposition Referrals: Joni Moore MD [Staff Provider] - Disposition: AGAINST MEDICAL ADVICE Disposition Time: 20:39 Condition: GUARDED Additional Instructions: Return to the ED at any time should you change your mind Forms: [employer] (Bhutanese)
--- NOTE | 2017-07-14 20:40 | C.PDOC ---
History Of Present Illness 51 year old female, whose PMHx includes Anxiety, Bipolar Disorder, and HTN, presents to the ED for evaluation of chest pain and shortness of breath which began after she witnessed the murder of her brother around 20 minutes prior to arrival. Patient denies nausea, vomiting, or extremity numbness/weakness at this time. Time Seen by Provider: 07/14/17 20:24 Chief Complaint (Nursing): Chest Pain History Per: Patient History/Exam Limitations: no limitations Onset/Duration Of Symptoms: Mins Current Symptoms Are (Timing): Still Present Quality: "Pain" Associated Symptoms: denies: Nausea Additional History Per: Patient Past Medical History Reviewed: Historical Data, Nursing Documentation, Vital Signs Vital Signs: Last Vital Signs Temp 98.5 F 07/14/17 20:15 Pulse 155 H 07/14/17 20:40 Resp 26 H 07/14/17 20:40 BP 127/88 07/14/17 20:40 Pulse Ox 97 07/14/17 22:57 - Medical History PMH: Anxiety, Arthritis, Asthma, Back Problems (herniated disc x 5), Bipolar Disorder, CAD, Depression, Diabetes, Diverticulitis, Gastritis, Gall Bladder Disease, HTN, Hypercholesterolemia, Hypothyroidism, Migraine, Peripheral Edema, Pneumonia, Post Traumatic Stress Disorder, Seizures (last 25 yrs ago) Denies: Anemia, Atrial Fibrillation, Bronchitis, Cardia Arrhythmia, COPD, Crohn's Disease, Emphysema, HIV, Hyperthyroidism, Kidney Stones, Mitral Valve Prolapse, Pancreatitis, Chronic Kidney Disease, Rheumatoid Arthritis, Sexually Transmitted Disease, Sleep Apnea Surgical History: Cholecystectomy Denies: Coronary Stent (DENIES), Pacemaker - [facility] Procedures ANESTH INJECT-SPIN CANAL (02/17/13) CLOSURE SKIN & SUBCUTANEOUS NEC (01/29/13) DERMAL REGENERATIVE GRAFT (09/05/13) DIVISION OF R FOOT SUBCU/FASCIA, OPEN APPROACH (01/19/17) EXCISION OF ASCENDING COLON, ENDO, DIAGN (10/01/15) EXCISION OF DESCENDING COLON, ENDO, DIAGN (10/01/15) EXCISION OF RECTUM, ENDO, DIAGN (10/01/15) EXCISION OF RIGHT TARSAL, OPEN APPROACH (01/19/17) EXCISION OF SIGMOID COLON, ENDO, DIAGN (10/01/15) EXCISION OF TRANSVERSE COLON, ENDO, DIAGN (10/01/15) INJECT STEROID (03/31/13) INJECTION INTO JOINT (03/31/13) INSERTION OF INFUSION DEVICE INTO R ATRIUM, PERC APPROACH (10/01/15) LOC EXC BONE LESION NEC (08/11/13) LUMBOSAC SPINE X-RAY NEC (03/31/13) NONEXCIS DEBRID OF WOUND, INFECT, OR BURN (09/05/13) OTHER EXCISION, FUSION, AND REPAIR OF TOES (03/16/15) OTHER LOCAL DESTRUC SKIN (07/07/13) REMOVAL OF INT FIX FROM L TOE PHALANX JT, OPEN APPROACH (01/19/17) SPINAL CANAL INJECT NEC (03/31/13) TETANUS TOXOID ADMINIST (01/29/13) ULTRASONOGRAPHY OF RIGHT HEART (10/01/15) Family History: States: Diabetes - Social History Hx Tobacco Use: Yes Hx Alcohol Use: No Hx Substance Use: No - Immunization History Hx Tetanus Toxoid Vaccination: No Hx Influenza Vaccination: Yes Hx Pneumococcal Vaccination: No Review Of Systems Cardiovascular: Positive for: Chest Pain Respiratory: Positive for: Shortness of Breath Gastrointestinal: Negative for: Nausea, Vomiting Neurological: Negative for: Weakness, Numbness Physical Exam - Physical Exam Appears: Non-toxic, No Acute Distress, Other (anxious, tearful ) Skin: Normal Color, Warm, Dry Head: Atraumatic, Normacephalic Eye(s): bilateral: Normal Inspection Oral Mucosa: Moist Neck: Supple Chest: Symmetrical, No Deformity, No Tenderness Cardiovascular: Rhythm Regular, No Murmur, Other (resting tachycardia ) Respiratory: Normal Breath Sounds, No Rales, No Rhonchi, No Wheezing Gastrointestinal/Abdominal: Soft, No Tenderness, No Guarding, No Rebound Extremity: Normal ROM, Capillary Refill (less than 2 seconds ) Neurological/Psych: Oriented x3, Normal Speech, Normal Cognition Gait: Steady ED Course And Treatment - Laboratory Results Result Diagrams: 07/14/17 20:33 07/14/17 20:33 ECG: Interpreted By Me, Viewed By Me ECG Rhythm: Sinus Tachycardia Interpretation Of ECG: Sinus Tachycardia at 136bpm. No acute ST/T wave changes. Some ectopic rhythms noted. Normal axis. Rate From EC O2 Sat by Pulse Oximetry: 97 (on RA) Pulse Ox Interpretation: Normal Medical Decision Making Medical Decision Making: Progress: Bloodwork, EKG, CXR ordered and reviewed. Xanax PO administered. 20:45 The patient declines to have further medical evaluation and treatment and wishes to leave the Emergency Department at this time This action is against my medical advice to the patient, and with informed refusal. The patient was told that evaluation and treatment are necessary and a full explanation of the rationale was given. The risks of leaving were explained to the patient and include, but are not limited to, worsening of known or currently unknown conditions, permanent disability, possible heart attack, and/or from undiagnosed or untreated conditions. The patient has the capacity to make this informed decision and understands the clinical situation and my explanation of the risks of leaving. The patient voluntarily accepts these risks, and a signed AMA form documenting our conversation was obtained. The patient was given the opportunity to ask questions and reconsider. The patient was encouraged to return to the Emergency Department at any time for further care. Disposition - Disposition Referrals: Joni Moore MD [Staff Provider] - Disposition: AGAINST MEDICAL ADVICE Disposition Time: 20:39 Condition: GUARDED Additional Instructions: Return to the ED at any time should you change your mind Forms: [employer] (Mongolian) - Clinical Impression Clinical Impression: Chest pain - Scribe Statement The provider has reviewed the documentation as recorded by the Scribe (Millicent Berrios) Provider Attestation: All medical record entries made by the Scribe were at my direction and personally dictated by me. I have reviewed the chart and agree that the record accurately reflects my personal performance of the history, physical exam, medical decision making, and the department course for this patient. I have also personally directed, reviewed, and agree with the discharge instructions and disposition.
[2017-07-14 20:57] LABS: ALB/GLOB RATIO 1.6 (1.0-2.1); ALKALINE PHOSPHATASE 102 U/L (38-126); ALT/SGPT 37 U/L (9-52); AST/SGOT 27 U/L (14-36); BILIRUBIN,TOTAL 0.7 mg/dL (0.2-1.3); BLOOD UREA NITROGEN 10 mg/dL (7-17); CARBON DIOXIDE 21 mmol/L (22-30); CHLORIDE 100 mmol/L (98-107); GFR AFRICAN-AMERICAN > 60; GLUCOSE,RANDOM 312 mg/dL (65-105); POTASSIUM 3.8 mmol/L (3.6-5.2); SODIUM 133 mmol/L (132-148)
[2017-07-14 20:58] VITALS: PULSE 155
[2017-07-14 21:04] VITALS: BP 127/88; RESP 26
--- NOTE | 2017-07-16 08:31 | CARD ---
APPROVED REPORT EKG Measurement Heart [id number] <Conclusion> Sinus tachycardia Possible Left atrial enlargement Borderline ECG
== END 2017-07-14 20:40 | disposition left against medical advice (07) ==
LOC: SUPCPDRO 20:09 → C.ER 20:09
DX: R07.9 Chest pain, unspecified (principal)

== ENCOUNTER 2017-08-28 11:28 | Emergency (ER) | payer MEDICAID ==
[2017-08-28 11:28] VITALS: BMI 25.8
[2017-08-28 11:39] VITALS: BP 125/89; PULSE 116; RESP 18; TEMP 98.6; O2SAT 96
--- NOTE | 2017-08-28 12:09 | C.PDOC ---
History Of Present Illness WORSENING RASH X 1 MO. NO RELIEF W TERBINIFINE 1% CR X 1 MO. PS INITIAL ONSET L THIGH, NOW PATCHY SPOTS GENERALIZED. +ITCH. MIN RELIEF W ATARAX. NO OTHER ASSOC SX EXAM NONTOXIC SKIN MULTIPLE PATCHY LESIONS SCATTERED L THIGH, ABD WALL, POST R THIGH, L ARM. WELL CIRCUMSCRIBED, W SCALY TOP. NO DC Time Seen by Provider: 08/28/17 11:56 Chief Complaint (Nursing): Abnormal Skin Integrity History Per: Patient History/Exam Limitations: no limitations Onset/Duration Of Symptoms: Days Current Symptoms Are (Timing): Still Present Severity: Moderate Past Medical History Reviewed: Historical Data, Nursing Documentation, Vital Signs Vital Signs: Last Vital Signs Temp 98.6 F 08/28/17 11:36 Pulse 116 H 08/28/17 11:36 Resp 18 08/28/17 11:36 BP 125/89 08/28/17 11:36 Pulse Ox 96 08/28/17 21:22 - Medical History PMH: Anxiety, Arthritis, Asthma, Back Problems (herniated disc x 5), Bipolar Disorder, CAD, Depression, Diabetes, Diverticulitis, Gastritis, Gall Bladder Disease, HTN, Hypercholesterolemia, Hypothyroidism, Migraine, Peripheral Edema, Pneumonia, Post Traumatic Stress Disorder, Seizures (last 25 yrs ago) Denies: Anemia, Atrial Fibrillation, Bronchitis, Cardia Arrhythmia, COPD, Crohn's Disease, Emphysema, HIV, Hyperthyroidism, Kidney Stones, Mitral Valve Prolapse, Pancreatitis, Chronic Kidney Disease, Rheumatoid Arthritis, Sexually Transmitted Disease, Sleep Apnea Surgical History: Cholecystectomy Denies: Coronary Stent (DENIES), Pacemaker - [facility] Procedures ANESTH INJECT-SPIN CANAL (02/17/13) CLOSURE SKIN & SUBCUTANEOUS NEC (01/29/13) DERMAL REGENERATIVE GRAFT (09/05/13) DIVISION OF R FOOT SUBCU/FASCIA, OPEN APPROACH (01/19/17) EXCISION OF ASCENDING COLON, ENDO, DIAGN (10/01/15) EXCISION OF DESCENDING COLON, ENDO, DIAGN (10/01/15) EXCISION OF RECTUM, ENDO, DIAGN (10/01/15) EXCISION OF RIGHT TARSAL, OPEN APPROACH (01/19/17) EXCISION OF SIGMOID COLON, ENDO, DIAGN (10/01/15) EXCISION OF TRANSVERSE COLON, ENDO, DIAGN (10/01/15) INJECT STEROID (03/31/13) INJECTION INTO JOINT (03/31/13) INSERTION OF INFUSION DEVICE INTO R ATRIUM, PERC APPROACH (10/01/15) LOC EXC BONE LESION NEC (08/11/13) LUMBOSAC SPINE X-RAY NEC (03/31/13) NONEXCIS DEBRID OF WOUND, INFECT, OR BURN (09/05/13) OTHER EXCISION, FUSION, AND REPAIR OF TOES (03/16/15) OTHER LOCAL DESTRUC SKIN (07/07/13) REMOVAL OF INT FIX FROM L TOE PHALANX JT, OPEN APPROACH (01/19/17) SPINAL CANAL INJECT NEC (03/31/13) TETANUS TOXOID ADMINIST (01/29/13) ULTRASONOGRAPHY OF RIGHT HEART (10/01/15) Family History: States: Diabetes - Social History Hx Tobacco Use: Yes Hx Alcohol Use: No Hx Substance Use: No - Immunization History Hx Tetanus Toxoid Vaccination: Yes Hx Influenza Vaccination: Yes Hx Pneumococcal Vaccination: Yes Review Of Systems Except As Marked, All Systems Reviewed And Found Negative. Skin: Positive for: Other (Itching) Physical Exam - Physical Exam Appears: Non-toxic, No Acute Distress Skin: Other (multiple patchy lesions scattered in left thigh, abdominal wall, posterior right thigh, left arm. well circumscribed with scaly top. no discharge ) ED Course And Treatment O2 Sat by Pulse Oximetry: 96 Disposition Counseled Patient/Family Regarding: Diagnosis, Need For Followup, Rx Given - Disposition Referrals: [facility] [Outside] [facility] [Outside] Disposition: HOME/ ROUTINE Disposition Time: 12:14 Condition: GOOD Prescriptions: Clotrimazole 1% Cream [Lotrimin 1%] 30 applic TOP BID #1 tube Instructions: Tinea Corporis (ED) Forms: [facility] ([place] Island[place]) - Clinical Impression Clinical Impression: Tinea corporis - Scribe Statement The provider has reviewed the documentation as recorded by the Johnibbill Monaco Provider Attestation: All medical record entries made by the Scribe were at my direction and personally dictated by me. I have reviewed the chart and agree that the record accurately reflects my personal performance of the history, physical exam, medical decision making, and the department course for this patient. I have also personally directed, reviewed, and agree with the discharge instructions and disposition.
== END 2017-08-28 12:33 | disposition home or self-care (01) ==
LOC: C.ER 11:28
DX: B35.4 Tinea corporis (principal)

== ENCOUNTER 2017-11-15 20:50 | Emergency (ER) | payer MEDICAID ==
[2017-11-15 20:50] VITALS: BMI 25.8
[2017-11-15 20:55] VITALS: O2SAT 99
[2017-11-15] MEDS ORDERED: Sodium Chloride 0.9% 1,000 ML IV ONE (21:16)
[2017-11-15] MEDS ORDERED: Iohexol 240 (50 ml) PO STA (21:17)
[2017-11-15] MEDS ORDERED: Sodium Chloride 0.9% 1,000 ML ONE (21:25)
[2017-11-15 21:27] LABS: BASO # 0.2 K/uL (0.0-0.2); BASO % 1.2 % (0.0-2.0); EOS # 0.4 K/uL (0.0-0.7); EOS % 2.7 % (0.0-4.0); HEMOGLOBIN 13.3 g/dL (11.0-16.0); LYMPH # 4.5 K/uL (1.0-4.3); LYMPH % 29.9 % (20.0-40.0); MEAN CORPUSCULAR HEMOGLOBIN 28.6 pg (27.0-31.0); MEAN CORPUSCULAR HGB CONC 33.7 g/dL (33.0-37.0); MEAN PLATELET VOLUME 8.7 fL (7.2-11.7); MONO % 6.8 % (0.0-10.0); NEUT % 59.4 % (50.0-75.0); RBC 4.66 Mil/uL (3.80-5.20); RED CELL DISTRIBUTION WIDTH 13.1 % (11.5-14.5); WHITE BLOOD COUNT 15.1 K/uL (4.8-10.8)
[2017-11-15 21:31] LABS: MEAN CELL VOLUME 84.9 fL (81.0-99.0)
[2017-11-15 21:38] LABS: INR 0.9; PROTHROMBIN TIME 10.4 SECONDS (9.7-12.2)
[2017-11-15 21:43] LABS: ALB/GLOB RATIO 1.4 (1.0-2.1); ALBUMIN 4.2 g/dL (3.5-5.0); ALT/SGPT 36 U/L (9-52); AST/SGOT 21 U/L (14-36); BLOOD UREA NITROGEN 17 mg/dL (7-17); CALCIUM 9.5 mg/dl (8.6-10.4); GFR AFRICAN-AMERICAN > 60; GFR NON-AFRICAN AMERICAN > 60; LIPASE 123 U/L (23-300)
[2017-11-15 21:43] LABS: SQUAMOUS EPITHIAL 8 /hpf (0-5); URINE BACTERIA RARE (<OCC); URINE BILIRUBIN NEGATIVE (NEGATIVE); URINE BLOOD NEGATIVE (NEGATIVE); URINE CLARITY Hazy (Clear); URINE GLUCOSE (UA) 1+ mg/dL (Normal); URINE LEUKOCYTE ESTERASE NEG Leu/uL (Negative); URINE PROTEIN NEGATIVE (NEGATIVE); URINE UROBILINOGEN NORMAL mg/dL (0.2-1.0)
[2017-11-15 21:44] LABS: URINE COLOR YELLOW (YELLOW)
[2017-11-15] MEDS ORDERED: Iohexol 240 (50 ml) ONE (21:48)
[2017-11-15 21:54] LABS: BARBITURATES, UR NEGATIVE (NEGATIVE); BENZODIAZEPINES, UR NEGATIVE (NEGATIVE); OPIATES, UR NEGATIVE (NEGATIVE); PHENCYCLIDINE, UR NEGATIVE (NEGATIVE)
[2017-11-15] MEDS ORDERED: Morphine 4 MG/ML VIAL ONE (21:54)
[2017-11-15] MEDS ORDERED: Iodixanol 320 MG/ML 100 ML BOTTLE IV ONE (22:54)
--- NOTE | 2017-11-15 23:45 | CT ---
EXAM: CT Abdomen and Pelvis With Intravenous Contrast CLINICAL HISTORY: 52 years old, female; Pain; Abdominal pain; Localized; Right; Additional info: Right sided abdominal pain. Vomiting. TECHNIQUE: Axial computed tomography images of the abdomen and pelvis with intravenous contrast. All CT scans at this facility use one or more dose reduction techniques, viz.: automated exposure control; ma/kV adjustment per patient size (including targeted exams where dose is matched to indication; i.e. head); or iterative reconstruction technique. Coronal and sagittal reformatted images were created and reviewed. CONTRAST: 100 mL of [id number] administered intravenously. COMPARISON: CT - ABD PELVIS PO IV CONTRAST 2015-11-15 16:56 FINDINGS: Lower thorax: There is minimal bibasilar atelectasis. ABDOMEN: Liver: There is a diffuse decrease in hepatic parenchymal density, consistent with fatty infiltration. Gallbladder and bile ducts: There has been a cholecystectomy. No ductal dilation. Pancreas: Unremarkable. No mass. No ductal dilation. Spleen: Unremarkable. No splenomegaly. Adrenals: Unremarkable. No mass. Kidneys and ureters: Unremarkable. No solid mass. No hydronephrosis. Stomach and bowel: Moderate diverticulosis is present in the sigmoid colon. There is no evidence of diverticulitis. No obstruction. No mucosal thickening. Appendix: A normal appendix is identified. PELVIS: Bladder: Unremarkable. No mass. Reproductive: 1.4 cm right ovarian follicle. ABDOMEN and PELVIS: Intraperitoneal space: Unremarkable. No free air. No significant fluid collection. Bones/joints: No acute fracture. No dislocation. Soft tissues: Unremarkable. Vasculature: There are numerous benign phleboliths in the pelvis. No abdominal aortic aneurysm.The vasculature demonstrates minimal atherosclerotic calcification. Lymph nodes: Unremarkable. No enlarged lymph nodes. IMPRESSION: No acute findings. Diverticulosis without acute diverticulitis. Cholecystectomy. Fatty liver.
--- NOTE | 2017-11-16 00:13 | C.PDOC ---
Time Seen by Provider: 11/15/17 21:06 Chief Complaint (Nursing): Abdominal Pain History Per: Patient, Family Onset/Duration Of Symptoms: Days (2) Current Symptoms Are (Timing): Still Present Severity: Moderate Location Of Pain/Discomfort: RUQ, Epigastric Associated Symptoms: Nausea, Vomiting, Constipation (?) Alleviating Factors: None Additional History Per: Prior Records Past Medical History Reviewed: Historical Data, Nursing Documentation, Vital Signs Vital Signs: Last Vital Signs Temp 97.2 F L 11/15/17 20:51 Pulse 116 H 11/15/17 22:00 Resp 18 11/15/17 22:00 BP 110/72 11/15/17 22:00 Pulse Ox 99 11/15/17 22:00 - Medical History PMH: Anxiety, Arthritis, Asthma, Back Problems (herniated disc x 5), Bipolar Disorder, CAD, Crohn's Disease, Depression, Diabetes, Diverticulitis, Gastritis , Gall Bladder Disease, HTN, Hypercholesterolemia, Hypothyroidism, Migraine, Peripheral Edema, Pneumonia, Post Traumatic Stress Disorder, Seizures (last 25 yrs ago) Surgical History: Cholecystectomy Comment Only: Coronary Stent (DENIES) - [facility] Procedures ANESTH INJECT-SPIN CANAL (02/17/13) CLOSURE SKIN & SUBCUTANEOUS NEC (01/29/13) DERMAL REGENERATIVE GRAFT (09/05/13) DIVISION OF R FOOT SUBCU/FASCIA, OPEN APPROACH (01/19/17) EXCISION OF ASCENDING COLON, ENDO, DIAGN (10/01/15) EXCISION OF DESCENDING COLON, ENDO, DIAGN (10/01/15) EXCISION OF RECTUM, ENDO, DIAGN (10/01/15) EXCISION OF RIGHT TARSAL, OPEN APPROACH (01/19/17) EXCISION OF SIGMOID COLON, ENDO, DIAGN (10/01/15) EXCISION OF TRANSVERSE COLON, ENDO, DIAGN (10/01/15) INJECT STEROID (03/31/13) INJECTION INTO JOINT (03/31/13) INSERTION OF INFUSION DEVICE INTO R ATRIUM, PERC APPROACH (10/01/15) LOC EXC BONE LESION NEC (08/11/13) LUMBOSAC SPINE X-RAY NEC (03/31/13) NONEXCIS DEBRID OF WOUND, INFECT, OR BURN (09/05/13) OTHER EXCISION, FUSION, AND REPAIR OF TOES (03/16/15) OTHER LOCAL DESTRUC SKIN (07/07/13) REMOVAL OF INT FIX FROM L TOE PHALANX JT, OPEN APPROACH (01/19/17) SPINAL CANAL INJECT NEC (03/31/13) TETANUS TOXOID ADMINIST (01/29/13) ULTRASONOGRAPHY OF RIGHT HEART (10/01/15) Family History: States: Diabetes - Social History Hx Tobacco Use: Yes Hx Alcohol Use: No Hx Substance Use: No - Immunization History Hx Tetanus Toxoid Vaccination: Yes Hx Influenza Vaccination: Yes Hx Pneumococcal Vaccination: Yes Review Of Systems Except As Marked, All Systems Reviewed And Found Negative. Constitutional: Negative for: Fever Cardiovascular: Negative for: Chest Pain Respiratory: Negative for: Shortness of Breath, Hemoptysis Gastrointestinal: Positive for: Nausea, Vomiting, Abdominal Pain. Negative for : Diarrhea Genitourinary: Negative for: Dysuria Musculoskeletal: Negative for: Neck Pain Skin: Negative for: Rash Neurological: Negative for: Weakness, Numbness Physical Exam - Physical Exam Appears: Non-toxic, No Acute Distress Skin: Normal Color, Warm, Dry, No Rash Head: Atraumatic, Normacephalic Eye(s): bilateral: PERRL, EOMI Neck: Normal ROM, Supple Cardiovascular: Rhythm Regular Respiratory: Normal Breath Sounds, No Accessory Muscle Use Gastrointestinal/Abdominal: Soft, Tenderness (upper abdomen), No Guarding, No Rebound Extremity: Normal ROM Neurological/Psych: Oriented x3, Normal Motor, Normal Sensation ED Course And Treatment - Laboratory Results Result Diagrams: 11/15/17 21:23 11/15/17 21:23 O2 Sat by Pulse Oximetry: 99 Pulse Ox Interpretation: Normal - CT Scan/US CT abd/pelv Other Rad Studies (CT/US): Read By Radiologist, Radiology Report Reviewed CT/US Interpretation: IMPRESSION: No acute findings. . Diverticulosis without acute diverticulitis. . Cholecystectomy. . Fatty liver. Progress - Interventions Interventions:: Observation, Intravenous fluid - Medications Administered Intravenous: Antiemetic, Opiate, Other (PPI) - Data Reviewed Data Reviewed: Lab, Diagnostic imaging, Old records - Patient Status Patient status: Mostly improved - Continuity of Care Discussed patient case with:: Patient, Family-HIPPA compliant, ED Nurse - Patient Plan Patient Plan: Discharge, F/U with PCP, Continue present meds Disposition Counseled Patient/Family Regarding: Studies Performed, Diagnosis, Need For Followup, Rx Given - Disposition Referrals: Joni Moore MD [Staff Provider] - Disposition: HOME/ ROUTINE Disposition Time: 00:14 Condition: IMPROVED Additional Instructions: Follow up with your doctor this week. Return to the ER if you develop fever, vomiting, worsening of symptoms or if you have any other concerns. Prescriptions: Metoclopramide [Reglan] 1 tab PO TID PRN #15 tab PRN Reason: Nausea/Vomiting Pantoprazole Sodium [Protonix] 40 mg PO DAILY #14 ect Polyethylene Glycol 3350 [Miralax] 17 gm PO DAILY #7 packet Instructions: Nonalcoholic Fatty Liver Disease (DC), Gastritis (DC) - Clinical Impression Clinical Impression: Abdominal pain, Fatty liver
[2017-11-16 00:14] VITALS: BP 118/84; PULSE 102; RESP 20; TEMP 98
== END 2017-11-16 00:28 | disposition home or self-care (01) ==
LOC: C.ER 20:50
DX: K76.0 Fatty (change of) liver, not elsewhere classified (principal); R10.9 Unspecified abdominal pain; I10 Essential (primary) hypertension; E11.9 Type 2 diabetes mellitus without complications; E78.00 Pure hypercholesterolemia, unspecified; Z90.49 Acquired absence of other specified parts of digestive tract; Z87.891 Personal history of nicotine dependence
CPT/HCPCS: 74177; 80053; 80320; 80324; 80345; 80346; 80349; 80353; 80358; 80361; 81001; 83690; 83992; 85025; 85610; 85730; 87086; 96361; 96374; 96375; 99285; C9113; J2270; J2405; J7040; Q9966; Q9967

== ENCOUNTER 2017-11-24 10:28 | Emergency (ER) | payer MEDICAID ==
[2017-11-24 10:28] VITALS: BMI 25.8
[2017-11-24 10:40] VITALS: BP 128/74; PULSE 90; RESP 20; TEMP 98.3; O2SAT 98
[2017-11-24] MEDS ORDERED: Lidocaine 5% Patch TD STA (11:05)
[2017-11-24] MEDS ORDERED: Lidocaine 5% Patch TD ONE (11:21)
--- NOTE | 2017-11-24 11:59 | C.PDOC ---
History Of Present Illness 52 y/o female presents to the ED complaining of worsening low back pain. Patient reports history of chronic back pain and has had MRI and other studies done, with a plan for surgery. Patient has been following up with pain management doctor, and is taking Percocet. Today pain was not relieved with Percocet dose so she came to the ED for further evaluation. Denies any associated fever, chills, incontinence, numbness, paresthesias, or lower extremity weakness. Time Seen by Provider: 11/24/17 10:56 Chief Complaint (Nursing): Back Pain History Per: Patient History/Exam Limitations: no limitations Onset/Duration Of Symptoms: Waxing/Waning Current Symptoms Are (Timing): Still Present Previous Symptoms: Back Pain Associated Symptoms: None Past Medical History Reviewed: Historical Data, Nursing Documentation, Vital Signs Vital Signs: Last Vital Signs Temp 98.3 F 11/24/17 10:35 Pulse 90 11/24/17 10:35 Resp 20 11/24/17 10:35 BP 128/74 11/24/17 10:35 Pulse Ox 98 11/24/17 11:59 - Medical History PMH: Anxiety, Arthritis, Asthma, Back Problems (herniated disc x 5), Bipolar Disorder, CAD, Crohn's Disease, Depression, Diabetes, Diverticulitis, Gastritis , Gall Bladder Disease, HTN, Hypercholesterolemia, Hypothyroidism, Migraine, Peripheral Edema, Pneumonia, Post Traumatic Stress Disorder, Seizures (last 25 yrs ago) Denies: Anemia, Atrial Fibrillation, Cardia Arrhythmia, HIV, Hyperthyroidism , Kidney Stones, Pancreatitis, Chronic Kidney Disease, Rheumatoid Arthritis, Sexually Transmitted Disease Surgical History: Cholecystectomy Comment Only: Coronary Stent (DENIES) - [facility] Procedures ANESTH INJECT-SPIN CANAL (02/17/13) CLOSURE SKIN & SUBCUTANEOUS NEC (01/29/13) DERMAL REGENERATIVE GRAFT (09/05/13) DIVISION OF R FOOT SUBCU/FASCIA, OPEN APPROACH (01/19/17) EXCISION OF ASCENDING COLON, ENDO, DIAGN (10/01/15) EXCISION OF DESCENDING COLON, ENDO, DIAGN (10/01/15) EXCISION OF RECTUM, ENDO, DIAGN (10/01/15) EXCISION OF RIGHT TARSAL, OPEN APPROACH (01/19/17) EXCISION OF SIGMOID COLON, ENDO, DIAGN (10/01/15) EXCISION OF TRANSVERSE COLON, ENDO, DIAGN (10/01/15) INJECT STEROID (03/31/13) INJECTION INTO JOINT (03/31/13) INSERTION OF INFUSION DEVICE INTO R ATRIUM, PERC APPROACH (10/01/15) LOC EXC BONE LESION NEC (08/11/13) LUMBOSAC SPINE X-RAY NEC (03/31/13) NONEXCIS DEBRID OF WOUND, INFECT, OR BURN (09/05/13) OTHER EXCISION, FUSION, AND REPAIR OF TOES (03/16/15) OTHER LOCAL DESTRUC SKIN (07/07/13) REMOVAL OF INT FIX FROM L TOE PHALANX JT, OPEN APPROACH (01/19/17) SPINAL CANAL INJECT NEC (03/31/13) TETANUS TOXOID ADMINIST (01/29/13) ULTRASONOGRAPHY OF RIGHT HEART (10/01/15) Family History: States: Diabetes - Social History Hx Tobacco Use: Yes Hx Alcohol Use: No Hx Substance Use: No - Immunization History Hx Tetanus Toxoid Vaccination: Yes Hx Influenza Vaccination: Yes Hx Pneumococcal Vaccination: Yes Review Of Systems Except As Marked, All Systems Reviewed And Found Negative. Constitutional: Negative for: Fever, Chills Genitourinary: Negative for: Dysuria, Incontinence Musculoskeletal: Positive for: Back Pain Neurological: Negative for: Weakness, Numbness Physical Exam - Physical Exam Appears: Non-toxic, No Acute Distress Skin: Normal Color, Warm, Dry Head: Atraumatic, Normacephalic Eye(s): bilateral: Normal Inspection, PERRL, EOMI Nose: Normal Oral Mucosa: Moist Neck: Normal ROM, Supple Back: Vertebral Tenderness (along lumbar spine), Paraspinal Tenderness (along lumbar spine), No Straight Leg Raising Extremity: Bilateral: Atraumatic, Normal Color And Temperature Neurological/Psych: Oriented x3, Normal Speech, Other (Patient is ambulatory, no neurological deficits) Gait: Steady ED Course And Treatment O2 Sat by Pulse Oximetry: 98 (RA) Pulse Ox Interpretation: Normal Progress Note: Patient offered x-ray and declined, states she has already had MRIs and just wants pain controlled. Given IM Toradol, Lidoderm patch, and Valium PO in the ED. On reevaluation patient is resting comfortably, reports improvement in pain, and wants to go home. Patient remains afebrile and is ambulatory in the ED. Will discharge home with muscle relaxer, lidoderm patches , and toradol. Advised to follow up with specialists as scheduled. Reevaluation Time: 11:56 Reassessment Condition: Improved Disposition Counseled Patient/Family Regarding: Diagnosis, Need For Followup, Rx Given - Disposition Referrals: Joni Moore MD [Staff Provider] - Disposition: HOME/ ROUTINE Disposition Time: 11:56 Condition: STABLE Additional Instructions: Follow up with PMD within 1-2 days. Return to ED if feel worse. 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 - Scribe Statement The provider has reviewed the documentation as recorded by the Scribe (Francia Villalba) All medical record entries made by the Scribe were at my direction and personally dictated by me. I have reviewed the chart and agree that the record accurately reflects my personal performance of the history, physical exam, medical decision making, and the department course for this patient. I have also personally directed, reviewed, and agree with the discharge instructions and disposition.
== END 2017-11-24 12:10 | disposition home or self-care (01) ==
LOC: C.ER 10:28
DX: M54.5 Low back pain (principal)
CPT/HCPCS: 96372; 99284; J1885

== ENCOUNTER 2017-12-16 19:29 | Emergency (ER) | payer MEDICAID ==
[2017-12-16 19:30] VITALS: BMI 25.8
[2017-12-16 19:51] VITALS: BP 123/81; PULSE 120; RESP 20; TEMP 97.9; O2SAT 97
[2017-12-16 21:52] LABS: SQUAMOUS EPITHIAL 9 /hpf (0-5); URINE BACTERIA OCC (<OCC); URINE BILIRUBIN NEGATIVE (NEGATIVE); URINE BLOOD NEGATIVE (NEGATIVE); URINE CLARITY Hazy (Clear); URINE COLOR Yellow (YELLOW); URINE GLUCOSE (UA) 3+ mg/dL (Normal); URINE LEUKOCYTE ESTERASE 2+ Leu/uL (Negative); URINE PROTEIN NEGATIVE (NEGATIVE)
--- NOTE | 2017-12-16 22:18 | C.PDOC ---
History Of Present Illness Patient is a 52 y/o female who presents to the ED with a complaint of painful urination for the last 2 weeks associated with severe irritation, pain, and swelling of vaginal entrance and perineum. Patient admits to pain in labia and opening of vagina upon wiping, also noting seeing blood when wiping. Denies any vaginal discharge, fever, chills, or abdominal pain. No other physical complaints at this time. Time Seen by Provider: 12/16/17 21:07 Chief Complaint (Nursing): Female Genitourinary History Per: Patient History/Exam Limitations: no limitations Onset/Duration Of Symptoms: Days (2 weeks) Current Symptoms Are (Timing): Still Present Associated Symptoms: Urinary Symptoms (dysuria; irritation, pain, and swelling of vaginal entrance and perineum) Recent travel outside of the [place]: No Past Medical History Reviewed: Historical Data, Nursing Documentation, Vital Signs Vital Signs: Last Vital Signs Temp 97.9 F 12/16/17 19:48 Pulse 120 H 12/16/17 19:48 Resp 20 12/16/17 19:48 BP 123/81 12/16/17 19:48 Pulse Ox 97 12/16/17 22:21 - Medical History PMH: Anxiety, Arthritis, Asthma, Back Problems (herniated disc x 5), Bipolar Disorder, CAD, Crohn's Disease, Depression, Diabetes, Diverticulitis, Gastritis , Gall Bladder Disease, HTN, Hypercholesterolemia, Hypothyroidism, Migraine, Peripheral Edema, Pneumonia, Post Traumatic Stress Disorder, Seizures (last 25 yrs ago) Denies: Anemia, Atrial Fibrillation, Cardia Arrhythmia, HIV, Hyperthyroidism , Kidney Stones, Pancreatitis, Chronic Kidney Disease, Rheumatoid Arthritis, Sexually Transmitted Disease Surgical History: Cholecystectomy Comment Only: Coronary Stent (DENIES) - [facility] Procedures ANESTH INJECT-SPIN CANAL (02/17/13) CLOSURE SKIN & SUBCUTANEOUS NEC (01/29/13) DERMAL REGENERATIVE GRAFT (09/05/13) DIVISION OF R FOOT SUBCU/FASCIA, OPEN APPROACH (01/19/17) EXCISION OF ASCENDING COLON, ENDO, DIAGN (10/01/15) EXCISION OF DESCENDING COLON, ENDO, DIAGN (10/01/15) EXCISION OF RECTUM, ENDO, DIAGN (10/01/15) EXCISION OF RIGHT TARSAL, OPEN APPROACH (01/19/17) EXCISION OF SIGMOID COLON, ENDO, DIAGN (10/01/15) EXCISION OF TRANSVERSE COLON, ENDO, DIAGN (10/01/15) INJECT STEROID (03/31/13) INJECTION INTO JOINT (03/31/13) INSERTION OF INFUSION DEVICE INTO R ATRIUM, PERC APPROACH (10/01/15) LOC EXC BONE LESION NEC (08/11/13) LUMBOSAC SPINE X-RAY NEC (03/31/13) NONEXCIS DEBRID OF WOUND, INFECT, OR BURN (09/05/13) OTHER EXCISION, FUSION, AND REPAIR OF TOES (03/16/15) OTHER LOCAL DESTRUC SKIN (07/07/13) REMOVAL OF INT FIX FROM L TOE PHALANX JT, OPEN APPROACH (01/19/17) SPINAL CANAL INJECT NEC (03/31/13) TETANUS TOXOID ADMINIST (01/29/13) ULTRASONOGRAPHY OF RIGHT HEART (10/01/15) Family History: States: Diabetes - Social History Hx Tobacco Use: Yes Hx Alcohol Use: No Hx Substance Use: No - Immunization History Hx Tetanus Toxoid Vaccination: Yes Hx Influenza Vaccination: Yes Hx Pneumococcal Vaccination: Yes Review Of Systems Constitutional: Negative for: Fever, Chills Gastrointestinal: Negative for: Abdominal Pain Genitourinary: Positive for: Dysuria, Vaginal Bleeding (upon wiping), Other ( irritation, pain, and swelling of vaginal entrance and perineum). Negative for : Vaginal Discharge Physical Exam - Physical Exam Appears: Well, Non-toxic, No Acute Distress Skin: Normal Color, Warm, Dry Head: Atraumatic, Normacephalic Oral Mucosa: Moist Chest: Symmetrical Cardiovascular: Rhythm Regular, No Murmur Respiratory: Normal Breath Sounds, No Rales, No Rhonchi, No Wheezing Gastrointestinal/Abdominal: Soft, No Tenderness, No Guarding, No Rebound Pelvic: No Normal Bimanual Exam (unable to tolerate), Vaginal Discharge (white in nature), Other (irritation and significant tenderness to bilateral labia; vaginal inflammation) Neurological/Psych: Oriented x3, Normal Speech, Normal Cognition ED Course And Treatment O2 Sat by Pulse Oximetry: 97 Progress Note: Urine culture ordered. Ultram administered. Patient resting comfortably and stable for discharge. Discharge instructions discussed with patient and advised to return if symptoms worsen. Disposition Counseled Patient/Family Regarding: Studies Performed, Diagnosis, Need For Followup, Rx Given - Disposition Referrals: Joni Moore MD [Staff Provider] - Disposition: HOME/ ROUTINE Disposition Time: 22:15 Condition: IMPROVED Prescriptions: Fluconazole [Diflucan] 200 mg PO ASDIR #2 tab Nitrofurantoin Macrocrystals [Macrobid] 1 cap PO BID #14 cap Instructions: Urinary Tract Infections in Adults, Vaginitis Forms: [employer] Connect (Citizen Of [place]) - Clinical Impression Clinical Impression: UTI (urinary tract infection), Vaginitis - Scribe Statement The provider has reviewed the documentation as recorded by the Scribe Clary Kelley All medical record entries made by the Scribe were at my direction and personally dictated by me. I have reviewed the chart and agree that the record accurately reflects my personal performance of the history, physical exam, medical decision making, and the department course for this patient. I have also personally directed, reviewed, and agree with the discharge instructions and disposition.
== END 2017-12-16 22:28 | disposition home or self-care (01) ==
LOC: C.ER 19:29
DX: N39.0 Urinary tract infection, site not specified (principal); N76.0 Acute vaginitis

== ENCOUNTER 2018-03-20 20:18 | Emergency (ER) | payer MEDICAID ==
[2018-03-20 20:19] VITALS: BMI 25.8
--- NOTE | 2018-03-20 20:42 | C.PDOC ---
History Of Present Illness The patient presents to the ED for evaluation of headache which began around 3 days ago. Patient has been taking Tylenol without relief. She denies fever, chills, vision change, dizziness, nausea. Time Seen by Provider: 03/20/18 20:42 Chief Complaint (Nursing): Headache History Per: Patient History/Exam Limitations: no limitations Onset/Duration Of Symptoms: Days (3) Current Symptoms Are (Timing): Still Present Severity: Mild Pain Scale Rating Of: 3 Quality: Dull, Aching, Other (throbbing ) Preceeding Symptoms: None Associated Symptoms: denies: Photophobia, Blurred Vision, Nausea Recent travel outside of the [place]: No Additional History Per: Patient Past Medical History Reviewed: Historical Data, Nursing Documentation, Vital Signs Vital Signs: Last Vital Signs Temp 98.0 F 03/20/18 20:23 Pulse 82 03/20/18 20:43 Resp 20 03/20/18 20:43 BP 145/98 H 03/20/18 20:43 Pulse Ox 97 03/20/18 21:46 - Medical History PMH: Anxiety, Arthritis, Asthma, Back Problems (herniated disc x 5), Bipolar Disorder, CAD, Crohn's Disease, Depression, Diabetes, Diverticulitis, Gastritis , Gall Bladder Disease, HTN, Hypercholesterolemia, Hypothyroidism, Migraine, Peripheral Edema, Pneumonia, Post Traumatic Stress Disorder, Seizures (last 25 yrs ago) Denies: Anemia, Atrial Fibrillation, Cardia Arrhythmia, HIV, Hyperthyroidism , Kidney Stones, Pancreatitis, Chronic Kidney Disease, Rheumatoid Arthritis, Sexually Transmitted Disease Surgical History: Cholecystectomy Comment Only: Coronary Stent (DENIES) - [facility] Procedures ANESTH INJECT-SPIN CANAL (02/17/13) CLOSURE SKIN & SUBCUTANEOUS NEC (01/29/13) DERMAL REGENERATIVE GRAFT (09/05/13) DIVISION OF R FOOT SUBCU/FASCIA, OPEN APPROACH (01/19/17) EXCISION OF ASCENDING COLON, ENDO, DIAGN (10/01/15) EXCISION OF DESCENDING COLON, ENDO, DIAGN (10/01/15) EXCISION OF RECTUM, ENDO, DIAGN (10/01/15) EXCISION OF RIGHT TARSAL, OPEN APPROACH (01/19/17) EXCISION OF SIGMOID COLON, ENDO, DIAGN (10/01/15) EXCISION OF TRANSVERSE COLON, ENDO, DIAGN (10/01/15) INJECT STEROID (03/31/13) INJECTION INTO JOINT (03/31/13) INSERTION OF INFUSION DEVICE INTO R ATRIUM, PERC APPROACH (10/01/15) LOC EXC BONE LESION NEC (08/11/13) LUMBOSAC SPINE X-RAY NEC (03/31/13) NONEXCIS DEBRID OF WOUND, INFECT, OR BURN (09/05/13) OTHER EXCISION, FUSION, AND REPAIR OF TOES (03/16/15) OTHER LOCAL DESTRUC SKIN (07/07/13) REMOVAL OF INT FIX FROM L TOE PHALANX JT, OPEN APPROACH (01/19/17) SPINAL CANAL INJECT NEC (03/31/13) TETANUS TOXOID ADMINIST (01/29/13) ULTRASONOGRAPHY OF RIGHT HEART (10/01/15) Family History: States: Diabetes - Social History Hx Tobacco Use: Yes Hx Alcohol Use: No Hx Substance Use: No - Immunization History Hx Tetanus Toxoid Vaccination: Yes Hx Influenza Vaccination: Yes Hx Pneumococcal Vaccination: Yes Review Of Systems Constitutional: Negative for: Fever, Chills Eyes: Negative for: Vision Change Cardiovascular: Negative for: Chest Pain, Palpitations Respiratory: Negative for: Cough, Shortness of Breath Gastrointestinal: Negative for: Nausea, Vomiting Neurological: Positive for: Headache. Negative for: Weakness, Numbness, Dizziness Psych: Negative for: Anxiety Physical Exam - Physical Exam Appears: Non-toxic, No Acute Distress Skin: Warm, Dry Head: Atraumatic, Normacephalic Eye(s): bilateral: Normal Inspection, PERRL, EOMI Ear(s): Bilateral: Normal Nose: No Discharge Oral Mucosa: Moist Throat: No Erythema, No Exudate Neck: Supple Chest: Symmetrical, No Deformity, No Tenderness Cardiovascular: Rhythm Regular Respiratory: No Rales, No Rhonchi, No Wheezing Extremity: Normal ROM, Capillary Refill (less than 2 seconds ) Extremity: Bilateral: Atraumatic Neurological/Psych: Oriented x3 Gait: Steady ED Course And Treatment - Laboratory Results Result Diagrams: 03/20/18 20:58 03/20/18 20:58 O2 Sat by Pulse Oximetry: 97 (on RA) Pulse Ox Interpretation: Normal - CT Scan/US CT Head Other Rad Studies (CT/US): Read By Radiologist, Radiology Report Reviewed CT/US Interpretation: EXAM: CT Head Without Intravenous Contrast. CLINICAL HISTORY: 52 years old, female; Pain; Headache; Headache not specified. TECHNIQUE: Axial computed tomography images of the head/brain without intravenous contrast. All CT scans at. this facility use at least one of these dose optimization techniques: automated exposure control; mA. and/or kV adjustment per patient size (includes targeted exams where dose is matched to clinical. indication); or iterative reconstruction. Coronal and sagittal reformatted images were created and reviewed. COMPARISON: CT - HEAD W/O CONTRAST 2015-12-04 18:14. FINDINGS: Brain: There is no evidence of intracranial hemorrhage. The cortical/white matter interfaces are. preserved throughout the brain. There is no intracranial mass or mass effect. Midline shift: No midline shift. Ventricles: The ventricular system is normal in size and distribution. Bones/joints: The calvarium and skull base are intact. No fracture. Soft tissues: Normal. Vasculature: Calcific atherosclerosis of the left V4 segment vertebral artery. Sinuses: Trace mucosal thickening of the ethmoid sinuses, likely within normal limits. Mastoid air cells: The mastoid air cells are clear. IMPRESSION: No acute intracranial abnormality. Progress Note: Bloodwork and CT Head ordered. Zofran IVP given. Reevaluation Time: 22:28 Reassessment Condition: Improved Disposition Counseled Patient/Family Regarding: Studies Performed, Diagnosis, Need For Followup - Disposition Referrals: Joni Moore MD [Staff Provider] - Disposition: HOME/ ROUTINE Disposition Time: 20:42 Condition: FAIR Additional Instructions: Please return if symptoms recur Prescriptions: Ibuprofen [Motrin Tab] 800 mg PO TID PRN #15 tab PRN Reason: Pain, Moderate (4-7) Ondansetron ODT [Zofran ODT] 1 odt PO BID PRN #10 odt PRN Reason: Nausea/Vomiting Instructions: Migraine Headache (DC) Forms: [employer] (Sinhala) Print Language: E[employer]ATORIAL GUINEAN - Clinical Impression Clinical Impression: Migraine - Scribe Statement The provider has reviewed the documentation as recorded by the Scribe (Millicent Berrios) Provider Attestation: All medical record entries made by the Scribe were at my direction and personally dictated by me. I have reviewed the chart and agree that the record accurately reflects my personal performance of the history, physical exam, medical decision making, and the department course for this patient. I have also personally directed, reviewed, and agree with the discharge instructions and disposition.
[2018-03-20 20:45] VITALS: RESP 20
[2018-03-20 21:04] LABS: BASO # 0.1 K/uL (0.0-0.2); BASO % 1.1 % (0.0-2.0); EOS # 0.4 K/uL (0.0-0.7); EOS % 3.2 % (0.0-4.0); HEMOGLOBIN 12.5 g/dL (11.0-16.0); LYMPH # 3.2 K/uL (1.0-4.3); LYMPH % 26.2 % (20.0-40.0); MEAN CELL VOLUME 84.8 fL (81.0-99.0); MEAN CORPUSCULAR HEMOGLOBIN 28.3 pg (27.0-31.0); MEAN CORPUSCULAR HGB CONC 33.3 g/dL (33.0-37.0); MEAN PLATELET VOLUME 8.5 fL (7.2-11.7); NEUT # 7.5 K/uL (1.8-7.0); NEUT % 61.5 % (50.0-75.0); NRBC % 0.1 % (0.0-2.0); RBC 4.43 Mil/uL (3.80-5.20); RED CELL DISTRIBUTION WIDTH 13.4 % (11.5-14.5); WHITE BLOOD COUNT 12.3 K/uL (4.8-10.8)
[2018-03-20 21:14] LABS: ALB/GLOB RATIO 1.4 (1.0-2.1); ALBUMIN 3.9 g/dL (3.5-5.0); ALT/SGPT 36 U/L (9-52); AST/SGOT 26 U/L (14-36); BLOOD UREA NITROGEN 13 mg/dL (7-17); CALCIUM 9.4 mg/dl (8.6-10.4); GFR AFRICAN-AMERICAN > 60; GFR NON-AFRICAN AMERICAN > 60
[2018-03-20 23:00] VITALS: BP 108/69; PULSE 74; TEMP 98; O2SAT 95
--- NOTE | 2018-03-21 12:17 | CT ---
Date of service: 03/20/2018 PROCEDURE: CT HEAD WITHOUT CONTRAST. HISTORY: Headache COMPARISON: Noncontrast head CT 10/18/2016 TECHNIQUE: Axial computed tomography images were obtained through the head/brain without intravenous contrast. Radiation dose: Total exam DLP = 882.56 mGy-cm. This CT exam was performed using one or more of the following dose reduction techniques: Automated exposure control, adjustment of the mA and/or kV according to patient size, and/or use of iterative reconstruction technique. FINDINGS: HEMORRHAGE: No intracranial hemorrhage. BRAIN: Normal gonzalez-white matter differentiation and density are appreciated throughout the cerebrum and cerebellum with the brainstem appearing unremarkable as well. There is no mass effect. There is no suspicious extra-axial fluid collection and the midline brain anatomy appears diffusely unremarkable. VENTRICLES: Unremarkable. No hydrocephalus. CALVARIUM: Unremarkable. PARANASAL SINUSES: Unremarkable as visualized. No significant inflammatory changes. MASTOID AIR CELLS: Unremarkable as visualized. No inflammatory changes. OTHER FINDINGS: Incidental bilateral exophthalmos again suggested. IMPRESSION: No acute intracranial findings with the examination appearing stable in the interval compared a 10/18/2016 CT. Incidental exophthalmos again suggested. Concordant preliminary report from [facility], 03/20/2018.
== END 2018-03-20 23:00 | disposition home or self-care (01) ==
LOC: C.ER 20:18
DX: G43.909 Migraine, unspecified, not intractable, without status migrainosus (principal); I25.10 Atherosclerotic heart disease of native coronary artery without angina pectoris; I10 Essential (primary) hypertension; E11.9 Type 2 diabetes mellitus without complications; F17.210 Nicotine dependence, cigarettes, uncomplicated
CPT/HCPCS: 70450; 80053; 82948; 85025; 96374; 96375; 99285; J1885; J2405

== ENCOUNTER 2018-03-24 16:31 | Emergency (ER) | payer MEDICAID ==
[2018-03-24 16:32] VITALS: BMI 25.8
[2018-03-24 16:39] VITALS: PULSE 89; RESP 16; O2SAT 96
--- NOTE | 2018-03-24 17:22 | C.PDOC ---
History Of Present Illness 52yo female, comes to ER for evaluation of a "twisted tongue", stating she has been unable to "untwist" it since this morning. Patient was seen in this ER on for headache, had a CT study and labs which were normal. She was treated with zofran for associated vomiting and was discharged home with prescription for Zofran ODT which she has been taking. She reports noticing the "twisting" this morning but denies any trouble swallowing. She also denies any headache at this time. Patient offers no additional medical complaints. Time Seen by Provider: 03/24/18 16:55 Chief Complaint (Nursing): ENT Problem History Per: Patient History/Exam Limitations: no limitations Onset/Duration Of Symptoms: Hrs Current Symptoms Are (Timing): Still Present Reports Recently: Seen In ED Additional History Per: Patient Past Medical History Reviewed: Historical Data, Nursing Documentation, Vital Signs Vital Signs: Last Vital Signs Temp Pulse 89 03/24/18 16:37 Resp 16 03/24/18 16:37 BP 166/100 H 03/24/18 16:37 Pulse Ox 96 03/24/18 17:23 - Medical History PMH: Anxiety, Arthritis, Asthma, Back Problems (herniated disc x 5), Bipolar Disorder, CAD, Crohn's Disease, Depression, Diabetes, Diverticulitis, Gastritis , Gall Bladder Disease, HTN, Hypercholesterolemia, Hypothyroidism, Migraine, Peripheral Edema, Pneumonia, Post Traumatic Stress Disorder, Seizures (last 25 yrs ago) Denies: Anemia, Atrial Fibrillation, Cardia Arrhythmia, HIV, Hyperthyroidism , Kidney Stones, Pancreatitis, Chronic Kidney Disease, Rheumatoid Arthritis, Sexually Transmitted Disease Surgical History: Cholecystectomy Comment Only: Coronary Stent (DENIES) - [facility] Procedures ANESTH INJECT-SPIN CANAL (02/17/13) CLOSURE SKIN & SUBCUTANEOUS NEC (01/29/13) DERMAL REGENERATIVE GRAFT (09/05/13) DIVISION OF R FOOT SUBCU/FASCIA, OPEN APPROACH (01/19/17) EXCISION OF ASCENDING COLON, ENDO, DIAGN (10/01/15) EXCISION OF DESCENDING COLON, ENDO, DIAGN (10/01/15) EXCISION OF RECTUM, ENDO, DIAGN (10/01/15) EXCISION OF RIGHT TARSAL, OPEN APPROACH (01/19/17) EXCISION OF SIGMOID COLON, ENDO, DIAGN (10/01/15) EXCISION OF TRANSVERSE COLON, ENDO, DIAGN (10/01/15) INJECT STEROID (03/31/13) INJECTION INTO JOINT (03/31/13) INSERTION OF INFUSION DEVICE INTO R ATRIUM, PERC APPROACH (10/01/15) LOC EXC BONE LESION NEC (08/11/13) LUMBOSAC SPINE X-RAY NEC (03/31/13) NONEXCIS DEBRID OF WOUND, INFECT, OR BURN (09/05/13) OTHER EXCISION, FUSION, AND REPAIR OF TOES (03/16/15) OTHER LOCAL DESTRUC SKIN (07/07/13) REMOVAL OF INT FIX FROM L TOE PHALANX JT, OPEN APPROACH (01/19/17) SPINAL CANAL INJECT NEC (03/31/13) TETANUS TOXOID ADMINIST (01/29/13) ULTRASONOGRAPHY OF RIGHT HEART (10/01/15) Family History: States: Diabetes - Social History Hx Tobacco Use: Yes Hx Alcohol Use: No Hx Substance Use: No - Immunization History Hx Tetanus Toxoid Vaccination: Yes Hx Influenza Vaccination: Yes Hx Pneumococcal Vaccination: Yes Review Of Systems ENT: Positive for: Other ("twisted tongue") Gastrointestinal: Negative for: Vomiting Neurological: Negative for: Headache Physical Exam - Physical Exam Appears: Non-toxic Skin: Warm, Dry Head: Atraumatic, Normacephalic Eye(s): bilateral: Normal Inspection Oral Mucosa: Moist Tongue: No Swelling, Other (+ tongue spasm) Neck: Normal ROM, Supple Chest: Symmetrical Cardiovascular: Rhythm Regular Respiratory: Normal Breath Sounds Neurological/Psych: Oriented x3 ED Course And Treatment - Laboratory Results Result Diagrams: 03/24/18 17:22 03/24/18 17:22 Lab Interpretation: No Acute Changes O2 Sat by Pulse Oximetry: 96 Progress Note: Basic labs ordered. Patient given Benadryl 50mg IVP Reevaluation Time: 18:03 Reassessment Condition: Improved (Normal tongue and speech) Disposition Counseled Patient/Family Regarding: Studies Performed, Diagnosis, Need For Followup - Disposition Referrals: Joni Moore MD [Staff Provider] - Disposition: HOME/ ROUTINE Disposition Time: 18:03 Condition: IMPROVED Additional Instructions: Take Benadryl 1-2 tablets every 6 hours for 2 days. Stop taking the Zofran Instructions: Adverse Drug Reactions, Adult Forms: [facility] (Georgian) - Clinical Impression Clinical Impression: Acute dystonic reaction due to drugs - Scribe Statement The provider has reviewed the documentation as recorded by the Anna Roberts Provider Attestation: All medical record entries made by the Anna were at my direction and personally dictated by me. I have reviewed the chart and agree that the record accurately reflects my personal performance of the history, physical exam, medical decision making, and the department course for this patient. I have also personally directed, reviewed, and agree with the discharge instructions and disposition
[2018-03-24] MEDS ORDERED: DiphenhydrAMINE 50 mg/ml Inj ONE (17:30)
[2018-03-24] MEDS: DiphenhydrAMINE 50 mg/ml Inj IVP STA (17:30)
[2018-03-24 17:31] LABS: BASO % 0.3 % (0.0-2.0); EOS # 0.2 K/uL (0.0-0.7); EOS % 1.5 % (0.0-4.0); HEMOGLOBIN 12.7 g/dL (11.0-16.0); LYMPH # 4.3 K/uL (1.0-4.3); LYMPH % 29.7 % (20.0-40.0); MEAN CELL VOLUME 85.5 fL (81.0-99.0); MEAN CORPUSCULAR HEMOGLOBIN 28.9 pg (27.0-31.0); MEAN CORPUSCULAR HGB CONC 33.8 g/dL (33.0-37.0); NEUT % 61.5 % (50.0-75.0); RBC 4.39 Mil/uL (3.80-5.20); RED CELL DISTRIBUTION WIDTH 13.2 % (11.5-14.5); WHITE BLOOD COUNT 14.5 K/uL (4.8-10.8)
[2018-03-24 17:43] LABS: ALB/GLOB RATIO 1.6 (1.0-2.1)
[2018-03-24 17:45] LABS: ALBUMIN 4.4 g/dL (3.5-5.0); ALT/SGPT 34 U/L (9-52); AST/SGOT 31 U/L (14-36); BLOOD UREA NITROGEN 12 mg/dL (7-17); CALCIUM 8.9 mg/dl (8.6-10.4); GFR AFRICAN-AMERICAN > 60; GFR NON-AFRICAN AMERICAN > 60
[2018-03-24 18:14] VITALS: BP 148/84
== END 2018-03-24 18:14 | disposition home or self-care (01) ==
LOC: C.ER 16:31
DX: G24.02 Drug induced acute dystonia (principal); I25.10 Atherosclerotic heart disease of native coronary artery without angina pectoris; I10 Essential (primary) hypertension; E78.00 Pure hypercholesterolemia, unspecified; E11.9 Type 2 diabetes mellitus without complications; F17.210 Nicotine dependence, cigarettes, uncomplicated
CPT/HCPCS: 80053; 85025; 96374; 99283; J1200

== ENCOUNTER 2018-04-02 17:54 | Emergency (ER) | payer MEDICAID ==
[2018-04-02 17:54] VITALS: BMI 25.8
[2018-04-02 18:05] VITALS: TEMP 98.8
[2018-04-02 20:02] VITALS: BP 132/91; PULSE 86; RESP 18
[2018-04-02 20:03] VITALS: O2SAT 97
--- NOTE | 2018-04-02 20:03 | C.PDOC ---
History Of Present Illness 52 year old female patient presents to the ER with c/o pain in right wrist for awhile. Patient states the pain radiates to the 3rd, 4th, and 5th digits. Patient reports pain exacerbates when she moves. Patient went to her PCP who injects her shoulder to minimize the pain. Pain began again 3 days ago. Patient denies numbness on area. Time Seen by Provider: 04/02/18 18:24 Chief Complaint (Nursing): Upper Extremity Problem/Injury History Per: Patient History/Exam Limitations: no limitations Onset/Duration Of Symptoms: Days (x3) Current Symptoms Are (Timing): Still Present Past Medical History Reviewed: Historical Data, Nursing Documentation, Vital Signs Vital Signs: Last Vital Signs Temp 98.8 F 04/02/18 18:03 Pulse 86 04/02/18 20:02 Resp 18 04/02/18 20:02 BP 132/91 H 04/02/18 20:02 Pulse Ox 97 04/02/18 20:46 - Medical History PMH: Anxiety, Arthritis, Asthma, Back Problems (herniated disc x 5), Bipolar Disorder, CAD, Crohn's Disease, Depression, Diabetes, Diverticulitis, Gastritis , Gall Bladder Disease, HTN, Hypercholesterolemia, Hypothyroidism, Migraine, Peripheral Edema, Pneumonia, Post Traumatic Stress Disorder, Seizures (last 25 yrs ago) Surgical History: Cholecystectomy Comment Only: Coronary Stent (DENIES) - [facility] Procedures ANESTH INJECT-SPIN CANAL (02/17/13) CLOSURE SKIN & SUBCUTANEOUS NEC (01/29/13) DERMAL REGENERATIVE GRAFT (09/05/13) DIVISION OF R FOOT SUBCU/FASCIA, OPEN APPROACH (01/19/17) EXCISION OF ASCENDING COLON, ENDO, DIAGN (10/01/15) EXCISION OF DESCENDING COLON, ENDO, DIAGN (10/01/15) EXCISION OF RECTUM, ENDO, DIAGN (10/01/15) EXCISION OF RIGHT TARSAL, OPEN APPROACH (01/19/17) EXCISION OF SIGMOID COLON, ENDO, DIAGN (10/01/15) EXCISION OF TRANSVERSE COLON, ENDO, DIAGN (10/01/15) INJECT STEROID (03/31/13) INJECTION INTO JOINT (03/31/13) INSERTION OF INFUSION DEVICE INTO R ATRIUM, PERC APPROACH (10/01/15) LOC EXC BONE LESION NEC (08/11/13) LUMBOSAC SPINE X-RAY NEC (03/31/13) NONEXCIS DEBRID OF WOUND, INFECT, OR BURN (09/05/13) OTHER EXCISION, FUSION, AND REPAIR OF TOES (03/16/15) OTHER LOCAL DESTRUC SKIN (07/07/13) REMOVAL OF INT FIX FROM L TOE PHALANX JT, OPEN APPROACH (01/19/17) SPINAL CANAL INJECT NEC (03/31/13) TETANUS TOXOID ADMINIST (01/29/13) ULTRASONOGRAPHY OF RIGHT HEART (10/01/15) Family History: States: Diabetes - Social History Hx Tobacco Use: Yes Hx Alcohol Use: No Hx Substance Use: No - Immunization History Hx Tetanus Toxoid Vaccination: Yes Hx Influenza Vaccination: Yes Hx Pneumococcal Vaccination: Yes Review Of Systems Except As Marked, All Systems Reviewed And Found Negative. Musculoskeletal: Positive for: Hand Pain (right wrist pain that radiates to 3rd , 4th, and 5th finger pain) Neurological: Negative for: Numbness Physical Exam - Physical Exam Appears: Well, Non-toxic, No Acute Distress Skin: Normal Color, Warm, Dry Head: Normacephalic Eye(s): bilateral: Normal Inspection Extremity: Tenderness (tender and diffuse on right wrist and on 3rd, 4th, and 5th metacarpal bones.), Capillary Refill (<2 sec), No Deformity, No Swelling Pulses: Left Radial: Normal, Right Radial: Normal Neurological/Psych: Oriented x3, Normal Speech, Normal Motor, Normal Sensation, Normal Reflexes, Other (neuro intact) Gait: Steady ED Course And Treatment O2 Sat by Pulse Oximetry: 97 (RA) Pulse Ox Interpretation: Normal Progress Note: Impression: pain on right wrist that radiates to hand, 3rd, 4th, and 5th finger. Plan: -- D Dimer. -- Toradol. -- XR right wrist. D Dimer results: (-) negative. Reassess: Patient is resting comfortably. Tolerating PO. Patient's wrist was splinted with short arm volar splint by CP and checked by me. Arm sling was provided. Patient was referred to orhtropedics. Disposition - Disposition Referrals: Kayley Sy MD [Staff Provider] - Disposition: HOME/ ROUTINE Disposition Time: 20:00 Condition: STABLE Additional Instructions: Follow up with Orthopedist within 1-2 days. Return to ED if feel worse. Prescriptions: Ketorolac Tromethamine [Toradol] 10 mg PO TID #15 tab Instructions: Hand Pain Forms: [employer] (Mohawk) - Clinical Impression Clinical Impression: Hand pain, right - PA / BUSINESS COORDINATOR / Resident Statement MD/ has reviewed & agrees with the documentation as recorded. - Scribe Statement The provider has reviewed the documentation as recorded by the Johnibbill Travis Do All medical record entries made by the Scribe were at my direction and personally dictated by me. I have reviewed the chart and agree that the record accurately reflects my personal performance of the history, physical exam, medical decision making, and the department course for this patient. I have also personally directed, reviewed, and agree with the discharge instructions and disposition.
--- NOTE | 2018-04-03 08:39 | RAD ---
Date of service: 04/02/2018 PROCEDURE: Right Wrist Radiographs. HISTORY: pain, atraumatic COMPARISON: None. FINDINGS: BONES: No acute fracture or destructive bony lesion identified. JOINTS: Normal. No dislocation. SOFT TISSUES: Normal. OTHER FINDINGS: None. IMPRESSION: Unremarkable right wrist radiographs.
== END 2018-04-02 20:16 | disposition home or self-care (01) ==
LOC: C.ER 17:54
DX: M79.641 Pain in right hand (principal)
CPT/HCPCS: 73110; 85378; 96372; 99284; J1885

== ENCOUNTER 2018-04-14 11:02 | Emergency (ER) | payer MEDICAID ==
[2018-04-14 11:03] VITALS: BMI 25.8
[2018-04-14 11:30] VITALS: BP 151/94; PULSE 90; RESP 16; TEMP 98; O2SAT 99
--- NOTE | 2018-04-14 11:47 | C.PDOC ---
History Of Present Illness <Alyson Snell - Last Filed: 04/14/18 13:19> <Kevin Rowley DO - Last Filed: 04/14/18 18:08> CC: Right Elbow pain Patient is a 52 year old with past medical history of HTN, HLD, Asthma, Bipolar , who presents to the ED with complaint of right elbow pain that started 4 days ago. Patient states that she heard a popping sound at the elbow joint 4 days ago while sitting. Patient denies any trauma and states that she has been using Mortin 800mg PRN and ice packs with no relief. Patient admits to very limited range of motion in flexion, extension and pain is elicit at the elbow joint with any wrist motion. Patient has been keeping a right hand in internal rotation and close to her body. (Alyson Snell) History Per: Patient History/Exam Limitations: no limitations Onset/Duration Of Symptoms: Days Current Symptoms Are (Timing): Still Present Quality: Tightness, Pressure Severity: Severe Pain Scale Rating Of: 8 Exacerbating Factor(s): Nothing Recent travel outside of the [place]: No <Alyson Snell - Last Filed: 04/14/18 13:19> <Kevin Rowley DO - Last Filed: 04/14/18 18:08> Chief Complaint (Nursing): Upper Extremity Problem/Injury Past Medical History - Medical History PMH: Anxiety, Arthritis, Asthma, Back Problems (herniated disc x 5), Bipolar Disorder, CAD, Crohn's Disease, Depression, Diabetes, Diverticulitis, Gastritis , Gall Bladder Disease, HTN, Hypercholesterolemia, Hypothyroidism, Migraine, Peripheral Edema, Pneumonia, Post Traumatic Stress Disorder, Seizures (last 25 yrs ago) Denies: Anemia, Atrial Fibrillation, Cardia Arrhythmia, HIV, Hyperthyroidism , Kidney Stones, Pancreatitis, Chronic Kidney Disease, Rheumatoid Arthritis, Sexually Transmitted Disease Surgical History: Cholecystectomy Comment Only: Coronary Stent (DENIES) Family History: States: Diabetes - Social History Hx Tobacco Use: Yes Hx Alcohol Use: No Hx Substance Use: No - Immunization History Hx Tetanus Toxoid Vaccination: Yes Hx Influenza Vaccination: Yes Hx Pneumococcal Vaccination: Yes <Kevin Rowley DO - Last Filed: 04/14/18 18:08> Vital Signs: Last Vital Signs Temp 98 F 04/14/18 11:27 Pulse 90 04/14/18 11:27 Resp 16 04/14/18 11:27 BP 151/94 H 04/14/18 11:27 Pulse Ox 99 04/14/18 12:44 - [facility] Procedures ANESTH INJECT-SPIN CANAL (02/17/13) CLOSURE SKIN & SUBCUTANEOUS NEC (01/29/13) DERMAL REGENERATIVE GRAFT (09/05/13) DIVISION OF R FOOT SUBCU/FASCIA, OPEN APPROACH (01/19/17) EXCISION OF ASCENDING COLON, ENDO, DIAGN (10/01/15) EXCISION OF DESCENDING COLON, ENDO, DIAGN (10/01/15) EXCISION OF RECTUM, ENDO, DIAGN (10/01/15) EXCISION OF RIGHT TARSAL, OPEN APPROACH (01/19/17) EXCISION OF SIGMOID COLON, ENDO, DIAGN (10/01/15) EXCISION OF TRANSVERSE COLON, ENDO, DIAGN (10/01/15) INJECT STEROID (03/31/13) INJECTION INTO JOINT (03/31/13) INSERTION OF INFUSION DEVICE INTO R ATRIUM, PERC APPROACH (10/01/15) LOC EXC BONE LESION NEC (08/11/13) LUMBOSAC SPINE X-RAY NEC (03/31/13) NONEXCIS DEBRID OF WOUND, INFECT, OR BURN (09/05/13) OTHER EXCISION, FUSION, AND REPAIR OF TOES (03/16/15) OTHER LOCAL DESTRUC SKIN (07/07/13) REMOVAL OF INT FIX FROM L TOE PHALANX JT, OPEN APPROACH (01/19/17) SPINAL CANAL INJECT NEC (03/31/13) TETANUS TOXOID ADMINIST (01/29/13) ULTRASONOGRAPHY OF RIGHT HEART (10/01/15) Review Of Systems Constitutional: Negative for: Fever, Chills, Weakness, Malaise Cardiovascular: Negative for: Chest Pain, Palpitations, Light Headedness Respiratory: Negative for: Shortness of Breath Musculoskeletal: Positive for: Hand Pain (Right elbow joint pain ) Neurological: Negative for: Weakness, Numbness, Dizziness <Alyson Snell E - Last Filed: 04/14/18 13:19> Physical Exam - Physical Exam Appears: Well Skin: Normal Color Head: Atraumatic, Normacephalic, No Tenderness, No Abrasion, No Laceration Eye(s): bilateral: EOMI Cardiovascular: Rhythm Regular Respiratory: Normal Breath Sounds, No Decreased Breath Sounds, No Accessory Muscle Use, No Rales, No Rhonchi Gastrointestinal/Abdominal: Normal Exam, Bowel Sounds, Soft, No Tenderness Extremity: No Normal ROM, Other (Decrease range of motion at the right elbow joint in flexion, extension and external rotation and pain with wrist flexion, extension, ulnar and radal deviation ) Extremity: Right: Bony Point Tenderness (Elbow joint ), Limited ROM To Joint ( Wlbow ) Neurological/Psych: Oriented x3, Normal Speech <Alyson Snell - Last Filed: 04/14/18 13:19> ED Course And Treatment O2 Sat by Pulse Oximetry: 99 Progress Note: 1243: Patient refused pain medication given, requested narcotics. Patient walked out right elbow freely swinging in no apparent pain. <Kevin Rowley DO - Last Filed: 04/14/18 18:08> Medical Decision Making <Alyson Snell - Last Filed: 04/14/18 13:19> <Kevin Rowley DO - Last Filed: 04/14/18 18:08> Medical Decision Making: Right elbow x-ray:Unremarkable radiographs of the right elbow. (Alyson Snell) Disposition - Disposition Disposition Time: 12:30 <Alyson Snell - Last Filed: 04/14/18 13:19> - Disposition Disposition Time: 12:25 <Kevin Rowley DO - Last Filed: 04/14/18 18:08> - Disposition Referrals: Joni Moore MD [Staff Provider] - Disposition: HOME/ ROUTINE Condition: GOOD Additional Instructions: EMMETT HONG, thank you for letting us take care of you today. Your provider was Kevin Rowley DO and you were treated for RIGHT ARM PAIN. The emergency medical care you received today was directed at your acute symptoms. If you were prescribed any medication, please fill it and take as directed. It may take several days for your symptoms to resolve. Return to the Emergency Department if your symptoms worsen, do not improve, or if you have any other problems. Please contact your doctor or call one of the physicians/clinics you have been referred to that are listed on the Patient Visit Information form that is included in your discharge packet. Bring any paperwork you were given at discharge with you along with any medications you are taking to your follow up visit. Our treatment cannot replace ongoing medical care by a primary care provider outside of the emergency department. Thank you for allowing the [facility] team to be part of your care today. Follow up with your primary care doctor in 3-5 days for re-evaluation and further management. 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 / has examined the patient and agrees with the treatment plan. <Kevin Rowley DO - Last Filed: 04/14/18 18:08>
--- NOTE | 2018-04-14 12:18 | RAD ---
Date of service: 04/14/2018 PROCEDURE: Radiographs of the right elbow. HISTORY: r/o fx COMPARISON: No prior. FINDINGS: BONES: Normal. No fracture. JOINTS: Normal. No osteoarthritis. SOFT TISSUES: Normal. JOINT EFFUSION: None. OTHER FINDINGS: None. IMPRESSION: Unremarkable radiographs of the right elbow.
== END 2018-04-14 12:44 | disposition home or self-care (01) ==
LOC: C.ER 11:02
DX: M25.521 Pain in right elbow (principal); E11.9 Type 2 diabetes mellitus without complications; E78.00 Pure hypercholesterolemia, unspecified; I10 Essential (primary) hypertension; I25.10 Atherosclerotic heart disease of native coronary artery without angina pectoris; E03.9 Hypothyroidism, unspecified; Z72.0 Tobacco use

== ENCOUNTER 2018-05-04 11:13 | Emergency (ER) | payer MEDICAID ==
[2018-05-04 11:13] VITALS: BMI 25.8
[2018-05-04 11:18] VITALS: BP 142/97; PULSE 117; RESP 18; TEMP 99.1; O2SAT 97
--- NOTE | 2018-05-04 11:56 | C.PDOC ---
History Of Present Illness 52 yo female come in for re-evaluation of Right elbow pain intermittent for "past few months". Pt admits, was seen here before due to same complaints, when imaging performed without acute findings. Pt also sts, was seen by PMD " got some cortisone shot to joint". Pt reports, pain is worse for past few days, describes as aching, localized over right elbow, worse with movement. Noted some trace swelling to Right hand. Otherwise, pt denies known recent trauma or injury, fever, chills, CP, SOB, dypsnea, palpitation, denies weakness, sensory or vascular deficits to Right arm. Ambulate to ED for evaluation, appears in pain. Time Seen by Provider: 05/04/18 11:26 Chief Complaint (Nursing): Upper Extremity Problem/Injury History Per: Patient Onset/Duration Of Symptoms: Intermittent Episodes, Gradual Past Medical History Reviewed: Historical Data, Nursing Documentation, Vital Signs Vital Signs: Last Vital Signs Temp 99.1 F 05/04/18 11:15 Pulse 117 H 05/04/18 11:15 Resp 18 05/04/18 11:15 BP 142/97 H 05/04/18 11:15 Pulse Ox 97 05/04/18 12:12 - Medical History PMH: Anxiety, Arthritis, Asthma, Back Problems (herniated disc x 5), Bipolar Disorder, CAD, Crohn's Disease, Depression, Diabetes, Diverticulitis, Gastritis , Gall Bladder Disease, HTN, Hypercholesterolemia, Hypothyroidism, Migraine, Peripheral Edema, Pneumonia, Post Traumatic Stress Disorder, Seizures (last 25 yrs ago) Denies: Anemia, Atrial Fibrillation, Cardia Arrhythmia, HIV, Hyperthyroidism , Kidney Stones, Pancreatitis, Chronic Kidney Disease, Rheumatoid Arthritis, Sexually Transmitted Disease Surgical History: Cholecystectomy Comment Only: Coronary Stent (DENIES) - [facility] Procedures ANESTH INJECT-SPIN CANAL (02/17/13) CLOSURE SKIN & SUBCUTANEOUS NEC (01/29/13) DERMAL REGENERATIVE GRAFT (09/05/13) DIVISION OF R FOOT SUBCU/FASCIA, OPEN APPROACH (01/19/17) EXCISION OF ASCENDING COLON, ENDO, DIAGN (10/01/15) EXCISION OF DESCENDING COLON, ENDO, DIAGN (10/01/15) EXCISION OF RECTUM, ENDO, DIAGN (10/01/15) EXCISION OF RIGHT TARSAL, OPEN APPROACH (01/19/17) EXCISION OF SIGMOID COLON, ENDO, DIAGN (10/01/15) EXCISION OF TRANSVERSE COLON, ENDO, DIAGN (10/01/15) INJECT STEROID (03/31/13) INJECTION INTO JOINT (03/31/13) INSERTION OF INFUSION DEVICE INTO R ATRIUM, PERC APPROACH (10/01/15) LOC EXC BONE LESION NEC (08/11/13) LUMBOSAC SPINE X-RAY NEC (03/31/13) NONEXCIS DEBRID OF WOUND, INFECT, OR BURN (09/05/13) OTHER EXCISION, FUSION, AND REPAIR OF TOES (03/16/15) OTHER LOCAL DESTRUC SKIN (07/07/13) REMOVAL OF INT FIX FROM L TOE PHALANX JT, OPEN APPROACH (01/19/17) SPINAL CANAL INJECT NEC (03/31/13) TETANUS TOXOID ADMINIST (01/29/13) ULTRASONOGRAPHY OF RIGHT HEART (10/01/15) Family History: States: Diabetes - Social History Hx Tobacco Use: Yes Hx Alcohol Use: No Hx Substance Use: No - Immunization History Hx Tetanus Toxoid Vaccination: Yes Hx Influenza Vaccination: Yes Hx Pneumococcal Vaccination: Yes Review Of Systems Except As Marked, All Systems Reviewed And Found Negative. Constitutional: Negative for: Fever, Chills ENT: Negative for: Throat Pain Cardiovascular: Negative for: Chest Pain, Palpitations, Edema, Light Headedness Respiratory: Negative for: Cough, Shortness of Breath, Wheezing Gastrointestinal: Negative for: Nausea, Vomiting, Abdominal Pain Musculoskeletal: Positive for: Other (Right elbow pain) Skin: Negative for: Rash, Lesions, Bruising Neurological: Negative for: Weakness, Numbness Physical Exam - Physical Exam Appears: Well, Non-toxic, No Acute Distress Skin: Normal Color, Warm, No Rash, No Ecchymosis Head: Normacephalic Eye(s): bilateral: PERRL Extremity: Normal ROM (mod discomfort to Right elbow flexion/extension due to pain. No neurovscular deficits distally.), Tenderness (diffuse over right elbow. NO palpable deformity, no skin changes.), Capillary Refill (less than 2sec to Right hand), No Deformity, Swelling (trace edema to dorsal asepct Right hand) Extremity: Bilateral: Atraumatic Pulses: Right Radial: Normal Neurological/Psych: Oriented x3, Normal Speech, Normal Motor, Normal Sensation, Normal Reflexes ED Course And Treatment O2 Sat by Pulse Oximetry: 97 Pulse Ox Interpretation: Normal Progress Note: On re-evaluation, pt is afebrile, hemodynamicaly stable. non- toxic. RUE: tenderness over right elbow with mild trace edema over dorsal aspect Right hand. No defomrity, no skin changes, no neurovascular deficits distally to pain. Indra wrap applied to Right elbow, arm sling applied to Right arm. FSBS 190. Pt recieved anti-inflammatory tx. pt advised and ref. to F/u with PMD, Ortho for further eval/MRI of Right elbow. Pt understand and aggress with tx plan. Stable for discharge now. Disposition Counseled Patient/Family Regarding: Diagnosis, Need For Followup, Rx Given - Disposition Referrals: Joni Moore MD [Staff Provider] - Gigi Copeland MD [Staff Provider] - [facility] [Outside] Disposition: HOME/ ROUTINE Disposition Time: 11:56 Condition: STABLE Additional Instructions: Indra wrap to Right elbow for 1-2 weeks Sling for 1-2 weeks Take medication as prescribed Follow up with PMD, Orthopedist for further evaluation/ MRI of Right elbow and treatment as need. return if any new changes. Prescriptions: Prednisone [Deltasone] 40 mg PO DAILY #6 tablet traMADol [Ultram] 50 mg PO TID #7 tab Instructions: Elbow Sprain (DC), Joint Pain Forms: [facility] (Turkmen) - Clinical Impression Clinical Impression: Arthralgia of elbow
== END 2018-05-04 12:16 | disposition home or self-care (01) ==
LOC: C.ER 11:13
DX: M25.521 Pain in right elbow (principal); E11.9 Type 2 diabetes mellitus without complications; E78.00 Pure hypercholesterolemia, unspecified; I10 Essential (primary) hypertension; I25.10 Atherosclerotic heart disease of native coronary artery without angina pectoris; E03.9 Hypothyroidism, unspecified; Z72.0 Tobacco use

== ENCOUNTER 2018-05-31 20:11 | Emergency (ER) | payer MEDICAID ==
[2018-05-31 20:11] VITALS: BMI 25.8
[2018-05-31 20:39] VITALS: RESP 18
[2018-05-31 21:57] LABS: BASO % 0.3 % (0.0-2.0); EOS # 0.5 K/uL (0.0-0.7); EOS % 3.3 % (0.0-4.0); HEMOGLOBIN 12.6 g/dL (11.0-16.0); LYMPH # 3.7 K/uL (1.0-4.3); LYMPH % 26.8 % (20.0-40.0); MEAN CELL VOLUME 84.5 fL (81.0-99.0); MEAN CORPUSCULAR HEMOGLOBIN 28.7 pg (27.0-31.0); MEAN CORPUSCULAR HGB CONC 33.9 g/dL (33.0-37.0); MEAN PLATELET VOLUME 8.4 fL (7.2-11.7); MONO # 1.1 K/uL (0.0-0.8); MONO % 8.1 % (0.0-10.0); NEUT # 8.5 K/uL (1.8-7.0); NEUT % 61.5 % (50.0-75.0); RBC 4.38 Mil/uL (3.80-5.20); RED CELL DISTRIBUTION WIDTH 13.5 % (11.5-14.5); WHITE BLOOD COUNT 13.7 K/uL (4.8-10.8)
[2018-05-31] MEDS ORDERED: Iohexol 300 100 ML IJ ONE (22:06)
[2018-05-31 22:09] LABS: VENOUS BLOOD GAS BASE EXCESS -0.2 mmol/L (0.0-2.0); VENOUS BLOOD GAS PCO2 41 mmHg (40-60); VENOUS BLOOD GAS PO2 68 mm/Hg (30-55); VENOUS BLOOD PH 7.39 (7.32-7.43)
[2018-05-31 22:15] LABS: BLOOD UREA NITROGEN 14 mg/dL (7-17); CALCIUM 9.3 mg/dl (8.6-10.4); GFR NON-AFRICAN AMERICAN > 60; LIPASE 76 U/L (23-300)
[2018-05-31 22:18] LABS: ALB/GLOB RATIO 1.5 (1.0-2.1); ALBUMIN 4.5 g/dL (3.5-5.0); ALT/SGPT 21 U/L (9-52); AST/SGOT 48 U/L (14-36)
[2018-05-31 22:21] LABS: SQUAMOUS EPITHIAL < 1 /hpf (0-5); URINE BACTERIA RARE (<OCC); URINE BILIRUBIN NEGATIVE (NEGATIVE); URINE BLOOD NEGATIVE (NEGATIVE); URINE CLARITY Clear (Clear); URINE COLOR Straw (YELLOW); URINE GLUCOSE (UA) NORMAL (Normal); URINE LEUKOCYTE ESTERASE NEG Leu/uL (Negative); URINE PROTEIN NEGATIVE (NEGATIVE); URINE UROBILINOGEN NORMAL mg/dL (0.2-1.0)
[2018-06-01 00:23] VITALS: BP 98/62; PULSE 80; TEMP 98.5; O2SAT 99
--- NOTE | 2018-06-01 04:29 | C.PDOC ---
History Of Present Illness 52 y/o female sent to the ED by Dr. Moore for elevated WBC and labs drawn 2 days ago. Patient presents with complaints of mild bodyaches and diffuse abdominal pain. Of note, patient has PMHx of Crohns disease. She denies any fever, v omiting, diarrhea, SOB, dizziness, headache, recent travel, or sick contacts. Time Seen by Provider: 05/31/18 21:25 Chief Complaint (Nursing): Flu-like Symptoms History Per: Patient History/Exam Limitations: no limitations Onset/Duration Of Symptoms: Days Current Symptoms Are (Timing): Still Present Location Of Pain: Diffuse Myalgias Associated Symptoms: Myalgias Past Medical History Reviewed: Historical Data, Nursing Documentation, Vital Signs Vital Signs: Last Vital Signs Temp 98.5 F 06/01/18 00:20 Pulse 80 06/01/18 00:20 Resp 18 06/01/18 00:20 BP 98/62 L 06/01/18 00:20 Pulse Ox 99 06/01/18 00:20 - Medical History PMH: Anxiety, Arthritis, Asthma, Back Problems (herniated disc x 5), Bipolar Disorder, CAD, Crohn's Disease, Depression, Diabetes, Diverticulitis, Gastritis, Gall Bladder Disease, HTN, Hypercholesterolemia, Hypothyroidism, Migraine, Peripheral Edema, Pneumonia, Post Traumatic Stress Disorder, Seizures (last 25 yrs ago) Denies: Anemia, Atrial Fibrillation, Cardia Arrhythmia, HIV, Hyperthyroidism, Kidney Stones, Pancreatitis, Chronic Kidney Disease, Rheumatoid Arthritis, Sexually Transmitted Disease Surgical History: Cholecystectomy Comment Only: Coronary Stent (DENIES) - [facility] Procedures ANESTH INJECT-SPIN CANAL (02/17/13) CLOSURE SKIN & SUBCUTANEOUS NEC (01/29/13) DERMAL REGENERATIVE GRAFT (09/05/13) DIVISION OF R FOOT SUBCU/FASCIA, OPEN APPROACH (01/19/17) EXCISION OF ASCENDING COLON, ENDO, DIAGN (10/01/15) EXCISION OF DESCENDING COLON, ENDO, DIAGN (10/01/15) EXCISION OF RECTUM, ENDO, DIAGN (10/01/15) EXCISION OF RIGHT TARSAL, OPEN APPROACH (01/19/17) EXCISION OF SIGMOID COLON, ENDO, DIAGN (10/01/15) EXCISION OF TRANSVERSE COLON, ENDO, DIAGN (10/01/15) INJECT STEROID (03/31/13) INJECTION INTO JOINT (03/31/13) INSERTION OF INFUSION DEVICE INTO R ATRIUM, PERC APPROACH (10/01/15) LOC EXC BONE LESION NEC (08/11/13) LUMBOSAC SPINE X-RAY NEC (03/31/13) NONEXCIS DEBRID OF WOUND, INFECT, OR BURN (09/05/13) OTHER EXCISION, FUSION, AND REPAIR OF TOES (03/16/15) OTHER LOCAL DESTRUC SKIN (07/07/13) REMOVAL OF INT FIX FROM L TOE PHALANX JT, OPEN APPROACH (01/19/17) SPINAL CANAL INJECT NEC (03/31/13) TETANUS TOXOID ADMINIST (01/29/13) ULTRASONOGRAPHY OF RIGHT HEART (10/01/15) Family History: States: Diabetes - Social History Hx Tobacco Use: Yes Hx Alcohol Use: No Hx Substance Use: No - Immunization History Hx Tetanus Toxoid Vaccination: Yes Hx Influenza Vaccination: Yes Hx Pneumococcal Vaccination: Yes Review Of Systems Constitutional: Positive for: Other (Bodyaches). Negative for: Fever, Chills, Sweats Cardiovascular: Negative for: Chest Pain Respiratory: Negative for: Cough, Shortness of Breath Gastrointestinal: Positive for: Abdominal Pain. Negative for: Vomiting, Diarrhea Genitourinary: Negative for: Dysuria, Frequency, Incontinence Neurological: Negative for: Headache, Dizziness Physical Exam - Physical Exam Appears: Non-toxic, No Acute Distress Skin: Normal Color, Warm, Dry Head: Atraumatic, Normacephalic Eye(s): bilateral: Normal Inspection Oral Mucosa: Moist Neck: Normal ROM Chest: Symmetrical Cardiovascular: Rhythm Regular, No Murmur Respiratory: Normal Breath Sounds, No Accessory Muscle Use Gastrointestinal/Abdominal: Soft, Tenderness (mild diffuse abdominal tenderness), No Distention, No Guarding, No Rebound Extremity: Bilateral: Atraumatic, Normal Color And Temperature, Normal ROM Neurological/Psych: Oriented x3, Normal Speech ED Course And Treatment - Laboratory Results Result Diagrams: 05/31/18 21:47 05/31/18 21:47 O2 Sat by Pulse Oximetry: 99 (RA) Pulse Ox Interpretation: Normal - CT Scan/US CT Abd/Pelvis Other Rad Studies (CT/US): Read By Radiologist, Radiology Report Reviewed CT/US Interpretation: Name:CASEEMMETT Exam Date:May 31, 2018 10:53:39 PM EDT. Modality Type:CT\SR. Description:CT - ABDOMEN AND PELVIS WITH CORONAL AND SAGITTAL MPRS. Gender:F Laterality:Not applicable. :69 Referring Physician:Kevin Rowley (). EXAM: CT Abdomen and Pelvis with IV contrast. CLINICAL HISTORY: Diffuse abd pain- h/o crohn's disease. TECHNIQUE: Axial computed tomography images of the abdomen and pelvis with intravenous contrast. 924 mGy-cm. CONTRAST: With intravenous contrast. With; OMNI 300/100ML. COMPARISON: None provided. FINDINGS: LUNG BASES: The lung bases appear clear. No pleural effusions are seen. LIVER: There is diffuse hepatic hypoattenuation compatible with fatty infiltration. GALLBLADDER AND BILE DUCTS: S/p cholecystectomy. Surgical clips are noted in the gallbladder fossa. PANCREAS: Unremarkable. SPLEEN: Unremarkable. ADRENAL GLANDS: Unremarkable. KIDNEYS, URETERS, AND BLADDER: The kidneys appear within normal limits. There is no hydronephrosis or hydroureter. No urinary calculi are seen. STOMACH AND BOWEL: Thick walled fluid filled duodenum and loops of jejunum as well as ileum compatible with enteritis. No evidence of abscess or fistula. There is diffuse diverticulosis noted involving descending and sigmoid colon. No evidence of acute diverticulitis. APPENDIX: No evidence of acute appendicitis on CT examination. PERITONEUM: No free fluid. No free air. LYMPH NODES: No lymphadenopathy is evident. REPRODUCTIVE: Unremarkable as visualized. VASCULATURE: No evidence of abdominal aortic aneurysm. BONES: No aggressive appearing osseous lesion. No acute osseous pathology evident. IMPRESSION: 1. S/p cholecystectomy. 2. Fatty liver. 3. Enteritis, consistent with history of Crohn's. 4. There is diffuse diverticulosis noted involving descending and sigmoid colon. No evidence of acute diverticulitis. . Electronically signed on May 31, 2018 11:31:11 PM EDT by: Kevin Bourgeois M.D., KADY Certified By ABR & CBCCT. Fellowship Trained MRI and CT Specialist Medical Decision Making Medical Decision Making: Impression: Abdominal pain, Generalized bodyaches Initial Plan: --VBG --CMP --Lipase --CBC --UA --Flu swab --Urine and blood cultures --Chest x-ray --Toradol 30 mg IVP --Pending CT Abd/Pelvis Labs reviewed, urine clear. Flu negative. WBC 13.7k On re-evaluation patient reports improvement in symptoms. Paged Dr. Moore, discussed results, recommends patient be discharged home and follow up in the office tomorrow. Disposition Counseled Patient/Family Regarding: Studies Performed, Diagnosis, Need For Followup - Disposition Referrals: Joni Moore MD [Staff Provider] - Disposition: HOME/ ROUTINE Disposition Time: 23:30 Condition: GOOD Additional Instructions: IRIS CASE, thank you for letting us take care of you today. The emergency medical care you received today was directed at your acute symptoms. If you were prescribed any medication, please fill it and take as directed. It may take several days for your symptoms to resolve. Return to the Emergency Department if your symptoms worsen, do not improve, or if you have any other problems. Please contact your doctor or call one of the physicians/clinics you have been referred to that are listed on the Patient Visit Information form that is included in your discharge packet. Bring any paperwork you were given at discharge with you along with any medications you are taking to your follow up visit. Our treatment cannot replace ongoing medical care by a primary care provider outside of the emergency department. Thank you for allowing the [facility] team to be part of your care today. Follow up with Dr. Moore in 1-2 days for re-evaluation and further management. Instructions: Acute Abdomen (Belly Pain), Adult (DC) Forms: [employer] (Peruvian) - POA Present On Arrival: None - Clinical Impression Clinical Impression: Diverticulosis - Scribe Statement The provider has reviewed the documentation as recorded by the Scribe (Francia Villalba) Provider Attestation: All medical record entries made by the Scribe were at my direction and personally dictated by me. I have reviewed the chart and agree that the record accurately reflects my personal performance of the history, physical exam, medical decision making, and the department course for this patient. I have also personally directed, reviewed, and agree with the discharge instructions and disposition.
--- NOTE | 2018-06-01 08:10 | CT ---
Date of service: 05/31/2018 PROCEDURE: CT Abdomen and Pelvis with intravenous contrast HISTORY: Diffuse abdominal pain. History of Crohn's disease. COMPARISON: 11/15/2017 TECHNIQUE: Multiple contiguous axial images were performed through the abdomen and pelvis with the use of intravenous contrast. Subsequently, sagittal and coronal reformatted images were obtained. Radiation dose: Total exam DLP = 923 mGy-cm. This CT exam was performed using one or more of the following dose reduction techniques: Automated exposure control, adjustment of the mA and/or kV according to patient size, and/or use of iterative reconstruction technique. FINDINGS: LOWER THORAX: Scattered atelectasis at the lung bases. LIVER: Diffuse hepatic hypoattenuation compatible with fatty infiltration. GALLBLADDER AND BILE DUCTS: Prior cholecystectomy. PANCREAS: Unremarkable. No gross lesion or ductal dilatation. SPLEEN: Unremarkable. ADRENALS: Unremarkable. No mass. KIDNEYS AND URETERS: Unremarkable. No hydronephrosis. No solid mass. VASCULATURE: Unremarkable. No aortic aneurysm. BOWEL: Thick-walled fluid-filled duodenum and loops of jejunum as well as ileum suggestive for an enteritis. Diffuse diverticulosis noted involving the descending and sigmoid colon. Scattered areas of underdistention of the left hemicolon particularly at the level of the sigmoid colon. Clinical correlation. APPENDIX: No findings to suggest acute appendicitis. PERITONEUM: Unremarkable. No free fluid. No free air. LYMPH NODES: Unremarkable. No enlarged lymph nodes. BLADDER: Unremarkable. REPRODUCTIVE: Unremarkable. BONES: Degenerative changes in the spine with multilevel posterior disc osteophyte complexes. OTHER FINDINGS: None. IMPRESSION: Thick-walled fluid-filled duodenum and loops of jejunum as well as ileum suggestive for an enteritis and consistent with patient's history of Crohn's disease. Clinical correlation. Diffuse diverticulosis noted involving the descending and sigmoid colon. Scattered areas of underdistention of the left hemicolon particularly at the level of the sigmoid colon. Clinical correlation. Fatty infiltration of the liver. Prior cholecystectomy. These findings were preliminarily reported at 11:31 p.m. on 05/31/[address] Kevin Bourgeois from [employer].
--- NOTE | 2018-06-01 09:08 | RAD ---
Chest x-ray single frontal view HISTORY: Infiltrate. COMPARISON: 05/08/2017 Findings: Biapical pleural thickening. Mild venous congestion. Tortuous ectatic aorta. Degenerative changes in the spine and shoulders. Impression: Biapical pleural thickening. Mild venous congestion. Tortuous ectatic aorta.
== END 2018-06-01 00:23 | disposition home or self-care (01) ==
LOC: C.ER 20:11
DX: K57.30 Diverticulosis of large intestine without perforation or abscess without bleeding (principal)
CPT/HCPCS: 71045; 74177; 80053; 81001; 82803; 83690; 85025; 87040; 87086; 87804; 96374; 99285; J1885; Q9967

== ENCOUNTER 2018-07-29 10:04 | Emergency (ER) | payer MEDICAID ==
[2018-07-29 10:05] VITALS: BMI 25.8
--- NOTE | 2018-07-29 10:20 | C.PDOC ---
History Of Present Illness 53 y/o female,w/PMhx of anxiety, arthritis, and 5 herniated discs with associated sciatica, presents to the ER complaining of left knee pain x 1 day. Patient notes that she fell yesterday landing on her left knee, causing immediate pain. She is having difficulty ambulating secondary to pain. Patient states her chronic back pain waxes and wanes, and has been worse over the past 4 days but feels typical of her past pain. Intermittently radiates down back of left leg. Received a percocet prescription from her primary earlier this week. She took Percocet yesterday without relief. Denies ankle pain, hip pain, numbness, parasthesia, urinary symptoms, urinary/bowel incontinence, saddle anasthesia, fever, chills, chest pain, SOB, or any other associated symptoms. Time Seen by Provider: 07/29/18 10:20 Chief Complaint (Nursing): Back Pain History Per: Patient History/Exam Limitations: no limitations Onset/Duration Of Symptoms: Days Current Symptoms Are (Timing): Still Present Severity: Moderate Past Medical History Reviewed: Historical Data, Nursing Documentation, Vital Signs - Medical History PMH: Anxiety, Arthritis, Asthma, Back Problems (herniated disc x 5), Bipolar Disorder, CAD, Crohn's Disease, Depression, Diabetes, Diverticulitis, Gastritis, Gall Bladder Disease, HTN, Hypercholesterolemia, Hypothyroidism, Migraine, Peripheral Edema, Pneumonia, Post Traumatic Stress Disorder, Seizures (last 25 yrs ago) Denies: Anemia, Atrial Fibrillation, Cardia Arrhythmia, HIV, Hyperthyroidism, Kidney Stones, Pancreatitis, Chronic Kidney Disease, Rheumatoid Arthritis, Sexually Transmitted Disease Surgical History: Cholecystectomy Comment Only: Coronary Stent (DENIES) - [facility] Procedures ANESTH INJECT-SPIN CANAL (02/17/13) CLOSURE SKIN & SUBCUTANEOUS NEC (01/29/13) DERMAL REGENERATIVE GRAFT (09/05/13) DIVISION OF R FOOT SUBCU/FASCIA, OPEN APPROACH (01/19/17) EXCISION OF ASCENDING COLON, ENDO, DIAGN (10/01/15) EXCISION OF DESCENDING COLON, ENDO, DIAGN (10/01/15) EXCISION OF RECTUM, ENDO, DIAGN (10/01/15) EXCISION OF RIGHT TARSAL, OPEN APPROACH (01/19/17) EXCISION OF SIGMOID COLON, ENDO, DIAGN (10/01/15) EXCISION OF TRANSVERSE COLON, ENDO, DIAGN (10/01/15) INJECT STEROID (03/31/13) INJECTION INTO JOINT (03/31/13) INSERTION OF INFUSION DEVICE INTO R ATRIUM, PERC APPROACH (10/01/15) LOC EXC BONE LESION NEC (08/11/13) LUMBOSAC SPINE X-RAY NEC (03/31/13) NONEXCIS DEBRID OF WOUND, INFECT, OR BURN (09/05/13) OTHER EXCISION, FUSION, AND REPAIR OF TOES (03/16/15) OTHER LOCAL DESTRUC SKIN (07/07/13) REMOVAL OF INT FIX FROM L TOE PHALANX JT, OPEN APPROACH (01/19/17) SPINAL CANAL INJECT NEC (03/31/13) TETANUS TOXOID ADMINIST (01/29/13) ULTRASONOGRAPHY OF RIGHT HEART (10/01/15) Family History: States: Diabetes - Social History Hx Tobacco Use: Yes Hx Alcohol Use: No Hx Substance Use: No - Immunization History Hx Tetanus Toxoid Vaccination: Yes Hx Influenza Vaccination: Yes Hx Pneumococcal Vaccination: Yes Review Of Systems Except As Marked, All Systems Reviewed And Found Negative. Constitutional: Negative for: Fever, Chills Eyes: Negative for: Vision Change Cardiovascular: Negative for: Chest Pain, Palpitations, Light Headedness Respiratory: Negative for: Cough, Shortness of Breath Gastrointestinal: Negative for: Nausea, Vomiting, Abdominal Pain Genitourinary: Negative for: Incontinence Musculoskeletal: Positive for: Back Pain, Leg Pain (left knee). Negative for: Neck Pain Skin: Negative for: Rash, Bruising Neurological: Negative for: Weakness, Numbness, Dizziness Physical Exam - Physical Exam Appears: Well, Non-toxic, No Acute Distress Skin: Normal Color, Warm, Dry Head: Atraumatic, Normacephalic Eye(s): bilateral: Normal Inspection, PERRL, EOMI Nose: Normal Oral Mucosa: Moist Neck: Supple Chest: Symmetrical Cardiovascular: Rhythm Regular Respiratory: Normal Breath Sounds, No Rales, No Rhonchi, No Wheezing Gastrointestinal/Abdominal: Normal Exam, Bowel Sounds (normal), Soft, No Tenderness Back: Normal Inspection, No CVA Tenderness, Decreased ROM (decreased flexion of lumbar spine secondary to pain), No Paraspinal Tenderness, Straight Leg Raising (positive on left) Extremity: No Normal ROM (decreased ROM of left knee secondary to pain), Tenderness (tenderness over patella of left knee), Capillary Refill (<2s), No Swelling, Other (difficulty weight bearing on left leg) Extremity: Left: Limited ROM To Joint, Painful To Bear Weight, Right: Normal ROM, Bilateral: Atraumatic, No Pedal Edema, Normal Color And Temperature Pulses: Left Dorsalis Pedis: Normal, Right Dorsalis Pedis: Normal Neurological/Psych: Oriented x3, Normal Speech, Normal Cognition, Normal Motor, Normal Sensation Gait: Steady ED Course And Treatment - Other Rad X-Ray-Left Knee X-Ray: Viewed By Me, Read By Radiologist Interpretation: FINDINGS: BONES: No fracture. JOINTS: Osteoarthrosis. JOINT EFFUSION: None. OTHER FINDINGS: Quadriceps insertional enthesophyte. IMPRESSION: Quadriceps insertional enthesophyte with peripatellar appear spurring. Given the well corticated ossification here which may be contiguous and yet still -the possibility of a remote old quadriceps injury here at the patellar insertion is not excluded. No acute peripatellar pathology suggested. Findings are unchanged with the 2014 images. Mild osteoarthrosis tibial spine spurring. Patellofemoral congruency Medical Decision Making Medical Decision Making: Plan: --Toradol IM --X-Ray-Left Knee w/ patella Patient reports significantly decreased pain after medication. Left Knee XR: no acute fracture or dislocation Patient placed in short knee immobilizer and instructed to followup with orthopedics. Given naproxen prescription for pain. Plan of care discussed with patient, and strict instructions given regarding prescriptions, importance of follow up, and signs to return to Emergency Department, to include incontinence, fever, chills, or any other new/worsening symptoms. Patient verbalizes understanding of discussion. Patient A&Ox3, ambulating with steady gait, stable for discharge home. Disposition - Disposition Referrals: Anup Solorzano III, MD [Staff Provider] - Disposition: HOME/ ROUTINE Disposition Time: 10:45 Condition: IMPROVED Additional Instructions: Rest, ice, elevate injured knee Keep knee in brace until orthopedic followup Ibuprofen/tylenol for pain Followup with orthopedics within 2 days Followup with primary within 2 days Return to ER for new/worsening symptoms Prescriptions: Naproxen 500 mg PO DAILY PRN #14 tablet PRN Reason: Pain, Moderate (4-7) Instructions: Knee Sprain (DC) Forms: [employer] (Gambian), Work Excuse - Clinical Impression Clinical Impression: Knee injury - PA / MERCHANDISE FLOW ASSOCIATE / Resident Statement MD/DO has reviewed & agrees with the documentation as recorded. - Scribe Statement The provider has reviewed the documentation as recorded by the Johnibe Flip Monaco Provider Attestation All medical record entries made by the Johnibbill were at my direction and personally dictated by me. I have reviewed the chart and agree that the record accurately reflects my personal performance of the history, physical exam, medical decision making, and the department course for this patient. I have also personally directed, reviewed, and agree with the discharge instructions and disposition.
--- NOTE | 2018-07-29 11:14 | RAD ---
Date of service: 07/29/2018 PROCEDURE: Left Knee Radiographs. HISTORY: Pain. COMPARISON: 05/19/2014 FINDINGS: BONES: No fracture JOINTS: Osteoarthrosis JOINT EFFUSION: None. OTHER FINDINGS: Quadriceps insertional enthesophyte IMPRESSION: Quadriceps insertional enthesophyte with peripatellar appear spurring. Given the well corticated ossification here which may be contiguous and yet still -the possibility of a remote old quadriceps injury here at the patellar insertion is not excluded. No acute peripatellar pathology suggested. Findings are unchanged with the 2014 images Mild osteoarthrosis tibial spine spurring. Patellofemoral congruency
[2018-07-29 11:28] VITALS: BP 125/70; PULSE 61; RESP 20; TEMP 98.8; O2SAT 98
== END 2018-07-29 11:30 | disposition home or self-care (01) ==
LOC: C.ER 10:04
DX: S89.92XA Unspecified injury of left lower leg, initial encounter (principal); W18.30XA Fall on same level, unspecified, initial encounter
CPT/HCPCS: 73562; 96372; 99284; J1885

== ENCOUNTER 2018-09-10 11:24 | Emergency (ER) | payer MEDICAID ==
[2018-09-10 11:24] VITALS: BMI 25.8
--- NOTE | 2018-09-10 12:51 | C.PDOC ---
History Of Present Illness 53 y/o female with a PMHx of HTN, hypercholesterolemia, asthma, and herniated discs presents to the ED with right-sided back pain radiating to the right flank and RUQ for 3 days. Pain is constant but waxing and waning. Patient notes when pain worsens, she becomes nauseous and vomits. She also reports dysuria and foul-smelling urine. Denies any hematuria, chest pain, SOB, weakness, numbness, rashes, or vaginal discharge or bleeding. Denies prior hx of kidney stones. Time Seen by Provider: 09/10/18 11:43 Chief Complaint (Nursing): Back Pain History Per: Patient History/Exam Limitations: no limitations Onset/Duration Of Symptoms: Days Current Symptoms Are (Timing): Worse Quality Of Discomfort: "Pain", Other (Colicky) Previous Symptoms: Back Pain (herniated discs) Past Medical History Reviewed: Historical Data, Nursing Documentation, Vital Signs Vital Signs: Last Vital Signs Temp 97.9 F 09/10/18 11:28 Pulse 108 H 09/10/18 11:28 Resp 20 09/10/18 11:28 BP 122/84 09/10/18 11:28 Pulse Ox 99 09/10/18 11:28 - Medical History PMH: Anxiety, Arthritis, Asthma, Back Problems (herniated disc x 5), Bipolar Disorder, CAD, Crohn's Disease, Depression, Diabetes, Diverticulitis, Gastritis, Gall Bladder Disease, HTN, Hypercholesterolemia, Hypothyroidism, Migraine, Peripheral Edema, Pneumonia, Post Traumatic Stress Disorder, Seizures (last 25 yrs ago) Denies: Anemia, Atrial Fibrillation, Cardia Arrhythmia, HIV, Hyperthyroidism, Kidney Stones, Pancreatitis, Chronic Kidney Disease, Rheumatoid Arthritis, Sexually Transmitted Disease Surgical History: Cholecystectomy Comment Only: Coronary Stent (DENIES) Other Surgeries: Hysterectomy - [facility] Procedures ANESTH INJECT-SPIN CANAL (02/17/13) CLOSURE SKIN & SUBCUTANEOUS NEC (01/29/13) DERMAL REGENERATIVE GRAFT (09/05/13) DIVISION OF R FOOT SUBCU/FASCIA, OPEN APPROACH (01/19/17) EXCISION OF ASCENDING COLON, ENDO, DIAGN (10/01/15) EXCISION OF DESCENDING COLON, ENDO, DIAGN (10/01/15) EXCISION OF RECTUM, ENDO, DIAGN (10/01/15) EXCISION OF RIGHT TARSAL, OPEN APPROACH (01/19/17) EXCISION OF SIGMOID COLON, ENDO, DIAGN (10/01/15) EXCISION OF TRANSVERSE COLON, ENDO, DIAGN (10/01/15) INJECT STEROID (03/31/13) INJECTION INTO JOINT (03/31/13) INSERTION OF INFUSION DEVICE INTO R ATRIUM, PERC APPROACH (10/01/15) LOC EXC BONE LESION NEC (08/11/13) LUMBOSAC SPINE X-RAY NEC (03/31/13) NONEXCIS DEBRID OF WOUND, INFECT, OR BURN (09/05/13) OTHER EXCISION, FUSION, AND REPAIR OF TOES (03/16/15) OTHER LOCAL DESTRUC SKIN (07/07/13) REMOVAL OF INT FIX FROM L TOE PHALANX JT, OPEN APPROACH (01/19/17) SPINAL CANAL INJECT NEC (03/31/13) TETANUS TOXOID ADMINIST (01/29/13) ULTRASONOGRAPHY OF RIGHT HEART (10/01/15) Family History: States: Diabetes - Social History Hx Tobacco Use: Yes Hx Alcohol Use: No Hx Substance Use: No - Immunization History Hx Tetanus Toxoid Vaccination: Yes Hx Influenza Vaccination: Yes (2018) Hx Pneumococcal Vaccination: No Review Of Systems Constitutional: Negative for: Fever, Chills Cardiovascular: Negative for: Chest Pain Respiratory: Negative for: Cough, Shortness of Breath Gastrointestinal: Positive for: Nausea, Vomiting, Abdominal Pain (RUQ and right flank) Genitourinary: Positive for: Dysuria. Negative for: Incontinence, Hematuria, Vaginal Discharge, Vaginal Bleeding, Pelvic Pain Musculoskeletal: Positive for: Back Pain (right-sided) Skin: Negative for: Rash Neurological: Negative for: Weakness, Numbness, Dizziness Physical Exam - Physical Exam Appears: Non-toxic, No Acute Distress Skin: Warm, No Rash Head: Normacephalic Eye(s): bilateral: PERRL, EOMI Oral Mucosa: Moist Neck: Normal ROM, Supple Chest: Symmetrical, No Tenderness Cardiovascular: Rhythm Regular, No Murmur Respiratory: No Rales, No Rhonchi, No Wheezing, Other (Lungs clear to auscultation) Gastrointestinal/Abdominal: Soft, Tenderness (to the RUQ and right flank), No Distention, No Guarding, No Rebound Back: CVA Tenderness (Right-sided), No Vertebral Tenderness, No Straight Leg Raising, Other (No erythema or skin changes to back) Extremity: Normal ROM (of left upper extremity, and bilateral lower extremities), No Swelling, Other (Right upper extremity in sling - patient reports having surgery last week for fracture) Pulses: Left Radial: Normal, Right Radial: Normal Neurological/Psych: Oriented x3 Gait: Steady ED Course And Treatment - Laboratory Results Result Diagrams: 09/10/18 12:58 09/10/18 12:58 O2 Sat by Pulse Oximetry: 99 (RA) Pulse Ox Interpretation: Normal - CT Scan/US CT Abd/Pelvis Other Rad Studies (CT/US): Read By Radiologist, Radiology Report Reviewed CT/US Interpretation: IMPRESSION: Hepatomegaly with fatty hepatic infiltration. Cholecystectomy. Diverticulosis without of definitive radiographic evidence of acute diverticulitis. There is a small umbilical hernia and small to medium- sized ventral wall hernia lower pelvis region. No evidence of right-sided nephrolithiasis however there is a small vague hyperdense focus in the midpole collecting system left kidney that could represent of focal area of microcalcifications.. Hysterectomy. Medical Decision Making Medical Decision Making: Plan: Blood work and urine sent to the lab. 30 mg IM Toradol given for pain control. CT Abdomen/Pelvis ordered to rule out renal colic. 1435 pt with markedly decreased pain s/p toradol; abdomen soft, nd., nt on re- exam. no episodes of vomiting in ed. non contrast ct with no acute findings; no kidney stones, no hydronephrosis. will tx pt for uti given hx of dysuria, foul smelling urine. first dose macrobid to be given in the ed as po challenge. 1533 pt received po medication, first dose of macrobid, has not thrown up, will d/c home with rx for macrobid, motrin and f/u pmd. Disposition Counseled Patient/Family Regarding: Studies Performed, Diagnosis, Need For Followup, Rx Given - Disposition Referrals: Belinda Jones MD [Staff Provider] - Disposition: HOME/ ROUTINE Disposition Time: 15:36 Condition: IMPROVED Additional Instructions: Please drink increased water, take antibiotics until finished, Motrin for pain. Follow up with your doctor on Thursday, Return to ER for any worse pain. persistent vomiting or any other concerns. Prescriptions: Ibuprofen [Motrin] 600 mg PO TID #30 tab Nitrofurantoin Macrocrystals [Macrobid] 100 mg PO BID #14 cap Instructions: Urinary Tract Infection, Adult (DC) Forms: [facility] (Bengali), General Discharge Instructions - Clinical Impression Clinical Impression: Pyelonephritis - PA / SEISMOGRAPH RECORDER / Resident Statement MD/DO has reviewed & agrees with the documentation as recorded. - Scribe Statement The provider has reviewed the documentation as recorded by the Scribe Francia Villalba All medical record entries made by the Scribe were at my direction and personally dictated by me. I have reviewed the chart and agree that the record accurately reflects my personal performance of the history, physical exam, medical decision making, and the department course for this patient. I have also personally directed, reviewed, and agree with the discharge instructions and disposition.
[2018-09-10 13:03] LABS: BASO # 0.2 K/uL (0.0-0.2); BASO % 1.4 % (0.0-2.0); EOS # 0.4 K/uL (0.0-0.7); EOS % 2.5 % (0.0-4.0); HEMOGLOBIN 12.5 g/dL (11.0-16.0); LYMPH # 3.7 K/uL (1.0-4.3); LYMPH % 23.8 % (20.0-40.0); MEAN CORPUSCULAR HGB CONC 33.3 g/dL (33.0-37.0); MEAN PLATELET VOLUME 8.4 fL (7.2-11.7); MONO # 1.3 K/uL (0.0-0.8); MONO % 8.2 % (0.0-10.0); NEUT % 64.1 % (50.0-75.0); RBC 4.3 Mil/uL (3.80-5.20); RED CELL DISTRIBUTION WIDTH 12.9 % (11.5-14.5); WHITE BLOOD COUNT 15.5 K/uL (4.8-10.8)
[2018-09-10 13:05] LABS: SQUAMOUS EPITHIAL 11 /hpf (0-5); URINE BACTERIA MOD (<OCC); URINE BILIRUBIN NEGATIVE (NEGATIVE); URINE BLOOD NEGATIVE (NEGATIVE); URINE CLARITY Hazy (Clear); URINE COLOR Yellow (YELLOW); URINE GLUCOSE (UA) NORMAL (Normal); URINE LEUKOCYTE ESTERASE NEG Leu/uL (Negative); URINE PROTEIN NEGATIVE (NEGATIVE); URINE UROBILINOGEN NORMAL mg/dL (0.2-1.0)
[2018-09-10 13:13] LABS: ALB/GLOB RATIO 1.4 (1.0-2.1); ALBUMIN 4.4 g/dL (3.5-5.0); ALT/SGPT 30 U/L (9-52); AST/SGOT 25 U/L (14-36); BLOOD UREA NITROGEN 12 mg/dL (7-17); CALCIUM 8.9 mg/dl (8.6-10.4); GFR NON-AFRICAN AMERICAN > 60; LIPASE 50 U/L (23-300)
--- NOTE | 2018-09-10 13:54 | CT ---
Date of service: 09/10/2018 PROCEDURE: CT Abdomen and Pelvis with Oral contrast. HISTORY: Right-sided flank pain COMPARISON: None. TECHNIQUE: Contiguous axial images of the abdomen and pelvis performed without oral or intravenous contrast material. Additional 2D sagittal and coronal sagittal reformats generated. Radiation dose: Total exam DLP = 974.81 mGy-cm. This CT exam was performed using one or more of the following dose reduction techniques: Automated exposure control, adjustment of the mA and/or kV according to patient size, and/or use of iterative reconstruction technique. FINDINGS: LOWER THORAX: Unremarkable. LIVER: Liver is enlarged measuring nearly 21 cm in cc dimension. Mild fatty hepatic infiltration. No obvious hepatic masses collections or calcifications. The. GALLBLADDER AND BILE DUCTS: Cholecystectomy... PANCREAS: Pancreas appears slightly atrophic and fatty replaced. No pancreatic masses collections or calcifications. No significant pancreatic ductal dilatation.. SPLEEN: Unremarkable. No splenomegaly. ADRENALS: No adrenal lesions. KIDNEYS AND URETERS: Kidneys demonstrate relatively symmetric size. No evidence of right-sided nephrolithiasis or hydronephrosis.. There is a small vague hyperdense focus in the midpole collecting system left kidney that could represent of focal area of microcalcifications.. BLADDER: Urinary bladder is appears physiologically distended. No evidence of intraluminal urinary bladder calculi. REPRODUCTIVE: Hysterectomy. APPENDIX: . normal-appearing appendix. BOWEL: Evaluation of the bowel is somewhat limited due to the lack of oral contrast material. The The stomach is incompletely distended with minimal wall thickening. Visualized loops of small bowel exhibit normal contour and caliber. No evidence of acute mechanical small bowel obstruction. Stool and air seen throughout the large bowel. Scattered colonic diverticula are present however no definitive radiographic evidence of acute diverticulitis. The PERITONEUM: Unremarkable. No fluid collection. No free air. Small fat containing umbilical hernia.. There is a moderate-sized fat containing ventral wall hernia in the inferior pelvis. The the LYMPH NODES: Unremarkable. No enlarged lymph nodes. VASCULATURE: Unremarkable. No aortic aneurysm. Minor aortic atherosclerotic calcification or mural plaque present. BONES: Mild multilevel degenerative spondylosis of the lower thoracic and lumbar spine.. OTHER FINDINGS: None. IMPRESSION: Hepatomegaly with fatty hepatic infiltration. Cholecystectomy. Diverticulosis without of definitive radiographic evidence of acute diverticulitis. There is a small umbilical hernia and small to medium-sized ventral wall hernia lower pelvis region. No evidence of right-sided nephrolithiasis however there is a small vague hyperdense focus in the midpole collecting system left kidney that could represent of focal area of microcalcifications.. Hysterectomy.
[2018-09-10 16:07] VITALS: BP 131/79; PULSE 79; RESP 18; TEMP 97.6
[2018-09-11 22:11] VITALS: O2SAT 99
== END 2018-09-10 16:07 | disposition home or self-care (01) ==
LOC: C.ER 11:24
DX: N12 Tubulo-interstitial nephritis, not specified as acute or chronic (principal); I25.10 Atherosclerotic heart disease of native coronary artery without angina pectoris; I10 Essential (primary) hypertension; E78.00 Pure hypercholesterolemia, unspecified; E11.9 Type 2 diabetes mellitus without complications; Z90.49 Acquired absence of other specified parts of digestive tract; F17.210 Nicotine dependence, cigarettes, uncomplicated
CPT/HCPCS: 74176; 80053; 81001; 83690; 85025; 87086; 96374; 99284; J1885

== ENCOUNTER 2018-10-06 20:31 | Emergency (ER) | payer MEDICAID ==
[2018-10-06 20:31] VITALS: BMI 25.8
[2018-10-06 20:45] VITALS: O2SAT 98
[2018-10-06] MEDS ORDERED: Aspirin 325 mg EC Tablets PO STA (21:41)
--- NOTE | 2018-10-06 21:41 | C.PDOC ---
History Of Present Illness Patient presents to the ER stating she was shopping and developed some chest discomfort and SOB. She notes the chest pain is reproducible with palpation. Patient is speaking in complete sentences and tolerating PO. Denies fever, chil ls, nausea, or vomiting. Time Seen by Provider: 10/06/18 21:40 Chief Complaint (Nursing): Chest Pain History Per: Patient History/Exam Limitations: no limitations Onset/Duration Of Symptoms: Hrs Current Symptoms Are (Timing): Still Present Severity: Moderate Pain Scale Rating Of: 4 Associated Symptoms: Dyspnea Modifying Factors: None Exacerbating Factors: None Alleviating Factors: None Recent travel outside of the [place]: No Past Medical History Reviewed: Historical Data, Nursing Documentation, Vital Signs Vital Signs: Last Vital Signs Temp 98.9 F 10/06/18 20:40 Pulse 119 H 10/06/18 20:40 Resp 18 10/06/18 20:40 BP 112/81 10/06/18 20:40 Pulse Ox 98 10/06/18 20:40 - Medical History PMH: Anxiety, Arthritis, Asthma, Back Problems (herniated disc x 5), Bipolar Disorder, CAD, Crohn's Disease, Depression, Diabetes, Diverticulitis, Gastritis, Gall Bladder Disease, HTN, Hypercholesterolemia, Hypothyroidism, Migraine, Peripheral Edema, Pneumonia, Post Traumatic Stress Disorder, Seizures (last 25 yrs ago) Denies: Anemia, Atrial Fibrillation, Cardia Arrhythmia, HIV, Hyperthyroidism, Kidney Stones, Pancreatitis, Chronic Kidney Disease, Rheumatoid Arthritis, Sexually Transmitted Disease Surgical History: Cholecystectomy Comment Only: Coronary Stent (DENIES) - [facility] Procedures ANESTH INJECT-SPIN CANAL (02/17/13) CLOSURE SKIN & SUBCUTANEOUS NEC (01/29/13) DERMAL REGENERATIVE GRAFT (09/05/13) DIVISION OF R FOOT SUBCU/FASCIA, OPEN APPROACH (01/19/17) EXCISION OF ASCENDING COLON, ENDO, DIAGN (10/01/15) EXCISION OF DESCENDING COLON, ENDO, DIAGN (10/01/15) EXCISION OF RECTUM, ENDO, DIAGN (10/01/15) EXCISION OF RIGHT TARSAL, OPEN APPROACH (01/19/17) EXCISION OF SIGMOID COLON, ENDO, DIAGN (10/01/15) EXCISION OF TRANSVERSE COLON, ENDO, DIAGN (10/01/15) INJECT STEROID (03/31/13) INJECTION INTO JOINT (03/31/13) INSERTION OF INFUSION DEVICE INTO R ATRIUM, PERC APPROACH (10/01/15) LOC EXC BONE LESION NEC (08/11/13) LUMBOSAC SPINE X-RAY NEC (03/31/13) NONEXCIS DEBRID OF WOUND, INFECT, OR BURN (09/05/13) OTHER EXCISION, FUSION, AND REPAIR OF TOES (03/16/15) OTHER LOCAL DESTRUC SKIN (07/07/13) REMOVAL OF INT FIX FROM L TOE PHALANX JT, OPEN APPROACH (01/19/17) SPINAL CANAL INJECT NEC (03/31/13) TETANUS TOXOID ADMINIST (01/29/13) ULTRASONOGRAPHY OF RIGHT HEART (10/01/15) Family History: States: Diabetes - Social History Hx Tobacco Use: Yes Hx Alcohol Use: No Hx Substance Use: No - Immunization History Hx Tetanus Toxoid Vaccination: Yes Hx Influenza Vaccination: Yes (2018) Hx Pneumococcal Vaccination: No Review Of Systems Constitutional: Negative for: Fever, Chills Cardiovascular: Positive for: Chest Pain. Negative for: Palpitations Respiratory: Positive for: Shortness of Breath. Negative for: Cough Gastrointestinal: Negative for: Nausea, Vomiting Neurological: Negative for: Weakness, Numbness Physical Exam - Physical Exam Appears: Non-toxic, Other (Very anxious) Skin: Warm Head: Normacephalic Oral Mucosa: Moist Neck: Trachea Midline, Supple Chest: Tenderness (Sternal and left reproducible with palpation, same pain patient was feeling) Cardiovascular: Rhythm Regular Respiratory: No Rales, No Rhonchi, No Wheezing Gastrointestinal/Abdominal: Soft, No Tenderness Neurological/Psych: Oriented x3 ED Course And Treatment - Laboratory Results Result Diagrams: 10/06/18 21:54 10/06/18 21:54 ECG: Interpreted By Me, Viewed By Me ECG Rhythm: Sinus Rhythm (110), Nonspecific Changes O2 Sat by Pulse Oximetry: 98 (room air) Pulse Ox Interpretation: Normal Progress Note: EKG, blood work, urinalysis, and flu swab ordered. Aspirin administered. Reevaluation Time: 00:48 Reassessment Condition: Improved Medical Decision Making Medical Decision Making: Upon provider reevaluation patient is feeling better, is medically stable, and requires no further treatment in the ED at this time. Patient will be discharged home . Counseling was provided and all questions were answered regarding diagnosis and need for follow up withdr jessica. There is agreement to discharge plan. Return if symptoms persist or worsen. Disposition Counseled Patient/Family Regarding: Studies Performed, Diagnosis, Need For Followup, Rx Given - Disposition Referrals: Joni Moore MD [Staff Provider] - Disposition: HOME/ ROUTINE Disposition Time: 21:41 Condition: FAIR Additional Instructions: Please return if symptoms recur Prescriptions: Albuterol HFA [Ventolin HFA 90 mcg/actuation (8 g)] 2 puff IH [id number] #1 puff Instructions: COPD Including Emphysema (DC), Anxiety, Adult (DC) Forms: [employer] (Peruvian) - Clinical Impression Clinical Impression: Costochondral chest pain, Anxiety, Emphysema of lung - Scribe Statement The provider has reviewed the documentation as recorded by the Scribe Stanton España All medical record entries made by the Scribe were at my direction and personally dictated by me. I have reviewed the chart and agree that the record accurately reflects my personal performance of the history, physical exam, medical decision making, and the department course for this patient. I have also personally directed, reviewed, and agree with the discharge instructions and disposition.
[2018-10-06 21:46] VITALS: RESP 16
[2018-10-06] MEDS ORDERED: Aspirin 325 mg EC Tablets PO ONE (21:53)
[2018-10-06 22:02] LABS: BASO # 0.2 K/uL (0.0-0.2); EOS # 0.6 K/uL (0.0-0.7); EOS % 3.6 % (0.0-4.0); HEMOGLOBIN 12.6 g/dL (11.0-16.0); LYMPH # 4.5 K/uL (1.0-4.3); LYMPH % 28.1 % (20.0-40.0); MEAN CORPUSCULAR HEMOGLOBIN 28.8 pg (27.0-31.0); MEAN CORPUSCULAR HGB CONC 33.4 g/dL (33.0-37.0); MEAN PLATELET VOLUME 8.4 fL (7.2-11.7); MONO # 1.1 K/uL (0.0-0.8); NEUT # 9.7 K/uL (1.8-7.0); NEUT % 60.3 % (50.0-75.0); RBC 4.36 Mil/uL (3.80-5.20); RED CELL DISTRIBUTION WIDTH 13.3 % (11.5-14.5)
[2018-10-06 22:20] LABS: ALB/GLOB RATIO 1.4 (1.0-2.1); ALBUMIN 4.2 g/dL (3.5-5.0); ALT/SGPT 12 U/L (9-52); AST/SGOT 32 U/L (14-36); BLOOD UREA NITROGEN 13 mg/dL (7-17); CALCIUM 9.1 mg/dl (8.6-10.4); GFR NON-AFRICAN AMERICAN > 60
[2018-10-06 22:21] LABS: INR 1.1; PROTHROMBIN TIME 11.5 SECONDS (9.7-12.2)
[2018-10-06 22:22] LABS: ABG ALLEN TEST POS; ARTERIAL BLOOD GAS HCO3 24.7 mmol/L (21-28); ARTERIAL BLOOD GAS O2 SAT 96.9 % (95-98); ARTERIAL BLOOD GAS PCO2 37 mm/Hg (35-45); ARTERIAL BLOOD GAS PH 7.42 (7.35-7.45); ARTERIAL BLOOD GAS PO2 73 mm/Hg (80-100); ARTERIAL BLOOD GAS TCO2 25.1 mmol/L (22-28)
[2018-10-06 22:24] LABS: B-TYPE NATRIURETIC PEPTIDE 13.1 pg/mL (0-900)
[2018-10-06] MEDS ORDERED: Iodixanol 320 MG/ML 100 ML BOTTLE IV ONE (23:11)
[2018-10-07 00:53] VITALS: BP 118/71; PULSE 100; TEMP 97
--- NOTE | 2018-10-07 10:40 | CT ---
Date of service: 10/06/2018 CTA chest PE protocol Indication: sob, elevated d dimer Technique: Contiguous axial images were obtained through the chest with intravenous contrast enhancement. Sagittal and coronal reconstructions were generated and reviewed. This CT exam was performed using 1 or more of the following dose reduction techniques: Automated exposure control, adjustment of the MAA and/or kV according to patient size, and/or use of iterative reconstruction technique. IV contrast: Radiation dose (DLP): 539.22 MGy-cm. Comparison: None Findings: Visualized portions of the inferior thyroid gland appear unremarkable. The mediastinal and hilar vascular structures appear within normal limits. The heart appears within normal limits of size. No large central or segmental pulmonary embolus evident. Mild emphysematous changes. No focal consolidation. No pleural effusion. No pneumothorax. Limited visualized portions of the upper abdomen: Cholecystectomy clips. Hypoattenuation of the liver compatible with hepatic steatosis. Fatty atrophy of the pancreas. Mild degenerative changes. Impression: No large central or segmental pulmonary embolus. Preliminary impression was provided by benchee.
--- NOTE | 2018-10-07 12:16 | CARD ---
APPROVED REPORT Date of service: 10/06/2018 EKG Measurement Heart [id number] <Conclusion> Sinus tachycardia Cannot rule out Anterior infarct, age undetermined Abnormal ECG
== END 2018-10-07 00:54 | disposition home or self-care (01) ==
LOC: C.ER 20:31
DX: R07.89 Other chest pain (principal); J43.9 Emphysema, unspecified; F41.9 Anxiety disorder, unspecified; I10 Essential (primary) hypertension; I25.10 Atherosclerotic heart disease of native coronary artery without angina pectoris; E11.9 Type 2 diabetes mellitus without complications; E03.9 Hypothyroidism, unspecified; Z72.0 Tobacco use
CPT/HCPCS: 71275; 80053; 82803; 83880; 84484; 85025; 85378; 85610; 85730; 87804; 93005; 96374; 99285; J1885; Q9967

== ENCOUNTER 2018-10-27 15:18 | Emergency (ER) | payer MEDICAID ==
[2018-10-27 15:29] VITALS: BMI 29.0
[2018-10-27 15:32] VITALS: RESP 20
--- NOTE | 2018-10-27 15:58 | C.PDOC ---
History Of Present Illness 53 y/o female with a PMHx of HTN, DM, asthma, anxiety, chronic back pain, psychiatric illness, and hypothyroidism presents to the ED complaining of rash to left side of neck for 10 days. Rash is located over a birthmark to left lateral neck. Area appears red, raised, and itchy. She has not tried any OTC treatment or medication for the rash. Patient has not seen any doctor yet for this complaint. No allergies, changes in diet. Otherwise she denies fevers, chills, recent travel, URI complaints, abdominal pain, nausea, vomiting, d izziness, vision changes, throat/lip/mouth swelling. Time Seen by Provider: 10/27/18 15:52 Chief Complaint (Nursing): Abnormal Skin Integrity History Per: Patient History/Exam Limitations: no limitations Onset/Duration Of Symptoms: Days (10) Current Symptoms Are (Timing): Still Present Location Of Injury: Left: Neck Past Medical History Reviewed: Historical Data, Nursing Documentation, Vital Signs Vital Signs: Last Vital Signs Temp 97.9 F 10/27/18 15:29 Pulse 108 H 10/27/18 15:29 Resp 20 10/27/18 15:29 BP 103/73 10/27/18 15:29 Pulse Ox 95 10/27/18 15:29 - Medical History PMH: Anxiety, Arthritis, Asthma, Back Problems (herniated disc x 5), Bipolar Disorder, CAD, Crohn's Disease, Depression, Diabetes, Diverticulitis, Gastritis, Gall Bladder Disease, HTN, Hypercholesterolemia, Hypothyroidism, Migraine, Peripheral Edema, Pneumonia, Post Traumatic Stress Disorder, Seizures (last 25 yrs ago) Denies: Anemia, Atrial Fibrillation, Cardia Arrhythmia, HIV, Hyperthyroidism, Kidney Stones, Pancreatitis, Chronic Kidney Disease, Rheumatoid Arthritis, Sexually Transmitted Disease Surgical History: Cholecystectomy Comment Only: Coronary Stent (DENIES) - [facility] Procedures ANESTH INJECT-SPIN CANAL (02/17/13) CLOSURE SKIN & SUBCUTANEOUS NEC (01/29/13) DERMAL REGENERATIVE GRAFT (09/05/13) DIVISION OF R FOOT SUBCU/FASCIA, OPEN APPROACH (01/19/17) EXCISION OF ASCENDING COLON, ENDO, DIAGN (10/01/15) EXCISION OF DESCENDING COLON, ENDO, DIAGN (10/01/15) EXCISION OF RECTUM, ENDO, DIAGN (10/01/15) EXCISION OF RIGHT TARSAL, OPEN APPROACH (01/19/17) EXCISION OF SIGMOID COLON, ENDO, DIAGN (10/01/15) EXCISION OF TRANSVERSE COLON, ENDO, DIAGN (10/01/15) INJECT STEROID (03/31/13) INJECTION INTO JOINT (03/31/13) INSERTION OF INFUSION DEVICE INTO R ATRIUM, PERC APPROACH (10/01/15) LOC EXC BONE LESION NEC (08/11/13) LUMBOSAC SPINE X-RAY NEC (03/31/13) NONEXCIS DEBRID OF WOUND, INFECT, OR BURN (09/05/13) OTHER EXCISION, FUSION, AND REPAIR OF TOES (03/16/15) OTHER LOCAL DESTRUC SKIN (07/07/13) REMOVAL OF INT FIX FROM L TOE PHALANX JT, OPEN APPROACH (01/19/17) SPINAL CANAL INJECT NEC (03/31/13) TETANUS TOXOID ADMINIST (01/29/13) ULTRASONOGRAPHY OF RIGHT HEART (10/01/15) Family History: States: Diabetes - Social History Hx Tobacco Use: Yes Hx Alcohol Use: No Hx Substance Use: No - Immunization History Hx Tetanus Toxoid Vaccination: Yes Hx Influenza Vaccination: Yes (2018) Hx Pneumococcal Vaccination: No Review Of Systems Except As Marked, All Systems Reviewed And Found Negative. Constitutional: Negative for: Fever, Chills Eyes: Negative for: Vision Change ENT: Negative for: Nose Congestion, Mouth Swelling, Throat Swelling Cardiovascular: Negative for: Chest Pain, Palpitations, Light Headedness Respiratory: Negative for: Cough Gastrointestinal: Negative for: Nausea, Vomiting, Abdominal Pain Musculoskeletal: Negative for: Neck Pain Skin: Positive for: Rash (to left neck) Neurological: Negative for: Weakness, Numbness, Headache, Dizziness Physical Exam - Physical Exam Appears: Well, Non-toxic, No Acute Distress Skin: Warm, Dry, Rash (erythematous, slightly raised area of skin with white scaling to left neck skin folds; suspicious for fungal infection) Head: Atraumatic, Normacephalic Eye(s): bilateral: Normal Inspection, PERRL, EOMI Oral Mucosa: Moist Throat: Normal (airway patent, no swelling), No Erythema, No Drooling Neck: Normal ROM, Supple, Other (see skin exam) Chest: Symmetrical Cardiovascular: Rhythm Regular Respiratory: Normal Breath Sounds, No Accessory Muscle Use Extremity: Normal ROM, Capillary Refill (<2s) Pulses: Left Radial: Normal, Right Radial: Normal Neurological/Psych: Oriented x3, Normal Speech, Normal Motor, Normal Sensation Gait: Steady ED Course And Treatment O2 Sat by Pulse Oximetry: 95 (RA) Pulse Ox Interpretation: Normal Medical Decision Making Medical Decision Making: Plan: - 25 mg PO Benadryl - 20 mg PO Pepcid - Reassess On reassessment patient remains AAOx3 with clear speech, in no acute distress. VSS. Reports decreased itching. Patient will be discharged home with rx for Benadryl and Ketoconazole 2% cream. Advised patient to follow up with PMD and/or Dermatology, referral provided. Diagnostic testing results and plan of care discussed with patient. Strict ins tructions given regarding prescription use, importance of followup, and signs/symptoms to return to ER including fever, dizziness, worsening rash, or any other new/worsening symptoms. Pt verbalized understanding of discussion. Patient is A&Ox3, ambulating with steady gait, with vital signs stable for discharge. Disposition Counseled Patient/Family Regarding: Diagnosis, Need For Followup, Rx Given - Disposition Referrals: [facility] [Outside] Belem Dubose MD [Non-Staff] - Disposition: HOME/ ROUTINE Disposition Time: 15:59 Condition: STABLE Additional Instructions: Apply cream to clean skin twice daily for 4 weeks Take benadryl every 6 hours as needed for itch Followup with dermatology within 2 days Followup with primary doctor within 2 days Prescriptions: DiphenhydrAMINE [Benadryl] 25 mg PO Q6 PRN #28 cap PRN Reason: Itching / Pruritus Ketoconazole 2% Cr [Nizoral] 1 applic TOP Q12 #1 tube Instructions: Fungal Skin Rash (DC) Forms: Gen Discharge Inst Tongan, [facility] (Tongan), Work Excuse - Clinical Impression Clinical Impression: Tinea corporis - 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 - Scribe Statement The provider has reviewed the documentation as recorded by the Anna Villalba All medical record entries made by the Johnibbill were at my direction and personally dictated by me. I have reviewed the chart and agree that the record accurately reflects my personal performance of the history, physical exam, medical decision making, and the department course for this patient. I have also personally directed, reviewed, and agree with the discharge instructions and disposition.
[2018-10-27 16:14] VITALS: BP 114/80; PULSE 102; TEMP 97.8
[2018-10-27 18:43] VITALS: O2SAT 95
== END 2018-10-27 16:14 | disposition home or self-care (01) ==
LOC: C.ER 15:18
DX: B35.4 Tinea corporis (principal)

== ENCOUNTER 2018-11-30 09:05 | Emergency (ER) | payer MEDICAID ==
[2018-11-30 09:06] VITALS: BMI 29.0
[2018-11-30] MEDS ORDERED: DiphenhydrAMINE 50 mg/ml Inj ONE (09:33)
[2018-11-30 09:43] VITALS: TEMP 98
--- NOTE | 2018-11-30 09:44 | C.PDOC ---
History Of Present Illness 53 y/o female with multiple medical problems including schizoaffective disorder and hypertension, presents to the ED complaining of twisting of her tongue to the right side for the past few hours. States she cannot un-twist it. Twisting is associated with some pain as well as swelling to the lip and tongue. States she had similar episode last year, was evaluated in the ED and ultimately discharged home. No associated dizziness, extremity weakness, numbness, or visual changes. She reports difficulty talking because of the twisting. Otherwise patient denies SOB, gurgling, drooling, headache, nausea, or vomiting. Time Seen by Provider: 11/30/18 09:19 Chief Complaint (Nursing): ENT Problem History Per: Patient History/Exam Limitations: no limitations Onset/Duration Of Symptoms: Hrs Current Symptoms Are (Timing): Still Present Possible Cause: Medication (Haldol) Past Medical History Reviewed: Historical Data, Nursing Documentation, Vital Signs Vital Signs: Last Vital Signs Temp 98.6 F 11/30/18 09:12 Pulse 109 H 11/30/18 09:12 Resp 19 11/30/18 09:12 BP 133/96 H 11/30/18 09:12 Pulse Ox 99 11/30/18 09:12 - Medical History PMH: Anxiety, Arthritis, Asthma, Back Problems (herniated disc x 5), Bipolar Disorder, CAD, Crohn's Disease, Depression, Diabetes, Diverticulitis, Gastritis, Gall Bladder Disease, HTN, Hypercholesterolemia, Hypothyroidism, Migraine, Peripheral Edema, Pneumonia, Post Traumatic Stress Disorder, Seizures (last 25 yrs ago) Denies: Anemia, Atrial Fibrillation, Cardia Arrhythmia, HIV, Hyperthyroidism, Kidney Stones, Pancreatitis, Chronic Kidney Disease, Rheumatoid Arthritis, Sexually Transmitted Disease Surgical History: Cholecystectomy Comment Only: Coronary Stent (DENIES) - [facility] Procedures ANESTH INJECT-SPIN CANAL (02/17/13) CLOSURE SKIN & SUBCUTANEOUS NEC (01/29/13) DERMAL REGENERATIVE GRAFT (09/05/13) DIVISION OF R FOOT SUBCU/FASCIA, OPEN APPROACH (01/19/17) EXCISION OF ASCENDING COLON, ENDO, DIAGN (10/01/15) EXCISION OF DESCENDING COLON, ENDO, DIAGN (10/01/15) EXCISION OF RECTUM, ENDO, DIAGN (10/01/15) EXCISION OF RIGHT TARSAL, OPEN APPROACH (01/19/17) EXCISION OF SIGMOID COLON, ENDO, DIAGN (10/01/15) EXCISION OF TRANSVERSE COLON, ENDO, DIAGN (10/01/15) INJECT STEROID (03/31/13) INJECTION INTO JOINT (03/31/13) INSERTION OF INFUSION DEVICE INTO R ATRIUM, PERC APPROACH (10/01/15) LOC EXC BONE LESION NEC (08/11/13) LUMBOSAC SPINE X-RAY NEC (03/31/13) NONEXCIS DEBRID OF WOUND, INFECT, OR BURN (09/05/13) OTHER EXCISION, FUSION, AND REPAIR OF TOES (03/16/15) OTHER LOCAL DESTRUC SKIN (07/07/13) REMOVAL OF INT FIX FROM L TOE PHALANX JT, OPEN APPROACH (01/19/17) SPINAL CANAL INJECT NEC (03/31/13) TETANUS TOXOID ADMINIST (01/29/13) ULTRASONOGRAPHY OF RIGHT HEART (10/01/15) Family History: States: Diabetes - Social History Hx Tobacco Use: Yes Hx Alcohol Use: No Hx Substance Use: No - Immunization History Hx Tetanus Toxoid Vaccination: Yes Hx Influenza Vaccination: Yes (2018) Hx Pneumococcal Vaccination: No Review Of Systems Except As Marked, All Systems Reviewed And Found Negative. Constitutional: Negative for: Fever, Chills Eyes: Negative for: Vision Change ENT: Positive for: Mouth Swelling (tongue/lip swelling, tongue twisted to right), Other (Difficulty talking) Cardiovascular: Negative for: Chest Pain, Palpitations Respiratory: Negative for: Shortness of Breath, Wheezing Gastrointestinal: Negative for: Nausea, Vomiting, Abdominal Pain Musculoskeletal: Negative for: Back Pain Skin: Negative for: Rash Neurological: Negative for: Weakness, Headache, Dizziness Physical Exam - Physical Exam Appears: Non-toxic, No Acute Distress Skin: Warm, Dry, No Diaphoretic Head: Atraumatic, Normacephalic Eye(s): bilateral: Normal Inspection, PERRL, EOMI Tongue: Swelling (Tongue appears twisted to the right, protruding out of the mouth, with some swelling to the lips and tongue) Throat: Other (No drooling) Neck: Trachea Midline, Supple Chest: Symmetrical Cardiovascular: Rhythm Regular, No Murmur Respiratory: Normal Breath Sounds, No Accessory Muscle Use, No Rhonchi, No Stridor, No Wheezing Gastrointestinal/Abdominal: Soft, No Tenderness, No Distention Extremity: Bilateral: Atraumatic, Normal Color And Temperature Pulses: Left Radial: Normal, Right Radial: Normal Neurological/Psych: Oriented x3, Normal Cranial Nerves Gait: Steady ED Course And Treatment O2 Sat by Pulse Oximetry: 99 (NC) Pulse Ox Interpretation: Normal Medical Decision Making Medical Decision Making: Impression: Tongue swelling, possible dystonic reaction Plan: - 50 mg IV Benadryl Disposition Counseled Patient/Family Regarding: Diagnosis, Need For Followup - Disposition Referrals: Joni Moore MD [Staff Provider] - Disposition: HOME/ ROUTINE Disposition Time: 10:35 Condition: STABLE Instructions: Side Effects From Medicines Forms: [facility] (Lao), General Discharge Instructions - POA Present On Arrival: None - Clinical Impression Clinical Impression: Tongue swelling, Acute dystonic reaction due to drugs - Scribe Statement The provider has reviewed the documentation as recorded by the Anna Villalba Provider Attestation: All medical record entries made by the Johnibbill were at my direction and personally dictated by me. I have reviewed the chart and agree that the record accurately reflects my personal performance of the history, physical exam, medical decision making, and the department course for this patient. I have also personally directed, reviewed, and agree with the discharge instructions and disposition.
[2018-11-30] MEDS ORDERED: DiphenhydrAMINE 50 mg/ml Inj IVP STA (09:59)
[2018-11-30 10:04] VITALS: BP 143/83; PULSE 91; RESP 18
[2018-11-30 10:12] VITALS: O2SAT 99
== END 2018-11-30 10:49 | disposition home or self-care (01) ==
LOC: C.ER 09:05
DX: G24.02 Drug induced acute dystonia (principal); R22.0 Localized swelling, mass and lump, head
CPT/HCPCS: 96374; 99284; J1200